=== PATIENT | female | born 1945 ===

== ENCOUNTER → 2020-01-05 10:28 | Outpatient (BNVA) | payer MEDICARE, SELFPAY | PROVIDERS: PCP Internal Medicine; Visit Provider Internal Medicine | DX: I48.20 Chronic atrial fibrillation, unspecified (principal); Z51.81 Encounter for therapeutic drug level monitoring; Z79.01 Long term (current) use of anticoagulants | CPT/HCPCS: 85610 ==

== ENCOUNTER → 2020-02-01 10:18 | Outpatient (REF) | payer MEDICARE, SELFPAY ==
--- NOTE | 2020-02-01 10:30 | CA_ITS ---
Transthoracic Echocardiogram Patient (Last, First, Middle): Carla Bernal, Gender: Female Date of : 1945 Age: 74 Procedure Date: 02/01/2020 Procedure Type: Transthoracic Echocardiogram Location: OP Height: 165.1 cm Weight: 78.47 kg BSA: 1.86 m2 Heart Rate: bpm BP: 140 / [address] Mail Carrier: SHARON Referring MD: Lion Dahl MD Frog Shaker: Hernandez Sheridan MD Symptoms: I48.3 ATYPICAL ATRIAL FLUTTER, R06.02 SOB Study Quality: Fair ECG Rhythm: Sinus Conclusions: - 1. Normal LV systolic function with impaired relaxation filling pattern 2. Normal cardiac valvular Doppler 3. Normal RV systolic pressure 4. No pericardial effusion Findings Left Ventricle Normal left ventricular size, thickness, and systolic function. The visually estimated ejection fraction is between 65-70%. Spectral Doppler is indicative of an impaired relaxation filling pattern. E/E prime ratio is <8, consistent with normal filling pressures. Evidence suggests grade I (mild) diastolic dysfunction. Right Ventricle Normal right ventricular cavity size and systolic function. Atria The left atrium is normal in size. Interatrial shunt cannot be excluded. The right atrium is normal in size. Aortic Valve The aortic valve was not well visualized. There is no aortic valve stenosis. There is no aortic valve regurgitation. Mitral Valve There is mild anterior and posterior mitral leaflet thickening. There is trace mitral valve regurgitation. There is no mitral valve stenosis. Pulmonic Valve The pulmonic valve was not well visualized. Tricuspid Valve Likely normal tricuspid valve structure and function. There is trace tricuspid valve regurgitation. The right ventricular systolic pressure is normal. The right ventricular systolic pressure is 32 mmHg. Normal right atrial pressure. There is no evidence of pulmonary hypertension. Great Vessels All visible segments of the aorta are normal in size. The pulmonary artery was not well visualized. Venous The inferior vena cava is normal in size and collapses greater than 50% with inspiration. Pericardium/Pleural There is no evidence of pericardial effusion. Measurements 2D Linear Measurements IVSd: 0.94 0.6-0.9/0.6-1.0 cm LVIDd: 4.15 3.9-5.3/4.2-5.9 cm LVIDd Index: 2.23 2.4-3.2/2.2-3.1 cm/m2 LVIDs: 2.46 2.0-3.6 cm LVPWd: 1.01 0.7-1.1 cm LA Diam: 3.30 2.7-3.8/3.0-4.0 cm LAIDs Index: 1.77 1.5-2.3 cm/m2 LV Mass: 161.26 67-162/88-224 g LV Mass Index: 86.70 43-95/49-115 g/m2 LVOT Diam: 2.10 3.0+(-)1.3 cm 2D Systolic Function EF 4C: 67.10 >55% EF 2C: 76.60 >55% EF BiP: 71.80 >55% Mitral Valve MV Pk E: 0.56 MV PK A: 0.74 MV Decel Time: 132.00 E/A: 0.80 E'Lateral: 9.48 E'Medial: 6.29 E/E' Med: 8.90 E/E' Lat: 5.90 PHT: 39.00 MVA PHT: 5.64 Decel [place]: 4.22 Aortic Valve AoV Pk Derrick: 1.40 AoV Pk Grad: 8.00 LVOT LVOT Pk Derrick: 1.12 LVOT Mn Derrick: 0.76 LVOT VTI: 0.27 LVOT Pk Grad: 5.00 LVOT Mn Grad: 3.00 LVOT Diam: 2.10 LVOT Area: 3.46 Diastolic Function MV Pk E: 0.56 MV Pk A: 0.74 E/A: 0.80 E'Medial: 6.29 E/E' Med: 8.90 E' Laterial: 9.48 E/E' Lat: 5.90 Tricuspid Valve TR Pk Derrick: 2.67 TR Pk Grad: 29.00 RA Press: 3.00 RVSP: 32.00 Great Vessels Aorta Ao Asc: 2.80 2.1-3.4 cm Updated in Other Vendor System with Status of Final Hernandez Sheridan MD electronically signed on 02/03/2020 11:54:17 AM with status of Final
--- NOTE | 2020-02-01 11:30 | ECG_ITS ---
Hook-up date: 2020-02-01 11:42:00 Duration: 22:55:00 Test Indications: ATRIAL FLUTTER Medications: 26418 QRS complexes 46 Ventricular ectopics which represent <1 % of total QRS comp. 8 Supraventricular ectopics which represent <1 % of total QRS comp. * Paced QRS complexs which represent % of total QRS comp. VENTRICULAR ECTOPY 46 Isolated 0 Bigeminal Cycles 0 Couplets 0 Runs 0 Beats in Runs * Beats LONGEST at * BPM at :: -- * Beats FASTEST at * BPM at :: -- SUPRAVENTRICULAR ECTOPY 8 Isolated 0 Couplets 0 Runs 0 Beats in Runs * Beats LONGEST at * BPM at :: -- * Beats FASTEST at * BPM at :: -- HEART RATES 51 MIN at 04:45:44 2020-02-02 69 AVG 104 MAX at 14:36:12 2020-02-01 LONGEST RR 1.2400 secs at 04:46:42 2020-02-02 S-T LEVELS Channel 1 - 128 mm at 11:42:00 2020-02-01 - 128 mm at 11:42:00 2020-02-01 Channel 2 - 128 mm at 11:42:00 2020-02-01 - 128 mm at 11:42:00 2020-02-01 Channel 3 - 128 mm at 03:10:11 -- - 128 mm at 03:10:11 Underlying rhythm is sinus; Average ventricular rate 69/min; range 51-104/min; Rare supraventricular and ventricular ectopy; No atrial flutter or fibrillation; Patient did not report any symptoms in the diary Referred By: Jacquie Pérez Overread By: JACQUIE PÉREZ
== END ==
LOC: HO.CARD 10:18
PROVIDERS: Visit Provider Internal Medicine
DX: I48.3 Typical atrial flutter (principal); R06.02 Shortness of breath
CPT/HCPCS: 93225; 93226; 93306

== ENCOUNTER → 2020-02-02 10:34 | Outpatient (BNVA) | payer MEDICARE, SELFPAY | PROVIDERS: PCP Internal Medicine; Visit Provider Internal Medicine | DX: I48.20 Chronic atrial fibrillation, unspecified (principal); Z51.81 Encounter for therapeutic drug level monitoring; Z79.01 Long term (current) use of anticoagulants | CPT/HCPCS: 85610; 99211 ==

== ENCOUNTER → 2020-02-09 12:25 | Outpatient (BNVA) | payer MEDICARE, SELFPAY | PROVIDERS: PCP Internal Medicine; Visit Provider Internal Medicine | DX: I48.92 Unspecified atrial flutter (principal); Z79.01 Long term (current) use of anticoagulants; Z79.899 Other long term (current) drug therapy; Z98.890 Other specified postprocedural states | CPT/HCPCS: 93005; 99212 ==

== ENCOUNTER → 2020-03-19 10:35 | Outpatient (BNVA) | payer MEDICARE, SELFPAY | PROVIDERS: PCP Internal Medicine; Visit Provider Internal Medicine | DX: I48.20 Chronic atrial fibrillation, unspecified (principal); Z51.81 Encounter for therapeutic drug level monitoring; Z79.01 Long term (current) use of anticoagulants | CPT/HCPCS: 85610; 99211 ==

== ENCOUNTER → 2020-04-23 10:24 | Outpatient (BNVA) | payer MEDICARE, SELFPAY | PROVIDERS: PCP Internal Medicine; Visit Provider Internal Medicine | DX: I48.20 Chronic atrial fibrillation, unspecified (principal); Z51.81 Encounter for therapeutic drug level monitoring; Z79.01 Long term (current) use of anticoagulants | CPT/HCPCS: 85610; 99211 ==

== ENCOUNTER → 2020-06-11 16:26 | Outpatient (BNVA) | payer MEDICARE, SELFPAY | PROVIDERS: PCP Internal Medicine; Visit Provider Internal Medicine | DX: I48.20 Chronic atrial fibrillation, unspecified (principal); Z51.81 Encounter for therapeutic drug level monitoring; Z79.01 Long term (current) use of anticoagulants | CPT/HCPCS: 85610; 99211 ==

== ENCOUNTER → 2020-06-14 14:56 | Outpatient (BNVA) | payer MEDICARE, SELFPAY | PROVIDERS: PCP Internal Medicine; Visit Provider Internal Medicine | DX: I48.20 Chronic atrial fibrillation, unspecified (principal); Z51.81 Encounter for therapeutic drug level monitoring; Z79.01 Long term (current) use of anticoagulants | CPT/HCPCS: 85610; 99211 ==

== ENCOUNTER → 2020-06-28 10:09 | Outpatient (BNVA) | payer MEDICARE, SELFPAY | PROVIDERS: PCP Internal Medicine; Visit Provider Internal Medicine | DX: I48.20 Chronic atrial fibrillation, unspecified (principal); Z51.81 Encounter for therapeutic drug level monitoring; Z79.01 Long term (current) use of anticoagulants | CPT/HCPCS: 85610; 99211 ==

== ENCOUNTER → 2020-07-19 10:33 | Outpatient (BNVA) | payer MEDICARE, SELFPAY | PROVIDERS: PCP Internal Medicine; Visit Provider Internal Medicine | DX: I48.20 Chronic atrial fibrillation, unspecified (principal); Z79.01 Long term (current) use of anticoagulants; Z51.81 Encounter for therapeutic drug level monitoring | CPT/HCPCS: 85610; 99211 ==

== ENCOUNTER → 2020-08-07 13:38 | Outpatient (BNVA) | payer MEDICARE, SELFPAY | PROVIDERS: PCP Internal Medicine; Visit Provider Internal Medicine | DX: I48.92 Unspecified atrial flutter (principal); C53.9 Malignant neoplasm of cervix uteri, unspecified; Z79.899 Other long term (current) drug therapy; Z79.01 Long term (current) use of anticoagulants; Z98.890 Other specified postprocedural states | CPT/HCPCS: Q3014 ==

== ENCOUNTER → 2020-08-09 10:43 | Outpatient (BNVA) | payer MEDICARE, SELFPAY | PROVIDERS: PCP Internal Medicine; Visit Provider Internal Medicine | DX: I48.20 Chronic atrial fibrillation, unspecified (principal); Z51.81 Encounter for therapeutic drug level monitoring; Z79.01 Long term (current) use of anticoagulants | CPT/HCPCS: 85610; 99211 ==

== ENCOUNTER → 2020-08-15 11:03 | Outpatient (BNVA) | payer MEDICARE, SELFPAY | PROVIDERS: PCP Internal Medicine; Visit Provider Internal Medicine | DX: I48.20 Chronic atrial fibrillation, unspecified (principal); Z51.81 Encounter for therapeutic drug level monitoring; Z79.01 Long term (current) use of anticoagulants | CPT/HCPCS: 85610; 99211 ==

== ENCOUNTER → 2020-08-29 11:30 | Outpatient (BNVA) | payer MEDICARE, SELFPAY | PROVIDERS: PCP Internal Medicine; Visit Provider Internal Medicine | DX: I48.20 Chronic atrial fibrillation, unspecified (principal); Z51.81 Encounter for therapeutic drug level monitoring; Z79.01 Long term (current) use of anticoagulants | CPT/HCPCS: 85610; 99211 ==

== ENCOUNTER → 2020-09-14 10:25 | Outpatient (BNVA) | payer MEDICARE, SELFPAY | PROVIDERS: PCP Internal Medicine; Visit Provider Internal Medicine | DX: I48.20 Chronic atrial fibrillation, unspecified (principal); Z51.81 Encounter for therapeutic drug level monitoring; Z79.01 Long term (current) use of anticoagulants | CPT/HCPCS: 85610; 99211 ==

== ENCOUNTER → 2020-10-10 14:27 | Outpatient (BNVA) | payer MEDICARE, SELFPAY | PROVIDERS: PCP Internal Medicine; Visit Provider Internal Medicine | DX: I48.20 Chronic atrial fibrillation, unspecified (principal); Z51.81 Encounter for therapeutic drug level monitoring; Z79.01 Long term (current) use of anticoagulants | CPT/HCPCS: 85610; 99211 ==

== ENCOUNTER → 2020-10-18 12:28 | Outpatient (BNVA) | payer MEDICARE, SELFPAY | PROVIDERS: PCP Internal Medicine; Visit Provider Internal Medicine | DX: I48.20 Chronic atrial fibrillation, unspecified (principal); Z51.81 Encounter for therapeutic drug level monitoring; Z79.01 Long term (current) use of anticoagulants | CPT/HCPCS: 85610; 99211 ==

== ENCOUNTER → 2020-10-22 10:27 | Outpatient (BNVA) | payer MEDICARE, SELFPAY | PROVIDERS: PCP Internal Medicine; Visit Provider Internal Medicine | DX: I48.20 Chronic atrial fibrillation, unspecified (principal); Z51.81 Encounter for therapeutic drug level monitoring; Z79.01 Long term (current) use of anticoagulants | CPT/HCPCS: 85610; 99211 ==

== ENCOUNTER → 2020-11-12 10:27 | Outpatient (BNVA) | payer MEDICARE, SELFPAY | PROVIDERS: PCP Internal Medicine; Visit Provider Internal Medicine | DX: I48.20 Chronic atrial fibrillation, unspecified (principal); Z51.81 Encounter for therapeutic drug level monitoring; Z79.01 Long term (current) use of anticoagulants | CPT/HCPCS: 85610; 99211 ==

== ENCOUNTER → 2020-12-05 10:26 | Outpatient (BNVA) | payer MEDICARE, SELFPAY | PROVIDERS: PCP Internal Medicine; Visit Provider Internal Medicine | DX: I48.20 Chronic atrial fibrillation, unspecified (principal); Z51.81 Encounter for therapeutic drug level monitoring; Z79.01 Long term (current) use of anticoagulants | CPT/HCPCS: 85610; 99211 ==

== ENCOUNTER → 2020-12-13 10:24 | Outpatient (BNVA) | payer MEDICARE, SELFPAY | PROVIDERS: PCP Internal Medicine; Visit Provider Internal Medicine | DX: I48.92 Unspecified atrial flutter (principal); I48.20 Chronic atrial fibrillation, unspecified; C53.9 Malignant neoplasm of cervix uteri, unspecified; Z79.899 Other long term (current) drug therapy; Z79.01 Long term (current) use of anticoagulants; Z98.890 Other specified postprocedural states | CPT/HCPCS: 85610; 93005; 99211; 99212 ==

== ENCOUNTER → 2020-12-27 11:07 | Outpatient (BNVA) | payer MEDICARE, SELFPAY | PROVIDERS: PCP Internal Medicine; Visit Provider Internal Medicine | DX: I48.20 Chronic atrial fibrillation, unspecified (principal); Z51.81 Encounter for therapeutic drug level monitoring; Z79.01 Long term (current) use of anticoagulants | CPT/HCPCS: 85610; 99211 ==

== ENCOUNTER → 2021-01-14 11:06 | Outpatient (BNVA) | payer MEDICARE, SELFPAY | PROVIDERS: PCP Internal Medicine; Visit Provider Internal Medicine | DX: I48.20 Chronic atrial fibrillation, unspecified (principal); Z51.81 Encounter for therapeutic drug level monitoring; Z79.01 Long term (current) use of anticoagulants | CPT/HCPCS: 85610; 99211 ==

== ENCOUNTER → 2021-01-29 11:26 | Outpatient (BNVA) | payer MEDICARE, SELFPAY | PROVIDERS: PCP Internal Medicine; Visit Provider Internal Medicine | DX: I48.20 Chronic atrial fibrillation, unspecified (principal); Z51.81 Encounter for therapeutic drug level monitoring; Z79.01 Long term (current) use of anticoagulants | CPT/HCPCS: 85610; 99211 ==

== ENCOUNTER → 2021-02-26 15:42 | Outpatient (BNVA) | payer MEDICARE, SELFPAY | PROVIDERS: PCP Internal Medicine; Visit Provider Internal Medicine | DX: I48.20 Chronic atrial fibrillation, unspecified (principal); Z51.81 Encounter for therapeutic drug level monitoring; Z79.01 Long term (current) use of anticoagulants | CPT/HCPCS: 85610; 99211 ==

== ENCOUNTER 2021-03-04 10:32 | Outpatient (REF) | payer MEDICARE, SELFPAY ==
[2021-03-04 10:35] LABS: MANUAL DIFF FLAG NO
[2021-03-04 11:11] LABS: Basophils Percent Auto 0.7 % (0-2); Eosinophils Absolute Auto 0.3 X10*3/uL (0.0-0.4); Eosinophils Percent Auto 5.6 % (0-4); Hematocrit 39.1 % (37.0-47.0); Hemoglobin 12.3 g/dl (12.0-16.0); Imm Gran Abs Auto 0.01 X10*3/uL (0.00-0.03); Imm Gran Pct Auto 0.2 % (0.0-0.4); Lymphocytes Absolute Auto 1.4 X10*3/uL (1.2-4.9); Lymphocytes Percent Auto 30.9 % (20-40); Mean Corpuscular HGB Conc 31.5 g/dl (31.0-35.0); Mean Corpuscular Hemoglobin 32.3 pg (27.0-33.0); Mean Corpuscular Volume 102.6 fL (80.0-98.0); Mean Platelet Volume 9.2 fL (9.4-12.3); Monocytes Absolute Auto 0.4 X10*3/uL (0.1-1.2); Monocytes Percent Auto 9.3 % (2-11); Neutrophils Absolute Auto 2.4 x10*3/uL (2.0-8.3); Neutrophils Percent Auto 53.3 % (45-73); Platelet Count 238 X10*3/uL (160-400); Red Blood Count 3.81 X10*6/uL (4.20-5.50); Red Cell Distribution Width 12.4 % (11.0-16.0); White Blood Count 4.4 X10*3/uL (4.8-10.8)
[2021-03-04 11:18] LABS: Appearance Urine CLEAR; Color Urine YELLOW; Glucose Urine UA NEG (NEG); Leukocyte Esterase Urine NEG (NEG); Nitrite Urine NEG (NEG); Specific Gravity - Urine 1.025 (1.005-1.025); Urine Blood NEG (NEG); Urine Ketones NEG (NEG); Urine Protein NEG (NEG-TRACE)
[2021-03-04 11:23] LABS: Estimated Average Glucose 105 mg/dL; Hemoglobin A1c % 5.3 %
[2021-03-04 11:37] LABS: Alanine Aminotransferase 18 U/L (0-31); Albumin Level 3.8 g/dL (3.5-5.0); Alkaline Phosphatase 77 U/L (39-117); Anion Gap 12 (12-20); Aspartate Amino Transferase 19 U/L (5-31); Bilirubin Total 0.5 mg/dL (0.0-1.0); Blood Urea Nitrogen 14 mg/dL (9-16); Calcium 9.1 mg/dL (8.4-10.2); Carbon Dioxide 23 mmol/L (22-29); Chloride 108 mmol/L (96-108); Cholesterol 231 mg/dL; Estimated Glomerular Filt Rate > 60; Glucose Fasting 91 mg/dL (60-99); HDL Cholesterol 53 mg/dL; LDL Cholesterol Calculated 147 mg/dl; Potassium 4.4 mmol/L (3.3-5.1); Sodium 139 mmol/L (135-145); Total Protein 6.7 g/dL (6.5-8.0); Triglycerides 155 mg/dL
[2021-03-04 11:38] LABS: Microalbum/Creatinine Ratio Ur 33.8 ug/mg cr
[2021-03-04 11:53] LABS: Reflex LDLD? No
== END 2021-03-04 10:33 | disposition home or self-care (01) ==
LOC: HO.LNP 10:32
PROVIDERS: Visit Provider Internal Medicine
DX: Z00.00 Encounter for general adult medical examination without abnormal findings (principal); R73.09 Other abnormal glucose; E78.00 Pure hypercholesterolemia, unspecified; I10 Essential (primary) hypertension
CPT/HCPCS: 80053; 80061; 81003; 82043; 83036; 85025

== ENCOUNTER → 2021-03-12 10:36 | Outpatient (BNVA) | payer MEDICARE, SELFPAY | PROVIDERS: PCP Internal Medicine; Visit Provider Internal Medicine | DX: I48.20 Chronic atrial fibrillation, unspecified (principal); Z51.81 Encounter for therapeutic drug level monitoring; Z79.01 Long term (current) use of anticoagulants | CPT/HCPCS: 85610; 99211 ==

== ENCOUNTER → 2021-04-09 10:44 | Outpatient (BNVA) | payer MEDICARE, SELFPAY | PROVIDERS: PCP Internal Medicine; Visit Provider Internal Medicine | DX: I48.20 Chronic atrial fibrillation, unspecified (principal); Z51.81 Encounter for therapeutic drug level monitoring; Z79.01 Long term (current) use of anticoagulants | CPT/HCPCS: 85610; 99211 ==

== ENCOUNTER 2021-04-11 10:09 | Outpatient (REF) | payer MEDICARE, SELFPAY ==
[2021-04-11 10:12] LABS: MANUAL DIFF FLAG NO
[2021-04-11 10:52] LABS: Basophils Percent Auto 0.7 % (0-2); Eosinophils Absolute Auto 0.3 X10*3/uL (0.0-0.4); Eosinophils Percent Auto 7.5 % (0-4); Hematocrit 41.1 % (37.0-47.0); Imm Gran Abs Auto 0.01 X10*3/uL (0.00-0.03); Imm Gran Pct Auto 0.2 % (0.0-0.4); Lymphocytes Absolute Auto 1.2 X10*3/uL (1.2-4.9); Lymphocytes Percent Auto 28.1 % (20-40); Mean Corpuscular HGB Conc 31.6 g/dl (31.0-35.0); Mean Corpuscular Hemoglobin 32.3 pg (27.0-33.0); Monocytes Absolute Auto 0.4 X10*3/uL (0.1-1.2); Monocytes Percent Auto 9.3 % (2-11); Neutrophils Absolute Auto 2.4 x10*3/uL (2.0-8.3); Neutrophils Percent Auto 54.2 % (45-73); Platelet Count 238 X10*3/uL (160-400); Red Blood Count 4.03 X10*6/uL (4.20-5.50); Red Cell Distribution Width 12.9 % (11.0-16.0); White Blood Count 4.4 X10*3/uL (4.8-10.8)
== END 2021-04-11 10:10 | disposition home or self-care (01) ==
LOC: HO.LNP 10:09
PROVIDERS: Visit Provider Internal Medicine
DX: D70.9 Neutropenia, unspecified (principal)
CPT/HCPCS: 85025

== ENCOUNTER → 2021-04-23 11:10 | Outpatient (BNVA) | payer MEDICARE, SELFPAY | PROVIDERS: PCP Internal Medicine; Visit Provider Internal Medicine | DX: I48.20 Chronic atrial fibrillation, unspecified (principal); Z51.81 Encounter for therapeutic drug level monitoring; Z79.01 Long term (current) use of anticoagulants | CPT/HCPCS: 85610; 99211 ==

== ENCOUNTER → 2021-05-21 11:13 | Outpatient (BNVA) | payer MEDICARE, SELFPAY | PROVIDERS: PCP Internal Medicine; Visit Provider Internal Medicine | DX: I48.20 Chronic atrial fibrillation, unspecified (principal); Z51.81 Encounter for therapeutic drug level monitoring; Z79.01 Long term (current) use of anticoagulants | CPT/HCPCS: 85610; 99211 ==

== ENCOUNTER → 2021-06-11 10:43 | Outpatient (BNVA) | payer MEDICARE, SELFPAY | PROVIDERS: PCP Internal Medicine; Visit Provider Internal Medicine | DX: I48.20 Chronic atrial fibrillation, unspecified (principal); Z51.81 Encounter for therapeutic drug level monitoring; Z79.01 Long term (current) use of anticoagulants | CPT/HCPCS: 85610; 99211 ==

== ENCOUNTER 2021-06-16 05:19 | Emergency (ER) | payer MEDICARE, SELFPAY ==
--- NOTE | ~2021-06-16 | US_ITS ---
EXAMINATION: US VENOUS ULTRASOUND WITH DOPPLER LOWER EXTREMITY, RIGHT CLINICAL INFORMATION: Right leg pain COMPARISON: None TECHNIQUE: Ultrasound of the deep veins is performed from the hip to the calf with compression sonography and color and pulse Doppler assessment. Spectral analysis with color-flow imaging is performed. FINDINGS: There is normal venous compression and respiratory variation and augmented flow. The visualized common femoral vein, superficial femoral vein, profunda femoral vein, popliteal vein, and the trifurcation region shows no evidence of deep venous thrombosis. There is no significant popliteal fossa cyst. No popliteal artery aneurysm identified. In the region of patient's pain about the anterior proximal thigh no ultrasound abnormalities appreciated. US/US venous duplex LE RT IMPRESSION: No acute DVT demonstrated in the right lower extremity.
--- NOTE | ~2021-06-16 | XR_ITS ---
EXAMINATION: XR HIP, RIGHT CLINICAL INFORMATION: Pain COMPARISON: None TECHNIQUE: AP pelvis and 2 views of the right hip of the right hip. FINDINGS: There is no evidence of acute fracture or diastases of the pelvis. There is some sclerotic change seen involving the left sacroiliac joint. 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 There appears be significant lumbar spine spondylosis L4-S1 with prominent right-sided facet arthropathy L5-S1. The hip joint spaces appear maintained. Vascular calcifications present. There is no evidence of acute fracture or dislocation of the right hip. There is some mild spurring about the greater trochanter. Right hip joint space maintained. No evidence of lytic or sclerotic lesion involving the femoral head and no evidence of femoral head flattening or collapse. XR/XR hip RT min 2V IMPRESSION: Lower lumbar spondylosis. Osteitis pubis. No evidence of acute fracture or dislocation of the right hip.
[2021-06-16 05:46] VITALS: BP 147/57; PULSE 78; RESP 16; TEMP 36.7; O2SAT 98; BMI 30.1
[2021-06-16 09:12] VITALS: BP 146/58; PULSE 80; RESP 18; O2SAT 97
[2021-06-16 09:13] LABS: MANUAL DIFF FLAG NO
[2021-06-16 09:14] LABS: Basophils Percent Auto 0.9 % (0-2); Eosinophils Absolute Auto 0.2 X10*3/uL (0.0-0.4); Eosinophils Percent Auto 4.8 % (0-4); Hematocrit 39.2 % (37.0-47.0); Hemoglobin 12.5 g/dl (12.0-16.0); Imm Gran Abs Auto 0.01 X10*3/uL (0.00-0.03); Imm Gran Pct Auto 0.2 % (0.0-0.4); Lymphocytes Absolute Auto 1.1 X10*3/uL (1.2-4.9); Lymphocytes Percent Auto 25.2 % (20-40); Mean Corpuscular HGB Conc 31.9 g/dl (31.0-35.0); Mean Corpuscular Hemoglobin 31.9 pg (27.0-33.0); Mean Platelet Volume 8.7 fL (9.4-12.3); Monocytes Absolute Auto 0.4 X10*3/uL (0.1-1.2); Monocytes Percent Auto 8.6 % (2-11); Neutrophils Absolute Auto 2.7 x10*3/uL (2.0-8.3); Neutrophils Percent Auto 60.3 % (45-73); Platelet Count 227 X10*3/uL (160-400); Red Blood Count 3.92 X10*6/uL (4.20-5.50); Red Cell Distribution Width 12.8 % (11.0-16.0); White Blood Count 4.4 X10*3/uL (4.8-10.8)
[2021-06-16 09:21] LABS: INTERNATIONAL NORM RATIO 2.7 (0.9-1.1); Prothrombin Time 31.6 SEC (9.9-13.0)
--- NOTE | 2021-06-16 09:34 | ED_ITS ---
HPI - Extremity Problem General Chief complaint: Extremity Problem Stated complaint: r leg pain/no injury Time Seen by Provider: 06/16/21 07:36 History of Present Illness HPI Narrative: Patient is 75-year-old female present today with having right leg pain. Patient complained of pain in the right hip area. Patient denies any bowel or urinary incontinence. There is no radiation to the back. Pain worsen with movement of the hip. Patient denies any swelling. Has a history of being on Coumadin for atrial fibrillation. Patient denies any diaphoresis no chest pain no dizziness. Patient denies any trauma. Complaining of some mild swelling to that leg. It has since resolved. The pain is been ongoing for approximately 2 weeks. Related Data Home Medications Medication Instructions Recorded Confirmed diltiazem HCl 120 mg 120 mg PO DAILY 02/09/20 06/11/21 capsule,extended release 24 hr Previous Rx's Medication Instructions Recorded warfarin 5 mg tablet 5 mg PO DAILY #90 tab 01/05/20 lisinopril 10 mg tablet 10 mg PO DAILY #90 tab 12/04/20 flecainide 50 mg tablet 50 mg PO Q12H #180 tab 02/25/21 Allergies Allergy/AdvReac Type Severity Reaction Status Date / Time amoxicillin [From AUGMENTIN] Allergy Unknown UNKNOWN Verified 06/11/21 11:19 clavulanic acid Allergy Unknown UNKNOWN Verified 06/11/21 11:19 [From AUGMENTIN] Review of Systems Review of Systems: No trauma Positive pain to the right hip No focal weakness All system reviewed otherwise negative Yes all other systems are reviewed and are negative PMFSH Past Medical History Attestation statement: The following information was validated with the patient. Medical History Cervical cancer Essential hypertension assisted current use of antiarrhythmic drug assisted current use of anticoagulant Paroxysmal atrial flutter Surgical History History of cardioversion Family History Family History Father No problems noted. Mother No problems noted. Social History Social History Advance Directives: Yes Advance Directives Information Provided: Yes Advance Directives on File: No Physical Exam Vital Signs: Vital Signs: Last Vital Signs Temp 98.1 F 06/16/21 05:46 Pulse 80 06/16/21 09:12 Resp 18 06/16/21 09:12 BP 146/58 H 06/16/21 09:12 Pulse Ox 97 06/16/21 09:12 BMI result Body Mass Index 30.1 Appearance: Alert. Oriented X3. No acute distress. Eyes: Pupils equal, round and reactive to light. ENT: Pharynx normal. Neck: Normal inspection. Neck supple. No lymph nodes noted. No crepitus CVS: Normal heart rate and rhythm. Pulses normal. Normal S1 and S2 Respiratory: No respiratory distress. Breath sounds normal. No Wheezing. No rales Abdomen: Soft and nontender. No rigidity. No distention. good BS x4 Skin: Skin warm and dry. Normal skin color. Normal skin turgor. Extremities: No lower extremity edema. Neurovascular intact to all extremities. No Lacerations. No Rash. Pain on flexion of the right hip. No edema noted. Sensation over distal foot intact. Pulse 2 +at dorsalis pedis. Neuro: Oriented X 3. No motor deficit. No sensory deficit. Moving all extermi ties. No slurred speech MDM - Extremity (Nontraumatic) MDM Narrative Medical decision making narrative: Doppler of the right lower extremity is grossly negative for any acute evidence of DVT. Patient's INR is over 2 making DVT even less likely. Patient's x-ray the hip was grossly negative. Electrolytes unremarkable. Question arthritis. Will have patient follow-up on an outpatient basis. Question sciatica as well. Patient has no bowel urinary incontinence is no focal weakness. Lab Data Result diagrams: 06/16/21 09:08 06/16/21 09:08 Labs: Lab Results 06/16/21 06/16/21 06/16/21 Range/Units 09:08 09:08 09:08 WBC 4.4 L (4.8-10.8) X10*3/uL RBC 3.92 L (4.20-5.50) X10*6/uL Hgb 12.5 (12.0-16.0) g/dl Hct 39.2 (37.0-47.0) % MCV 100.0 H (80.0-98.0) fL MCH 31.9 (27.0-33.0) pg MCHC 31.9 (31.0-35.0) g/dl RDW 12.8 (11.0-16.0) % Plt Count 227 (160-400) X10*3/uL MPV 8.7 L (9.4-12.3) fL Immature Gran % (Auto) 0.2 (0.0-0.4) % Neut % (Auto) 60.3 (45-73) % Lymph % (Auto) 25.2 (20-40) % [place] % (Auto) 8.6 (2-11) % Eos % (Auto) 4.8 H (0-4) % Baso % (Auto) 0.9 (0-2) % Lymph # (Auto) 1.1 L (1.2-4.9) X10*3/uL [place] # (Auto) 0.4 (0.1-1.2) X10*3/uL Eos # (Auto) 0.2 (0.0-0.4) X10*3/uL Baso # (Auto) 0.0 (0.0-0.2) X10*3/uL Abs Immat Gran (auto) 0.01 (0.00-0.03) X10*3/uL Absolute Neuts (auto) 2.7 (2.0-8.3) x10*3/uL Absolute Nucleated RBC 0.000 (0.0-0.012) X10*3/uL Nucleated RBC % (auto) 0.0 (0.0-0.2) /100WBC PT 31.6 H (9.9-13.0) SEC INR 2.7 H (0.9-1.1) Sodium 138 (135-145) mmol/L Potassium 4.6 (3.3-5.1) mmol/L Chloride 106 (96-108) mmol/L Carbon Dioxide 24 (22-29) mmol/L Anion Gap 13 (12-20) BUN 16 (9-16) mg/dL Creatinine 0.83 (0.5-1.4) mg/dL Estim Creat Clear Calc 62.0 Estimated GFR > 60 Random Glucose 106 (60-115) mg/dL Calcium 9.5 (8.4-10.2) mg/dL Discharge Plan Discharge Clinical Impression: Acute hip pain Patient Disposition: Home, Self-Care Instructions: Hip Pain (ED) Prescriptions: No Action lisinopril 10 mg tablet 10 mg PO DAILY Qty: 90 2RF flecainide 50 mg tablet 50 mg PO Q12H Qty: 180 4RF warfarin 5 mg tablet 5 mg PO DAILY Qty: 90 0RF Protocol: Dose Management Condition: Thursday (Week One) Dose/Route: 5 mg Instruction: 1 x 5 mg tablet Condition: Thursday Dose/Route: 2.5 mg Instruction: 0.5 x 5 mg tablets Condition: Thursday Dose/Route: 5 mg Instruction: 1 x 5 mg tablet Condition: Thursday Dose/Route: 5 mg Instruction: 1 x 5 mg tablet Condition: Dose/Route: 5 mg Instruction: 1 x 5 mg tablet Condition: Thursday Dose/Route: 5 mg Instruction: 1 x 5 mg tablet Condition: Thursday Dose/Route: 5 mg Instruction: 1 x 5 mg tablet Condition: Thursday ( Two) Dose/Route: 5 mg Instruction: 1 x 5 mg tablet Condition: Thursday Dose/Route: 2.5 mg Instruction: 0.5 x 5 mg tablets Condition: Thursday Dose/Route: 5 mg Instruction: 1 x 5 mg tablet Condition: Thursday Dose/Route: 5 mg Instruction: 1 x 5 mg tablet Condition: Dose/Route: 5 mg Instruction: 1 x 5 mg tablet Condition: Thursday Dose/Route: 5 mg Instruction: 1 x 5 mg tablet Condition: Thursday Dose/Route: 5 mg Instruction: 1 x 5 mg tablet Protocol Text: Adjustment Start Date: Thursday06/11/21 INR Value: 2.7 INR Date: 06/11/21 Recheck Date: 07/09/21 Rx Instructions: 2.5MG FRI 5MG SAT SUN Thu diltiazem HCl 120 mg capsule,extended release 24hr 120 mg PO DAILY 0RF Referrals: Darren Pavon MD [Primary Care Provider] - 2 days
[2021-06-16 09:36] LABS: Anion Gap 13 (12-20); Blood Urea Nitrogen 16 mg/dL (9-16); Calcium 9.5 mg/dL (8.4-10.2); Carbon Dioxide 24 mmol/L (22-29); Chloride 106 mmol/L (96-108); Estimated Glomerular Filt Rate > 60; Glucose Random 106 mg/dL (60-115); Potassium 4.6 mmol/L (3.3-5.1); Sodium 138 mmol/L (135-145)
== END 2021-06-16 09:55 | disposition home or self-care (01) ==
PROVIDERS: Emergency Provider Emergency Medicine Emergency Medical Services; PCP Internal Medicine
DX: M25.551 Pain in right hip (principal); M79.604 Pain in right leg; R60.0 Localized edema; Z79.899 Other long term (current) drug therapy
CPT/HCPCS: 36415; 73502; 80048; 85025; 85610; 93971; 99283

== ENCOUNTER → 2021-06-21 13:53 | Outpatient (BNVA) | payer MEDICARE, SELFPAY | PROVIDERS: PCP Internal Medicine; Visit Provider Nurse Practitioner Family | DX: M53.3 Sacrococcygeal disorders, not elsewhere classified (principal); M47.816 Spondylosis without myelopathy or radiculopathy, lumbar region; M25.551 Pain in right hip | CPT/HCPCS: 99202 ==

== ENCOUNTER → 2021-07-03 12:40 | Outpatient (BNVA) | payer MEDICARE, SELFPAY | PROVIDERS: PCP Internal Medicine; Referring Provider Internal Medicine; Visit Provider Internal Medicine | DX: I48.92 Unspecified atrial flutter (principal); I44.0 Atrioventricular block, first degree; I10 Essential (primary) hypertension; Z79.899 Other long term (current) drug therapy | CPT/HCPCS: 99212 ==

== ENCOUNTER 2021-07-04 13:11 | Outpatient (REF) | payer MEDICARE, SELFPAY ==
--- NOTE | ~2021-07-04 | MR_ITS ---
EXAMINATION: MR HIP WITHOUT CONTRAST, RIGHT CLINICAL INFORMATION: Osteonecrosis. COMPARISON: X-ray of the right hip 06/16/2021. Patient reports right groin pain for 8 weeks. TECHNIQUE: MRI of the right hip was obtained using routine sequences on a high-field strength magnet. FINDINGS: SUBCUTANEOUS SOFT TISSUES: Minimal generalized edema. MUSCLES/TENDONS: Normal. LABRUM/CAPSULE: Normal. BONE/CARTILAGE: There is diffuse abnormal signal throughout the marrow surrounding the right acetabulum and extending proximally into the distal portion of the iliac bone as well as into the anterior column at the junction of the acetabulum in the superior ramus. There may be some subtle fracture lines present along the superior medial aspect of the acetabulum and the posterior superior acetabulum. I do not see a discrete bone lesion. There is no soft tissue mass. There is a mild effusion of the joint. The articular cartilage is intact. In the large ppxhl-ef-eeyg of the single series of the pelvis, there are some degenerative changes in the sacroiliac joints. The left hip joint is unremarkable. Symphysis pubis demonstrates mild degenerative change. NEUROVASCULAR STRUCTURES: Normal. MISCELLANEOUS: In the large ssvdp-ia-jcne of the pelvis, the intrapelvic soft tissues are unremarkable. There is multilevel spondylosis of the partially visualized lumbosacral spine. MR/MR hip RT wo con IMPRESSION: Diffuse signal abnormality in the right acetabular region and the distal right iliac bone. Findings most likely reflect multiple fractures/insufficiency fracture surrounding the acetabulum. Neoplasm is thought to be very unlikely. Consider follow up MRI in 8-12 weeks if symptoms persist.
== END 2021-07-04 13:12 | disposition home or self-care (01) ==
LOC: HO.MRI 13:11
PROVIDERS: PCP Internal Medicine; Visit Provider Internal Medicine
DX: M87.9 Osteonecrosis, unspecified (principal)
CPT/HCPCS: 73721

== ENCOUNTER → 2021-07-09 11:33 | Outpatient (BNVA) | payer MEDICARE, SELFPAY | PROVIDERS: PCP Internal Medicine; Visit Provider Internal Medicine | DX: I48.20 Chronic atrial fibrillation, unspecified (principal); Z51.81 Encounter for therapeutic drug level monitoring; Z79.01 Long term (current) use of anticoagulants | CPT/HCPCS: 85610; 99211 ==

== ENCOUNTER → 2021-07-23 10:55 | Outpatient (BNVA) | payer MEDICARE, SELFPAY | PROVIDERS: PCP Internal Medicine; Visit Provider Internal Medicine | DX: I48.20 Chronic atrial fibrillation, unspecified (principal); Z79.01 Long term (current) use of anticoagulants; Z51.81 Encounter for therapeutic drug level monitoring | CPT/HCPCS: 85610; 99211 ==

== ENCOUNTER 2021-08-13 06:06 | Day surgery (SDC) | payer MEDICARE, SELFPAY ==
[2021-08-07 15:14] VITALS: BMI 29.5
--- NOTE | 2021-08-12 09:55 | HO.ANESPROP2 ---
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 Mother No problems noted. Surgical History Surgical History (Updated 08/07/21 @ 15:09 by Kimberly Martinez RN) History of appendectomy History of cardioversion History of facelift Hx of colonoscopy Hx of dilation and curettage Social History Social History (Updated 07/03/21 @ 12:53 by NUPUR Barrett) Patient Tobacco Use Status: Former Tobacco user Quit Date: 1992 Use of substances other than those prescribed or required for medical reasons: No Are you DNR?: No Advance Directives: No Advance Directives Information Provided: Yes Meds Allergies Allergy/AdvReac Type Severity Reaction Status Date / Time amoxicillin [From AUGMENTIN] Allergy Unknown UNKNOWN Verified 07/23/21 11:30 clavulanic acid Allergy Unknown UNKNOWN Verified 07/23/21 11:30 [From AUGMENTIN] Home Medications Medication Instructions Recorded Confirmed Last Taken Type diltiazem HCl 120 mg 120 mg PO DAILY 02/09/20 07/23/21 Unknown History capsule,extended release 24 hr Exam Exam Date and Time: August 12, 2021 0956 Height,Weight and Vital Signs: Height 5 ft 6 in Weight 83.007 kg Pertinent Lab Results Pertinent Lab Results: Laboratory Tests 06/16/21 06/16/21 09:08 09:08 WBC 4.4 L Hgb 12.5 Hct 39.2 Plt Count 227 Sodium 138 Potassium 4.6 Chloride 106 Carbon Dioxide 24 BUN 16 Creatinine 0.83 Narrative Narrative: EKG 06/2021 sr with 1st degree av block @ 76bmp ECHO 01/2020 Conclusions: - 1. Normal LV systolic function with impaired relaxation filling pattern? 2. Normal cardiac valvular Doppler ? 3. Normal RV systolic pressure ? 4. No pericardial effusion ? Assessment and Plan Assessment Anesthesia Assessment: Chart Reviewed Documented by User: Jonathan Barajas MD 08/13/21 07:48 PMFSH Past Medical History Medical History (Updated 08/07/21 @ 15:11 by Kimberly Martinez RN) Cervical cancer Essential hypertension correction current use of antiarrhythmic drug correction current use of anticoagulant Paroxysmal atrial flutter Family History Family History Father No problems noted. Mother No problems noted. Family history of problems with anesthesia: No Surgical History Surgical History (Updated 08/07/21 @ 15:09 by Kimberly Martinez RN) History of appendectomy History of cardioversion History of facelift Hx of colonoscopy Hx of dilation and curettage History of Problems with Anesthesia: No Social History Social History (Updated 07/03/21 @ 12:53 by NUPUR Barrett) Patient Tobacco Use Status: Former Tobacco user Quit Date: 1992 Use of substances other than those prescribed or required for medical reasons: No Are you DNR?: No Advance Directives: No Advance Directives Information Provided: Yes Meds Allergies Allergy/AdvReac Type Severity Reaction Status Date / Time amoxicillin [From AUGMENTIN] Allergy Unknown UNKNOWN Verified 07/23/21 11:30 clavulanic acid Allergy Unknown UNKNOWN Verified 07/23/21 11:30 [From AUGMENTIN] Home Medications Medication Instructions Recorded Confirmed Last Taken Type diltiazem HCl 120 mg 120 mg PO DAILY 02/09/20 07/23/21 Unknown History capsule,extended release 24 hr Exam Airway Mallampati Class: I TM Dist: >3cm Neck ROM: Full Denture: Upper Partial: Lower Assessment and Plan Assessment Anesthesia Assessment: Anesthesia Plan Discussed Final Anesthetic Review Family History of Problems with Anesthesia: No History of Problems with Anesthesia: No NPO: Yes ASA Class: III Final Preanesthetic Review: No Changes in Pt Med Stat, Meds/Allgs Chart Reviewed, Consent Obtained/Reviewed and Anes Risks/Benef Reviewed Patient Risk: Intermediate Procedure Risk: Low Anesthetic Plan Anesthetic Plan: MAC: Disposition: Standard PACU
[2021-08-13 07:01] VITALS: BP 151/70; PULSE 84; RESP 16; TEMP 36.8; O2SAT 99
[2021-08-13] MEDS: Lactated Ringers 1,000 ML 100 ML IVCONT (07:02)
[2021-08-13 07:09] LABS: INTERNATIONAL NORM RATIO 1.1 (0.9-1.1)
[2021-08-13 08:35] VITALS: BP 133/65; PULSE 72; RESP 16; TEMP 36.3; O2SAT 97
--- NOTE | 2021-08-13 08:41 | P.BOP_ITS ---
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 Ascending colon polyp) Condition: stable Disposition: PACU
[2021-08-13 08:50] VITALS: BP 137/65; PULSE 67; RESP 16; TEMP 36.3; O2SAT 96
--- NOTE | 2021-08-13 10:14 | OP_ITS ---
SURGEON: Juliocesar Box MD INDICATIONS: The patient presents for evaluation of rectal bleeding. Full consent has been obtained from her for this, including risks of bleeding and perforation. PREOPERATIVE DIAGNOSIS: Rectal bleeding. 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 PROCEDURE PERFORMED: Colonoscopy to cecum and terminal ileum with biopsy and removal of polyp. ESTIMATED BLOOD LOSS: COMPLICATIONS: ANESTHESIA: Medication use, monitored anesthesia care. ASSISTANTS: SPECIMENS: DESCRIPTION OF PROCEDURE: The patient was placed in the left lateral decubitus position. The digital rectal exam revealed no abnormalities. The Olympus video pediatric colonoscope was entered into the rectum and advanced to the cecum. Advancement past the sigmoid colon was difficult due to spasm, edema, probable adhesions, and a friable mucosa. Once in the cecum, I did identify normal-appearing cecal pouch with appendiceal orifice and normal-appearing ileocecal valve. The terminal ileum was cannulated and appeared normal. The scope withdrawn back in the colon. The entire cecum and ileocecal valve appeared normal. The scope was slowly withdrawn assessing all mucosal surfaces carefully. Preparation was excellent. In the ascending colon was an approximately 3 or 4 mm polyp, which was biopsied and completely removed with cold biopsy forceps. I did not visualize any other polyps nor colitis. There was a mild amount of sigmoid diverticulosis. The main finding was in the distal sigmoid colon beginning between 20 and 30 cm and extending down into the rectal area. The mucosa was quite friable, pale and edematous. There were also telangiectasias from the rectum to between 20 and 30 cm. This did lead to a lot of mucosal bleeding during the procedure. I did not visualize any other mucosal abnormalities such as polyps, although there was a great deal of spasm in this area. Biopsies were not obtained. I was able to retroflex in the rectum visualizing some minimal internal hemorrhoids, but no other pathology. The distal rectal mucosa appeared normal. The scope was straightened and withdrawn from the patient. She tolerated the procedure well and was returned to the recovery area in stable condition. IMPRESSION: 1. 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 2. Small colon polyp. 3. Diverticulosis. 4. Minimal internal hemorrhoids. PLAN: Given this finding, which certainly seems to be related to the radiation she had 6-12 months ago for the cervical cancer, I shall start her on a trial of mesalamine suppository. I do not think the changes would be amenable to anything such as argon plasma coagulation given the distribution. Something else to consider would be that of either topical treatment with a mesalamine enema or cortisone enema. She was advised to resume her Coumadin today and have it adjusted as per her physician or the [facility]. Obviously, the Coumadin will cause more bleeding, but she apparently needs that for the atrial fibrillation. This has all been discussed with the patient and her . She will be seen in followup as well.. MD EJ Warren/TOSIN / [id number] MTDD
== END 2021-08-13 09:23 | disposition home or self-care (01) ==
PROVIDERS: PCP Internal Medicine; Visit Provider Internal Medicine
PROC: 0DJD8ZZ Inspection of Lower Intestinal Tract, Via Natural or Artificial Opening Endoscopic (ICD-10-PCS; CPT 45378; principal; 2021-08-13 07:30)
DX: K62.5 Hemorrhage of anus and rectum (principal); D12.2 Benign neoplasm of ascending colon; K57.30 Diverticulosis of large intestine without perforation or abscess without bleeding; K64.8 Other hemorrhoids; K52.0 Gastroenteritis and colitis due to radiation; K62.7 Radiation proctitis; Y84.2 Radiological procedure and radiotherapy as the cause of abnormal reaction of the patient, or of later complication, without mention of misadventure at the time of the procedure; I10 Essential (primary) hypertension; I48.91 Unspecified atrial fibrillation; Z79.01 Long term (current) use of anticoagulants; Z85.41 Personal history of malignant neoplasm of cervix uteri; Z92.3 Personal history of irradiation; Z92.21 Personal history of antineoplastic chemotherapy; Z87.891 Personal history of nicotine dependence
CPT/HCPCS: 45380; 36415; 85610; 88305; J3010

== ENCOUNTER 2021-08-20 11:53 | Outpatient (REF) | payer MEDICARE, SELFPAY ==
--- NOTE | ~2021-08-20 | XR_ITS ---
EXAMINATION: XR CHEST CLINICAL INFORMATION: Pneumonia COMPARISON: Chest radiographs 05/26/2017, 04/01/2012, CT abdomen 07/11/2016. TECHNIQUE: 2 views of the chest were obtained. FINDINGS: There is prominent dextrocurvature mid to lower thoracic spine similar to prior studies. There is mild coarsening of the interstitial markings. There is no lobar segmental airspace consolidation or groundglass opacity or effusion. The heart is normal in size. The vascularity is normal. The costophrenic sulci are clear. Visualized hilar and mediastinal contours are unremarkable. XR/XR chest 2V IMPRESSION: -Mild coarsening interstitial markings. -No airspace consolidation or groundglass opacity or effusion. -Heart size normal. Vascularity normal.
[2021-08-20 13:04] LABS: INTERNATIONAL NORM RATIO 1.5 (0.9-1.1); Prothrombin Time 17.7 SEC (9.9-13.0)
== END 2021-08-20 11:54 | disposition home or self-care (01) ==
LOC: HO.XRAY 11:53
PROVIDERS: PCP Internal Medicine; Visit Provider Internal Medicine
DX: J18.9 Pneumonia, unspecified organism (principal); I48.20 Chronic atrial fibrillation, unspecified; Z51.81 Encounter for therapeutic drug level monitoring; Z79.01 Long term (current) use of anticoagulants
CPT/HCPCS: 36415; 71046; 85610; 99211

== ENCOUNTER → 2021-08-27 10:59 | Outpatient (BNVA) | payer MEDICARE, SELFPAY | PROVIDERS: PCP Internal Medicine; Visit Provider Internal Medicine | DX: I48.20 Chronic atrial fibrillation, unspecified (principal); Z79.01 Long term (current) use of anticoagulants; Z51.81 Encounter for therapeutic drug level monitoring | CPT/HCPCS: 85610; 99211 ==

== ENCOUNTER → 2021-09-10 11:20 | Outpatient (BNVA) | payer MEDICARE, SELFPAY | PROVIDERS: PCP Internal Medicine; Visit Provider Internal Medicine | DX: I48.20 Chronic atrial fibrillation, unspecified (principal); Z79.01 Long term (current) use of anticoagulants; Z51.81 Encounter for therapeutic drug level monitoring | CPT/HCPCS: 85610; 99211 ==

== ENCOUNTER → 2021-09-19 14:16 | Outpatient (BNVA) | payer MEDICARE, SELFPAY | PROVIDERS: PCP Internal Medicine; Visit Provider Internal Medicine | DX: I48.20 Chronic atrial fibrillation, unspecified (principal); Z79.01 Long term (current) use of anticoagulants; Z51.81 Encounter for therapeutic drug level monitoring | CPT/HCPCS: 85610; 99211 ==

== ENCOUNTER → 2021-10-10 13:07 | Outpatient (BNVA) | payer MEDICARE, SELFPAY | PROVIDERS: PCP Internal Medicine; Visit Provider Internal Medicine | DX: I48.20 Chronic atrial fibrillation, unspecified (principal); Z79.01 Long term (current) use of anticoagulants; Z51.81 Encounter for therapeutic drug level monitoring | CPT/HCPCS: 85610; 99211 ==

== ENCOUNTER → 2021-11-07 09:53 | Outpatient (BNVA) | payer MEDICARE, SELFPAY | PROVIDERS: PCP Internal Medicine; Visit Provider Internal Medicine | DX: I48.20 Chronic atrial fibrillation, unspecified (principal); Z79.01 Long term (current) use of anticoagulants; Z51.81 Encounter for therapeutic drug level monitoring | CPT/HCPCS: 85610; 99211 ==

== ENCOUNTER 2021-11-19 12:57 | Outpatient (REF) | payer MEDICARE, SELFPAY ==
--- NOTE | ~2021-11-19 | CT_ITS ---
EXAMINATION: CT CHEST WITHOUT CONTRAST CLINICAL INFORMATION: Solitary pulmonary nodule. COMPARISON: Chest x-ray 08/20/2021, CT abdomen and pelvis 07/11/2016. TECHNIQUE: Multidetector volumetric CT imaging of the chest was done. Axial MIP volume rendering provided. Sagittal and coronal reformatted images were obtained. This CT examination was performed using dose optimization techniques as appropriate, variously including the following: *Automated exposure control *Adjustment of mA and/or kV according to patient size (this includes techniques or standardized protocols for targeted exams where dose is matched to indication/reason for exam; i.e. extremities or head) *Use of iterative reconstruction technique DLP: 300 mGy-cm. FINDINGS: TELECASTING TECHNICIAN: Well-inflated lungs. LUNGS: The lungs are well expanded and clear of acute pneumonic process. There is a 3 mm nodule right upper lobe axial image 176/6, a 6 mm nodule right lower lobe laterally axial image 239/6, a 3 mm nodule pleural-based right lower lobe axial image 246/6, a 4 mm nodule right lower lobe axial image 286/6, a 4 mm nodule pleural-based left lower lobe axial image 313/8 and a 5 mm pleural-based nodule left lower lobe axial image 353/6. MEDIASTINUM: The thyroid lobes are symmetrical and normal. The central trachea and bronchi are widely patent. No abnormal-sized mediastinal lymph nodes seen. The heart size and the great vessels are normal caliber. No pericardial effusion seen. PLEURA: There is no pleural effusion. No pleural mass or thickening. AXILLA: No abnormal-sized inguinal lymph nodes seen. The chest wall is unremarkable. UPPER ABDOMEN: Visualized liver, spleen, pancreas and bilateral adrenal glands unremarkable. OSSEOUS STRUCTURES: There is moderate dextroscoliosis lower dorsal spine. No aggressive lytic or sclerotic process seen. There is 1.4 cm small lesion in the right posterior subcutaneous soft tissues, likely a sebaceous cyst on axial image 50/4. It is new since 07/11/2016. CT/CT chest wo con IMPRESSION: Multiple pulmonary nodules in the range of 3 to 6 mm. Recommend follow-up CT chest in one year based on patient risk factors. No abnormal mediastinal or axillary adenopathy seen. Fleischner guidelines were followed.
== END 2021-11-19 12:58 | disposition home or self-care (01) ==
LOC: HO.CT 12:57
PROVIDERS: PCP Internal Medicine; Visit Provider Internal Medicine
DX: R91.1 Solitary pulmonary nodule (principal)
CPT/HCPCS: 71250

== ENCOUNTER → 2021-12-12 09:44 | Outpatient (BNVA) | payer MEDICARE, SELFPAY | PROVIDERS: PCP Internal Medicine; Visit Provider Internal Medicine | DX: I48.20 Chronic atrial fibrillation, unspecified (principal); Z51.81 Encounter for therapeutic drug level monitoring; Z79.01 Long term (current) use of anticoagulants | CPT/HCPCS: 85610; 99211 ==

== ENCOUNTER 2021-12-26 09:16 | Outpatient (REF) | payer MEDICARE, SELFPAY ==
[2021-12-26 09:37] LABS: MANUAL DIFF FLAG NO
[2021-12-26 10:17] LABS: Basophils Percent Auto 0.6 % (0-2); Eosinophils Absolute Auto 0.3 X10*3/uL (0.0-0.4); Eosinophils Percent Auto 5.7 % (0-4); Hematocrit 31.9 % (37.0-47.0); Hemoglobin 10.1 g/dl (12.0-16.0); Imm Gran Abs Auto 0.02 X10*3/uL (0.00-0.03); Imm Gran Pct Auto 0.4 % (0.0-0.4); Lymphocytes Absolute Auto 1.1 X10*3/uL (1.2-4.9); Lymphocytes Percent Auto 22.6 % (20-40); Mean Corpuscular HGB Conc 31.7 g/dl (31.0-35.0); Mean Corpuscular Hemoglobin 31.9 pg (27.0-33.0); Mean Corpuscular Volume 100.6 fL (80.0-98.0); Mean Platelet Volume 8.7 fL (9.4-12.3); Monocytes Absolute Auto 0.5 X10*3/uL (0.1-1.2); Monocytes Percent Auto 9.8 % (2-11); Neutrophils Absolute Auto 2.9 x10*3/uL (2.0-8.3); Neutrophils Percent Auto 60.9 % (45-73); Platelet Count 308 X10*3/uL (160-400); Red Blood Count 3.17 X10*6/uL (4.20-5.50); Red Cell Distribution Width 13.8 % (11.0-16.0); White Blood Count 4.7 X10*3/uL (4.8-10.8)
== END 2021-12-26 09:17 | disposition home or self-care (01) ==
LOC: HO.LAB 09:16
PROVIDERS: PCP Internal Medicine; Visit Provider Internal Medicine
DX: I48.20 Chronic atrial fibrillation, unspecified (principal); K52.0 Gastroenteritis and colitis due to radiation; K62.5 Hemorrhage of anus and rectum; Z51.81 Encounter for therapeutic drug level monitoring; Z79.01 Long term (current) use of anticoagulants
CPT/HCPCS: 36415; 85025; 85610; 99211

== ENCOUNTER → 2022-01-08 11:55 | Outpatient (BNVA) | payer MEDICARE, SELFPAY | PROVIDERS: PCP Internal Medicine; Referring Provider Internal Medicine; Visit Provider Internal Medicine | DX: I48.92 Unspecified atrial flutter (principal); Z51.81 Encounter for therapeutic drug level monitoring; I44.0 Atrioventricular block, first degree; I10 Essential (primary) hypertension; Z79.899 Other long term (current) drug therapy | CPT/HCPCS: 93005; 99212 ==

== ENCOUNTER 2022-01-22 15:07 | Outpatient (REF) | payer MEDICARE, SELFPAY ==
--- NOTE | ~2022-01-22 | XR_ITS ---
EXAMINATION: XR CHEST CLINICAL INFORMATION: Shortness of breath COMPARISON: Chest CT 11/19/2021. Chest x-ray 08/20/2021 TECHNIQUE: 2 views of the chest were obtained. FINDINGS: Chronic coarse interstitial prominence. No focal consolidation or mass. No pleural effusion or pneumothorax. Cardiomediastinal silhouette remains prominent but unchanged. Marked convex right lower thoracic scoliosis. Multilevel degenerative changes. XR/XR chest 2V IMPRESSION: No acute pulmonary disease.
== END 2022-01-22 15:08 | disposition home or self-care (01) ==
LOC: HO.XRAY 15:07
PROVIDERS: PCP Internal Medicine; Visit Provider Internal Medicine
DX: R06.02 Shortness of breath (principal)
CPT/HCPCS: 71046

== ENCOUNTER → 2022-02-10 14:34 | Outpatient (REF) | payer MEDICARE, SELFPAY ==
--- NOTE | 2022-02-10 14:38 | CA_ITS ---
Transthoracic Echocardiogram Patient (Last, First, Middle): Carla Bernal, Gender: Female Date of : 1945 Age: 76 Procedure Date: 02/10/2022 Procedure Type: Transthoracic Echocardiogram Location: OP Height: 165.1 cm Weight: 81.65 kg BSA: 1.89 m2 Heart Rate: bpm BP: 128 / 70 mmHg Commercial Journeyman Electrician: Referring MD: Darren Pavon MD Ratchet Setter: Hernandez Sheridan MD Symptoms: R06.02 SOB Study Quality: Fair ECG Rhythm: Sinus Conclusions: - 1. Normal LV systolic function with grade 1 diastolic dysfunction 2. Normal cardiac valvular Dopplers 3. Normal RV systolic pressure 4. No gross pericardial effusion Findings Left Ventricle Normal left ventricular size, thickness, and systolic function. The visually estimated ejection fraction is between 65-70%. Spectral Doppler is indicative of an impaired relaxation filling pattern. E/E prime ratio is <8, consistent with normal filling pressures. Evidence suggests grade I (mild) diastolic dysfunction. Right Ventricle Normal right ventricular cavity size and systolic function. Atria Both atria are normal in size. There is an interatrial septal aneurysm seen bowing to the right. Interatrial shunt cannot be excluded. Aortic Valve Normal aortic valve structure and function. There is no aortic valve stenosis. There is no aortic valve regurgitation. Mitral Valve There is mild anterior and posterior mitral leaflet thickening. There is trace mitral valve regurgitation. There is no mitral valve stenosis. Pulmonic Valve The pulmonic valve is likely normal. There is trace to mild pulmonic valve regurgitation. Tricuspid Valve Normal tricuspid valve structure. There is mild tricuspid valve regurgitation. The right ventricular systolic pressure is normal. The right ventricular systolic pressure is 28 mmHg. Normal right atrial pressure. There is no evidence of pulmonary hypertension. Great Vessels All visible segments of the aorta are normal in size. The pulmonary artery was not well visualized. Venous The inferior vena cava is dilated and collapses greater than 50% with inspiration. Pericardium/Pleural There is no evidence of pericardial effusion. Prior Study Comparison No significant change compared to prior study dated: 02/01/2020. Recommendations, Care & Conclusions Recommend contrast study to evaluate intracardiac shunting. Measurements 2D Linear Measurements IVSd: 1.22 0.6-0.9/0.6-1.0 cm LVIDd: 3.57 3.9-5.3/4.2-5.9 cm LVIDd Index: 1.89 2.4-3.2/2.2-3.1 cm/m2 LVIDs: 2.45 2.0-3.6 cm LVPWd: 1.21 0.7-1.1 cm Ao Root: 2.80 2.1-3.5 cm LA Diam: 4.30 2.7-3.8/3.0-4.0 cm LAIDs Index: 2.28 1.5-2.3 cm/m2 LV Mass: 177.32 67-162/88-224 g LV Mass Index: 93.82 43-95/49-115 g/m2 LVOT Diam: 2.00 3.0+(-)1.3 cm Mitral Valve MV Pk E: 0.72 MV PK A: 1.00 MV Decel Time: 96.00 E/A: 0.70 E'Lateral: 12.60 E'Medial: 11.30 E/E' Med: 6.40 E/E' Lat: 5.70 PHT: 28.00 MVA PHT: 7.86 Decel Titus: 7.57 Aortic Valve AoV Pk Derrick: 1.87 AoV Mn Derrick: 1.24 AoV VTI: 0.39 AoV Pk Grad: 14.00 Aov Mn Grad: 7.00 KARLA Cont.VTI: 2.25 LVOT LVOT Pk Derrick: 1.26 LVOT Mn Derrick: 0.84 LVOT VTI: 0.28 LVOT Pk Grad: 6.00 LVOT Mn Grad: 4.00 LVOT Diam: 2.00 LVOT Area: 3.14 Diastolic Function MV Pk E: 0.72 MV Pk A: 1.00 E/A: 0.70 E'Medial: 11.30 E/E' Med: 6.40 E' Laterial: 12.60 E/E' Lat: 5.70 Right Ventricle TAPSE (mm): 37.00 Tricuspid Valve TR Pk Derrick: 2.51 TR Pk Grad: 25.00 RA Press: 3.00 RVSP: 28.00 Great Vessels Aorta Ao Root-2D: 2.80 2.0-3.7 cm Ao Asc: 2.80 2.1-3.4 cm Pulmonary Valve PV Pk Derrick: 1.52 Peak PV Grad: 9.00 Updated in Other Vendor System with Status of Final Hernandez Sheridan MD electronically signed on 02/11/2022 9:04:29 AM with status of Final
[2022-02-10 14:43] LABS: MANUAL DIFF FLAG NO
[2022-02-10 15:27] LABS: Basophils Absolute Auto 0.1 X10*3/uL (0.0-0.2); Basophils Percent Auto 1.2 % (0-2); Eosinophils Absolute Auto 0.3 X10*3/uL (0.0-0.4); Imm Gran Abs Auto 0.02 X10*3/uL (0.00-0.03); Imm Gran Pct Auto 0.5 % (0.0-0.4); Lymphocytes Absolute Auto 1.2 X10*3/uL (1.2-4.9); Lymphocytes Percent Auto 29.4 % (20-40); Mean Corpuscular HGB Conc 29.6 g/dl (31.0-35.0); Mean Corpuscular Hemoglobin 26.5 pg (27.0-33.0); Mean Corpuscular Volume 89.8 fL (80.0-98.0); Mean Platelet Volume 8.5 fL (9.4-12.3); Monocytes Absolute Auto 0.4 X10*3/uL (0.1-1.2); Monocytes Percent Auto 8.7 % (2-11); Neutrophils Absolute Auto 2.2 x10*3/uL (2.0-8.3); Neutrophils Percent Auto 53.2 % (45-73); Platelet Count 376 X10*3/uL (160-400); Red Blood Count 2.26 X10*6/uL (4.20-5.50); Red Cell Distribution Width 16.2 % (11.0-16.0); White Blood Count 4.1 X10*3/uL (4.8-10.8)
[2022-02-10 15:44] LABS: Alanine Aminotransferase 10 U/L (0-31); Albumin Level 3.9 g/dL (3.5-5.0); Alkaline Phosphatase 98 U/L (39-117); Anion Gap 15 (12-20); Aspartate Amino Transferase 13 U/L (5-31); Bilirubin Total 0.2 mg/dL (0.0-1.0); Blood Urea Nitrogen 16 mg/dL (9-16); Carbon Dioxide 23 mmol/L (22-29); Chloride 107 mmol/L (96-108); Estimated Glomerular Filt Rate > 60; Glucose Random 128 mg/dL (60-115); Potassium 4.7 mmol/L (3.3-5.1); Sodium 140 mmol/L (135-145); Total Protein 6.8 g/dL (6.5-8.0)
[2022-02-10 16:21] LABS: Hematocrit 20.3 % (37.0-47.0)
== END ==
LOC: HO.CARD 14:34
PROVIDERS: Visit Provider Internal Medicine
DX: I48.20 Chronic atrial fibrillation, unspecified (principal); R06.02 Shortness of breath; Z51.81 Encounter for therapeutic drug level monitoring; Z79.01 Long term (current) use of anticoagulants
CPT/HCPCS: 36415; 80053; 85025; 85610; 93306; 99211

== ENCOUNTER 2022-02-10 16:54 | Inpatient (IN) | payer MEDICARE, SELFPAY ==
[2022-02-10] VITALS (10 sets, daily range): BP systolic 98–192; BP diastolic 56–78; PULSE 91–114; RESP 14–20; TEMP 36.7–37.4; O2SAT 97–100; BMI 30.2
--- NOTE | ~2022-02-10 | XR_ITS ---
EXAMINATION: XR chest 1V CLINICAL INFORMATION: Shortness of breath COMPARISON: Prior x-ray 01/22/2022. TECHNIQUE: XR chest 1V Tubes and lines: None Lungs and pleura: Lungs are hyperinflated suggesting air trapping disease COPD. Bilateral apical pleural thickening pleural capping unchanged. Heart and mediastinum: The mediastinum is within normal limits.. Bones/soft tissue: Severe dextroscoliosis. XR/XR chest 1V IMPRESSION: 1. Hyperinflated lungs suggesting air trapping disease COPD. 2. No radiographic evidence of acute infiltrates or failure.
--- NOTE | 2022-02-10 16:58 | ED.GENADULT ---
HPI - General Adult General Chief complaint: General Medical <Mary Stewart MD - Last Filed: 02/10/22 17:13> Stated complaint: abnormal lab results <Mary Stewart MD - Last Filed: 02/10/22 17:13> Time Seen by Provider: 02/10/22 17:45 <Mary Stewart MD - Last Filed: 02/10/22 17:13> Source: patient <ARA Carrillo - Last Filed: 02/10/22 19:17> Mode of arrival: ambulatory <ARA Carrillo - Last Filed: 02/10/22 19:17> Limitations: no limitations <ARA Carrillo - Last Filed: 02/10/22 19:17> History of Present Illness HPI narrative: 76 y/o female with history of HTN, paroxysmal atrial flutter on Coumadin, s/p cardioversion in the past, history of ongoing LGIB for the last several months who presents to the ER for evaluation of abnormal lab work. She had outpatient lab workup today that showed hemoglobin of 6. She was called by her PCP and told to come to the ER for further evaluation. Patient reports that she has had several weeks to months of lower GI bleeding. She states the degree and amount of bleeding changes from day-to-day, but mostly her bowel movements have bright red blood in intermittently some clots. She denies any melena or black, tarry stool. She has had no abdominal pain, nausea, vomiting. She had a colonoscopy with Dr. 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 Patient has been experiencing shortness of breath and dyspnea on exertion for the last 1 month , prompting her telehealth appointment with her PCP. Routine blood work was done today showing a hemoglobin of 6.0 and hematocrit of 20.3. Her H/H prior to this was 10.1/31.9 on December 26. <ARA Carrillo - Last Filed: 02/10/22 19:17> MD complaint: GI bleeding and anemia <ARA Carrillo - Last Filed: 02/10/22 19:17> Onset (ago): month(s) <ARA Carrillo - Last Filed: 02/10/22 19:17> Location: buttocks <ARA Carrillo Last Filed: 02/10/22 19:17> Radiation: non-radiation <ARA Carrillo - Last Filed: 02/10/22 19:17> Severity: moderate <ARA Carrillo - Last Filed: 02/10/22 19:17> Pain Consistency: intermittent <ARA Carrillo - Last Filed: 02/10/22 19:17> Relieving factors: medication (Imodium) <ARA Carrillo - Last Filed: 02/10/22 19:17> Exacerbating factors: none <ARA Carrillo - Last Filed: 02/10/22 19:17> Associated symptoms: shortness of breath <ARA Carrillo - Last Filed: 02/10/22 19:17> Treatments prior to arrival: none <ARA Carrillo - Last Filed: 02/10/22 19:17> Related Data Home medications: Home Medications Medication Instructions Recorded Confirmed diltiazem HCl 120 mg 120 mg PO DAILY 02/09/20 02/10/22 capsule,extended release 24 hr balsalazide 750 mg capsule 2,250 mg PO TID 01/08/22 02/10/22 albuterol sulfate 90 mcg/actuation 2 puff inhalation Q6H PRN Wheezing 02/10/22 02/10/22 aerosol inhaler lisinopril 10 mg tablet 10 mg PO BEDTIME 02/10/22 02/10/22 loperamide 2 mg tablet 2 mg PO Q4H PRN Diarrhea 02/10/22 02/10/22 warfarin 5 mg tablet 2.5 mg PO MOFR 02/10/22 02/10/22 warfarin 5 mg tablet 5 mg PO SUTUWETHSA 02/10/22 02/10/22 Previous Rx's Medication Instructions Recorded warfarin 5 mg tablet 5 mg PO DAILY #90 tabs 01/05/20 flecainide 50 mg tablet 50 mg PO Q12H #180 tabs 02/25/21 <Mary Stewart MD - Last Filed: 02/10/22 17:13> Allergies/adverse reactions: Allergies Allergy/AdvReac Type Severity Reaction Status Date / Time amoxicillin [From AUGMENTIN] Allergy Unknown UNKNOWN Verified 02/10/22 14:11 clavulanic acid Allergy Unknown UNKNOWN Verified 02/10/22 14:11 [From AUGMENTIN] <Mary Stewart MD - Last Filed: 02/10/22 17:13> Review of Systems Review of Systems: Constitutional: No Fever, No Chills ENT/Mouth: No sore throat, No Rhinorrhea, No Swallowing Difficulty Eyes: No Eye Pain, No Swelling, No Redness Cardiovascular: No Chest Pain, + SOB, No Orthopnea, No Edema Respiratory: No Cough, No Sputum, No Wheezing, + dyspnea Gastrointestinal: No Nausea, No Vomiting, No Diarrhea, No abdominal Pain, + Hematochezia, No Melena Genitourinary: No Dysuria, No Urinary Frequency, No Hematuria Musculoskeletal: No joint pain, No Myalgias Skin: No Skin Lesions, No rash Neuro: No Weakness, No Numbness, + Dizziness, No Headache Psych: No Anxiety/Panic, No Depression Heme/Lymph: No Bruising, No Lymphadenopathy Endocrine: No Polyuria, No Polydipsia <ARA Carrillo - Last Filed: 02/10/22 19:17> FOR[facility], [facility] Past Medical History Medical History: Medical History (Updated 02/10/22 @ 18:19 by ARA Carrillo) Cervical cancer Essential hypertension long term care pharmacist current use of antiarrhythmic drug long term care pharmacist current use of anticoagulant Paroxysmal atrial flutter <Mary Stewart MD - Last Filed: 02/10/22 17:13> Surgical History: Surgical History History of appendectomy History of cardioversion History of facelift Hx of colonoscopy Hx of dilation and curettage <Mary Stewart MD - Last Filed: 02/10/22 17:13> Family History Family History: Family History Father No problems noted. Mother No problems noted. <Mary Stewart MD - Last Filed: 02/10/22 17:13> Social History Social History: Social History Patient Tobacco Use Status: Former Tobacco user Quit Date: 1992 Advance Directives: No Advance Directives Information Provided: Yes <Mary Stewart MD - Last Filed: 02/10/22 17:13> Physical Exam ED Vital Signs: Vital Signs - 24 hr 02/10/22 16:58 02/10/22 18:07 Temperature 98.4 F Pulse Rate 114 H 108 H Respiratory Rate 20 18 Blood Pressure 142/64 H 171/68 H Pulse Oximetry 100 97 Oxygen Delivery Method Room Air Room Air BMI result Body Mass Index 30.2 <Mary Stewart MD - Last Filed: 02/10/22 17:13> Vital Signs - 24 hr 02/10/22 16:58 02/10/22 18:07 Temperature 98.4 F Pulse Rate 114 H 108 H Respiratory Rate 20 18 Blood Pressure 142/64 H 171/68 H Pulse Oximetry 100 97 Oxygen Delivery Method Room Air Room Air BMI result Body Mass Index 30.2 <ARA Carrillo - Last Filed: 02/10/22 19:17> Appearance: Alert. Oriented X3. No acute distress. Pale Eyes: Pupils equal, round and reactive to light. Conjunctival pallor ENT: Pharynx normal. Neck: Normal inspection. Neck supple. CVS: Normal heart rate and rhythm. Pulses normal. Respiratory: No respiratory distress. Breath sounds normal. Abdomen: Soft and nontender. +BS x4 RODY: dark red, loose stool in the rectal vault, non-tender, no palpable hemorrhoids Skin: Skin warm and dry. Normal skin color. Normal skin turgor. No rashes. Extremities: No lower extremity edema. Neuro: Oriented X 3. No motor deficit. No sensory deficit. <ARA Carrillo - Last Filed: 02/10/22 19:17> Course Course Course Narrative: Triage GENEVIEVE -pt comes to the ED, pt had labwork done for coumadin, takes coumadin for atrial flutter, had an echo today, pt went home, received a phone call to tell her pt's hgb was 6 -had colonoscopy july [address] 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, colon polyp -c/o lightheadedness, fatigue, symtoms present for 4 months -pt on coumadin, sometimes c/o of blood clots in stool, intermittent, no abdominal pain -pt has hx of cervical CA, radiation tx , last time 2 yrs ago -pt willing to receive blood -PE: S1S2 + 2 systolic murmur, moderately pale, sob walking to triage, HR 133, O2 100% RA -REpeat hematology, f/u BNP, CXR, ekg, type and screen ordered, will need occult blood test/RODY <Mary Stewart MD - Last Filed: 02/10/22 17:13> Reevaluation(s) Reevaluation #1: 76-year-old female with history of a flutter on Coumadin presenting with symptomatic anemia in the setting of ongoing lower GI bleeding for the last several months. She has had dyspnea and shortness of breath for the last 1 month. She has not had her INR checked in 1 month. She is significantly anemic to 6/20 from 01/27 at the end of November. Her INR is 4.5. She will require reversal. She is tachycardic but otherwise has a stable blood pressure, no active bleeding at this time. Will plan to transfuse 1 unit of PRBCs and 1 unit of FFP to reverse her INR. She will require admission to the hospital for further monitoring. <ARA Carrillo - Last Filed: 02/10/22 19:17> Time: 18:16 <ARA Carrillo - Last Filed: 02/10/22 19:17> Consultations Consultation #1: Dr. Rivera - GI <ARA Carrillo - Last Filed: 02/10/22 19:17> Medications Administered Discontinued Medications Generic Name Dose Route Start Last Admin Trade Name Freq PRN Reason Stop Dose Admin Phytonadione 10 mg 02/10/22 18:00 02/10/22 18:49 Phytonadione (Vit K1) Oral 10 Mg/Ml Ampul PO 02/10/22 18:01 10 mg ONCE ONE Administration <Mary Stewart MD - Last Filed: 02/10/22 17:13> Medications Administered Discontinued Medications Generic Name Dose Route Start Last Admin Trade Name Freq PRN Reason Stop Dose Admin Phytonadione 10 mg 02/10/22 18:00 02/10/22 18:49 Phytonadione (Vit K1) Oral 10 Mg/Ml Ampul PO 02/10/22 18:01 10 mg ONCE ONE Administration <ARA Carrillo - Last Filed: 02/10/22 19:17> Medical Decision Making Lab Data Result diagrams: : 02/10/22 18:45 <Mary Stewart MD - Last Filed: 02/10/22 17:13> Labs: Lab Results 02/10/22 02/10/22 02/10/22 Range/Units 18:45 18:45 18:45 WBC 3.7 L (4.8-10.8) X10*3/uL RBC 2.22 L (4.20-5.50) X10*6/uL Hgb 5.9 L* (12.0-16.0) g/dl Hct 19.7 L* (37.0-47.0) % MCV 88.7 (80.0-98.0) fL MCH 26.6 L (27.0-33.0) pg MCHC 29.9 L (31.0-35.0) g/dl RDW 16.4 H (11.0-16.0) % Plt Count 364 (160-400) X10*3/uL MPV 8.6 L (9.4-12.3) fL Immature Gran % (Auto) 0.3 (0.0-0.4) % Neut % (Auto) 56.4 (45-73) % Lymph % (Auto) 26.7 (20-40) % [place] % (Auto) 10.6 (2-11) % Eos % (Auto) 5.2 H (0-4) % Baso % (Auto) 0.8 (0-2) % Lymph # (Auto) 1.0 L (1.2-4.9) X10*3/uL [place] # (Auto) 0.4 (0.1-1.2) X10*3/uL Eos # (Auto) 0.2 (0.0-0.4) X10*3/uL Baso # (Auto) 0.0 (0.0-0.2) X10*3/uL Abs Immat Gran (auto) 0.01 (0.00-0.03) X10*3/uL Absolute Neuts (auto) 2.1 (2.0-8.3) x10*3/uL Absolute Nucleated RBC 0.000 (0.0-0.012) X10*3/uL Nucleated RBC % (auto) 0.0 (0.0-0.2) /100WBC PT 54.1 H (10.0-13.1) SEC INR 4.4 H D (0.9-1.1) APTT 54.0 H (26.0-36.4) SEC Stool Occult Blood (NEGATIVE) COVID-19 (ROSALBA) Negative (Negative) COVID-19 Clin Com See Note Crossmatch 02/10/22 02/10/22 Range/Units 18:45 18:45 WBC (4.8-10.8) X10*3/uL RBC (4.20-5.50) X10*6/uL Hgb (12.0-16.0) g/dl Hct (37.0-47.0) % MCV (80.0-98.0) fL MCH (27.0-33.0) pg MCHC (31.0-35.0) g/dl RDW (11.0-16.0) % Plt Count (160-400) X10*3/uL MPV (9.4-12.3) fL Immature Gran % (Auto) (0.0-0.4) % Neut % (Auto) (45-73) % Lymph % (Auto) (20-40) % [place] % (Auto) (2-11) % Eos % (Auto) (0-4) % Baso % (Auto) (0-2) % Lymph # (Auto) (1.2-4.9) X10*3/uL [place] # (Auto) (0.1-1.2) X10*3/uL Eos # (Auto) (0.0-0.4) X10*3/uL Baso # (Auto) (0.0-0.2) X10*3/uL Abs Immat Gran (auto) (0.00-0.03) X10*3/uL Absolute Neuts (auto) (2.0-8.3) x10*3/uL Absolute Nucleated RBC (0.0-0.012) X10*3/uL Nucleated RBC % (auto) (0.0-0.2) /100WBC PT (10.0-13.1) SEC INR (0.9-1.1) APTT (26.0-36.4) SEC Stool Occult Blood POSITIVE (NEGATIVE) COVID-19 (ROSALBA) (Negative) COVID-19 Clin Com Crossmatch See Detail <Mary Stewart MD - Last Filed: 02/10/22 17:13> Lab Results 02/10/22 02/10/22 02/10/22 Range/Units 18:45 18:45 18:45 WBC 3.7 L (4.8-10.8) X10*3/uL RBC 2.22 L (4.20-5.50) X10*6/uL Hgb 5.9 L* (12.0-16.0) g/dl Hct 19.7 L* (37.0-47.0) % MCV 88.7 (80.0-98.0) fL MCH 26.6 L (27.0-33.0) pg MCHC 29.9 L (31.0-35.0) g/dl RDW 16.4 H (11.0-16.0) % Plt Count 364 (160-400) X10*3/uL MPV 8.6 L (9.4-12.3) fL Immature Gran % (Auto) 0.3 (0.0-0.4) % Neut % (Auto) 56.4 (45-73) % Lymph % (Auto) 26.7 (20-40) % [place] % (Auto) 10.6 (2-11) % Eos % (Auto) 5.2 H (0-4) % Baso % (Auto) 0.8 (0-2) % Lymph # (Auto) 1.0 L (1.2-4.9) X10*3/uL [place] # (Auto) 0.4 (0.1-1.2) X10*3/uL Eos # (Auto) 0.2 (0.0-0.4) X10*3/uL Baso # (Auto) 0.0 (0.0-0.2) X10*3/uL Abs Immat Gran (auto) 0.01 (0.00-0.03) X10*3/uL Absolute Neuts (auto) 2.1 (2.0-8.3) x10*3/uL Absolute Nucleated RBC 0.000 (0.0-0.012) X10*3/uL Nucleated RBC % (auto) 0.0 (0.0-0.2) /100WBC PT 54.1 H (10.0-13.1) SEC INR 4.4 H D (0.9-1.1) APTT 54.0 H (26.0-36.4) SEC Stool Occult Blood (NEGATIVE) COVID-19 (ROSALBA) Negative (Negative) COVID-19 Clin Com See Note Crossmatch 02/10/22 02/10/22 Range/Units 18:45 18:45 WBC (4.8-10.8) X10*3/uL RBC (4.20-5.50) X10*6/uL Hgb (12.0-16.0) g/dl Hct (37.0-47.0) % MCV (80.0-98.0) fL MCH (27.0-33.0) pg MCHC (31.0-35.0) g/dl RDW (11.0-16.0) % Plt Count (160-400) X10*3/uL MPV (9.4-12.3) fL Immature Gran % (Auto) (0.0-0.4) % Neut % (Auto) (45-73) % Lymph % (Auto) (20-40) % [place] % (Auto) (2-11) % Eos % (Auto) (0-4) % Baso % (Auto) (0-2) % Lymph # (Auto) (1.2-4.9) X10*3/uL [place] # (Auto) (0.1-1.2) X10*3/uL Eos # (Auto) (0.0-0.4) X10*3/uL Baso # (Auto) (0.0-0.2) X10*3/uL Abs Immat Gran (auto) (0.00-0.03) X10*3/uL Absolute Neuts (auto) (2.0-8.3) x10*3/uL Absolute Nucleated RBC (0.0-0.012) X10*3/uL Nucleated RBC % (auto) (0.0-0.2) /100WBC PT (10.0-13.1) SEC INR (0.9-1.1) APTT (26.0-36.4) SEC Stool Occult Blood POSITIVE (NEGATIVE) COVID-19 (ROSALBA) (Negative) COVID-19 Clin Com Crossmatch See Detail <ARA Carrillo - Last Filed: 02/10/22 19:17> Critical Care Time Critical Care Time Critical Care Time: Yes <ARA Carrillo - Last Filed: 02/10/22 19:17> Total Critical Care Time: 39 <ARA Carrillo - Last Filed: 02/10/22 19:17> Attestation: I have personally provided critical care time exclusive of time spent on separately billable procedures. Time includes review of lab data, radiology results, discussion with consultants, and monitoring for potential decompensation. Intervention performed as documented. <ARA Carrillo - Last Filed: 02/10/22 19:17> Discharge Plan Discharge Clinical Impression: Acute blood loss anemia, Lower gastrointestinal bleeding <Mary Stewart MD - Last Filed: 02/10/22 17:13> Patient Disposition: Admitted As Inpatient <Mary Stewart MD - Last Filed: 02/10/22 17:13>
--- NOTE | 2022-02-10 17:04 | ECG_ITS ---
Test Reason : QUESTIONED AFLUTTER Blood Pressure : / mmHG Vent. Rate : 099 BPM Atrial Rate : 099 BPM P-R Int : 242 ms QRS Dur : 102 ms QT Int : 342 ms P-R-T Axes : 077 -13 064 degrees QTc Int : 438 ms Sinus rhythm with 1st degree A-V block RSR' or QR pattern in V1 suggests right ventricular conduction delay Low voltage QRS Borderline ECG When compared with ECG of 08-OCT-2017 10:49, Premature ventricular complexes are no longer Present Premature atrial complexes are no longer Present Referred By: Mary Stewart Electronically Signed By:DARIO MEDEROS MD
[2022-02-10] MEDS: Phytonadione (Vit K1) Oral 10 MG/ML AMPUL PO (18:49)
[2022-02-10 18:52] LABS: MANUAL DIFF FLAG NO
--- NOTE | 2022-02-10 18:53 | PC.NURSE ---
pt had labs at her PCP and was told her Hg was at 6. her PCP told her to come to the ED. She is alert and oriented and says she feels tired. gave her vitamin K. IV in place on rt ac.
[2022-02-10 18:54] LABS: OBS Int Ctl Valid YES; OBS1 POSITIVE (NEGATIVE)
[2022-02-10 19:01] LABS: Basophils Percent Auto 0.8 % (0-2); Eosinophils Absolute Auto 0.2 X10*3/uL (0.0-0.4); Eosinophils Percent Auto 5.2 % (0-4); Imm Gran Abs Auto 0.01 X10*3/uL (0.00-0.03); Imm Gran Pct Auto 0.3 % (0.0-0.4); Lymphocytes Percent Auto 26.7 % (20-40); Mean Corpuscular HGB Conc 29.9 g/dl (31.0-35.0); Mean Corpuscular Hemoglobin 26.6 pg (27.0-33.0); Mean Corpuscular Volume 88.7 fL (80.0-98.0); Mean Platelet Volume 8.6 fL (9.4-12.3); Monocytes Absolute Auto 0.4 X10*3/uL (0.1-1.2); Monocytes Percent Auto 10.6 % (2-11); Neutrophils Absolute Auto 2.1 x10*3/uL (2.0-8.3); Neutrophils Percent Auto 56.4 % (45-73); Platelet Count 364 X10*3/uL (160-400); Red Blood Count 2.22 X10*6/uL (4.20-5.50); Red Cell Distribution Width 16.4 % (11.0-16.0); White Blood Count 3.7 X10*3/uL (4.8-10.8)
[2022-02-10 19:02] LABS: COVID-19 Test Negative (Negative); IDNOW Serial# 55D5AD1C; INTERNATIONAL NORM RATIO 4.4 (0.9-1.1); Prothrombin Time 54.1 SEC (10.0-13.1)
[2022-02-10 19:07] LABS: Hematocrit 19.7 % (37.0-47.0); Hemoglobin 5.9 g/dl (12.0-16.0)
--- NOTE | 2022-02-10 19:17 | PHA.MEDREC ---
Pharmacy Consult ? Medication Reconciliation Pharmacy has completed the medication reconciliation. Patient reported all medications. Reports she takes balsalazide 1 tab BID instead of 3 tab TID because they are horse pills and cannot swallow them. Patient took AM medications including warfarin. Milla Martinez, PharmD
[2022-02-10 19:18] LABS: B Type Natriuretic Peptide 57 pg/mL (<100); Troponin-I High Sensitivity 5.9 ng/L (<3.5-17.0)
--- NOTE | 2022-02-10 19:19 | PHA.MEDREC ---
Pharmacy Consult ? Medication Reconciliation Pharmacy has completed the medication reconciliation. Patient reported all medications. Reports she takes balsalazide 1 tab BID instead of 3 tab TID because they are horse pills and cannot swallow them. Patient reported talking AM medications. Patient also reported that she takes warfarin in the morning however also stated that she is due for the 1/2 tablet today. Milla Martinez, PharmD
--- NOTE | 2022-02-10 19:51 | PM.IMHP ---
History of Present Illness Date of Service: 02/10/22 Chief Complaint: abnormal labs 76-year-old female with past medical history of hypertension, paroxysmal AFib on Coumadin, status post cardioversion, history of cervical cancer status post chemotherapy and external as well as internal radiation, history of ongoing lower GI bleed for the last several months, hypertension, presents to the hospital with complaints of abnormal labs. Patient reports that about 3 months ago she had lower GI bleed for which she was followed by Dr Box and her PCP. She states that ever since she has had on and off minor bleedings. bright red blood with her bowel movement, but small amounts and her primary care physician was aware as well as her GI doctor or aware of it. Her bleeding which change from day to day but there were some days where she was free of bleeding. But for the past 4 weeks she has developed significant fatigue with minimal exertion, she has also has had dizziness, shortness of breath on miniimal effort with no cough or sputum production. And overall feeling generally unwell and weak. She states that she had lab work done today for her PCP which shows significant drop in hemoglobin and she was asked to come to the ED right away. Patient denies any abdominal pain, no headache, no change in vision, no chest pain, no palpitations, no urinary symptoms and no lower extremity edema. She reports her last bloody bowel movement was the day prior. Her last colonoscopy with Dr. 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 Mother No problems noted. Surgical History History of appendectomy History of cardioversion History of facelift Hx of colonoscopy Hx of dilation and curettage Social History Household Members: Spouse Housing: House Do you presently have visiting nurse or other home services: No Patient Tobacco Use Status: Former Tobacco user Quit Date: 1992 Smoked in Last 30 Days: No Patient Interested in Nicotine Replacement: No Patient Given Instructions on How to Stop Smoking: No Second Hand Smoke Exposure: Yes Use of substances other than those prescribed or required for medical reasons: No Currently Displaying Signs/Symptoms of Drug Intoxication Withdrawal: No Any prior treatment program specific to substance use: No Have you been hit, kicked, punched, or otherwise hurt by someone within the past year? If so, by whom?: No Do you feel safe in your current relationship?: No Is there a partner from a previous relationship who is making you feel unsafe now?: No Are you made to feel afraid or neglected: No Advance Directives: No Advance Directives Information Provided: Yes Do you have thoughts of harming others: None Do you have a plan to hurt others: No Plan Recently lost weight without trying: No Nutrition Risks: No Nutritional Risk Patient : No : No Poor oral hygiene: No Meds Allergies Allergy/AdvReac Type Severity Reaction Status Date / Time amoxicillin [From AUGMENTIN] Allergy Unknown UNKNOWN Verified 02/10/22 14:11 clavulanic acid Allergy Unknown UNKNOWN Verified 02/10/22 14:11 [From AUGMENTIN] Active Medications: Current Medications Pharmacy Consult (Consult Rx Perform Med Rec) 1 each MISCELLANE ONCE PRN PRN Reason: Consult order Home Medications Medication Instructions Recorded Confirmed Last Taken Type diltiazem HCl 120 mg 120 mg PO DAILY 02/09/20 02/10/22 02/10/22 History capsule,extended release 24 hr balsalazide 750 mg capsule 750 mg PO BID 01/08/22 02/10/22 02/10/22 History albuterol sulfate 90 mcg/actuation 2 puff inhalation Q6H PRN Wheezing 02/10/22 02/10/22 Unknown History aerosol inhaler lisinopril 10 mg tablet 10 mg PO BEDTIME 02/10/22 02/10/22 02/10/22 History loperamide 2 mg tablet 2 mg PO Q4H PRN Diarrhea 02/10/22 02/10/22 Unknown History warfarin 5 mg tablet 2.5 mg PO MOFR 02/10/22 02/10/22 02/10/22 History warfarin 5 mg tablet 5 mg PO SUTUWETHSA 02/10/22 02/10/22 02/10/22 History Physical Exam Vital Signs and Narrative: Vital Signs: Last Vital Signs Temp 98.4 F 02/10/22 16:58 Pulse 108 H 02/10/22 18:07 Resp 18 02/10/22 18:07 BP 171/68 H 02/10/22 18:07 Pulse Ox 97 02/10/22 18:07 O2 Del Method 02/10/22 18:07 BMI result Body Mass Index 30.2 Const: General: cooperative and no acute distress Orientation/consciousness: patient oriented x3 Eyes: General: appearance normal, both eyes and all related structures Resp: Effort & Inspection: normal respiratory effort Auscultation: clear to auscultation bilaterally Cardio: Rate: regular rate Rhythm: regular rhythm GI: Palpation (GI): Soft to palpation Auscultation: normal bowel sounds Skin: General skin exam: no rashes or lesions noted Neuro: General: patient oriented x3 Cognition (Neuro): normal cognition Extrem: General: Yes normal to inspection and Yes no pedal edema Results Labs CBC and Chem 7: 02/10/22 18:45 Labs: Laboratory Results - last 24 hr 02/10/22 02/10/22 02/10/22 18:45 18:45 18:45 MCV 88.7 MCH 26.6 L MCHC 29.9 L RDW 16.4 H Plt Count 364 MPV 8.6 L Immature Gran % (Auto) 0.3 Neut % (Auto) 56.4 Lymph % (Auto) 26.7 [place] % (Auto) 10.6 Eos % (Auto) 5.2 H Baso % (Auto) 0.8 Lymph # (Auto) 1.0 L [place] # (Auto) 0.4 Eos # (Auto) 0.2 Baso # (Auto) 0.0 Abs Immat Gran (auto) 0.01 Absolute Neuts (auto) 2.1 Absolute Nucleated RBC 0.000 Nucleated RBC % (auto) 0.0 PT INR APTT Troponin I High Sens 5.9 B-Natriuretic Peptide Stool Occult Blood COVID-19 (ROSALBA) Negative COVID-19 Clin Com See Note Blood Type Antibody Screen Crossmatch 02/10/22 02/10/22 02/10/22 18:45 18:45 18:45 MCV MCH MCHC RDW Plt Count MPV Immature Gran % (Auto) Neut % (Auto) Lymph % (Auto) [place] % (Auto) Eos % (Auto) Baso % (Auto) Lymph # (Auto) [place] # (Auto) Eos # (Auto) Baso # (Auto) Abs Immat Gran (auto) Absolute Neuts (auto) Absolute Nucleated RBC Nucleated RBC % (auto) PT 54.1 H INR 4.4 H D APTT 54.0 H Troponin I High Sens B-Natriuretic Peptide 57 Stool Occult Blood COVID-19 (ROSALBA) COVID-19 Clin Com Blood Type A Positive Antibody Screen NEGATIVE Crossmatch See Detail 02/10/22 18:45 MCV MCH MCHC RDW Plt Count MPV Immature Gran % (Auto) Neut % (Auto) Lymph % (Auto) [place] % (Auto) Eos % (Auto) Baso % (Auto) Lymph # (Auto) [place] # (Auto) Eos # (Auto) Baso # (Auto) Abs Immat Gran (auto) Absolute Neuts (auto) Absolute Nucleated RBC Nucleated RBC % (auto) PT INR APTT Troponin I High Sens B-Natriuretic Peptide Stool Occult Blood POSITIVE COVID-19 (ROSALBA) COVID-19 Clin Com Blood Type Antibody Screen Crossmatch Imaging Radiologist's Impressions: Impressions Chest X-Ray 02/10/22 17:25 IMPRESSION: 1. Hyperinflated lungs suggesting air trapping disease COPD. 2. No radiographic evidence of acute infiltrates or failure. Assessment and Plan (1) Acute blood loss anemia: Status: Acute (2) Lower gastrointestinal bleeding: Status: Acute (3) Current use of anticoagulant therapy: Status: Acute (4) Supratherapeutic INR: Status: Acute (5) Paroxysmal atrial flutter: Status: Acute (6) Radiation enteritis: Status: Acute Plan 76-year-old female with past medical history of paroxysmal AFib on Coumadin, history of cervical cancer status post radiation therapy presents to the hospital with complaints of ongoing GI bleed as well as low hemoglobin # acute blood loss anemia - secondary to ongoing bleeding probably from radiation enteritis as well as telangiectasias complicated by Coumadin use - hemodynamically stable - hemoglobin of 5.9 - being transfuse 1 unit of PRBC - GI consulted - follow CBC # supratherapeutic INR - for history of paroxysmal AFib - will hold Coumadin - status post vitamin K and FFP - follow PT INR # lower GI bleed - seen by GI, colonoscopy in July showed telangiectasias as well as radiation enteritis was likely source of her bleeding - GI consult on this admission - will keep NPO - follow CBC # paroxysmal AFib - hold Coumadin - continue flecainide and diltiazem # hypertension - stable - continue lisinopril DVT prophylaxis SCDs Given patient's acute anemia, and evaluation for GI bleed patient require minimum 2 night inpatient hospital stay for further management and monitoring Quality Stroke Does the patient have a stroke diagnosis?: No VTE Prior VTE?: No VTE Risk Level:: Medical - moderate - high VTE Device Contraindication: N/A - Device Ordered VTE Drug Contraindication: Treatment Not Indicated
[2022-02-10] MEDS: Pantoprazole Sodium 40 MG/10 ML VIAL IVPUSH (20:10)
[2022-02-11] VITALS (11 sets, daily range): BP systolic 107–193; BP diastolic 52–74; PULSE 76–107; RESP 15–20; TEMP 36.2–37.1; O2SAT 96–99; BMI 30.5
--- NOTE | 2022-02-11 00:55 | PC.NURSE ---
BLD transfusion is running.
[2022-02-11] MEDS: Lactated Ringers 1,000 ML 80 ML IVCONT (02:59)
[2022-02-11] MEDS: Pantoprazole Sodium 40 MG/10 ML VIAL IVPUSH (06:10)
[2022-02-11 06:48] LABS: MANUAL DIFF FLAG NO
[2022-02-11 07:08] LABS: Basophils Percent Auto 0.7 % (0-2); Eosinophils Absolute Auto 0.3 X10*3/uL (0.0-0.4); Eosinophils Percent Auto 6.5 % (0-4); Imm Gran Abs Auto 0.01 X10*3/uL (0.00-0.03); Imm Gran Pct Auto 0.2 % (0.0-0.4); Lymphocytes Percent Auto 25.7 % (20-40); Mean Corpuscular Hemoglobin 27.4 pg (27.0-33.0); Mean Corpuscular Volume 88.3 fL (80.0-98.0); Mean Platelet Volume 8.5 fL (9.4-12.3); Monocytes Absolute Auto 0.4 X10*3/uL (0.1-1.2); Monocytes Percent Auto 9.7 % (2-11); Neutrophils Absolute Auto 2.3 x10*3/uL (2.0-8.3); Neutrophils Percent Auto 57.2 % (45-73); Platelet Count 293 X10*3/uL (160-400); Red Cell Distribution Width 15.8 % (11.0-16.0)
[2022-02-11 07:22] LABS: Anion Gap 10 (12-20); Blood Urea Nitrogen 12 mg/dL (9-16); Calcium 8.5 mg/dL (8.4-10.2); Carbon Dioxide 24 mmol/L (22-29); Chloride 112 mmol/L (96-108); Creatinine Clr Calc Pharmacy 60.7; Estimated Glomerular Filt Rate > 60; Glucose Random 99 mg/dL (60-115); Potassium 4.5 mmol/L (3.3-5.1); Sodium 141 mmol/L (135-145)
[2022-02-11 07:51] LABS: Hemoglobin 6.3 g/dl (12.0-16.0)
[2022-02-11 07:52] LABS: Hematocrit 20.3 % (37.0-47.0)
[2022-02-11 08:03] LABS: INTERNATIONAL NORM RATIO 1.4 (0.9-1.1); Prothrombin Time 16.6 SEC (10.0-13.1)
[2022-02-11] MEDS: dilTIAZem HCL CD 120 MG CAP.ER.DEG PO (08:07)
[2022-02-11] MEDS: Flecainide Acetate 50 MG TABLET PO ×2 (08:07→17:41)
--- NOTE | 2022-02-11 08:21 | PM.EVENT ---
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 She does have occasional diarrhea, but reports that her BM's are usually fairly normal. She denies any melena nor UGI symptoms. She denies using aspirin nor NSAIDs, but does describe 1 shot of jason with her AM coffee and a glass or 2 of wine in the evening with company . She has been stable since admission with improved INR but remains very anemic after 1 u PRBC. Rec: Complete correction of INR. Transfuse further to Hgb of 8-9. D/C PPI. Clear liquids for now. I will arrange for colonoscopy later in the week with an eye toward assessment of trying ablation of any significant bleeding telangiectasias and other areas of the radiation-induced enteritis. D/W patient in detail and she is comfortable with that plan. Thanks
--- NOTE | 2022-02-11 09:30 | PC.NURSE ---
Assumed care of patient at this time.
--- NOTE | 2022-02-11 09:49 | MHC.CM.PN ---
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 ANTIC D/C HOME NO SERVICES W/ FOR TRANSPORT
[2022-02-11] MEDS: Phytonadione (Vit K1) Oral 10 MG/ML AMPUL PO (09:58)
--- NOTE | 2022-02-11 10:34 | CONS_ITS ---
DATE OF SERVICE: 02/11/2022 REASON FOR CONSULTATION: Lower GI bleeding, anemia, radiation-induced enteritis. HISTORY OF PRESENT ILLNESS: The patient is a 76-year-old female, well known to me, who underwent a colonoscopy in July of this year with the finding of a radiation-induced proctosigmoiditis. She began having rectal bleeding back in June. She had radiation treatment for cervical cancer in 2020. The colonoscopy in July revealed changes consistent with a radiation-induced enteritis involving the rectum and lower sigmoid colon with friable mucosa, telangiectasias, edema, and pallor of the colonic mucosa. She has had to remain on Coumadin in relation to underlying atrial fibrillation. When I saw her in July, she was still having intermittent bleeding, but things seemed to be stable. Her bowel movements have been fairly normal other than occasional diarrhea. She has not noticed any melena. She denies any upper GI complaints such as heartburn, dysphagia, anorexia, nor early satiety. She denies any abdominal pain. She describes that her last check of her INR was back in November. Her last hemoglobin prior to admission had been 10.1 at the end of November. However, more recently, she has been having some increased bleeding rectally with bright red blood. She was having some shortness of breath, fatigue, lightheadedness, and weakness in general. She was found to have a hemoglobin of 6.0 yesterday with a PT of 54 and INR of 4.4. She has not been using any aspirin or NSAIDs. She has not been using any recent antibiotics. She has remained on the same Coumadin dose. She does describe having 1/2 shot of jason in her morning coffee twice every morning. She also has a glass or 2 of wine in the evening when she has company. She denies any heavy alcohol use. Since admission here, she has received 1 unit of FFP and 1 unit of packed red blood cells, as well as a dose of oral vitamin K. Repeat laboratories today showed a PT of 16.6 with INR of 1.4 and a hemoglobin minimally improved at 6.3. She still has had occasional bleeding, but no significant bleeding since admission. Her other medications at home include a trial of balsalazide given to her back in July to see if that could help with the enteritis. However, she describes that she was only using 2 or 3 per day instead of the prescribed 3 t.i.d. She says it was making her nauseous. Other medications at home included flecainide, lisinopril, diltiazem, and Coumadin. PAST MEDICAL HISTORY: Radiation enteritis as above. Hypertension. Atrial fibrillation. She is followed by Dr. Dahl for that. Cervical cancer diagnosed in 2020. Radiation and chemo at [facility]. She has had D&C, appendectomy, and a face-lift. She denies history of MD, diabetes, stroke, nor lung disease. SOCIAL HISTORY: She does not smoke. Alcohol as above. She is . REVIEW OF SYSTEMS: CONSTITUTIONAL: She has been experiencing fatigue and weakness in relation to the anemia. SKIN: No rash. No pruritus. CARDIAC: No chest pain. PULMONARY: No coughing or hemoptysis. GI: As above. URINARY: No dysuria, no hematuria. PHYSICAL EXAMINATION: GENERAL: The patient is a pleasant and alert female. She appears comfortable. SKIN: Pale, but warm and dry. HEENT: Anicteric sclerae. NECK: Supple without lymphadenopathy. CARDIAC: Normal S1, S2. ABDOMEN: Soft, nondistended, nontender without mass. EXTREMITIES: Without edema. LABORATORY DATA: As above. Normal electrolytes. BUN 12, creatinine 0.8. Normal liver profile. Albumin 3.9. Stool was heme positive. COVID was negative. Chest x-ray described COPD, but no sign of infiltrates or CHF. IMPRESSION: Given the patient's clinical history, this certainly seems consistent with her known radiation-induced colitis with increased bleeding due to the supratherapeutic INR. At this point, she appears stable. I would continue to completely correct the INR and transfuse her packed red blood cells to maintain a hemoglobin between 8 and 9. At this point she can start clear liquids. This does not seem consistent with an upper GI bleed and I would stop PPI therapy. Given her known radiation-induced proctocolitis and her ongoing symptoms, I think it would be reasonable to try to re-evaluate her and consider ablation of as much of the bleeding telangiectasias and other mucosal areas as possible with argon plasma coagulation. We shall plan to do this later in the week once her hemoglobin has improved and she will be able to tolerate a bowel prep. This has been reviewed with her in detail. I will continue to monitor her blood count, PT/INR, and chemistries in the meantime. This has been discussed with her in detail and she is comfortable with that plan. Thank you for the consultation. MD EJ Warren/TOSIN / [phone] MTDRony
--- NOTE | 2022-02-11 12:18 | P.PNIM_ITS ---
Subjective Subjective Date of Service: 02/11/22 Interval History: no lgi bleed since admission no nausea no hematemesis received 1 unit of packed RBC and 1 unit of plasma hemoglobin remains below 7, patient denies shortness of breath or dizziness, INR drop down to 1.4 Placed on clear liquid diet, no acute overnight events. Review of Systems General no headache no dizziness no fever chills. CVS no chest pain, no palpitation. Respiratory no cough, no sob Gastrointestinal no nausea no vomiting, no abdominal pain Review of Systems: Yes all other systems are reviewed and are negative Physical Exam Vital Signs: Vital Signs: Last Vital Signs Temp 97.2 F 02/11/22 11:38 Pulse 90 02/11/22 11:38 Resp 16 02/11/22 11:38 BP 130/52 L 02/11/22 11:38 Pulse Ox 97 02/11/22 11:38 O2 Del Method 02/11/22 11:38 BMI result Body Mass Index 30.5 Const: Other: General resting comfortably in no acute distress. Neck supple no JVD. CVS regular rate rhythm, Respiratory lungs clear to auscultation, no respiratory distress, no wheeze, no rhonchi. Gastrointestinal abdomen soft, nontender, bowel sounds audible, no guarding , no rigidity. Extremities no edema. Neuro nonfocal Skin pallor Psych appropriate affect Objective Data Active Medications Acetaminophen (Acetaminophen Supp 650 Mg Supp.Rect) 650 mg GA Q6H PRN PRN Reason: Pain, Mild (Pain Scale 1-3) Albuterol Sulfate (Albuterol Sulfate 90 Mcg 8 Gm Inhaler) 2 puff INHALE Q6H PRN PRN Reason: Wheezing Balsalazide (Balsalazide Disodium 750 Mg Capsule) 750 mg PO BID [facility] Last Admin: 02/11/22 09:58 Dose: Not Given Documented By: NNEKA Non-Admin Reason: Patient Refused Diltiazem HCl (Diltiazem Hcl Cd 120 Mg Cap.Er.Deg) 120 mg PO DAILY [facility]; Protocol Last Admin: 02/11/22 08:07 Dose: 120 mg Documented By: ROCÍO Flecainide Acetate (Flecainide Acetate 50 Mg Tablet) 50 mg PO Q12H [facility] Last Admin: 02/11/22 08:07 Dose: 50 mg Documented By: ROCÍO Lisinopril (Lisinopril 10 Mg Tablet) 10 mg PO BEDTIME [facility]; Protocol Ondansetron HCl (Ondansetron Hcl 4 Mg/2 Ml Vial) 4 mg IVPUSH Q8H PRN PRN Reason: Nausea and Vomiting Pharmacy Consult (Consult Rx Perform Med Rec) 1 each MISCELLANE ONCE PRN PRN Reason: Consult order Sodium Chloride (0.9 % Sodium Chloride Flush 3 Ml Syringe) 3 ml IVFLUSH QSHIFT [facility] Last Admin: 02/11/22 08:59 Dose: Not Given Documented By: SONIDO Non-Admin Reason: IV Running Labs CBC & Chem 7: 02/11/22 06:29 02/11/22 06:29 Labs: Laboratory Results - last 24 hr 02/10/22 02/10/22 02/10/22 18:45 18:45 18:45 MCV 88.7 MCH 26.6 L MCHC 29.9 L RDW 16.4 H Plt Count 364 MPV 8.6 L Immature Gran % (Auto) 0.3 Neut % (Auto) 56.4 Lymph % (Auto) 26.7 [place] % (Auto) 10.6 Eos % (Auto) 5.2 H Baso % (Auto) 0.8 Lymph # (Auto) 1.0 L [place] # (Auto) 0.4 Eos # (Auto) 0.2 Baso # (Auto) 0.0 Abs Immat Gran (auto) 0.01 Absolute Neuts (auto) 2.1 Absolute Nucleated RBC 0.000 Nucleated RBC % (auto) 0.0 PT INR APTT Anion Gap Estim Creat Clear Calc Estimated GFR Random Glucose Calcium Troponin I High Sens 5.9 B-Natriuretic Peptide Stool Occult Blood COVID-19 (ROSALBA) Negative COVID-19 Clin Com See Note Blood Type Antibody Screen Crossmatch 02/10/22 02/10/22 02/10/22 18:45 18:45 18:45 MCV MCH MCHC RDW Plt Count MPV Immature Gran % (Auto) Neut % (Auto) Lymph % (Auto) [place] % (Auto) Eos % (Auto) Baso % (Auto) Lymph # (Auto) [place] # (Auto) Eos # (Auto) Baso # (Auto) Abs Immat Gran (auto) Absolute Neuts (auto) Absolute Nucleated RBC Nucleated RBC % (auto) PT 54.1 H INR 4.4 H D APTT 54.0 H Anion Gap Estim Creat Clear Calc Estimated GFR Random Glucose Calcium Troponin I High Sens B-Natriuretic Peptide 57 Stool Occult Blood COVID-19 (ROSALBA) [facility] [employer] [facility] [employer] [facility] Blood Type A Positive Antibody Screen NEGATIVE Crossmatch See Detail 02/10/22 02/11/22 02/11/22 18:45 06:29 06:29 MCV 88.3 MCH 27.4 MCHC 31.0 RDW 15.8 Plt Count 293 MPV 8.5 L Immature Gran % (Auto) 0.2 Neut % (Auto) 57.2 Lymph % (Auto) 25.7 [place] % (Auto) 9.7 Eos % (Auto) 6.5 H Baso % (Auto) 0.7 Lymph # (Auto) 1.0 L [place] # (Auto) 0.4 Eos # (Auto) 0.3 Baso # (Auto) 0.0 Abs Immat Gran (auto) 0.01 Absolute Neuts (auto) 2.3 Absolute Nucleated RBC 0.000 Nucleated RBC % (auto) 0.0 PT INR APTT Anion Gap 10 L Estim Creat Clear Calc 60.7 Estimated GFR > 60 Random Glucose 99 Calcium 8.5 Troponin I High Sens B-Natriuretic Peptide Stool Occult Blood POSITIVE COVID-19 (ROSALBA) [employer] [employer] [facility] [employer] Blood Type Antibody Screen Crossmatch 02/11/22 07:43 MCV MCH MCHC RDW Plt Count MPV Immature Gran % (Auto) Neut % (Auto) Lymph % (Auto) [place] % (Auto) Eos % (Auto) Baso % (Auto) Lymph # (Auto) [place] # (Auto) Eos # (Auto) Baso # (Auto) Abs Immat Gran (auto) Absolute Neuts (auto) Absolute Nucleated RBC Nucleated RBC % (auto) PT 16.6 H INR 1.4 H D APTT Anion Gap Estim Creat Clear Calc Estimated GFR Random Glucose Calcium Troponin I High Sens B-Natriuretic Peptide Stool Occult Blood COVID-19 (ROSALBA) [facility] Blood Type Antibody Screen Crossmatch Assessment and Plan (1) Radiation enteritis: Status: Acute (2) Supratherapeutic INR: Status: Acute (3) Acute blood loss anemia: Status: Acute Plan 76-year-old female with past medical history of paroxysmal AFib on Coumadin, history of cervical cancer status post radiation therapy presents to the hospital with complaints of ongoing GI bleed as well as low hemoglobin # acute blood loss anemia due to lower GI bleed - secondary to ongoing bleeding probably from radiation associated enteritis as well as telangiectasias complicated by Coumadin use Hemoglobin 6.3 after 1 unit of blood transfusion, will transfuse 2 more units Patient seen by Dr. Box plan is for colonoscopy with plan for ablation of any significant bleeding telangiectasia Continue clear liquid diet and follow CBC # supratherapeutic INR - for history of? paroxysmal AFib, status post vitamin K and 1 unit of FFP, INR down to 1.4 continue to hold Coumadin # paroxysmal AFib in normal sinus rhythm - hold Coumadin, continue flecainide and diltiazem # hypertension - stable, continue lisinopril DVT prophylaxis SCDs Patient continued inpatient hospitalization for further management and treatment for lower GI bleed with acute blood loss anemia Quality Stroke Does the patient have a stroke diagnosis?: No VTE Prior VTE?: No VTE Risk Level:: Medical - moderate - high VTE Device Contraindication: N/A - Device Ordered VTE Drug Contraindication: Treatment Not Indicated
[2022-02-11] MEDS: 0.9 % Sodium Chloride Flush 3 ML SYRINGE IVFLUSH ×2 (17:41→19:34)
[2022-02-11] MEDS: Balsalazide Disodium 750 MG CAPSULE PO (19:33)
[2022-02-11] MEDS: lisinopriL 10 MG TABLET PO (19:33)
[2022-02-11 20:25] LABS: Hematocrit 27.3 % (37.0-47.0); Hemoglobin 8.8 g/dl (12.0-16.0); Mean Corpuscular HGB Conc 32.2 g/dl (31.0-35.0); Mean Corpuscular Hemoglobin 27.8 pg (27.0-33.0); Mean Corpuscular Volume 86.1 fL (80.0-98.0); Mean Platelet Volume 8.1 fL (9.4-12.3); Platelet Count 257 X10*3/uL (160-400); Red Blood Count 3.17 X10*6/uL (4.20-5.50); Red Cell Distribution Width 16.4 % (11.0-16.0); White Blood Count 4.7 X10*3/uL (4.8-10.8)
[2022-02-12] VITALS: BP 134/59; PULSE 85; RESP 17; TEMP 36.3; O2SAT 94
[2022-02-12 03:55] VITALS: BP 127/59; PULSE 77; RESP 17; TEMP 36.9; O2SAT 95
[2022-02-12 05:37] LABS: MANUAL DIFF FLAG NO
[2022-02-12 05:40] LABS: Eosinophils Absolute Auto 0.4 X10*3/uL (0.0-0.4); Eosinophils Percent Auto 9.5 % (0-4); Hematocrit 28.6 % (37.0-47.0); Hemoglobin 9.2 g/dl (12.0-16.0); Imm Gran Abs Auto 0.01 X10*3/uL (0.00-0.03); Imm Gran Pct Auto 0.2 % (0.0-0.4); Lymphocytes Absolute Auto 0.8 X10*3/uL (1.2-4.9); Mean Corpuscular HGB Conc 32.2 g/dl (31.0-35.0); Mean Corpuscular Hemoglobin 27.6 pg (27.0-33.0); Mean Corpuscular Volume 85.9 fL (80.0-98.0); Mean Platelet Volume 8.7 fL (9.4-12.3); Monocytes Absolute Auto 0.5 X10*3/uL (0.1-1.2); Monocytes Percent Auto 11.2 % (2-11); Neutrophils Absolute Auto 2.4 x10*3/uL (2.0-8.3); Neutrophils Percent Auto 58.1 % (45-73); Platelet Count 279 X10*3/uL (160-400); Red Blood Count 3.33 X10*6/uL (4.20-5.50); Red Cell Distribution Width 16.8 % (11.0-16.0); White Blood Count 4.2 X10*3/uL (4.8-10.8)
[2022-02-12 05:59] LABS: Anion Gap 11 (12-20); Blood Urea Nitrogen 8 mg/dL (9-16); Calcium 8.8 mg/dL (8.4-10.2); Carbon Dioxide 23 mmol/L (22-29); Chloride 110 mmol/L (96-108); Creatinine Clr Calc Pharmacy 57.9; Estimated Glomerular Filt Rate > 60; Glucose Fasting 95 mg/dL (60-99); Potassium 4.4 mmol/L (3.3-5.1); Sodium 140 mmol/L (135-145)
[2022-02-12] MEDS: Flecainide Acetate 50 MG TABLET PO (06:12)
[2022-02-12 06:27] LABS: INTERNATIONAL NORM RATIO 1.2 (0.9-1.1); Prothrombin Time 13.5 SEC (10.0-13.1)
[2022-02-12 07:38] VITALS: BP 141/65; PULSE 74; RESP 17; TEMP 37.1; O2SAT 95
[2022-02-12] MEDS: 0.9 % Sodium Chloride Flush 3 ML SYRINGE IVFLUSH (07:48)
[2022-02-12] MEDS: dilTIAZem HCL CD 120 MG CAP.ER.DEG PO (07:48)
[2022-02-12] MEDS: Balsalazide Disodium 750 MG CAPSULE PO (07:48)
[2022-02-12 11:31] VITALS: BP 137/63; PULSE 74; RESP 18; TEMP 37.2; O2SAT 95
--- NOTE | 2022-02-12 11:55 | PM.DS ---
DS: Providers Provider Date of Service: 02/12/22 Date of admission: 02/10/22 19:44 Primary care physician: Unknown Physician Consults: 02/10/22 19:12 Consult to Gastroenterology Stat Consulting Provider: Mayo Rivera Reason for consultation: LGIB DS: Diagnosis Discharge Diagnosis (1) Radiation enteritis: Status: Acute (2) Supratherapeutic INR: Status: Acute (3) Acute blood loss anemia: Status: Acute DS: Summary Hospital Course Hospital Course: Date of Service: 02/10/22 Chief Complaint: abnormal labs 76-year-old female with past medical history of hypertension, paroxysmal AFib on Coumadin, status post cardioversion, history of cervical cancer status post chemotherapy and external as well as internal radiation, history of ongoing lower GI bleed for the last several months, hypertension, presents to the hospital with complaints of abnormal labs.? Patient reports that about 3 months ago she had lower GI bleed for which she was followed by Dr Box and her PCP.? She states that ever since she has had on and off minor bleedings.? bright red blood with her bowel movement, but small amounts and her primary care physician was aware as well as her GI doctor or aware of it.? Her bleeding which change from day to day but there were some days where she was free of bleeding.? But for the past 4 weeks she has developed significant fatigue with minimal exertion, she has also has had dizziness, shortness of breath on miniimal effort with no cough or sputum production.? And overall feeling generally unwell and weak.? She states that she had lab work done today for her PCP which shows significant drop in hemoglobin and she was asked to come to the ED right away.? Patient denies any abdominal pain, no headache, no change in vision, no chest pain, no palpitations, no urinary symptoms and no lower extremity edema.? She reports her last bloody bowel movement was the day prior. Her last colonoscopy with Dr. 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 hospital course 76-year-old female with past medical history of paroxysmal AFib on Coumadin, history of cervical cancer status post radiation therapy presents to the hospital with complaints of ongoing GI bleed as well as low hemoglobin # acute blood loss anemia due to lower GI bleed, likely due to ongoing bleeding probably from radiation associated enteritis as well as telangiectasias complicated by Coumadin use with supratherapeutic INR, patient received 3 units of packed RBC and 1 unit of FFP INR improved to 1.4 and hemoglobin improved from 6 to 9.2, all symptoms of dizziness shortness of breath and weakness resolved patient is feeling better was seen in consultation by Dr. Box he recommend outpatient colonoscopy with plan for ablation of any significant bleeding telangiectasia, patient diet was gradually advanced, she is tolerating it well with no nausea vomiting no recurrent episode of lower GI bleed therefore patient is being discharged home with plan for outpatient colonoscopy on 02/17/22 ? # supratherapeutic INR for history of? paroxysmal AFib, status post vitamin K and 1 unit of FFP, INR down to 1.4 from 4.4 , recommend to hold Coumadin due to lower GI bleed. # paroxysmal AFib in normal sinus rhythm continue flecainide and diltiazem # hypertension - stable, continue all home medications Time Spent with Patient Time attestation: Total time spent providing and/or coordinating discharge services: Discharge coordination time: Greater than 30 minutes Quality: Safe Use of Opioids Does Pt have an Active Cancer Diagnosis on the Problem List?: No Quality: Stroke Does the patient have a stroke diagnosis?: No Physical Exam Vital Signs: Vital Signs: Last Vital Signs Temp 99.0 F 02/12/22 11:31 Pulse 74 02/12/22 11:31 Resp 18 02/12/22 11:31 BP 137/63 02/12/22 11:31 Pulse Ox 95 02/12/22 11:31 O2 Del Method 02/12/22 11:31 BMI result Body Mass Index 30.5 Const: Other: General? resting comfortably in no acute distress.? Neck supple no JVD. CVS? regular rate rhythm, Respiratory lungs clear to auscultation, no respiratory distress, no wheeze, no rhonchi. Gastrointestinal abdomen soft, nontender, bowel sounds audible, no guarding , no rigidity. Extremities no? edema. Neuro nonfocal Skin no rash Psych appropriate affect DS: Data Data Completed and Pending Labs on day of discharge: Laboratory Results - last 24 hr 02/10/22 02/11/22 02/12/22 18:45 20:18 05:08 WBC 4.7 L 4.2 L RBC 3.17 L D 3.33 L Hgb 8.8 L D 9.2 L Hct 27.3 L D 28.6 L MCV 86.1 85.9 MCH 27.8 27.6 MCHC 32.2 32.2 RDW 16.4 H 16.8 H Plt Count 257 279 MPV 8.1 L 8.7 L Immature Gran % (Auto) 0.2 Neut % (Auto) 58.1 Lymph % (Auto) 20.0 Bell % (Auto) 11.2 H Eos % (Auto) 9.5 H Baso % (Auto) 1.0 Lymph # (Auto) 0.8 L Bell # (Auto) 0.5 Eos # (Auto) 0.4 Baso # (Auto) 0.0 Abs Immat Gran (auto) 0.01 Absolute Neuts (auto) 2.4 Absolute Nucleated RBC 0.000 0.000 Nucleated RBC % (auto) 0.0 0.0 PT INR Sodium Potassium Chloride Carbon Dioxide Anion Gap BUN Creatinine Estim Creat Clear Calc Estimated GFR Fasting Glucose Calcium Blood Type A Positive Antibody Screen NEGATIVE Crossmatch See Detail 02/12/22 02/12/22 05:08 05:08 WBC RBC Hgb Hct MCV MCH MCHC RDW Plt Count MPV Immature Gran % (Auto) Neut % (Auto) Lymph % (Auto) Bell % (Auto) Eos % (Auto) Baso % (Auto) Lymph # (Auto) Bell # (Auto) Eos # (Auto) Baso # (Auto) Abs Immat Gran (auto) Absolute Neuts (auto) Absolute Nucleated RBC Nucleated RBC % (auto) PT 13.5 H INR 1.2 H Sodium 140 Potassium 4.4 Chloride 110 H Carbon Dioxide 23 Anion Gap 11 L BUN 8 L Creatinine 0.85 Estim Creat Clear Calc 57.9 Estimated GFR > 60 Fasting Glucose 95 Calcium 8.8 Blood Type Antibody Screen Crossmatch Discharge Plan Discharge Anticipated Discharge Date/Time: 02/12/22 10:02 Patient Disposition: Home, Self-Care Discharge Diagnosis: Acute on chronic blood-loss anemia supratherapeutic INR paroxysmal atrial fibrillation Referrals: Physician,Unknown J [Primary Care Provider] - 1 Week Discharge Medications: Continued flecainide 50 mg tablet 50 mg PO Q12H Qty: 180 4RF loperamide 2 mg Tablet 2 mg PO Q4H PRN (Reason: Diarrhea) Rx Instructions: administer after each loose stool until symptoms controlled; do not exceed 8 mg per 24 hrs albuterol sulfate 90 mcg/actuation HFA aerosol inhaler 2 puff INHALATION Q6H PRN (Reason: Wheezing) lisinopril 10 mg tablet 10 mg PO BEDTIME diltiazem HCl 120 mg capsule,extended release 24hr 120 mg PO DAILY balsalazide 750 mg capsule 750 mg PO BID Discontinued warfarin 5 mg tablet 5 mg PO SUTUWETHSA warfarin 5 mg tablet 2.5 mg PO MOFR warfarin 5 mg tablet 5 mg PO DAILY Qty: 90 0RF Protocol: Dose Management Condition: Thursday (Week One) Dose/Route: 5 mg Instruction: 1 x 5 mg tablet Condition: Thursday Dose/Route: 2.5 mg Instruction: 0.5 x 5 mg tablets Condition: Thursday Dose/Route: 0 mg Instruction: 0 tablets Condition: Thursday Dose/Route: 5 mg Instruction: 1 x 5 mg tablet Condition: Dose/Route: 5 mg Instruction: 1 x 5 mg tablet Condition: Thursday Dose/Route: 2.5 mg Instruction: 0.5 x 5 mg tablets Condition: Thursday Dose/Route: 5 mg Instruction: 1 x 5 mg tablet Condition: Thursday (Week Two) Dose/Route: 5 mg Instruction: 1 x 5 mg tablet Condition: Thursday Dose/Route: 2.5 mg Instruction: 0.5 x 5 mg tablets Condition: Thursday Dose/Route: 5 mg Instruction: 1 x 5 mg tablet Condition: Thursday Dose/Route: 5 mg Instruction: 1 x 5 mg tablet Condition: Dose/Route: 5 mg Instruction: 1 x 5 mg tablet Condition: Thursday Dose/Route: 2.5 mg Instruction: 0.5 x 5 mg tablets Condition: Thursday Dose/Route: 5 mg Instruction: 1 x 5 mg tablet Protocol Text: Adjustment Start Date: Thursday02/10/22 INR Value: 4.5 INR Date: 02/10/22 Recheck Date: 02/14/22 Additional Instructions: INR is high you already took warfarin today so hold dose tomorrow greens to lower today and tomorrow then balance greens and reds in diet Discharge Orders: Discharge Order (Routine); Ordered 02/12/22 Ordered By: Nisha Alonso Diet: Advance to usual diet Activity on Discharge: As tolerated Stand Alone Forms: Patient Portal Discharge page Care Plan Goals: stop warfarin, outpatient follow-up for colonoscopy, return to [facility] Thursday02/17/22, take colonoscopy prep as ordered by Gastroenterology on Thursday Dr. Box office will contact you regarding colonoscopy prep Health Concerns: continue all other home medications as above Plan of Treatment: outpatient follow-up with primary care physician and Gastroenterology Assessment: as per discharge summary
--- NOTE | 2022-02-12 12:19 | MHC.CM.PN ---
PT MEDICALLY CLEARED FOR D/C HOME, NO SERVICES ORDERED AND WILL TRANSPORT.
== END 2022-02-12 13:47 | disposition home or self-care (01) | DRG 813 ==
LOC: HO.ED 18:56 → HO.EDOVER 20:07 → HO.IMC 21:06 → HO.S3 02-11 08:07
PROVIDERS: Emergency Medicine; Internal Medicine; Physician Assistant; Admitting Provider Internal Medicine; Emergency Provider Internal Medicine; PCP Internal Medicine; Visit Provider Hospitalist
DX: D68.32 Hemorrhagic disorder due to extrinsic circulating anticoagulants (principal); D62 Acute posthemorrhagic anemia; K62.5 Hemorrhage of anus and rectum; K52.1 Toxic gastroenteritis and colitis; K62.7 Radiation proctitis; T45.515A Adverse effect of anticoagulants, initial encounter; I44.0 Atrioventricular block, first degree; R79.1 Abnormal coagulation profile; I10 Essential (primary) hypertension; I48.0 Paroxysmal atrial fibrillation; Z20.822 Contact with and (suspected) exposure to COVID-19; Z85.41 Personal history of malignant neoplasm of cervix uteri; Z92.21 Personal history of antineoplastic chemotherapy; Z92.3 Personal history of irradiation; Z88.0 Allergy status to penicillin; Z79.899 Other long term (current) drug therapy
CPT/HCPCS: 36415; 36430; 71045; 80048; 82272; 83880; 84484; 85025; 85027; 85610; 85730; 86850; 86900; 86901; 86923; 87635; 93005; 99285; P9016; P9017

== ENCOUNTER → 2022-02-17 12:19 | Day surgery (SDC) | payer MEDICARE, SELFPAY ==
--- NOTE | 2022-02-14 08:45 | HO.ANESPROP2 ---
Documented by User: Blanca James NP 02/14/22 08:51 HPI - Anesthesia Eval Consult details Narrative: 76yo F for Colonoscopy ERBE Jet 2 hybred [facility] admit 02/10-02/12/22 with lower GI bleed, 3 units RBC, 1 unit FFP Warfarin for afib (on hold since hospital discharge) PMFSH Active Problems Active Problems: All Active Problems (Updated 02/11/22 @ 06:29 by Julian Amor MD) Radiation enteritis (Acute) Supratherapeutic INR (Acute) Current use of anticoagulant therapy (Acute) Sacroiliac joint dysfunction of right side (Acute) Right hip pain (Acute) Lumbar spondylosis (Acute) AV block, 1st degree (Acute) Encounter for monitoring anti-arrhythmic therapy (Acute) Essential hypertension (Acute) Acute blood loss anemia (Acute) Lower gastrointestinal bleeding (Acute) 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 Mother No problems noted. Family history of problems with anesthesia: No Surgical History Surgical History History of appendectomy History of cardioversion History of facelift Hx of colonoscopy Hx of dilation and curettage History of Problems with Anesthesia: No Social History Social History Household Members: Spouse Housing: House Do you presently have visiting nurse or other home services: No Patient Tobacco Use Status: Former Tobacco user Quit Date: 1992 Second Hand Smoke Exposure: Yes Use of substances other than those prescribed or required for medical reasons: No Are you DNR?: No Advance Directives: No Advance Directives Information Provided: Yes service: No Current occupational status: retired Meds Allergies Allergy/AdvReac Type Severity Reaction Status Date / Time amoxicillin [From AUGMENTIN] Allergy Unknown UNKNOWN Verified 02/10/22 14:11 clavulanic acid Allergy Unknown UNKNOWN Verified 02/10/22 14:11 [From AUGMENTIN] Home Medications Medication Instructions Recorded Confirmed Last Taken Type diltiazem HCl 120 mg 120 mg PO DAILY 02/09/20 02/10/22 02/10/22 History capsule,extended release 24 hr balsalazide 750 mg capsule 750 mg PO BID 01/08/22 02/10/22 02/10/22 History albuterol sulfate 90 mcg/actuation 2 puff inhalation Q6H PRN Wheezing 02/10/22 02/10/22 Unknown History aerosol inhaler lisinopril 10 mg tablet 10 mg PO BEDTIME 02/10/22 02/10/22 02/10/22 History loperamide 2 mg tablet 2 mg PO Q4H PRN Diarrhea 02/10/22 02/10/22 Unknown History Exam Exam Date and Time: February 14, 2022 0845 Pertinent Lab Results Pertinent Lab Results: Laboratory Tests 02/12/22 02/12/22 05:08 05:08 WBC 4.2 L Hgb 9.2 L Hct 28.6 L Plt Count 279 Sodium 140 Potassium 4.4 Chloride 110 H Carbon Dioxide 23 BUN 8 L Creatinine 0.85 Laboratory Tests 02/12/22 05:08 PT 13.5 H INR 1.2 H Narrative Narrative: EKG 01/2022 Vent. Rate : 099 BPM ? ? Atrial Rate : 099 BPM ?? P-R Int : 242 ms? QRS Dur : 102 ms ? ? QT Int : 342 ms ? ? ? P-R-T Axes : 077 -13 064 degrees ?? QTc Int : 438 ms ? Sinus rhythm with 1st degree A-V block RSR' or QR pattern in V1 suggests right ventricular conduction delay Low voltage QRS Borderline ECG When compared with ECG of 08-OCT-2017 10:49, Premature ventricular complexes are no longer Present Premature atrial complexes are no longer Present ECHO 01/2022 Conclusions: - 1. Normal LV systolic function with grade 1 diastolic? dysfunction? 2. Normal cardiac valvular Dopplers? 3. Normal RV systolic pressure ? 4. No gross pericardial effusion ? 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 Mother No problems noted. Surgical History Surgical History History of appendectomy History of cardioversion History of facelift Hx of colonoscopy Hx of dilation and curettage Social History Social History Household Members: Spouse Housing: House Do you presently have visiting nurse or other home services: No Patient Tobacco Use Status: Former Tobacco user Quit Date: 1992 Second Hand Smoke Exposure: Yes Use of substances other than those prescribed or required for medical reasons: No Are you DNR?: No Advance Directives: No Advance Directives Information Provided: Yes service: No Current occupational status: retired Meds Allergies Allergy/AdvReac Type Severity Reaction Status Date / Time amoxicillin [From AUGMENTIN] Allergy Unknown UNKNOWN Verified 02/10/22 14:11 clavulanic acid Allergy Unknown UNKNOWN Verified 02/10/22 14:11 [From AUGMENTIN] Home Medications Medication Instructions Recorded Confirmed Last Taken Type diltiazem HCl 120 mg 120 mg PO DAILY 02/09/20 02/10/22 02/10/22 History capsule,extended release 24 hr balsalazide 750 mg capsule 750 mg PO BID 01/08/22 02/10/22 02/10/22 History albuterol sulfate 90 mcg/actuation 2 puff inhalation Q6H PRN Wheezing 02/10/22 02/10/22 Unknown History aerosol inhaler lisinopril 10 mg tablet 10 mg PO BEDTIME 02/10/22 02/10/22 02/10/22 History loperamide 2 mg tablet 2 mg PO Q4H PRN Diarrhea 02/10/22 02/10/22 Unknown History Exam Airway Mallampati Class: II TM Dist: >3cm Neck ROM: Full Assessment and Plan Assessment Anesthesia Assessment: Anesthesia Plan Discussed Final Anesthetic Review NPO: Yes ASA Class: III Final Preanesthetic Review: No Changes in Pt Med Stat, Meds/Allgs Chart Reviewed, Consent Obtained/Reviewed and Anes Risks/Benef Reviewed Patient Risk: Low Procedure Risk: Low Anesthetic Plan Anesthetic Plan: MAC: Disposition: Standard PACU
[2022-02-17 12:58] VITALS: BMI 30.9
[2022-02-17] MEDS: Lactated Ringers 1,000 ML 100 ML IVCONT (13:11)
[2022-02-17 13:23] LABS: INTERNATIONAL NORM RATIO 1.1 (0.9-1.1)
--- NOTE | 2022-02-17 14:03 | P.HPSUR_ITS ---
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 Paroxysmal atrial flutter) History of Previous Operations: Relevant previous surgery/procedure and date(s) (History of appendectomy History of cardioversion History of facelift Hx of colonoscopy Hx of dilation and curettage) Allergies: Allergies Allergy/AdvReac Type Severity Reaction Status Date / Time amoxicillin [From AUGMENTIN] Allergy Unknown UNKNOWN Verified 02/10/22 14:11 clavulanic acid Allergy Unknown UNKNOWN Verified 02/10/22 14:11 [From AUGMENTIN] Review of Systems Sugical H&P ROS: Negative: Constitution, Cardiovascular, Respiratory, Neurological, Psychiatric, Hem-Onc, Allergic/Immunologic, Gastrointestinal, Genitourinary, Musculoskeletal, Integumentary, Endocrine and Eyes/Ears/Nose/Throat Exam Surgical H&P Exam: Normal: HEENT, Normal: Heart, Normal: Lungs, Normal: Extremities, Normal: Abdomen, Normal: Skin and Normal: Neurological Plan Diagnosis/Plan: Unchanged I have reviewed the history and physical and performed a pertinent physical examination on my patient. No changes have occurred unless specified.
--- NOTE | 2022-02-17 15:15 | W.PM.OPN ---
Operative Note Operative Note Date of Service: 02/17/22 Narrative: Operative Information Procedure Description: Colonoscopy Indication: Radiation Proctitis Anesthesia: MAC COLONOSCOPY Instrument: Olympus variable stiffness pediatric scope 190L Colonoscopy Monitoring: Vital signs and clinical assessment, continuous EKG monitoring, Pulse oximetry, Carbon Dioxide monitoring and blood pressure monitoring were done throughout the procedure. Colon withdrawal time was 20 minutes. Procedure: The patient was placed in the left lateral decubitis position and pre-procedure medications were administered. After a digital rectal examination of the ano-rectum, the video colonoscope was inserted into the rectum and advanced through the colon to the cecum/TI. The colonoscope was slowly withdrawn in a retrograde panoramic fashion and the colon mucosa was carefully examined including a retroflexed view of the rectum. Findings and interventions are described below. Procedure Difficulty: moderate, v tight colon due to severe diverticulosis Findings: Terminal Ileum-normal Cecum:normal Ascending Colon: normal Transverse Colon -normal Descending Colon:normal Sigmoid Colon: severe diverticulosis with tight colon, mucosal hypertrophy, several telangiectasiae noted in sigmoid Rectum: Retroflexion with small internal hemorrhoids, grade I, Several areas of telangiectasia noted. Hybrid APC was done with effect 35 and 40 W, areas were then treated in sequential fashion Anorectum - normal Colon preparation: [place] Bowel Preparation Scale Right colon; 3 Transverse colon: 2 Left colon; 2 (0 = Unprepared colon segment with mucosa not seen due to solid stool that cannot be cleared. 1 = Portion of mucosa of the colon segment seen, but other areas of the colon segment not well seen due to staining, residual stool and/or opaque liquid. 2 = Minor amount of residual staining, small fragments of stool and/or opaque liquid, but mucosa of colon segment seen well. 3 = Entire mucosa of colon segment seen well with no residual staining, small fragments of stool or opaque liquid) Impression and Post Procedure Diagnosis: Radiation associated vascular ectasia Plan: High fiber diet leaflet Avoid straining at stool, epsom salts and sitz bath, anusol supps or cream Repeat Colonoscopy as needed can restart coumadin tomorrow Above findings were reviewed with the patient and relevant handouts were provided if indicated.
[2022-02-17 15:23] VITALS: BP 170/60; PULSE 83; RESP 16; TEMP 36.8; O2SAT 98
[2022-02-17 15:39] VITALS: BP 190/85; PULSE 84; RESP 16; O2SAT 96
[2022-02-17 15:54] VITALS: BP 160/82; PULSE 85; RESP 16; TEMP 36.4; O2SAT 96
== END | disposition home or self-care (01) ==
PROVIDERS: Nurse Practitioner; Visit Provider Internal Medicine Gastroenterology
PROC: (CPT 45388; principal; 2022-02-17 13:30)
DX: K62.7 Radiation proctitis (principal); D50.0 Iron deficiency anemia secondary to blood loss (chronic); K57.30 Diverticulosis of large intestine without perforation or abscess without bleeding; K64.0 First degree hemorrhoids; K63.89 Other specified diseases of intestine; I10 Essential (primary) hypertension; I48.0 Paroxysmal atrial fibrillation; Z79.01 Long term (current) use of anticoagulants; Z85.41 Personal history of malignant neoplasm of cervix uteri; Z92.3 Personal history of irradiation; Y84.2 Radiological procedure and radiotherapy as the cause of abnormal reaction of the patient, or of later complication, without mention of misadventure at the time of the procedure; Z87.891 Personal history of nicotine dependence
CPT/HCPCS: 45388; 36415; 85610; C2618; Q9968

== ENCOUNTER 2022-02-17 16:30 | Emergency (ER) | payer MEDICARE, SELFPAY ==
--- NOTE | ~2022-02-17 | CT_ITS ---
EXAMINATION: CT HEAD WITHOUT CONTRAST CLINICAL INFORMATION: Facial droop COMPARISON: None TECHNIQUE: Contiguous axial imaging was performed from the skull base to vertex without intravenous administration of contrast. This CT examination was performed using dose optimization techniques as appropriate, variously including the following: *Automated exposure control *Adjustment of mA and/or kV according to patient size (this includes techniques or standardized protocols for targeted exams where dose is matched to indication/reason for exam; i.e. extremities or head) *Use of iterative reconstruction technique DLP: 661 mGy-cm FINDINGS: There is no acute intra-axial, extra-axial bleed, masses or midline shift. There is no acute infarction in evolution. There is no edema. Both lateral ventricles are symmetrical in size and configuration without enlargement. Bone windows reveal no calvarial abnormality. There is no scalp soft tissue abnormality. Bilateral paranasal sinuses and mastoid air cells are well-aerated. A small mucosal polyp or retention cyst seen in the left maxillary sinus. CT/CT head/brain wo IV con IMPRESSION: No acute intracranial process seen.
--- NOTE | 2022-02-17 16:39 | ED.NEUROSD ---
HPI - Neuro Symptoms/Deficit General Chief Complaint: Stroke Stated Complaint: Facial Droop Time Seen by Provider: 02/17/22 16:38 Source: patient Mode of arrival: other Limitations: no limitations History of Present Illness HPI Narrative: Patient is 76 years old with history of paroxysmal atrial fibrillation on Coumadin, hypertension had colonoscopy just prior to arrival for GI bleed while in postop room nurse noticed slight right facial droop and slurred without any other weakness speech MD did not appreciate same patient does not think has any weakness or problem with speech no other focal weakness by the time patient arrived in the ER no facial asymmetry was noticed no weakness speech was normal Related Data Home Medications Medication Instructions Recorded Confirmed diltiazem HCl 120 mg 120 mg PO DAILY 02/09/20 02/10/22 capsule,extended release 24 hr balsalazide 750 mg capsule 750 mg PO BID 01/08/22 02/10/22 albuterol sulfate 90 mcg/actuation 2 puff inhalation Q6H PRN Wheezing 02/10/22 02/10/22 aerosol inhaler lisinopril 10 mg tablet 10 mg PO BEDTIME 02/10/22 02/10/22 loperamide 2 mg tablet 2 mg PO Q4H PRN Diarrhea 02/10/22 02/10/22 Previous Rx's Medication Instructions Recorded flecainide 50 mg tablet 50 mg PO Q12H #180 tabs 02/25/21 Allergies Allergy/AdvReac Type Severity Reaction Status Date / Time amoxicillin [From AUGMENTIN] Allergy Unknown UNKNOWN Verified 02/17/22 16:52 clavulanic acid Allergy Unknown UNKNOWN Verified 02/17/22 16:52 [From AUGMENTIN] Review of Systems Review of Systems: Yes all other systems are reviewed and are negative [facility] Past Medical History Medical History Cervical cancer Essential hypertension residential current use of antiarrhythmic drug residential current use of anticoagulant Paroxysmal atrial flutter Surgical History History of appendectomy History of cardioversion History of facelift Hx of colonoscopy Hx of dilation and curettage Family History Family History Father No problems noted. Mother No problems noted. Social History Social History Household Members: Spouse Housing: House Do you presently have visiting nurse or other home services: No Patient Tobacco Use Status: Former Tobacco user Quit Date: 1992 Second Hand Smoke Exposure: Yes Advance Directives: Yes Advance Directives Information Provided: No Advance Directives on File: No service: No Current occupational status: retired Physical Exam Vital Signs: Vital Signs: Last Vital Signs Temp 97 F 02/17/22 18:00 Pulse 76 02/17/22 18:00 Resp 10 L 02/17/22 18:00 BP 170/61 H 02/17/22 18:00 Pulse Ox 100 02/17/22 18:00 O2 Del Method 02/17/22 18:00 BMI result Body Mass Index 30.0 Appearance: Alert. Oriented X3. No acute distress. Eyes: PERRLA, No Nystagmus ENT: Pharynx normal. Oral Mucosa moist Neck: Normal inspection. Neck supple. CVS: Normal heart rate and rhythm. Pulses normal. Respiratory: No respiratory distress. Equal air entry bilateral, no wheezing/rales/rhonchi Abdomen: Soft and nontender. Bowel sounds are present, no mass palpable, no CVA tenderness Skin: Skin warm and dry. Normal skin color. Normal skin turgor. Extremities: No lower extremity edema. No calf tenderness Neuro: Oriented X 3. No motor deficit. No sensory deficit.No cerebellar signs , cranial nerves II-XII intact MDM - Neuro Symptoms/Deficit MDM Narrative Medical decision making narrative: No neuro deficit was appreciated when patient arrived CT scan head was also negative patient ambulating steady gait NIHSS score was 0 patient is on Coumadin will continue same. Lab Data Attestation: I reviewed the patient's lab results. Labs: Lab Results 02/17/22 Range/Units 17:26 POC Glucose 78 (60-115) mg/dL ECG Data Attestation: I personally reviewed and interpreted this ECG as follows: Interpretation: Sinus rhythm with PACs heart rate 71 beats per minute low-voltage QRS no acute ST-T change and no acute ischemia NIH Stroke Scale Internal: Initial- Upon Arrival Level of Consciousness: Alert Level of Consciousness Questions: Answers both questions correctly Level of Consciousness Commands: Performs both tasks correctly Best Gaze: Normal Visual: No visual loss Facial Palsy: Normal Motor Arm (Right): No drift Motor Arm (Left): No drift Motor Leg (Right): No drift Motor Leg (Left): No drift Limb Ataxia: Absent Sensory: Normal Best Language: No aphasia Dysarthia: Normal Extinction and Inattention: No abnormality Score: 0 Discharge Plan Discharge Clinical Impression: Mouth droop due to facial weakness Patient Disposition: Home, Self-Care Instructions: Weakness (ED) Additional Instructions: No signs of stroke seen Muscle weakness likely because of poor oral intake Care and cautions as advised continue your medications Prescriptions: No Action flecainide 50 mg tablet 50 mg PO Q12H Qty: 180 4RF loperamide 2 mg Tablet 2 mg PO Q4H PRN (Reason: Diarrhea) Rx Instructions: administer after each loose stool until symptoms controlled; do not exceed 8 mg per 24 hrs albuterol sulfate 90 mcg/actuation HFA aerosol inhaler 2 puff INHALATION Q6H PRN (Reason: Wheezing) lisinopril 10 mg tablet 10 mg PO BEDTIME diltiazem HCl 120 mg capsule,extended release 24hr 120 mg PO DAILY balsalazide 750 mg capsule 750 mg PO BID
[2022-02-17 16:45] VITALS: BP 171/75; PULSE 74; RESP 14; TEMP 36.7; O2SAT 98
--- NOTE | 2022-02-17 16:48 | ECG_ITS ---
Test Reason : afib Blood Pressure : / mmHG Vent. Rate : 071 BPM Atrial Rate : 071 BPM P-R Int : 248 ms QRS Dur : 100 ms QT Int : 396 ms P-R-T Axes : 097 -14 070 degrees QTc Int : 430 ms Sinus rhythm with sinus arrhythmia with 1st degree A-V block Low voltage QRS RSR' or QR pattern in V1 suggests right ventricular conduction delay Abnormal ECG When compared with ECG of 10-FEB-2022 18:15, No significant change was found Heart rate has decreased Referred By: Yrn Cespedes Electronically Signed By:DARIO MEDEROS MD
[2022-02-17 17:32] LABS: Glucose, Whole Blood 78 mg/dL (60-115)
[2022-02-17 18:00] VITALS: BP 170/61; PULSE 76; RESP 10; TEMP 36.1; O2SAT 100
[2022-02-17 19:30] VITALS: BP 153/49; PULSE 80; RESP 14; TEMP 36.4; O2SAT 96
== END 2022-02-17 19:55 | disposition home or self-care (01) ==
PROVIDERS: Emergency Provider Internal Medicine; PCP Internal Medicine
DX: R29.810 Facial weakness (principal); I10 Essential (primary) hypertension; I48.0 Paroxysmal atrial fibrillation; Z79.01 Long term (current) use of anticoagulants; Z79.899 Other long term (current) drug therapy
CPT/HCPCS: 70450; 82947; 93005; 99284

== ENCOUNTER → 2022-02-24 10:33 | Outpatient (BNVA) | payer MEDICARE, SELFPAY | PROVIDERS: PCP Internal Medicine; Visit Provider Internal Medicine | DX: I48.20 Chronic atrial fibrillation, unspecified (principal); Z51.81 Encounter for therapeutic drug level monitoring; Z79.01 Long term (current) use of anticoagulants | CPT/HCPCS: 85610; 99211 ==

== ENCOUNTER → 2022-02-28 10:50 | Outpatient (BNVA) | payer MEDICARE, SELFPAY | PROVIDERS: PCP Internal Medicine; Visit Provider Internal Medicine | DX: I48.20 Chronic atrial fibrillation, unspecified (principal); Z79.01 Long term (current) use of anticoagulants; Z51.81 Encounter for therapeutic drug level monitoring | CPT/HCPCS: 85610; 99211 ==

== ENCOUNTER → 2022-03-04 11:12 | Outpatient (BNVA) | payer MEDICARE, SELFPAY | PROVIDERS: PCP Internal Medicine; Visit Provider Internal Medicine | DX: I48.20 Chronic atrial fibrillation, unspecified (principal); Z79.01 Long term (current) use of anticoagulants; Z51.81 Encounter for therapeutic drug level monitoring | CPT/HCPCS: 85610; 99211 ==

== ENCOUNTER 2022-03-06 10:51 | Outpatient (REF) | payer MEDICARE, SELFPAY ==
[2022-03-06 10:55] LABS: MANUAL DIFF FLAG NO
[2022-03-06 11:06] LABS: Appearance Urine Clear; Basophils Absolute Auto 0.1 X10*3/uL (0.0-0.2); Basophils Percent Auto 1.2 % (0-2); Color Urine Yellow; Eosinophils Absolute Auto 0.3 X10*3/uL (0.0-0.4); Eosinophils Percent Auto 6.4 % (0-4); Glucose Urine UA Negative (Negative); Hemoglobin 10.6 g/dl (12.0-16.0); Imm Gran Abs Auto 0.01 X10*3/uL (0.00-0.03); Imm Gran Pct Auto 0.2 % (0.0-0.4); Leukocyte Esterase Urine Trace (Negative); Lymphocytes Absolute Auto 1.2 X10*3/uL (1.2-4.9); Lymphocytes Percent Auto 29.3 % (20-40); Mean Corpuscular HGB Conc 30.3 g/dl (31.0-35.0); Mean Corpuscular Hemoglobin 26.5 pg (27.0-33.0); Mean Corpuscular Volume 87.5 fL (80.0-98.0); Mean Platelet Volume 8.9 fL (9.4-12.3); Monocytes Absolute Auto 0.5 X10*3/uL (0.1-1.2); Neutrophils Absolute Auto 2.2 x10*3/uL (2.0-8.3); Neutrophils Percent Auto 51.9 % (45-73); Nitrite Urine Negative (Negative); Platelet Count 365 X10*3/uL (160-400); Red Cell Distribution Width 16.6 % (11.0-16.0); Specific Gravity - Urine 1.025 (1.005-1.025); UMIC TRIGGER UA YES; Urine Blood Negative (Negative); Urine Ketones Negative (Negative); Urine Protein Negative (Neg-Trace); White Blood Count 4.2 X10*3/uL (4.8-10.8)
[2022-03-06 11:09] LABS: Bacteria Urine None Seen (None Seen); Hyaline Casts Urine 0-2 /LPF (0-2); RBC Urine 0-2 /HPF (0-2)
[2022-03-06 11:22] LABS: Alanine Aminotransferase 13 U/L (0-31); Albumin Level 4.1 g/dL (3.5-5.0); Alkaline Phosphatase 106 U/L (39-117); Anion Gap 12 (12-20); Aspartate Amino Transferase 17 U/L (5-31); Blood Urea Nitrogen 19 mg/dL (9-16); Calcium 9.2 mg/dL (8.4-10.2); Carbon Dioxide 24 mmol/L (22-29); Chloride 106 mmol/L (96-108); Cholesterol 195 mg/dL; Estimated Glomerular Filt Rate > 60; Glucose Fasting 102 mg/dL (60-99); HDL Cholesterol 59 mg/dL; LDL Cholesterol Calculated 124 mg/dl; Potassium 4.4 mmol/L (3.3-5.1); Sodium 138 mmol/L (135-145); Total Protein 7.4 g/dL (6.5-8.0); Triglycerides 60 mg/dL
[2022-03-06 11:41] LABS: Bilirubin Total 0.3 mg/dL (0.0-1.0)
[2022-03-06 12:25] LABS: Microalbum/Creatinine Ratio Ur 11.6 ug/mg cr
[2022-03-06 12:32] LABS: Estimated Average Glucose 105 mg/dL; Hemoglobin A1c % 5.3 %
== END 2022-03-06 10:52 | disposition home or self-care (01) ==
LOC: HO.LNP 10:51
PROVIDERS: Visit Provider Internal Medicine
DX: Z00.00 Encounter for general adult medical examination without abnormal findings (principal); R73.03 Prediabetes; E78.00 Pure hypercholesterolemia, unspecified; I10 Essential (primary) hypertension; D70.9 Neutropenia, unspecified
CPT/HCPCS: 80053; 80061; 81001; 82043; 83036; 85025

== ENCOUNTER → 2022-03-11 11:44 | Outpatient (BNVA) | payer MEDICARE, SELFPAY | PROVIDERS: PCP Internal Medicine; Visit Provider Internal Medicine | DX: I48.20 Chronic atrial fibrillation, unspecified (principal); Z79.01 Long term (current) use of anticoagulants; Z51.81 Encounter for therapeutic drug level monitoring | CPT/HCPCS: 85610; 99211 ==

== ENCOUNTER → 2022-03-27 11:25 | Outpatient (BNVA) | payer MEDICARE, SELFPAY | PROVIDERS: PCP Internal Medicine; Visit Provider Internal Medicine | DX: I48.20 Chronic atrial fibrillation, unspecified (principal); Z79.01 Long term (current) use of anticoagulants; Z51.81 Encounter for therapeutic drug level monitoring | CPT/HCPCS: 85610; 99211 ==

== ENCOUNTER → 2022-04-17 10:58 | Outpatient (BNVA) | payer MEDICARE, SELFPAY | PROVIDERS: PCP Internal Medicine; Visit Provider Internal Medicine | DX: I48.20 Chronic atrial fibrillation, unspecified (principal); Z79.01 Long term (current) use of anticoagulants; Z51.81 Encounter for therapeutic drug level monitoring | CPT/HCPCS: 85610; 99211 ==

== ENCOUNTER → 2022-04-23 10:27 | Outpatient (BNVA) | payer MEDICARE, SELFPAY | PROVIDERS: PCP Internal Medicine; Visit Provider Internal Medicine | DX: I48.20 Chronic atrial fibrillation, unspecified (principal); Z79.01 Long term (current) use of anticoagulants; Z51.81 Encounter for therapeutic drug level monitoring | CPT/HCPCS: 85610; 99211 ==

== ENCOUNTER → 2022-05-05 10:59 | Outpatient (BNVA) | payer MEDICARE, SELFPAY | PROVIDERS: PCP Internal Medicine; Visit Provider Internal Medicine | DX: I48.20 Chronic atrial fibrillation, unspecified (principal); Z79.01 Long term (current) use of anticoagulants; Z51.81 Encounter for therapeutic drug level monitoring | CPT/HCPCS: 85610; 99211 ==

== ENCOUNTER 2022-05-20 11:07 | Outpatient (REF) | payer MEDICARE, SELFPAY ==
[2022-05-20 12:01] LABS: MANUAL DIFF FLAG NO
[2022-05-20 12:31] LABS: Basophils Percent Auto 1.1 % (0-2); Eosinophils Absolute Auto 0.2 X10*3/uL (0.0-0.4); Eosinophils Percent Auto 6.5 % (0-4); Hematocrit 32.7 % (37.0-47.0); Hemoglobin 9.9 g/dl (12.0-16.0); Imm Gran Abs Auto 0.01 X10*3/uL (0.00-0.03); Imm Gran Pct Auto 0.3 % (0.0-0.4); Lymphocytes Absolute Auto 1.1 X10*3/uL (1.2-4.9); Lymphocytes Percent Auto 28.6 % (20-40); Mean Corpuscular HGB Conc 30.3 g/dl (31.0-35.0); Mean Corpuscular Hemoglobin 26.8 pg (27.0-33.0); Mean Corpuscular Volume 88.4 fL (80.0-98.0); Mean Platelet Volume 8.6 fL (9.4-12.3); Monocytes Absolute Auto 0.3 X10*3/uL (0.1-1.2); Monocytes Percent Auto 8.4 % (2-11); Neutrophils Absolute Auto 2.1 x10*3/uL (2.0-8.3); Neutrophils Percent Auto 55.1 % (45-73); Platelet Count 331 X10*3/uL (160-400); Red Cell Distribution Width 18.5 % (11.0-16.0); White Blood Count 3.7 X10*3/uL (4.8-10.8)
[2022-05-20 12:56] LABS: Iron 44 mcg/dL (30-160); Percent Iron Saturation 10 % (15-50); Total Iron Binding Capacity 422 mcg/dL (228-428); Unsaturated Iron Binding 378 ug/dL
[2022-05-20 13:09] LABS: Ferritin 18 ng/mL (10-250)
== END 2022-05-20 11:08 | disposition home or self-care (01) ==
LOC: HO.LAB 11:07
PROVIDERS: Absent Provider Internal Medicine Gastroenterology; PCP Internal Medicine; Visit Provider Internal Medicine
DX: K52.0 Gastroenteritis and colitis due to radiation (principal); D62 Acute posthemorrhagic anemia; I48.20 Chronic atrial fibrillation, unspecified; Z51.81 Encounter for therapeutic drug level monitoring; Z79.01 Long term (current) use of anticoagulants
CPT/HCPCS: 36415; 82728; 83540; 85025; 85610; 99211

== ENCOUNTER → 2022-06-03 10:12 | Outpatient (BNVA) | payer MEDICARE, SELFPAY | PROVIDERS: PCP Internal Medicine; Visit Provider Internal Medicine | DX: I48.20 Chronic atrial fibrillation, unspecified (principal); Z79.01 Long term (current) use of anticoagulants; Z51.81 Encounter for therapeutic drug level monitoring | CPT/HCPCS: 36415; 85025; 85610; 99211 ==

== ENCOUNTER 2022-06-24 10:56 | Outpatient (REF) | payer MEDICARE, SELFPAY ==
[2022-06-24 11:03] LABS: MANUAL DIFF FLAG NO
[2022-06-24 11:39] LABS: Basophils Percent Auto 0.9 % (0-2); Eosinophils Absolute Auto 0.3 X10*3/uL (0.0-0.4); Eosinophils Percent Auto 6.5 % (0-4); Hematocrit 32.3 % (37.0-47.0); Hemoglobin 9.6 g/dl (12.0-16.0); Lymphocytes Absolute Auto 1.1 X10*3/uL (1.2-4.9); Lymphocytes Percent Auto 24.9 % (20-40); Mean Corpuscular HGB Conc 29.7 g/dl (31.0-35.0); Mean Corpuscular Hemoglobin 29.6 pg (27.0-33.0); Mean Corpuscular Volume 99.7 fL (80.0-98.0); Mean Platelet Volume 8.7 fL (9.4-12.3); Monocytes Absolute Auto 0.5 X10*3/uL (0.1-1.2); Monocytes Percent Auto 10.1 % (2-11); Neutrophils Absolute Auto 2.6 x10*3/uL (2.0-8.3); Neutrophils Percent Auto 57.6 % (45-73); Platelet Count 299 X10*3/uL (160-400); Red Blood Count 3.24 X10*6/uL (4.20-5.50); Red Cell Distribution Width 21.1 % (11.0-16.0); White Blood Count 4.5 X10*3/uL (4.8-10.8)
== END 2022-06-24 10:57 | disposition home or self-care (01) ==
LOC: HO.LNP 10:56
PROVIDERS: Visit Provider Internal Medicine
DX: I48.20 Chronic atrial fibrillation, unspecified (principal); D70.9 Neutropenia, unspecified; Z51.81 Encounter for therapeutic drug level monitoring; Z79.01 Long term (current) use of anticoagulants
CPT/HCPCS: 85025; 85610; 99211

== ENCOUNTER 2022-07-09 07:32 | Day surgery (SDC) | payer MEDICARE, SELFPAY ==
[2022-07-04 15:11] VITALS: BMI 28.4
--- NOTE | 2022-07-08 13:26 | HO.ANESPROP2 ---
HPI - Anesthesia Eval Consult details Narrative: 76yo F for Colonoscopy ERBE Jet 2 s/p same 01/2022 with MAC Coumadin for afib PMFSH Active Problems Active Problems: All Active Problems (Updated 07/04/22 @ 15:07 by Ирина Joya RN) Sacroiliac joint dysfunction of right side (Acute) Right hip pain (Acute) Lumbar spondylosis (Acute) AV block, 1st degree (Acute) Encounter for monitoring anti-arrhythmic therapy (Acute) Essential hypertension (Acute) Acute blood loss anemia (Acute) Radiation enteritis (Acute) assisted current use of anticoagulant (Acute) assisted current use of antiarrhythmic drug (Acute) Past Medical History Medical History (Updated 07/10/22 @ 09:45 by Lion Dahl MD) Cervical cancer Colitis 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 Mother No problems noted. Family history of problems with anesthesia: No Surgical History Surgical History (Updated 07/10/22 @ 09:07 by Tanika Evangelista) History of appendectomy History of cardioversion History of facelift Hx of colonoscopy Hx of dilation and curettage Hx of removal of cyst Hx of tonsillectomy History of Problems with Anesthesia: No Social History Social History Household Members: Spouse Housing: House Do you presently have visiting nurse or other home services: No Patient Tobacco Use Status: Former Tobacco user Quit Date: >20 yrs ago Second Hand Smoke Exposure: Yes service: No Current occupational status: retired Meds Allergies Allergy/AdvReac Type Severity Reaction Status Date / Time amoxicillin [From AUGMENTIN] Allergy Unknown UNKNOWN Verified 07/10/22 09:06 clavulanic acid Allergy Unknown UNKNOWN Verified 07/10/22 09:06 [From AUGMENTIN] Home Medications Medication Instructions Recorded Confirmed Last Taken Type diltiazem HCl 120 mg 120 mg PO DAILY 02/09/20 07/10/22 02/10/22 History capsule,extended release 24 hr balsalazide 750 mg capsule 750 mg PO BID 01/08/22 07/10/22 02/10/22 History albuterol sulfate 90 mcg/actuation 2 puff inhalation Q6H PRN Wheezing 02/10/22 07/10/22 Unknown History aerosol inhaler loperamide 2 mg tablet 2 mg PO Q4H PRN Diarrhea 02/10/22 07/10/22 Unknown History mupirocin 2 % topical ointment 1 appl topical BID-TID 03/11/22 07/10/22 Unknown History iron 2,500 mg PO DAILY 07/09/22 07/10/22 Unknown History Exam Exam Date and Time: July 08, 2022 1326 Height,Weight and Vital Signs: Height 5 ft 6 in Weight 79.832 kg Pertinent Lab Results Pertinent Lab Results: Laboratory Tests 03/06/22 06/24/22 07:30 Unknown WBC 4.5 L Hgb 9.6 L Hct 32.3 L Plt Count 299 Sodium 138 Potassium 4.4 Chloride 106 Carbon Dioxide 24 BUN 19 H Creatinine 0.85 Narrative Narrative: EKG 01/2022 Vent. Rate : 099 BPM ? ? Atrial Rate : 099 BPM ?? P-R Int : 242 ms? QRS Dur : 102 ms ? ? QT Int : 342 ms ? ? ? P-R-T Axes : 077 -13 064 degrees ?? QTc Int : 438 ms ? Sinus rhythm with 1st degree A-V block RSR' or QR pattern in V1 suggests right ventricular conduction delay Low voltage QRS Borderline ECG When compared with ECG of 08-OCT-2017 10:49, Premature ventricular complexes are no longer Present Premature atrial complexes are no longer Present ECHO 01/2022 Conclusions: - 1. Normal LV systolic function with grade 1 diastolic? dysfunction? 2. Normal cardiac valvular Dopplers? 3. Normal RV systolic pressure ? 4. No gross pericardial effusion ? Assessment and Plan Assessment Anesthesia Assessment: Chart Reviewed Final Anesthetic Review Family History of Problems with Anesthesia: No History of Problems with Anesthesia: No
--- NOTE | 2022-07-09 07:50 | HO.ANESPROP2 ---
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 Mother No problems noted. Family history of problems with anesthesia: No Surgical History Surgical History (Updated 07/09/22 @ 08:13 by Nazia Aguilera RN) History of appendectomy History of cardioversion History of facelift Hx of colonoscopy Hx of dilation and curettage Hx of removal of cyst Hx of tonsillectomy History of Problems with Anesthesia: No Social History Social History Household Members: Spouse Housing: House Do you presently have visiting nurse or other home services: No Patient Tobacco Use Status: Former Tobacco user Quit Date: >20 yrs ago Second Hand Smoke Exposure: Yes service: No Current occupational status: retired Meds Allergies Allergy/AdvReac Type Severity Reaction Status Date / Time amoxicillin [From AUGMENTIN] Allergy Unknown UNKNOWN Verified 07/09/22 07:51 clavulanic acid Allergy Unknown UNKNOWN Verified 07/09/22 07:51 [From AUGMENTIN] Active Medications: Current Medications Lactated Ringer's (Lr) 1,000 mls @ 100 mls/hr IVCONT .Q10H [facility] Home Medications Medication Instructions Recorded Confirmed Last Taken Type diltiazem HCl 120 mg 120 mg PO DAILY 02/09/20 07/09/22 02/10/22 History capsule,extended release 24 hr balsalazide 750 mg capsule 750 mg PO BID 01/08/22 07/09/22 02/10/22 History albuterol sulfate 90 mcg/actuation 2 puff inhalation Q6H PRN Wheezing 02/10/22 07/09/22 Unknown History aerosol inhaler loperamide 2 mg tablet 2 mg PO Q4H PRN Diarrhea 02/10/22 07/09/22 Unknown History mupirocin 2 % topical ointment 1 appl topical BID-TID 03/11/22 07/09/22 Unknown History iron 2,500 mg PO DAILY 07/09/22 07/09/22 Unknown History Exam Exam Date and Time: July 09, 2022 0750 Height,Weight and Vital Signs: Height 5 ft 6 in Weight 79.832 kg Airway Mallampati Class: II TM Dist: >3cm Neck ROM: Full Denture: Upper Heart: rrr Lungs: cta Assessment and Plan Assessment Anesthesia Assessment: Anesthesia Plan Discussed and Chart Reviewed Final Anesthetic Review Family History of Problems with Anesthesia: No History of Problems with Anesthesia: No NPO: Yes ASA Class: III Final Preanesthetic Review: No Changes in Pt Med Stat, Meds/Allgs Chart Reviewed and Consent Obtained/Reviewed Patient Risk: Intermediate Procedure Risk: Intermediate Anesthetic Plan Anesthetic Plan: MAC: Disposition: Standard PACU
[2022-07-09 07:55] LABS: INTERNATIONAL NORM RATIO 1.2 (0.9-1.1); Prothrombin Time 14.2 SEC (10.0-13.1)
[2022-07-09 08:03] VITALS: BP 158/76; PULSE 83; RESP 15; TEMP 36.4; O2SAT 99
[2022-07-09] MEDS: Lactated Ringers 1,000 ML 100 ML IVCONT (08:11)
--- NOTE | 2022-07-09 08:33 | MHC.SHP ---
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 Paroxysmal atrial flutter) History of Previous Operations: Relevant previous surgery/procedure and date(s) (History of appendectomy History of cardioversion History of facelift Hx of colonoscopy Hx of dilation and curettage Hx of removal of cyst Hx of tonsillectomy) Allergies: Allergies Allergy/AdvReac Type Severity Reaction Status Date / Time amoxicillin [From AUGMENTIN] Allergy Unknown UNKNOWN Verified 07/09/22 07:51 clavulanic acid Allergy Unknown UNKNOWN Verified 07/09/22 07:51 [From AUGMENTIN] Review of Systems Sugical H&P ROS: Negative: Constitution, Cardiovascular, Respiratory, Neurological, Psychiatric, Hem-Onc, Allergic/Immunologic, Gastrointestinal, Genitourinary, Musculoskeletal, Integumentary, Endocrine and Eyes/Ears/Nose/Throat Exam Surgical H&P Exam: Normal: HEENT, Normal: Heart, Normal: Lungs, Normal: Extremities, Normal: Abdomen, Normal: Skin and Normal: Neurological Plan Diagnosis/Plan: Unchanged I have reviewed the history and physical and performed a pertinent physical examination on my patient. No changes have occurred unless specified. Hybrid APC for NAM Time Spent With Patient Time: Total time managing care of this patient today ____ minutes.
--- NOTE | 2022-07-09 08:35 | W.PM.OPN ---
Operative Note Operative Note Date of Service: 07/09/22 Narrative: Operative Information Procedure Description: Sigmoidoscopy with hybrid APC Indication: Radiation proctopathy and bleeding Anesthesia: MAC Sigmoidoscopy Instrument: Olympus variable stiffness pediatric scope 190L Colonoscopy Monitoring: Vital signs and clinical assessment, continuous EKG monitoring, Pulse oximetry, Carbon Dioxide monitoring and blood pressure monitoring were done throughout the procedure. Procedure: The patient was placed in the left lateral decubitis position and pre-procedure medications were administered. After a digital rectal examination of the ano-rectum, the video colonoscope was inserted into the rectum and advanced through the colon to the distal sigmoid The colonoscope was slowly withdrawn in a retrograde panoramic fashion and the colon mucosa was carefully examined including a retroflexed view of the rectum. Findings and interventions are described below. Procedure Difficulty: tight sigmoid angles Findings: Sigmoid Colon: few areas of telangiectasia noted which were treated with APC Rectum: Retroflexion with small internal hemorrhoids, grade I, patchy tenagiectasia with fraible mucosa noted mostly in the mid and distal rectum but better than the previous time. ERBE jet was used with methylene blue and then ablation to 40 W with good effect. 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
[2022-07-09 09:39] VITALS: BP 146/82; PULSE 90; RESP 16; TEMP 36.1; O2SAT 97
[2022-07-09 09:54] VITALS: BP 143/86; PULSE 85; RESP 16; TEMP 36.8; O2SAT 99
== END 2022-07-09 11:07 | disposition home or self-care (01) ==
PROVIDERS: Nurse Practitioner; PCP Internal Medicine; Visit Provider Internal Medicine Gastroenterology
PROC: (CPT 45334; principal; 2022-07-09 08:20)
DX: K62.5 Hemorrhage of anus and rectum (principal); D64.9 Anemia, unspecified; K62.7 Radiation proctitis; Y84.2 Radiological procedure and radiotherapy as the cause of abnormal reaction of the patient, or of later complication, without mention of misadventure at the time of the procedure; I78.8 Other diseases of capillaries; K64.0 First degree hemorrhoids
CPT/HCPCS: 45334; 36415; 85610; C2618; Q9968

== ENCOUNTER → 2022-07-10 09:02 | Outpatient (BNVA) | payer MEDICARE, SELFPAY | PROVIDERS: PCP Internal Medicine; Referring Provider Internal Medicine; Visit Provider Internal Medicine | DX: I48.92 Unspecified atrial flutter (principal); I44.0 Atrioventricular block, first degree; I10 Essential (primary) hypertension; Z51.81 Encounter for therapeutic drug level monitoring; Z79.899 Other long term (current) drug therapy | CPT/HCPCS: 93005; 99212 ==

== ENCOUNTER → 2022-07-15 10:56 | Outpatient (BNVA) | payer MEDICARE, SELFPAY | PROVIDERS: PCP Internal Medicine; Visit Provider Internal Medicine | DX: I48.20 Chronic atrial fibrillation, unspecified (principal); Z79.01 Long term (current) use of anticoagulants; Z51.81 Encounter for therapeutic drug level monitoring | CPT/HCPCS: 85610; 99212 ==

== ENCOUNTER → 2022-07-21 10:54 | Outpatient (BNVA) | payer MEDICARE, SELFPAY | PROVIDERS: PCP Internal Medicine; Visit Provider Internal Medicine | DX: I48.20 Chronic atrial fibrillation, unspecified (principal); Z79.01 Long term (current) use of anticoagulants; Z51.81 Encounter for therapeutic drug level monitoring | CPT/HCPCS: 85610; 99211 ==

== ENCOUNTER → 2022-08-04 11:06 | Outpatient (BNVA) | payer MEDICARE, SELFPAY | PROVIDERS: PCP Internal Medicine; Visit Provider Internal Medicine | DX: I48.20 Chronic atrial fibrillation, unspecified (principal); Z79.01 Long term (current) use of anticoagulants; Z51.81 Encounter for therapeutic drug level monitoring | CPT/HCPCS: 85610; 99211 ==

== ENCOUNTER → 2022-08-27 10:02 | Outpatient (BNVA) | payer MEDICARE, SELFPAY | PROVIDERS: PCP Internal Medicine; Visit Provider Internal Medicine | DX: I48.20 Chronic atrial fibrillation, unspecified (principal); Z79.01 Long term (current) use of anticoagulants; Z51.81 Encounter for therapeutic drug level monitoring | CPT/HCPCS: 85610; 99211 ==

== ENCOUNTER → 2022-09-24 10:15 | Outpatient (BNVA) | payer MEDICARE, SELFPAY | PROVIDERS: PCP Internal Medicine; Visit Provider Internal Medicine | DX: I48.20 Chronic atrial fibrillation, unspecified (principal); Z79.01 Long term (current) use of anticoagulants; Z51.81 Encounter for therapeutic drug level monitoring | CPT/HCPCS: 85610; 99211 ==

== ENCOUNTER 2022-10-22 19:57 | Emergency (ER) | payer MEDICARE, SELFPAY ==
[2022-10-22 20:01] VITALS: BP 157/64; PULSE 90; RESP 16; TEMP 36.5; O2SAT 97; BMI 30.8
--- NOTE | 2022-10-22 20:01 | ED.FEMALEGU ---
HPI - Female Genitourinary General Chief complaint: Urogenital-Female Stated complaint: Bladder infection started couple hours ago Time Seen by Provider: 10/22/22 20:09 Source: patient Mode of arrival: ambulatory Limitations: no limitations History of Present Illness HPI Narrative: 76 yo female with history of HTN, 1st degree AV block, aflutter on coumadin, colitis who presents to the ER for evaluation of acute onset of increased urinary frequency, urgency and dysuria for the last couple of hours. No recent UTIs. No N/V/D, fever, chills. No back pain. MD elicited complaint: dysuria and UTI Onset (ago): hour(s) Location of symptoms: external genitalia and suprapubic Severity: moderate Quality of pain: burning Consistency: constant Vaginal discharge: none Vaginal bleeding: none Urinary symptoms: Dysuria, Urgency and Frequency Exacerbating factors: urination Relieving factors: none Associated symptoms: denies other symptoms Treatment prior to arrival: none Related Data Home Medications Medication Instructions Recorded Confirmed diltiazem HCl 120 mg 120 mg PO DAILY 02/09/20 08/04/22 capsule,extended release 24 hr balsalazide 750 mg capsule 750 mg PO BID 01/08/22 08/04/22 albuterol sulfate 90 mcg/actuation 2 puff inhalation Q6H PRN Wheezing 02/10/22 08/04/22 aerosol inhaler loperamide 2 mg tablet 2 mg PO Q4H PRN Diarrhea 02/10/22 08/04/22 mupirocin 2 % topical ointment 1 appl topical BID-TID 03/11/22 08/04/22 iron 2,500 mg PO DAILY 07/09/22 08/04/22 loperamide [Imodium A-D] PO 08/04/22 08/04/22 Previous Rx's Medication Instructions Recorded warfarin 5 mg tablet 5 mg PO DAILY #90 tabs 02/24/22 lisinopril 10 mg tablet 10 mg PO BEDTIME #90 tabs 03/11/22 flecainide 50 mg tablet 50 mg PO Q12H #180 tabs 10/06/22 cefuroxime axetil 250 mg tablet 250 mg PO BID 7 days #14 tabs 10/22/22 Allergies Allergy/AdvReac Type Severity Reaction Status Date / Time amoxicillin [From AUGMENTIN] Allergy Unknown UNKNOWN Verified 10/22/22 20:01 clavulanic acid Allergy Unknown UNKNOWN Verified 10/22/22 20:01 [From AUGMENTIN] Review of Systems Review of Systems: Yes all other systems are reviewed and are negative FOR[facility]LY [facility] Past Medical History Medical History (Updated 10/22/22 @ 20:15 by ARA Carrillo) Cervical cancer Colitis Essential 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 Mother No problems noted. Social History Social History Household Members: Spouse Housing: House Do you presently have visiting nurse or other home services: No Patient Tobacco Use Status: Former Tobacco user Quit Date: >20 yrs ago Second Hand Smoke Exposure: Yes Advance Directives: No Advance Directives Information Provided: No service: No Current occupational status: retired Physical Exam Vital Signs: Vital Signs: Last Vital Signs Temp 97.7 F 10/22/22 20:01 Pulse 90 10/22/22 20:01 Resp 16 10/22/22 20:01 BP 157/64 H 10/22/22 20:01 Pulse Ox 97 10/22/22 20:01 O2 Del Method Room Air 10/22/22 20:01 BMI result Body Mass Index 30.8 Appearance: Alert. Oriented X3. No acute distress. HEENT: normal external inspection Neck: Normal inspection. CVS: Normal heart rate and rhythm. Pulses normal. Respiratory: No respiratory distress. Breath sounds normal. Abdomen: Soft with mild suprapubic tenderness. normal active +BS x4. pelvic deferred Skin: Skin warm and dry. Normal skin color. Normal skin turgor. No rashes. Extremities: No lower extremity edema. No joint swelling. Neuro/psych: Oriented X 3. grossly normal. Normal speech and cognition. Medical Decision Making Medical Decision Making MDM Narrative: 76 yo female presenting to the ER for evaluation of acute onset of UTI symptoms that started a few hours ago. No fever, chills, N/V/D, back pain. She is well appearing. No CVA tenderness on exam, doubt pyelo. UA + for infection. will start ceftin, PCN allergy is only a rash. patient counseled and return precautions were discussed. stable for d/c home. Differential Diagnosis Differential Diagnoses: The differential diagnosis associated with the presentation includes UTI, cystitis, pyelonephritis, kidney stone Lab Data MDM Lab Attestation statement: I reviewed the patient's lab results. +UTI Labs: Lab Results 10/22/22 Range/Units 20:09 Urine Color Yellow Urine Appearance Clear Urine pH 5.5 (5.0-9.0) Ur Specific [place] 1.015 (1.005-1.025) Urine Protein 30 (1+) H (Neg-Trace) mg/dL Urine Glucose (UA) Negative (Negative) mg/dL Urine Ketones Negative (Negative) mg/dL Urine Blood Large (3+) H (Negative) Urine Nitrite Negative (Negative) Ur Leukocyte Esterase Small (1+) H (Negative) Urine RBC >20 H (0-2) /HPF Urine WBC >50 H (0-5) /HPF Ur Squamous Epith Cells 0-2 (0-2) /HPF Urine Bacteria None Seen (None Seen) Hyaline Casts 0-2 (0-2) /LPF External Record Review External record reviewed: Outpatient record, Prior outpatient labs and Prior outpatient radiology Tests considered The following testing was considered but not selected: lab workup considered but no systemic signs of infection Prescription Management I considered prescription management with: Antibiotic Chronic Conditions Patient?s care impacted by: Other (aflutter on coumadin - limits abx choice) Critical Care Time Critical Care Time Critical Care Time: No Discharge Plan Discharge Clinical Impression: Urinary tract infection Patient Disposition: Home, Self-Care Instructions: Urinary Tract Infection in Women (DC) Additional Instructions: Your urine test showed infection Take the prescribed antibiotics as directed, complete the entire course and do not miss any doses Next dose is due in the morning Drink plenty of fluids Follow up with your doctor as needed If you develop new or worsening symptoms call 911 or come back to the ER for further evaluation. Prescriptions: New cefuroxime axetil 250 mg tablet 250 mg PO BID 7 Days Qty: 14 0RF No Action lisinopril 10 mg tablet 10 mg PO BEDTIME Qty: 90 3RF flecainide 50 mg tablet 50 mg PO Q12H Qty: 180 3RF loperamide 2 mg Tablet 2 mg PO Q4H PRN (Reason: Diarrhea) Rx Instructions: administer after each loose stool until symptoms controlled; do not exceed 8 mg per 24 hrs albuterol sulfate 90 mcg/actuation HFA aerosol inhaler 2 puff INHALATION Q6H PRN (Reason: Wheezing) iron 2,500 mg PO DAILY diltiazem HCl 120 mg capsule,extended release 24hr 120 mg PO DAILY mupirocin 2 % ointment 1 appl topical BID-TID balsalazide 750 mg capsule 750 mg PO BID warfarin 5 mg tablet 5 mg PO DAILY Qty: 90 0RF Protocol: Dose Management Condition: Thursday (Week One) Dose/Route: 2.5 mg Instruction: 0.5 x 5 mg tablets Condition: Thursday Dose/Route: 5 mg Instruction: 1 x 5 mg tablet Condition: Thursday Dose/Route: 2.5 mg Instruction: 0.5 x 5 mg tablets Condition: Thursday Dose/Route: 5 mg Instruction: 1 x 5 mg tablet Condition: Dose/Route: 2.5 mg Instruction: 0.5 x 5 mg tablets Condition: Thursday Dose/Route: 5 mg Instruction: 1 x 5 mg tablet Condition: Thursday Dose/Route: 2.5 mg Instruction: 0.5 x 5 mg tablets Condition: Thursday (Week Two) Dose/Route: 2.5 mg Instruction: 0.5 x 5 mg tablets Condition: Thursday Dose/Route: 5 mg Instruction: 1 x 5 mg tablet Condition: Thursday Dose/Route: 2.5 mg Instruction: 0.5 x 5 mg tablets Condition: Thursday Dose/Route: 5 mg Instruction: 1 x 5 mg tablet Condition: Dose/Route: 2.5 mg Instruction: 0.5 x 5 mg tablets Condition: Thursday Dose/Route: 5 mg Instruction: 1 x 5 mg tablet Condition: Thursday Dose/Route: 2.5 mg Instruction: 0.5 x 5 mg tablets Protocol Text: Adjustment Start Date: Thursday09/24/22 INR Value: 2.7 INR Date: 09/24/22 Recheck Date: 10/22/22 Additional Instructions: cont reg dosing balance reds and greens call with any changes in medications loperamide [Imodium A-D] PO
[2022-10-22 20:18] LABS: Appearance Urine Clear; Color Urine Yellow; Glucose Urine UA Negative (Negative); Leukocyte Esterase Urine Small (1+) (Negative); Nitrite Urine Negative (Negative); PH 5.5 (5.0-9.0); Specific Gravity - Urine 1.015 (1.005-1.025); UMIC TRIGGER UACC YES; Urine Blood Large (3+) (Negative); Urine Ketones Negative (Negative); Urine Protein 30 (1+) mg/dL (Neg-Trace)
[2022-10-22 20:23] LABS: Bacteria Urine None Seen (None Seen); Hyaline Casts Urine 0-2 /LPF (0-2); RBC Urine >20 /HPF (0-2); Squamous Epithelial Cell Urine 0-2 /HPF (0-2); UACC Culture Trigger YES; WBC Urine >50 /HPF (0-5)
[2022-10-22] MEDS: Phenazopyridine HCL 100 MG TABLET PO (20:36)
== END 2022-10-22 20:44 | disposition home or self-care (01) ==
PROVIDERS: Physician Assistant; Emergency Provider Internal Medicine; PCP Internal Medicine
DX: N39.0 Urinary tract infection, site not specified (principal); B96.20 Unspecified Escherichia coli [E. coli] as the cause of diseases classified elsewhere; I10 Essential (primary) hypertension; I48.0 Paroxysmal atrial fibrillation; I44.0 Atrioventricular block, first degree; C53.9 Malignant neoplasm of cervix uteri, unspecified; Z87.891 Personal history of nicotine dependence; Z79.899 Other long term (current) drug therapy; Z79.01 Long term (current) use of anticoagulants
CPT/HCPCS: 81001; 87086; 87088; 87186; 99283; 99284

== ENCOUNTER 2022-10-23 13:01 | Outpatient (AMB) | payer MEDICARE, SELFPAY ==
--- NOTE | 2022-10-23 13:09 | MHC.OFFVISCO ---
Intake Intake Visit Reasons: Anticoagulation Allergies amoxicillin [From AUGMENTIN] Allergy (Unknown, Verified 10/23/22 13:03) UNKNOWN clavulanic acid [From AUGMENTIN] Allergy (Unknown, Verified 10/23/22 13:03) UNKNOWN Medication List - Last Reconciled 10/23/22 by Leidy Dodge RN albuterol sulfate 90 mcg/actuation 2 puffs inhalation Q6H PRN balsalazide 750 mg PO BID cefuroxime axetil 250 mg PO BID 7 days diltiazem HCl 120 mg PO DAILY flecainide 50 mg PO Q12H [iron 2,500 mg PO DAILY] lisinopril 10 mg PO BEDTIME loperamide 2 mg PO Q4H PRN loperamide (Imodium A-D) PO mupirocin 2% 1 appl topical BID-TID warfarin 5 mg See Protocol PO DAILY Nursing Note INR: 2.4- in therapeutic range Medications and supplements reviewed- cefuroxime 250mg bid for 7 days- no interaction per micromedex No changes in health, diet, medications, or supplements, Denies any signs and symptoms of bleeding or bruising or clotting. Bleeding, bruising, clotting discussed Nutritional guidance given Dose: 5mg x 3, 2.5mg x 4 F/U INR: pt req 4 weeks Patient verbalizes understanding of instructions given pt to [facility] yesterday for ? uti- started on antibiotics. 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
[2022-10-24 08:44] LABS: Prothrombin Time Whole Bld POC 28.8 sec (11.1-13.5); ~PT, ~INR - Anti Coag Clinic 2.4 (0.9-1.1)
== END 2022-10-23 13:12 | disposition home or self-care (01) ==
LOC: HO.ACS 13:01
PROVIDERS: PCP Internal Medicine; Visit Provider Internal Medicine
DX: Z79.01 Long term (current) use of anticoagulants (principal)

== ENCOUNTER → 2022-10-23 13:01 | Outpatient (BNVA) | payer MEDICARE, SELFPAY | PROVIDERS: PCP Internal Medicine; Visit Provider Internal Medicine | DX: I48.20 Chronic atrial fibrillation, unspecified (principal); Z79.01 Long term (current) use of anticoagulants; Z51.81 Encounter for therapeutic drug level monitoring | CPT/HCPCS: 85610; 99211 ==

== ENCOUNTER 2022-11-03 11:02 | Outpatient (AMB) | payer MEDICARE, SELFPAY ==
[2022-11-03 11:12] LABS: Prothrombin Time Whole Bld POC 23.2 sec (11.1-13.5); ~PT, ~INR - Anti Coag Clinic 1.9 (0.9-1.1)
--- NOTE | 2022-11-03 11:12 | MHC.OFFVISCO ---
Intake Intake Visit Reasons: Anticoagulation Allergies amoxicillin [From AUGMENTIN] Allergy (Unknown, Verified 11/03/22 11:02) UNKNOWN clavulanic acid [From AUGMENTIN] Allergy (Unknown, Verified 11/03/22 11:02) UNKNOWN Medication List - Last Reconciled 11/03/22 by Celestina Gross RN albuterol sulfate 90 mcg/actuation 2 puffs inhalation Q6H PRN balsalazide 750 mg PO BID cefuroxime axetil 250 mg PO BID 7 days diltiazem HCl 120 mg PO DAILY flecainide 50 mg PO Q12H [iron 2,500 mg PO DAILY] lisinopril 10 mg PO BEDTIME loperamide 2 mg PO Q4H PRN loperamide (Imodium A-D) PO mupirocin 2% 1 appl topical BID-TID warfarin 5 mg See Protocol PO DAILY Nursing Note INR 1.9?? out of therapeutic range Medications and supplements reviewed Patient status: HAS BEEN ON ANTBX FOR UTI Medications or supplements: COMPLETED ANTBX AND MAY NEED ANOTHER Diet: GOOD Denies any signs and symptoms of bleeding or clotting or unusual bruising Bleeding, bruising, clotting discussed Nutritional guidance given: EAT A MIX - JUST AVOID GREENS TODAY - BLUEBERRIES AND CRANBERRY CAN HELP PREVENT UTI Dose: 5MG X 3 DAYS/ 2.5MG X 4 DAYS - DOSE KEPT THE SAME DUE TO HX OF MICRO HEMATURIA PT TO CALL WITH ANY MED CHANGES F/U INR Date: 2 WEEKS OR TREATMENT ?? Patient verbalizing understanding of instructions given. 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
== END 2022-11-03 11:30 | disposition home or self-care (01) ==
LOC: HO.ACS 11:02
PROVIDERS: PCP Internal Medicine; Visit Provider Internal Medicine
DX: Z79.01 Long term (current) use of anticoagulants (principal)

== ENCOUNTER → 2022-11-03 11:02 | Outpatient (BNVA) | payer MEDICARE, SELFPAY | PROVIDERS: PCP Internal Medicine; Visit Provider Internal Medicine | DX: I48.20 Chronic atrial fibrillation, unspecified (principal); Z79.01 Long term (current) use of anticoagulants; Z51.81 Encounter for therapeutic drug level monitoring | CPT/HCPCS: 85610; 99211 ==

== ENCOUNTER 2022-11-14 10:40 | Outpatient (REF) | payer MEDICARE, SELFPAY ==
[2022-11-14 10:51] LABS: Appearance Urine Clear; Color Urine Yellow; Glucose Urine UA Negative (Negative); Leukocyte Esterase Urine Negative (Negative); Nitrite Urine Negative (Negative); Specific Gravity - Urine 1.015 (1.005-1.025); Urine Blood Negative (Negative); Urine Ketones Negative (Negative); Urine Protein Negative (Neg-Trace)
[2022-11-14 10:53] LABS: Bacteria Urine None Seen (None Seen); Hyaline Casts Urine 0-2 /LPF (0-2); RBC Urine 0-2 /HPF (0-2); Squamous Epithelial Cell Urine 0-2 /HPF (0-2); WBC Urine 0-5 /HPF (0-5)
== END 2022-11-14 10:41 | disposition home or self-care (01) ==
LOC: HO.LNP 10:40
PROVIDERS: PCP Internal Medicine; Visit Provider Internal Medicine
DX: N39.0 Urinary tract infection, site not specified (principal)
CPT/HCPCS: 81001

== ENCOUNTER 2022-11-19 10:18 | Outpatient (AMB) | payer MEDICARE, SELFPAY ==
[2022-11-19 10:25] LABS: Prothrombin Time Whole Bld POC 33.6 sec (11.1-13.5); ~PT, ~INR - Anti Coag Clinic 2.8 (0.9-1.1)
--- NOTE | 2022-11-19 10:35 | MHC.OFFVISCO ---
Intake Intake Visit Reasons: Anticoagulation Allergies amoxicillin [From AUGMENTIN] Allergy (Unknown, Verified 11/19/22 10:20) UNKNOWN clavulanic acid [From AUGMENTIN] Allergy (Unknown, Verified 11/19/22 10:20) UNKNOWN Medication List - Last Reconciled 11/19/22 by Susi Magallon RN albuterol sulfate 90 mcg/actuation 2 puffs inhalation Q6H PRN balsalazide 750 mg PO BID cefuroxime axetil 250 mg PO BID 7 days diltiazem HCl 120 mg PO DAILY flecainide 50 mg PO Q12H [iron 2,500 mg PO DAILY] lisinopril 10 mg PO BEDTIME loperamide 2 mg PO Q4H PRN loperamide (Imodium A-D) PO mupirocin 2% 1 appl topical BID-TID warfarin 5 mg See Protocol PO DAILY Nursing Note NO CP,SOB,DIET/MED CHANGES,FALLS OR SX OF BLEEDING. CONTINUE PRESENT DOSE AND FOLLOW-UP IN 4 WEEKS. GOOD UNDERSTANDING OF DOSING INSTR. Anti-Coag Initial Assessment Social Hx Patient Tobacco Use Status: Former Tobacco user Quit Date: >20 yrs ago Alcohol intake frequency: 0-2 drinks per day Coding Level of Care Code Est Patient Level 1 Diagnoses Current use of anticoagulant therapy Z79.01 Assessment & Plan Assessment & Plan (1) Current use of anticoagulant therapy: Code(s): Z79.01 - [facility] (current) use of anticoagulants
== END 2022-11-19 10:36 | disposition home or self-care (01) ==
LOC: HO.ACS 10:18
PROVIDERS: PCP Internal Medicine; Visit Provider Internal Medicine
DX: Z79.01 Long term (current) use of anticoagulants (principal)

== ENCOUNTER → 2022-11-19 10:18 | Outpatient (BNVA) | payer MEDICARE, SELFPAY | PROVIDERS: PCP Internal Medicine; Visit Provider Internal Medicine | DX: I48.20 Chronic atrial fibrillation, unspecified (principal); Z51.81 Encounter for therapeutic drug level monitoring; Z79.01 Long term (current) use of anticoagulants | CPT/HCPCS: 85610; 99211 ==

== ENCOUNTER 2022-11-21 07:00 | Outpatient (REF) | payer MEDICARE, SELFPAY ==
--- NOTE | ~2022-11-21 | CT_ITS ---
EXAMINATION: CT CHEST WITHOUT CONTRAST CLINICAL INFORMATION: Follow-up pulmonary nodules COMPARISON: 11/19/2021 TECHNIQUE: Multidetector volumetric CT imaging of the chest was done. Axial MIP volume rendering provided. Sagittal and coronal reformatted images were obtained. This CT examination was performed using dose optimization techniques as appropriate, variously including the following: *Automated exposure control *Adjustment of mA and/or kV according to patient size (this includes techniques or standardized protocols for targeted exams where dose is matched to indication/reason for exam; i.e. 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 Convex right thoracolumbar scoliosis. LUNGS: Lungs are normally expanded. There is mild subpleural bilateral apical scarring appears stable as mild chronic atelectasis Small pulmonary nodules appear stable, including: Lateral superior segment right lobe (series 6, 241) 5 mm; Lateral superior right lower lobe pleural-based (246) 4 mm; Posterior lateral superior segment right lower lobe subpleural (233) 3 mm; Posterior lateral subpleural right lower lobe (285) 4 mm; Lateral left lower lobe pleural-based nodule (327) 5 mm; Posterior left lower lobe pleural based nodule (363) 6 mm. No new or enlarging nodule is identified. MEDIASTINUM: The mediastinum is normal. CORONARY ARTERY CALCIFICATION: Probable left coronary artery calcification. PLEURA: There is no pleural effusion. No pleural mass or thickening. There is a small fat-containing diaphragmatic hernia posteriorly AXILLA: No lymphadenopathy. UPPER ABDOMEN: There is a 4 mm hypodensity in the left lobe too small to characterize, unchanged OSSEOUS STRUCTURES: Convex right thoracolumbar scoliosis with mild degenerative disc and facet disease. No fracture or focal destructive lesion CT/CT chest wo IV con IMPRESSION: Small pulmonary nodules remain stable. One additional follow-up in 12 months could be considered, as per Fleischner Society guidelines below. No developing or enlarging nodule or acute process is identified. Per the 2017 revised Fleischner Society guidelines, in low-risk patients recommend follow-up CT at 3-6 months and consideration of subsequent CT at 18-24 months. In patients at high-risk for pulmonary neoplasm, recommend follow-up CT at 3-[address] at 18-24 months.
== END 2022-11-21 07:01 | disposition home or self-care (01) ==
LOC: HO.CT 07:00
PROVIDERS: PCP Internal Medicine; Visit Provider Internal Medicine
DX: R91.1 Solitary pulmonary nodule (principal)
CPT/HCPCS: 71250

== ENCOUNTER 2022-12-17 11:00 | Outpatient (AMB) | payer MEDICARE, SELFPAY ==
[2022-12-17 11:09] LABS: Prothrombin Time Whole Bld POC 30.3 sec (11.1-13.5); ~PT, ~INR - Anti Coag Clinic 2.5 (0.9-1.1)
--- NOTE | 2022-12-17 11:20 | MHC.OFFVISCO ---
Intake Intake Visit Reasons: Anticoagulation Allergies amoxicillin [From AUGMENTIN] Allergy (Unknown, Verified 12/17/22 11:05) UNKNOWN clavulanic acid [From AUGMENTIN] Allergy (Unknown, Verified 12/17/22 11:05) UNKNOWN Medication List - Last Reconciled 12/17/22 by Susi Magallon RN albuterol sulfate 90 mcg/actuation 2 puffs inhalation Q6H PRN balsalazide 750 mg PO BID cefuroxime axetil 250 mg PO BID 7 days diltiazem HCl 120 mg PO DAILY flecainide 50 mg PO Q12H [iron 2,500 mg PO DAILY] lisinopril 10 mg PO BEDTIME loperamide 2 mg PO Q4H PRN loperamide (Imodium A-D) PO mupirocin 2% 1 appl topical BID-TID warfarin 5 mg See Protocol PO DAILY Nursing Note NO CP,SOB,DIET/MED CHANGES,FALLS OR SX OF BLEEDING. CONTINUE PRESENT DOSE AND FOLLOW-UP IN 5 WEEKS. GOOD UNDERSTANDING OF DOSING INSTR. Anti-Coag Initial Assessment Social Hx Patient Tobacco Use Status: Former Tobacco user Quit Date: >20 yrs ago Alcohol intake frequency: 0-2 drinks per day Coding Level of Care Code Est Patient Level 1 Diagnoses Current use of anticoagulant therapy Z79.01 Assessment & Plan Assessment & Plan (1) Current use of anticoagulant therapy: Code(s): Z79.01 - [facility] (current) use of anticoagulants
== END 2022-12-17 11:22 | disposition home or self-care (01) ==
LOC: HO.ACS 11:00
PROVIDERS: PCP Internal Medicine; Visit Provider Internal Medicine
DX: Z79.01 Long term (current) use of anticoagulants (principal)

== ENCOUNTER → 2022-12-17 11:00 | Outpatient (BNVA) | payer MEDICARE, SELFPAY | PROVIDERS: PCP Internal Medicine; Visit Provider Internal Medicine | DX: I48.20 Chronic atrial fibrillation, unspecified (principal); Z79.01 Long term (current) use of anticoagulants; Z51.81 Encounter for therapeutic drug level monitoring | CPT/HCPCS: 85610; 99211 ==

== ENCOUNTER 2023-01-08 10:40 | Outpatient (AMB) | payer MEDICARE, SELFPAY ==
--- NOTE | 2023-01-08 10:45 | A.OFFVIS_ITS ---
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 Accompanied by: Self / Same As Patient Allergies amoxicillin [From AUGMENTIN] Allergy (Unknown, Verified 01/08/23 10:49) UNKNOWN clavulanic acid [From AUGMENTIN] Allergy (Unknown, Verified 01/08/23 10:49) UNKNOWN Medication List - Last Reconciled 01/08/23 by Lion Dahl MD albuterol sulfate 90 mcg/actuation 2 puffs inhalation Q6H PRN balsalazide 750 mg PO BID cefuroxime axetil 250 mg PO BID 7 days diltiazem HCl 120 mg PO DAILY flecainide 50 mg PO Q12H [iron 2,500 mg PO DAILY] lisinopril 10 mg PO BEDTIME loperamide 2 mg PO Q4H PRN loperamide (Imodium A-D) PO mupirocin 2% 1 appl topical BID-TID warfarin 5 mg See Protocol PO DAILY HPI HPI Comments History of Present Illness Details Carla returns for follow up regarding atrial flutter. In the past, routine EKG at PCP's office had revealed atrial flutter. Subsequently she underwent cardioversion. Initially she was on Xarelto, but due to cost, this has been switched to Coumadin. Overall, doing good. No complaints like angina or shortness of breath or in fact anything cardiac related. She seems to be getting along fine. 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 Mother No problems noted. Social History (Updated 01/08/23 @ 10:50 by Tanika Evangelista) Household Members: Spouse Housing: House Do you presently have visiting nurse or other home services: No Alcohol intake: current Alcohol intake frequency: 0-2 drinks per day Patient Tobacco Use Status: Former Tobacco user Quit Date: >20 yrs ago Second Hand Smoke Exposure: Yes service: No Current occupational status: retired Review of Systems Const Denies weakness ENT Denies dizziness Card Denies chest pain, Denies chest pain with activity, Denies syncope, Denies rapid heart rate, Denies pedal edema, Denies edema, Denies leg edema, Denies lightheadedness, Denies palpitations, Denies dyspnea, Denies dyspnea on exertion and Denies orthopnea Resp Denies cough, Denies dyspnea and Denies dyspnea on exertion GI Denies hematochezia and Denies change in stool character Musc Denies abnormal gait, Denies muscle cramps, Denies muscle weakness, Denies numbness, Denies radiating pain into limb and Denies tingling Neuro Denies abnormal gait, Denies dizziness, Denies syncope, Denies numbness, Denies tingling and Denies weakness Endo Denies palpitations Physical Exam Vital Signs: Last Vital Signs Pulse 82 01/08/23 10:47 BP 144/62 H 01/08/23 10:47 BMI result Body Mass Index 30.9 Office Procedures EKG Details: EKG with sinus rhythm at 82/Min; NC prolongation to 274 millisecond; normal corrected QT; no significant ST-T changes. [id number], Complete Assessment & Plan Assessment & Plan (1) Paroxysmal atrial flutter: Code(s): I48.92 - Unspecified atrial flutter (2) AV block, 1st degree: Code(s): I44.0 - Atrioventricular block, first degree (3) Encounter for monitoring anti-arrhythmic therapy: Code(s): Z51.81 - Encounter for therapeutic drug level monitoring; Z79.899 - Other shelter (current) drug therapy (4) Essential hypertension: Code(s): I10 - Essential (primary) hypertension Plan Baseline EKG shows some NC prolongation. Echocardiogram with normal LVEF, 65-70% and otherwise unremarkable. Previous Holter with underlying sinus rhythm with an average rate of 69/Min. No significant atrial arrhythmias. Due to NC prolongation on the EKG, we will get another Holter to ensure there is no evidence of any high-grade heart blocks. As there is no other option, continue current dose of diltiazem and flecainide. Continue with anticoagulation. With regard to hypertension, several blood pressure is on the higher side. Hence we will increase the dose of lisinopril from 10 mg to 20 mg daily. Check BMP few days after the dose change. Discussed with patient. Follow-up in 6 months. In the interim, to call with concerns. Orders: Orders ECG 3 day holter monitor Today I48.92 - Unspecified atrial flutter Basic Metabolic Panel Today I48.92 - Unspecified atrial flutter Medications: New lisinopril 20 mg PO DAILY 90 tabs 3RF 90 days Discontinued lisinopril Discontinued Reason: Doctor's Order 10 mg PO BEDTIME 90 tabs 3RF Coding Level of Care Code Est Pt Level 4 (75795) Diagnoses Paroxysmal atrial flutter I48.92 AV block, 1st degree I44.0 Encounter for monitoring anti-arrhythmic therapy Z51.81; Z79.899 Essential hypertension I10 CPT Codes EKG - CPT: 16077-[id number], Complete ([id number])
[2023-01-08 10:47] VITALS: BP 144/62; PULSE 82; BMI 30.9
== END 2023-01-08 11:05 | disposition home or self-care (01) ==
PROVIDERS: PCP Internal Medicine; Visit Provider Internal Medicine
DX: I48.92 Unspecified atrial flutter (principal); I44.0 Atrioventricular block, first degree; Z51.81 Encounter for therapeutic drug level monitoring; Z79.899 Other long term (current) drug therapy; I10 Essential (primary) hypertension
CPT/HCPCS: 93010; 99214

== ENCOUNTER → 2023-01-08 10:40 | Outpatient (BNVA) | payer MEDICARE, SELFPAY | PROVIDERS: PCP Internal Medicine; Visit Provider Internal Medicine | DX: I48.92 Unspecified atrial flutter (principal); I44.0 Atrioventricular block, first degree; I10 Essential (primary) hypertension; Z79.01 Long term (current) use of anticoagulants; Z79.899 Other long term (current) drug therapy | CPT/HCPCS: 93005; 99212 ==

== ENCOUNTER → 2023-01-14 10:53 | Outpatient (REF) | payer MEDICARE, SELFPAY ==
--- NOTE | 2023-01-14 10:56 | HM_ITS ---
Conclusion: 1. Patient was monitored for total period of 3 days 2. Baseline was normal sinus rhythm with average heart of 75 beats per minute 3. No significant pauses noted 4. Rare ectopy noted 5. 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
== END ==
LOC: HO.CARD 10:53
PROVIDERS: PCP Internal Medicine; Visit Provider Internal Medicine
DX: I48.92 Unspecified atrial flutter (principal)
CPT/HCPCS: 93242

== ENCOUNTER → 2023-01-14 10:56 | Outpatient (BNV) | payer MEDICARE, SELFPAY | PROVIDERS: PCP Internal Medicine; Visit Provider Internal Medicine Cardiovascular Disease | DX: I48.92 Unspecified atrial flutter (principal) | CPT/HCPCS: 93244 ==

== ENCOUNTER 2023-01-21 10:39 | Outpatient (AMB) | payer MEDICARE, SELFPAY ==
[2023-01-21 10:47] LABS: Prothrombin Time Whole Bld POC 25.2 sec (11.1-13.5); ~PT, ~INR - Anti Coag Clinic 2.1 (0.9-1.1)
--- NOTE | 2023-01-21 10:56 | MHC.OFFVISCO ---
Intake Intake Visit Reasons: Anticoagulation Allergies amoxicillin [From AUGMENTIN] Allergy (Unknown, Verified 01/21/23 10:46) UNKNOWN clavulanic acid [From AUGMENTIN] Allergy (Unknown, Verified 01/21/23 10:46) UNKNOWN Medication List - Last Reconciled 01/21/23 by Susi Magallon RN albuterol sulfate 90 mcg/actuation 2 puffs inhalation Q6H PRN balsalazide 750 mg PO BID cefuroxime axetil 250 mg PO BID 7 days diltiazem HCl 120 mg PO DAILY flecainide 50 mg PO Q12H [iron 2,500 mg PO DAILY] lisinopril 20 mg PO DAILY 90 days loperamide 2 mg PO Q4H PRN loperamide (Imodium A-D) PO mupirocin 2% 1 appl topical BID-TID warfarin 5 mg See Protocol PO DAILY Nursing Note NO CP,SOB,DIET/MED CHANGES,FALLS OR SX OF BLEEDING. CONTINUE PRESENT DOSE AND FOLLOW-UP IN 5 WEEKS. GOOD UNDERSTANDING OF DOSING INSTR. 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
== END 2023-01-21 11:01 | disposition home or self-care (01) ==
LOC: HO.ACS 10:39
PROVIDERS: PCP Internal Medicine; Visit Provider Internal Medicine
DX: Z79.01 Long term (current) use of anticoagulants (principal)

== ENCOUNTER → 2023-01-21 10:39 | Outpatient (BNVA) | payer MEDICARE, SELFPAY | PROVIDERS: PCP Internal Medicine; Visit Provider Internal Medicine | DX: I48.20 Chronic atrial fibrillation, unspecified (principal); Z79.01 Long term (current) use of anticoagulants; Z51.81 Encounter for therapeutic drug level monitoring | CPT/HCPCS: 85610; 99211 ==

== ENCOUNTER 2023-01-27 10:50 | Outpatient (REF) | payer MEDICARE, SELFPAY ==
[2023-01-27 11:47] LABS: Appearance Urine Turbid; Color Urine Yellow; Glucose Urine UA Negative (Negative); Leukocyte Esterase Urine Moderate (2+) (Negative); Nitrite Urine Negative (Negative); PH 5.5 (5.0-9.0); UMIC TRIGGER UACC YES; Urine Blood Large (3+) (Negative); Urine Ketones Negative (Negative); Urine Protein 100 (2+) mg/dL (Neg-Trace)
[2023-01-27 11:53] LABS: Bacteria Urine 1+ (None Seen); Hyaline Casts Urine 0-2 /LPF (0-2); RBC Urine >20 /HPF (0-2); Squamous Epithelial Cell Urine 0-2 /HPF (0-2); UACC Culture Trigger YES; WBC Urine >50 /HPF (0-5)
== END 2023-01-27 10:51 | disposition home or self-care (01) ==
LOC: HO.LNP 10:50
PROVIDERS: Visit Provider Internal Medicine
DX: N39.0 Urinary tract infection, site not specified (principal); R31.9 Hematuria, unspecified
CPT/HCPCS: 81001; 87086

== ENCOUNTER 2023-02-03 13:44 | Outpatient (REF) | payer MEDICARE, SELFPAY ==
[2023-02-03 15:25] LABS: Appearance Urine Clear; Color Urine Yellow; Glucose Urine UA Negative (Negative); Leukocyte Esterase Urine Negative (Negative); Nitrite Urine Negative (Negative); PH 5.5 (5.0-9.0); Urine Blood Negative (Negative); Urine Ketones Negative (Negative); Urine Protein Negative (Neg-Trace)
[2023-02-03 15:31] LABS: Bacteria Urine None Seen (None Seen); Hyaline Casts Urine 0-2 /LPF (0-2); WBC Urine 0-5 /HPF (0-5)
== END 2023-02-03 13:45 | disposition home or self-care (01) ==
LOC: HO.LAB 13:44
PROVIDERS: PCP Internal Medicine; Visit Provider Internal Medicine
DX: R31.0 Gross hematuria (principal)
CPT/HCPCS: 81001

== ENCOUNTER 2023-02-25 10:57 | Outpatient (AMB) | payer MEDICARE, SELFPAY ==
[2023-02-25 11:14] LABS: Prothrombin Time Whole Bld POC 37.2 sec (11.1-13.5); ~PT, ~INR - Anti Coag Clinic 3.1 (0.9-1.1)
--- NOTE | 2023-02-25 11:14 | MHC.OFFVISCO ---
Intake Intake Visit Reasons: Anticoagulation Allergies amoxicillin [From AUGMENTIN] Allergy (Unknown, Verified 02/25/23 11:07) UNKNOWN clavulanic acid [From AUGMENTIN] Allergy (Unknown, Verified 02/25/23 11:07) UNKNOWN Medication List - Last Reconciled 02/25/23 by Leidy Dodge RN albuterol sulfate 90 mcg/actuation 2 puffs inhalation Q6H PRN balsalazide 750 mg PO BID cefuroxime axetil 250 mg PO BID 7 days diltiazem HCl 120 mg PO DAILY flecainide 50 mg PO Q12H [iron 2,500 mg PO DAILY] lisinopril 20 mg PO DAILY 90 days loperamide 2 mg PO Q4H PRN loperamide (Imodium A-D) PO mupirocin 2% 1 appl topical BID-TID warfarin 5 mg See Protocol PO DAILY Nursing Note INR 3.1-? out of therapeutic range of 2-3 Medications and supplements reviewed Patient status: pt states 2 episodes of hematuria, none for approx 5 days, will call acs with any further episodes pt had ct scan of abd with contrast yesterday Medications or supplements: no changes Diet: good Denies any signs and symptoms of bleeding or clotting or unusual bruising Bleeding, bruising, clotting discussed Nutritional guidance given: will eat dark greens to lower inr pt already took warfarin today Dose: 5mg x 3, 2.5mg x 4 F/U INR Date : pt req 5 week f/u? Patient verbalizing understanding of instructions given. Anti-Coag Initial Assessment Social Hx Patient Tobacco Use Status: Former Tobacco user Quit Date: >20 yrs ago alcohol intake: current Alcohol intake frequency: 0-2 drinks per day Coding Level of Care Code Est Patient Level 1
== END 2023-02-25 11:23 | disposition home or self-care (01) ==
LOC: HO.ACS 10:57
PROVIDERS: PCP Internal Medicine; Visit Provider Internal Medicine
DX: Z79.01 Long term (current) use of anticoagulants (principal)

== ENCOUNTER → 2023-02-25 10:57 | Outpatient (BNVA) | payer MEDICARE, SELFPAY | PROVIDERS: PCP Internal Medicine; Visit Provider Internal Medicine | DX: I48.20 Chronic atrial fibrillation, unspecified (principal); Z79.01 Long term (current) use of anticoagulants; Z51.81 Encounter for therapeutic drug level monitoring | CPT/HCPCS: 85610; 99211 ==

== ENCOUNTER 2023-03-10 11:05 | Outpatient (REF) | payer MEDICARE, SELFPAY ==
[2023-03-10 11:09] LABS: MANUAL DIFF FLAG NO
[2023-03-10 11:41] LABS: Basophils Absolute Auto 0.1 X10*3/uL (0.0-0.2); Basophils Percent Auto 1.2 % (0-2); Eosinophils Absolute Auto 0.3 X10*3/uL (0.0-0.4); Hematocrit 39.1 % (37.0-47.0); Hemoglobin 12.3 g/dl (12.0-16.0); Imm Gran Abs Auto 0.01 X10*3/uL (0.00-0.03); Imm Gran Pct Auto 0.2 % (0.0-0.4); Lymphocytes Absolute Auto 1.1 X10*3/uL (1.2-4.9); Lymphocytes Percent Auto 26.8 % (20-40); Mean Corpuscular HGB Conc 31.5 g/dl (31.0-35.0); Mean Corpuscular Hemoglobin 31.9 pg (27.0-33.0); Mean Corpuscular Volume 101.6 fL (80.0-98.0); Mean Platelet Volume 9.2 fL (9.4-12.3); Monocytes Absolute Auto 0.4 X10*3/uL (0.1-1.2); Monocytes Percent Auto 10.1 % (2-11); Neutrophils Absolute Auto 2.2 x10*3/uL (2.0-8.3); Neutrophils Percent Auto 53.7 % (45-73); Platelet Count 257 X10*3/uL (160-400); Red Blood Count 3.85 X10*6/uL (4.20-5.50); Red Cell Distribution Width 13.5 % (11.0-16.0); White Blood Count 4.1 X10*3/uL (4.8-10.8)
[2023-03-10 11:52] LABS: Estimated Average Glucose 108 mg/dL; Hemoglobin A1c % 5.4 % (<6.0)
[2023-03-10 11:56] LABS: Appearance Urine Clear; Color Urine Yellow; Glucose Urine UA Negative (Negative); Leukocyte Esterase Urine Negative (Negative); Nitrite Urine Negative (Negative); Specific Gravity - Urine 1.015 (1.005-1.025); UMIC TRIGGER UACC YES; Urine Blood Large (3+) (Negative); Urine Ketones Negative (Negative); Urine Protein Negative (Neg-Trace)
[2023-03-10 12:01] LABS: Bacteria Urine None Seen (None Seen); Hyaline Casts Urine 0-2 /LPF (0-2); RBC Urine >20 /HPF (0-2); Squamous Epithelial Cell Urine 0-2 /HPF (0-2); WBC Urine 0-5 /HPF (0-5)
[2023-03-10 12:05] LABS: Alanine Aminotransferase 13 U/L (0-31); Alkaline Phosphatase 79 U/L (39-117); Anion Gap 12 (12-20); Aspartate Amino Transferase 19 U/L (5-31); Bilirubin Total 0.3 mg/dL (0.0-1.0); Blood Urea Nitrogen 15 mg/dL (9-16); Calcium 9.2 mg/dL (8.4-10.2); Carbon Dioxide 24 mmol/L (22-29); Chloride 107 mmol/L (96-108); Cholesterol 220 mg/dL (<200); Estimated Glomerular Filt Rate 54; Glucose Fasting 106 mg/dL (60-99); HDL Cholesterol 60 mg/dL (>40); LDL Cholesterol Calculated 139 mg/dL (<100); Potassium 4.4 mmol/L (3.3-5.1); Sodium 139 mmol/L (135-145); Total Protein 7.3 g/dL (6.5-8.0); Triglycerides 109 mg/dL (<150)
[2023-03-10 12:16] LABS: Creatinine Urine 97.78 mg/dL; Microalbum/Creatinine Ratio Ur 9.2 ug/mg cr (<30)
== END 2023-03-10 11:06 | disposition home or self-care (01) ==
LOC: HO.LNP 11:05
PROVIDERS: Visit Provider Internal Medicine
DX: Z00.00 Encounter for general adult medical examination without abnormal findings (principal); R73.09 Other abnormal glucose; E78.00 Pure hypercholesterolemia, unspecified; I10 Essential (primary) hypertension; D70.9 Neutropenia, unspecified
CPT/HCPCS: 80053; 80061; 81001; 82043; 82570; 83036; 85025

== ENCOUNTER 2023-04-01 11:14 | Outpatient (AMB) | payer MEDICARE, SELFPAY ==
--- NOTE | 2023-04-01 11:20 | MHC.OFFVISCO ---
Intake Intake Visit Reasons: Anticoagulation Allergies amoxicillin [From AUGMENTIN] Allergy (Unknown, Verified 04/01/23 11:16) UNKNOWN clavulanic acid [From AUGMENTIN] Allergy (Unknown, Verified 04/01/23 11:16) UNKNOWN Medication List - Last Reconciled 04/01/23 by Leidy Dodge RN albuterol sulfate 90 mcg/actuation 2 puffs inhalation Q6H PRN balsalazide 750 mg PO BID cefuroxime axetil 250 mg PO BID 7 days diltiazem HCl 120 mg PO DAILY flecainide 50 mg PO Q12H [iron 2,500 mg PO DAILY] lisinopril 20 mg PO DAILY 90 days loperamide 2 mg PO Q4H PRN loperamide (Imodium A-D) PO mupirocin 2% 1 appl topical BID-TID warfarin 5 mg See Protocol PO DAILY Nursing Note INR: 2.6-in therapeutic range of 2-3 Medications and supplements reviewed- no changes, pt may start golo for weight loss No changes in health, diet, medications, or supplements, Denies any signs and symptoms of bleeding or bruising or clotting. 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
== END 2023-04-01 11:25 | disposition home or self-care (01) ==
LOC: HO.ACS 11:14
PROVIDERS: PCP Internal Medicine; Visit Provider Internal Medicine
DX: Z79.01 Long term (current) use of anticoagulants (principal)

== ENCOUNTER → 2023-04-01 11:14 | Outpatient (BNVA) | payer MEDICARE, SELFPAY | PROVIDERS: PCP Internal Medicine; Visit Provider Internal Medicine | DX: I48.20 Chronic atrial fibrillation, unspecified (principal); Z51.81 Encounter for therapeutic drug level monitoring; Z79.01 Long term (current) use of anticoagulants | CPT/HCPCS: 85610; 99211 ==

== ENCOUNTER 2023-04-23 09:44 | Outpatient (REF) | payer MEDICARE, SELFPAY ==
[2023-04-23 19:08] LABS: Urine Cytology See Pathology rpt
== END 2023-04-23 09:45 | disposition home or self-care (01) ==
LOC: HO.LNP 09:44
PROVIDERS: PCP Internal Medicine; Visit Provider Nurse Practitioner Family
DX: R31.0 Gross hematuria (principal); R32 Unspecified urinary incontinence; Z79.899 Other long term (current) drug therapy; Z79.01 Long term (current) use of anticoagulants
CPT/HCPCS: 81003; 88112; 99202

== ENCOUNTER 2023-04-23 09:44 | Outpatient (AMB) | payer MEDICARE, SELFPAY ==
--- NOTE | 2023-04-23 09:52 | MHC.OFFVIS ---
Intake Intake Visit Reasons: hematuria Intake Note: New Patient presents for initial visit for Hematuria Urology Medications: none Blood Thinner: warfarin Smoker: former, quit over 20yrs ago Ell Teacher Required: No Accompanied by: Self / Same As Patient Allergies amoxicillin [From AUGMENTIN] Allergy (Unknown, Verified 04/23/23 10:19) UNKNOWN clavulanic acid [From AUGMENTIN] Allergy (Unknown, Verified 04/23/23 10:19) UNKNOWN Medication List - Last Reconciled 04/23/23 by KATI Anderson- albuterol sulfate 90 mcg/actuation 2 puffs inhalation Q6H PRN balsalazide 750 mg PO BID diltiazem HCl 120 mg PO DAILY flecainide 50 mg PO Q12H [iron 2,500 mg PO DAILY] lisinopril 20 mg PO DAILY 90 days loperamide 2 mg PO Q4H PRN loperamide (Imodium A-D) PO mupirocin 2% 1 appl topical BID-TID warfarin 5 mg See Protocol PO DAILY HPI HPI Comments History of Present Illness Details Carla is a very pleasant 77-year-old female patient of Dr. Pavon. She has a past medical history of colitis, cervical cancer status post chemo and radiation, paroxysmal atrial flutter on anticoagulation, and hypertension. She presents to the office today as a new patient for gross hematuria. In discussion with the patient today she reports having noted gross hematuria for 3 days approximately 1 month ago at which time she followed up with her PCP and recommendations were made for urology referral. When asked she does report a previous smoking history of 20 years ago however has since quit. She reports gross hematuria has since subsided. She reports noting issues with her urination and bowels ever since she underwent chemotherapy and radiation for her cervical cancer. Discussed at length potential causes for gross hematuria. Discussed further workup with CT urogram, urine cytology, in office cystoscopy. 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 She otherwise denies any other bothersome urinary issues or concerns. In office urinalysis results reviewed with the patient today. No microscopic hematuria noted. 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 Mother No problems noted. Social History Household Members: Spouse Housing: House Do you presently have visiting nurse or other home services: No Alcohol intake: current Alcohol intake frequency: 0-2 drinks per day Comment: patient refuses bed alarm Patient Tobacco Use Status: Former Tobacco user Quit Date: >20 yrs ago Second Hand Smoke Exposure: Yes service: No Current occupational status: retired Review of Systems Eyes Reports no additional complaints ENT Reports no additional complaints Card Reports as per HPI Resp Reports no additional complaints GI Reports as per HPI Reports as per HPI Musc Reports no additional complaints Neuro Reports no additional complaints Psych Reports no additional complaints Endo Reports no additional complaints Vik/Lymph Reports no additional complaints Aller/Immun Reports no additional complaints Physical Exam Const General: cooperative, healthy appearing, comfortable, no acute distress, well developed, alert and awake Nutritional Appearance: overweight Orientation/consciousness: patient oriented x3 Limitations: no limitations HEENT Head: Yes normal to inspection, Yes normocephalic and Yes atraumatic Ears: hearing grossly normal bilaterally Eyes General: appearance normal, both eyes and all related structures Neck Neck: Yes normal visual inspection and Yes trachea midline Chest Chest palpation & inspection: normal inspection of the chest Resp Effort & Inspection: normal respiratory effort and able to speak in complete sentences Cardio Rate: regular rate GI Inspection: Yes normal to inspection General: Yes no CVA tenderness Back/Spine/Pelvis Back: no CVA tenderness Skin General skin exam: no rashes or lesions noted Neuro General: patient oriented x3 Extrem General: Yes normal to inspection Psych Appearance: grossly normal and well kempt Mental Status: mental status grossly normal Speech and movement: Normal speech and movement present and Clear speech present Affect: normal affect Attitude: cooperative Thought process: Normal thought process present Thought content: Normal thought content present Insight: Fair insight present (Psych) Judgement: Fair judgement present (Psych) Results AMB Urinalysis, Automated UA Leukoctes 0 David/uL Last Edit by Indy Loving on 04/23/23 10:03 UA Nitrite Negative Last Edit by Indy Loving on 04/23/23 10:03 UA Urobilinogen 0.2 mg/dL Last Edit by Indy Loving on 04/23/23 10:03 UA Protein 0 mg/dL Last Edit by [employer] on 04/23/23 10:03 UA pH 6.0 Last Edit by [employer] Loving on 04/23/23 10:03 UA Blood 0 Moe/uL Last Edit by [employer] on 04/23/23 10:03 UA Specific [place] 1.020 Last Edit by [employer] on 04/23/23 10:03 UA Ketone Positive Last Edit by [employer] on 04/23/23 10:03 UA Bilirubin 0 mg/dL Last Edit by [employer] on 04/23/23 10:03 UA Glucose 0 mg/dL Last Edit by [employer] on 04/23/23 10:03 Results Reviewed Results Reviewed: Laboratory Last Values Urine pH (Auto) 6.0 04/23/23 09:54 Specific [place] (Auto) 1.020 04/23/23 09:54 Urine Protein (Auto) 0 mg/dL 04/23/23 09:54 Glucose (UA)(Auto) 0 mg/dL 04/23/23 09:54 Urine Ketones (Auto) Positive 04/23/23 09:54 Urine Blood (Auto) 0 Moe/uL 04/23/23 09:54 Urine Nitrite (Auto) Negative 04/23/23 09:54 Urine Bilirubin (Auto) 0 mg/dL 04/23/23 09:54 Urine Urobilinogen (Auto) 0.2 mg/dL 04/23/23 09:54 Leukocyte Esterase (Auto) 0 David/uL 04/23/23 09:54 Assessment & Plan Assessment & Plan (1) Gross hematuria: Code(s): R31.0 - Gross hematuria (2) Urinary incontinence: Code(s): R32 - Unspecified urinary incontinence Plan In office urinalysis results reviewed with the patient today; will send for urine cytology. Discussed at length potential causes for gross hematuria Will obtain CT urogram for further assessment evaluation. BUN and creatinine ordered for imaging purposes. Patient declines cystoscopy at this time. Discussed at length urinary incontinence and further treatment options with pelvic floor therapy and or medications. Discussed further workup with cystoscopy and or urodynamics for incontinence Follow-up in 1-2 months with imaging to be completed prior; or sooner for any issues, concerns, and or questions. Orders: Orders CT urogram Today R31.0 - Gross hematuria AMB Urinalysis Automated Today Z13.9 - Encounter for screening, unspecified Urine Cytology Today Z79.01 - [facility] (current) use of anticoagulants Blood Urea Nitrogen Today R31.0 - Gross hematuria Creatinine Today R31.0 - Gross hematuria Patient Instructions: The patient had an opportunity to ask questions regarding the treatment plan. All questions were answered. Physical exam, labs, and imaging were discussed and reviewed in detail. As well as risks, benefits, and discussion of treatment choices. No major barriers to understanding were identified. The patient expressed understanding and agreement with the above treatment plan. The patient was made aware they should contact our office by phone for worsening of their current condition, the appearance of new symptoms, or with any questions or concerns. Compliance is encouraged with any medications and follow up testing that is ordered. It is a privilege to be allowed the opportunity to participate in? your urological care.? Again, if you have any questions or concerns If you have any questions or concerns please do not hesitate to contact me. The office is [phone]. This note is constructed using voice recognition software. While every effort has been made to ensure accuracy material flow engineer errors may have been included. Yours sincerely, DARLENE Anderson Coding Level of Care Code New Pt Level 3 (18579) Diagnoses Gross hematuria R31.0 Urinary incontinence R32
== END 2023-04-23 10:26 | disposition home or self-care (01) ==
PROVIDERS: PCP Internal Medicine; Visit Provider Nurse Practitioner Family
DX: R31.0 Gross hematuria (principal); R32 Unspecified urinary incontinence; Z13.9 Encounter for screening, unspecified
CPT/HCPCS: 99203

== ENCOUNTER 2023-04-23 10:23 | Outpatient (REF) | payer MEDICARE, SELFPAY ==
[2023-04-23 14:16] LABS: Blood Urea Nitrogen 20 mg/dL (9-16); Estimated Glomerular Filt Rate 51
== END 2023-04-23 10:24 | disposition home or self-care (01) ==
LOC: HO.10HDL 10:23
PROVIDERS: Visit Provider Nurse Practitioner Family
DX: R31.0 Gross hematuria (principal); Z79.01 Long term (current) use of anticoagulants
CPT/HCPCS: 36415; 82565; 84520

== ENCOUNTER 2023-04-29 10:20 | Outpatient (AMB) | payer MEDICARE, SELFPAY ==
[2023-04-29 10:28] LABS: Prothrombin Time Whole Bld POC 36.9 sec (11.1-13.5); ~PT, ~INR - Anti Coag Clinic 3.1 (0.9-1.1)
--- NOTE | 2023-04-29 10:29 | MHC.OFFVISCO ---
Intake Intake Visit Reasons: Anticoagulation Allergies amoxicillin [From AUGMENTIN] Allergy (Unknown, Verified 04/29/23 10:22) UNKNOWN clavulanic acid [From AUGMENTIN] Allergy (Unknown, Verified 04/29/23 10:22) UNKNOWN Medication List - Last Reconciled 04/29/23 by Leidy Dodge RN albuterol sulfate 90 mcg/actuation 2 puffs inhalation Q6H PRN balsalazide 750 mg PO BID diltiazem HCl 120 mg PO DAILY flecainide 50 mg PO Q12H [iron 2,500 mg PO DAILY] lisinopril 20 mg PO DAILY 90 days loperamide 2 mg PO Q4H PRN loperamide (Imodium A-D) PO mupirocin 2% 1 appl topical BID-TID warfarin 5 mg See Protocol PO DAILY Nursing Note INR 3.1-? out of therapeutic range of 2-3 Medications and supplements reviewed Patient status: pt started golo for weight loss approx one week ago Medications or supplements: golo Diet: decreased appetite Denies any signs and symptoms of bleeding or clotting or unusual bruising Bleeding, bruising, clotting discussed Nutritional guidance given: eat greens today Dose: 2.5mg x 4, 5mg x 3 F/U INR Date :pt ref earlier appt than 2 weeks Patient verbalizing understanding of instructions given. Anti-Coag Initial Assessment Social Hx Patient Tobacco Use Status: Former Tobacco user Quit Date: >20 yrs ago alcohol intake: current Alcohol intake frequency: 0-2 drinks per day Coding Level of Care Code Est Patient Level 1 Diagnoses Current use of anticoagulant therapy Z79.01 Assessment & Plan Assessment & Plan (1) Current use of anticoagulant therapy: Code(s): Z79.01 - senior living (current) use of anticoagulants Medications: New [golo] PO TID
== END 2023-04-29 10:38 | disposition home or self-care (01) ==
LOC: HO.ACS 10:20
PROVIDERS: PCP Internal Medicine; Visit Provider Internal Medicine
DX: Z79.01 Long term (current) use of anticoagulants (principal)

== ENCOUNTER → 2023-04-29 10:20 | Outpatient (BNVA) | payer MEDICARE, SELFPAY | PROVIDERS: PCP Internal Medicine; Visit Provider Internal Medicine | DX: I48.20 Chronic atrial fibrillation, unspecified (principal); Z79.01 Long term (current) use of anticoagulants; Z51.81 Encounter for therapeutic drug level monitoring | CPT/HCPCS: 85610; 99211 ==

== ENCOUNTER 2023-05-14 10:22 | Outpatient (AMB) | payer MEDICARE, SELFPAY ==
--- NOTE | 2023-05-14 10:40 | MHC.OFFVISCO ---
Intake Intake Visit Reasons: Anticoagulation Allergies amoxicillin [From AUGMENTIN] Allergy (Unknown, Verified 05/14/23 10:31) UNKNOWN clavulanic acid [From AUGMENTIN] Allergy (Unknown, Verified 05/14/23 10:31) UNKNOWN Nursing Note INR: 2.2 in therapeutic range OF 2-3 Medications and supplements reviewed No changes in health, diet, medications, or supplements, Denies any signs and symptoms of bleeding or bruising or clotting. Bleeding, bruising, clotting discussed Nutritional guidance given Dose: CONT USUAL DOSE OF 5MG x3 AND 2.5MG x4 DAYS F/U INR: 3 WEEKS Patient verbalizes understanding of instructions given Anti-Coag Initial Assessment Social Hx Patient Tobacco Use Status: Former Tobacco user Quit Date: >20 yrs ago alcohol intake: current Alcohol intake frequency: 0-2 drinks per day Coding Level of Care Code Est Patient Level 1 Diagnoses Current use of anticoagulant therapy Z79.01 Results AMB INR Fingerstick AMB INR Fingerstick 2.2 Last Edit by Alize Dudley RN on 05/14/23 10:44 INTERFACE DELAY Assessment & Plan Assessment & Plan (1) Current use of anticoagulant therapy: 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
[2023-05-14 10:45] LABS: Prothrombin Time Whole Bld POC 26.5 sec (11.1-13.5); ~PT, ~INR - Anti Coag Clinic 2.2 (0.9-1.1)
== END 2023-05-14 10:47 | disposition home or self-care (01) ==
LOC: HO.ACS 10:22
PROVIDERS: PCP Internal Medicine; Visit Provider Internal Medicine
DX: Z79.01 Long term (current) use of anticoagulants (principal)

== ENCOUNTER → 2023-05-14 10:22 | Outpatient (BNVA) | payer MEDICARE, SELFPAY | PROVIDERS: PCP Internal Medicine; Visit Provider Internal Medicine | DX: I48.20 Chronic atrial fibrillation, unspecified (principal); Z79.01 Long term (current) use of anticoagulants; Z51.81 Encounter for therapeutic drug level monitoring | CPT/HCPCS: 85610; 99211 ==

== ENCOUNTER 2023-06-04 10:29 | Outpatient (AMB) | payer MEDICARE, SELFPAY ==
[2023-06-04 10:37] LABS: Prothrombin Time Whole Bld POC 24.1 sec (11.1-13.5)
--- NOTE | 2023-06-04 10:44 | MHC.OFFVISCO ---
Intake Intake Visit Reasons: Anticoagulation Allergies amoxicillin [From AUGMENTIN] Allergy (Unknown, Verified 06/04/23 10:32) UNKNOWN clavulanic acid [From AUGMENTIN] Allergy (Unknown, Verified 06/04/23 10:32) UNKNOWN Medication List - Last Reconciled 06/04/23 by Susi Magallon RN albuterol sulfate 90 mcg/actuation 2 puffs inhalation Q6H PRN balsalazide 750 mg PO BID diltiazem HCl 120 mg PO DAILY flecainide 50 mg PO Q12H [golo PO TID] [iron 2,500 mg PO DAILY] lisinopril 20 mg PO DAILY 90 days loperamide 2 mg PO Q4H PRN loperamide (Imodium A-D) PO mupirocin 2% 1 appl topical BID-TID warfarin 5 mg See Protocol PO DAILY Nursing Note NO CP,SOB,DIET/MED CHANGES,FALLS OR SX OF BLEEDING. CONTINUE PRESENT DOSE AND FOLLOW UP IN 4 WEEKS. GOOD UNDERSTANDING OF DOSING INSTR. Anti-Coag Initial Assessment Social Hx Patient Tobacco Use Status: Former Tobacco user Quit Date: >20 yrs ago alcohol intake: current Alcohol intake frequency: 0-2 drinks per day Coding Level of Care Code Est Patient Level 1 Diagnoses Current use of anticoagulant therapy Z79.01 Assessment & Plan Assessment & Plan (1) Current use of anticoagulant therapy: Code(s): Z79.01 - senior care (current) use of anticoagulants
== END 2023-06-04 10:47 | disposition home or self-care (01) ==
LOC: HO.ACS 10:29
PROVIDERS: PCP Internal Medicine; Visit Provider Internal Medicine
DX: Z79.01 Long term (current) use of anticoagulants (principal)

== ENCOUNTER → 2023-06-04 10:29 | Outpatient (BNVA) | payer MEDICARE, SELFPAY | PROVIDERS: PCP Internal Medicine; Visit Provider Internal Medicine | DX: I48.20 Chronic atrial fibrillation, unspecified (principal); Z79.01 Long term (current) use of anticoagulants; Z51.81 Encounter for therapeutic drug level monitoring | CPT/HCPCS: 85610; 99211 ==

== ENCOUNTER 2023-06-08 10:07 | Outpatient (REF) | payer MEDICARE, SELFPAY ==
--- NOTE | ~2023-06-08 | CT_ITS ---
EXAMINATION: CT ABDOMEN AND PELVIS WITHOUT AND WITH CONTRAST CLINICAL INFORMATION: Gross hematuria. COMPARISON: 07/11/2016 TECHNIQUE: Noncontrast CT of the abdomen and pelvis is performed followed by split bolus contrast-enhanced images using 85 mL Omnipaque 350 contrast.? Postcontrast imaging is performed during the combined nephrogram and excretion phase. Sagittal and coronal reformatted images were obtained on the technologist's workstation for both the precontrast and postcontrast phases. This CT examination was performed using dose optimization techniques as appropriate, variously including the following: *Automated exposure control *Adjustment of mA and/or kV according to patient size (this includes techniques or standardized protocols for targeted exams where dose is matched to indication/reason for exam; i.e. extremities or head) *Use of iterative reconstruction technique DLP: 766 mGy-cm FINDINGS: LUNG BASES: No pleural or pericardial effusion. Small hiatal hernia. LIVER, GALLBLADDER, AND BILIARY TREE: The liver is decreased in attenuation. No suspicious hepatic lesion or biliary ductal dilatation is present. The gallbladder is unremarkable with no evidence of radiopaque gallstones, gallbladder wall thickening, or obvious pericholecystic inflammatory changes. PANCREAS: No ductal dilatation. SPLEEN: Not enlarged. ADRENAL GLANDS: No adrenal mass. KIDNEYS AND URETERS: The kidneys are symmetric in size and enhancement. Delayed images demonstrate intact renal function. 1.1 cm left renal cyst for which no further imaging follow-up is needed. No renal or ureteral calculus. No perinephric stranding. Bilateral collecting systems and opacified portions of the ureters are nondilated and without obvious filling defects. BLADDER: Partially fills with excreted contrast. No focal or diffuse bladder wall thickening. No bladder calculus. GASTROINTESTINAL TRACT: No small bowel obstruction. There is hypertrophic change of the sigmoid colon with fibrotic scarring in the pelvis likely related to prior diverticulitis. ABDOMINAL WALL: No significant hernia is appreciated. LYMPH NODES: No bulky lymphadenopathy. VASCULAR: Normal caliber abdominal aorta. PELVIC VISCERA: Unremarkable. OSSEUS STRUCTURES: No destructive bone lesions. CT/CT urogram IMPRESSION: No nephrolithiasis or hydronephrosis. Hepatic steatosis.
[2023-06-08] MEDS: iohexoL 350 MG/ML 100 ML INFUS..BTL IV (12:55)
[2023-06-09 07:39] LABS: Creatinine POC 0.9 mg/dL (0.5-1.4); GFR POC > 60
== END 2023-06-08 10:08 | disposition home or self-care (01) ==
LOC: HO.CT 10:07
PROVIDERS: PCP Internal Medicine; Visit Provider Nurse Practitioner Family
DX: R31.0 Gross hematuria (principal)
CPT/HCPCS: 74178; 82565; Q9967

== ENCOUNTER 2023-06-19 10:24 | Outpatient (AMB) | payer MEDICARE, SELFPAY ==
--- NOTE | 2023-06-19 10:32 | MHC.OFFVIS ---
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: No Accompanied by: Self / Same As Patient Allergies amoxicillin [From AUGMENTIN] Allergy (Unknown, Verified 06/21/23 16:57) UNKNOWN clavulanic acid [From AUGMENTIN] Allergy (Unknown, Verified 06/21/23 16:57) UNKNOWN Medication List - Last Reconciled 06/21/23 by DARLENE Anderson albuterol sulfate 90 mcg/actuation 2 puffs inhalation Q6H PRN balsalazide 750 mg PO BID diltiazem HCl 120 mg PO DAILY flecainide 50 mg PO Q12H [golo PO TID] [iron 2,500 mg PO DAILY] lisinopril 20 mg PO DAILY 90 days loperamide 2 mg PO Q4H PRN loperamide (Imodium A-D) PO mupirocin 2% 1 appl topical BID-TID warfarin 5 mg See Protocol PO DAILY HPI HPI Comments History of Present Illness Details Carla is a very pleasant 77-year-old female patient of Dr. Pavon. She has a past medical history of colitis, cervical cancer status post chemo and radiation, paroxysmal atrial flutter on anticoagulation, and hypertension. She presents to the office today for follow-up. Of note, patient was seen approximately 2 months ago as a new patient for gross hematuria at which time a CT urogram and urine cytology was ordered for further assessment evaluation. These results were reviewed with the patient today. Bilateral kidneys with no calculi or hydronephrosis. 1.1 cm left renal cyst for which no further imaging follow-up is needed per radiology report. No focal or diffuse bladder wall thickening or bladder calculus seen. Urine Cytology 04/22--Negative for high-grade urothelial carcinoma. Discussed in office cystoscopy given gross hematuria as well as previous smoking history however patient declines at this time. She reports gross hematuria has since subsided can has had no other urinary issues or concerns. Discussed surveillance monitoring however patient does not feel this is necessary. She reports she will call if she has any other issues or concerns. In office urinalysis results reviewed with the patient today. [facility] [place] Medical History Colitis Cervical cancer senior living current use of anticoagulant senior living current use of antiarrhythmic drug Essential hypertension Paroxysmal atrial flutter Surgical History Hx of removal of cyst Hx of tonsillectomy Hx of colonoscopy History of facelift History of appendectomy Hx of dilation and curettage History of cardioversion Family History Father No problems noted. Mother No problems noted. Social History Household Members: Spouse Housing: House Do you presently have visiting nurse or other home services: No Alcohol intake: current Alcohol intake frequency: 0-2 drinks per day Comment: patient refuses bed alarm Patient Tobacco Use Status: Former Tobacco user Quit Date: >20 yrs ago Second Hand Smoke Exposure: Yes service: No Current occupational status: retired Review of Systems Eyes Reports no additional complaints ENT Reports no additional complaints Card Reports as per HPI Resp Reports no additional complaints GI Reports as per HPI Reports as per HPI Musc Reports no additional complaints Neuro Reports no additional complaints Psych Reports no additional complaints Endo Reports no additional complaints Vik/Lymph Reports no additional complaints Aller/Immun Reports no additional complaints Physical Exam Const General: cooperative, healthy appearing, comfortable, no acute distress, well developed, alert and awake Nutritional Appearance: overweight Orientation/consciousness: patient oriented x3 Limitations: no limitations HEENT Head: Yes normal to inspection, Yes normocephalic and Yes atraumatic Ears: hearing grossly normal bilaterally Eyes General: appearance normal, both eyes and all related structures Neck Neck: Yes normal visual inspection and Yes trachea midline Chest Chest palpation & inspection: normal inspection of the chest Resp Effort & Inspection: normal respiratory effort and able to speak in complete sentences Cardio Rate: regular rate GI Inspection: Yes normal to inspection General: Yes no CVA tenderness Back/Spine/Pelvis Back: no CVA tenderness Skin General skin exam: no rashes or lesions noted Neuro General: patient oriented x3 Extrem General: Yes normal to inspection Psych Appearance: grossly normal and well kempt Mental Status: mental status grossly normal Speech and movement: Normal speech and movement present and Clear speech present Affect: normal affect Attitude: cooperative Thought process: Normal thought process present Thought content: Normal thought content present Insight: Fair insight present (Psych) Judgement: Fair judgement present (Psych) Results AMB Urinalysis, Automated UA Leukoctes 70 David/uL Last Edit by Evelia Jacobs [facility] on 06/19/23 10:44 UA Nitrite Negative Last Edit by Evelia Jacobs, [facility] on 06/19/23 10:44 UA Urobilinogen 0.2 mg/dL Last Edit by Evelia Jacobs, [facility] on 06/19/23 10:44 UA Protein 0 mg/dL Last Edit by Evelia Jacobsmilad Jacobs, [facility] on 06/19/23 10:44 UA pH 6.0 Last Edit by Evelia Jacobsmilad Jacobs, [facility] on 06/19/23 10:44 UA Blood 0 Moe/uL Last Edit by Evelia Jacobsmilad Jacobs, [facility] on 06/19/23 10:44 UA Specific [place] 1.015 Last Edit by Evelia Jacobsmilad Jacobs, [facility] on 06/19/23 10:44 UA Ketone Negative Last Edit by Evelia Jacobs [facility] on 06/19/23 10:44 UA Bilirubin 0 mg/dL Last Edit by Evelia Jacobsmilad Jacobs [facility] on 06/19/23 10:44 UA Glucose 0 mg/dL Last Edit by Evelia Jacobsmilad Jacobs [facility] on 06/19/23 10:44 Results Reviewed Results Reviewed: Laboratory Last Values Urine pH (Auto) 6.0 06/19/23 10:43 Specific [place] (Auto) 1.015 06/19/23 10:43 Urine Protein (Auto) 0 mg/dL 06/19/23 10:43 Glucose (UA)(Auto) 0 mg/dL 06/19/23 10:43 Urine Ketones (Auto) Negative 06/19/23 10:43 Urine Blood (Auto) 0 Moe/uL 06/19/23 10:43 Urine Nitrite (Auto) Negative 06/19/23 10:43 Urine Bilirubin (Auto) 0 mg/dL 06/19/23 10:43 Urine Urobilinogen (Auto) 0.2 mg/dL 06/19/23 10:43 Leukocyte Esterase (Auto) 70 David/uL 06/19/23 10:43 Date of Service: 06/08/23 EXAMINATION: CT ABDOMEN AND PELVIS WITHOUT AND WITH CONTRAST FINDINGS: LUNG BASES: No pleural or pericardial effusion. Small hiatal hernia. LIVER, GALLBLADDER, AND BILIARY TREE: The liver is decreased in attenuation. No suspicious hepatic lesion or biliary ductal dilatation is present. The gallbladder is unremarkable with no evidence of radiopaque gallstones, gallbladder wall thickening, or obvious pericholecystic inflammatory changes. PANCREAS: No ductal dilatation. SPLEEN: Not enlarged. ADRENAL GLANDS: No adrenal mass. KIDNEYS AND URETERS: The kidneys are symmetric in size and enhancement. Delayed images demonstrate intact renal function. 1.1 cm left renal cyst for which no further imaging follow-up is needed. No renal or ureteral calculus. No perinephric stranding. Bilateral collecting systems and opacified portions of the ureters are nondilated and without obvious filling defects. BLADDER: Partially fills with excreted contrast. No focal or diffuse bladder wall thickening. No bladder calculus. GASTROINTESTINAL TRACT: No small bowel obstruction. There is hypertrophic change of the sigmoid colon with fibrotic scarring in the pelvis likely related to prior diverticulitis. ABDOMINAL WALL: No significant hernia is appreciated. LYMPH NODES: No bulky lymphadenopathy. VASCULAR: Normal caliber abdominal aorta. PELVIC VISCERA: Unremarkable. OSSEUS STRUCTURES: No destructive bone lesions. IMPRESSION: No nephrolithiasis or hydronephrosis. Hepatic steatosis. Assessment & Plan Assessment & Plan (1) Gross hematuria: Code(s): R31.0 - Gross hematuria (2) Renal cyst: Code(s): N28.1 - Cyst of kidney, acquired Plan In office urinalysis results reviewed with the patient today; as noted above. CT urogram results reviewed with the patient today; as noted above. Urine cytology results reviewed with the patient today; as noted above. Discussed further gross hematuria workup with in office cystoscopy however patient declines at this time. Discussed surveillance monitoring however patient declines at this time. She denies any bothersome urinary issues or concerns. Discussed at length potential causes for gross hematuria. Patient reports be happy with current voiding parameters. She will call if symptoms arise per request Follow up as needed Orders: Orders AMB Urinalysis Automated 06/19/23 R33.9 - Retention of urine, unspecified Patient Instructions: The patient had an opportunity to ask questions regarding the treatment plan. All questions were answered. Physical exam, labs, and imaging were discussed and reviewed in detail. As well as risks, benefits, and discussion of treatment choices. No major barriers to understanding were identified. The patient expressed understanding and agreement with the above treatment plan. The patient was made aware they should contact our office by phone for worsening of their current condition, the appearance of new symptoms, or with any questions or concerns. Compliance is encouraged with any medications and follow up testing that is ordered. It is a privilege to be allowed the opportunity to participate in? your urological care.? Again, if you have any questions or concerns If you have any questions or concerns please do not hesitate to contact me. The office is [phone]. This note is constructed using voice recognition software. While every effort has been made to ensure accuracy respiratory care program director errors may have been included. Yours sincerely, DARLENE Anderson Coding Level of Care Code Est Pt Level 4 (13794) Diagnoses Gross hematuria R31.0 Renal cyst N28.1
== END 2023-06-19 11:34 | disposition home or self-care (01) ==
PROVIDERS: PCP Internal Medicine; Visit Provider Nurse Practitioner Family
DX: R31.0 Gross hematuria (principal); N28.1 Cyst of kidney, acquired
CPT/HCPCS: 99214

== ENCOUNTER → 2023-06-19 10:24 | Outpatient (BNVA) | payer MEDICARE, SELFPAY | PROVIDERS: PCP Internal Medicine; Visit Provider Nurse Practitioner Family | DX: R31.0 Gross hematuria (principal); N28.1 Cyst of kidney, acquired; R33.9 Retention of urine, unspecified; Z79.01 Long term (current) use of anticoagulants | CPT/HCPCS: 81003; 99212 ==

== ENCOUNTER 2023-07-02 10:32 | Outpatient (AMB) | payer MEDICARE, SELFPAY ==
[2023-07-02 10:50] LABS: Prothrombin Time Whole Bld POC 25.2 sec (11.1-13.5); ~PT, ~INR - Anti Coag Clinic 2.1 (0.9-1.1)
--- NOTE | 2023-07-02 10:53 | MHC.OFFVISCO ---
Intake Intake Visit Reasons: Anticoagulation Allergies amoxicillin [From AUGMENTIN] Allergy (Unknown, Verified 07/02/23 10:44) UNKNOWN clavulanic acid [From AUGMENTIN] Allergy (Unknown, Verified 07/02/23 10:44) UNKNOWN Medication List - Last Reconciled 07/02/23 by Celestina Gross RN albuterol sulfate 90 mcg/actuation 2 puffs inhalation Q6H PRN balsalazide 750 mg PO BID diltiazem HCl CD 120 mg PO DAILY flecainide 50 mg PO Q12H [golo PO TID] [iron 2,500 mg PO DAILY] lisinopril 20 mg PO DAILY 90 days loperamide 2 mg PO Q4H PRN loperamide (Imodium A-D) PO mupirocin 2% 1 appl topical BID-TID warfarin 5 mg See Protocol PO DAILY Nursing Note INR: 2.1 in therapeutic range Medications and supplements reviewed No changes in health, diet, medications, or supplements, Denies any signs and symptoms of bleeding or bruising or clotting. Bleeding, bruising, clotting discussed Nutritional guidance given Dose: 5mg x 3 days/ 2.5mg x 4 days F/U INR: 1 month Patient verbalizes understanding of instructions given Anti-Coag Initial Assessment Social Hx Patient Tobacco Use Status: Former Tobacco user Quit Date: >20 yrs ago alcohol intake: current Alcohol intake frequency: 0-2 drinks per day Questionnaires HAS-BLED Does the patient had uncontrolled Hypertension?: No Does the patient have renal disease?: No Does the patient have liver disease?: No Does the patient have a history of stroke?: No Has the patient had major bleeding or predisposition to bleeding?: Yes Does the patient have labile INRs?: No Is the patient over 65 years of age?: Yes Is the patient on medications that gives them a predisposition to bleeding?: Yes Does the patient use alcohol?: Yes HAS-BLED Score: 4 CHADSVASC Age: 75 or over Gender: Female Does the patient have a history of CHF?: No Does the patient have a history of Hypertension?: Yes Does the patient have a history of Stroke/TIA/Thromboembolism?: No Does the patient have a history of Vascular Disease (prior IN, PAD or aortic plaque)?: No Does the patient have a history of Diabetes?: No CHADS VACS Score: 4 Cabrera Prediction Score Rsk VTE Active Cancer: No Previous VTE, excluding superficial vein thrombosis: No Reduced mobility: No Already known Thrombophilic Condition: Yes With-in last month Trauma and/or Surgery: No Elderly 70 year or older: Yes Heart and/or Respiratory Failure: No Acute Myocardial infarction and/or Ischemic Stroke: No Acute Infection and/or Rheumatologic Disorder: No Obesity (BMI 30 or greater): No Ongoing Hormonal Treatment: No Score: 4 Cabrera Score less than 4; Low Risk of VTE Cabrera Score 4 or greater; High Risk of VTE Coding Level of Care Code Est Patient Level 1 Diagnoses Current use of anticoagulant therapy Z79.01 Results AMB INR Fingerstick AMB INR Fingerstick 2.1 Last Edit by Celestina Gross RN on 07/02/23 10:50 manual entry Assessment & Plan Assessment & Plan (1) Current use of anticoagulant therapy: 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
== END 2023-07-02 11:00 | disposition home or self-care (01) ==
LOC: HO.ACS 10:32
PROVIDERS: PCP Internal Medicine; Visit Provider Internal Medicine
DX: Z79.01 Long term (current) use of anticoagulants (principal)

== ENCOUNTER → 2023-07-02 10:32 | Outpatient (BNVA) | payer MEDICARE, SELFPAY | PROVIDERS: PCP Internal Medicine; Visit Provider Internal Medicine | DX: I48.20 Chronic atrial fibrillation, unspecified (principal); Z79.01 Long term (current) use of anticoagulants; Z51.81 Encounter for therapeutic drug level monitoring | CPT/HCPCS: 85610; 99211 ==

== ENCOUNTER 2023-07-03 07:45 | Emergency (ER) | payer MEDICARE, SELFPAY ==
[2023-07-03 07:54] VITALS: BP 131/68; PULSE 83; RESP 18; TEMP 36.1; O2SAT 97; BMI 30.1
[2023-07-03 08:46] LABS: Appearance Urine Cloudy; Color Urine Yellow; Glucose Urine UA Negative (Negative); Leukocyte Esterase Urine Moderate (2+) (Negative); Nitrite Urine Negative (Negative); PH 5.5 (5.0-9.0); UMIC TRIGGER UACC YES; Urine Blood Large (3+) (Negative); Urine Ketones Negative (Negative); Urine Protein 100 (2+) mg/dL (Neg-Trace)
[2023-07-03 08:49] LABS: Bacteria Urine 1+ (None Seen); Hyaline Casts Urine 0-2 /LPF (0-2); RBC Urine >20 /HPF (0-2); Squamous Epithelial Cell Urine 0-2 /HPF (0-2); UACC Culture Trigger YES; WBC Urine >50 /HPF (0-5)
--- NOTE | 2023-07-03 09:23 | ED_ITS ---
HPI - Female Genitourinary General Chief complaint: Urogenital-Female Stated complaint: UTI Time Seen by Provider: 07/03/23 09:01 Source: patient Mode of arrival: ambulatory Limitations: no limitations History of Present Illness HPI Narrative: Patient is a 77-year-old female presents emergency department for evaluation of urinary frequency and dysuria. Symptom onset was last night. Self reported concern for urinary tract infection. She states that a few weeks ago she underwent a CT scan of the abdomen and pelvis as she was experiencing gross hematuria, has a history of cervical cancer, by her account this CT scan was negative. She was not previously having any symptoms aside from the gross hematuria. At this time she denies fevers, chills, nausea, vomiting, abdominal pain, flank pain, gross hematuria, abnormal vaginal discharge, pelvic pain. Related Data Home Medications ?Medication ?Instructions ?Recorded ?Confirmed diltiazem HCl 120 mg 120 mg PO DAILY 02/09/20 07/02/23 capsule,extended release 24 hr balsalazide 750 mg capsule 750 mg PO BID 01/08/22 07/02/23 albuterol sulfate 90 mcg/actuation 2 puff inhalation Q6H PRN Wheezing 02/10/22 07/02/23 aerosol inhaler loperamide 2 mg tablet 2 mg PO Q4H PRN Diarrhea 02/10/22 07/02/23 mupirocin 2 % topical ointment 1 appl topical BID-TID 03/11/22 07/02/23 iron 2,500 mg PO DAILY 07/09/22 07/02/23 loperamide [Imodium A-D] PO 08/04/22 07/02/23 golo PO TID 04/29/23 07/02/23 Previous Rx's ?Medication ?Instructions ?Recorded warfarin 5 mg tablet 5 mg PO DAILY #90 tabs 02/24/22 flecainide 50 mg tablet 50 mg PO Q12H #180 tabs 10/06/22 lisinopril 20 mg tablet 20 mg PO DAILY 90 days #90 tabs 01/13/23 cefuroxime axetil 250 mg tablet 250 mg PO BID #14 tabs 07/03/23 phenazopyridine 100 mg tablet 100 mg PO TID PRN pain 6 doses #6 07/03/23 (Pyridium) tabs Allergies Allergy/AdvReac Type Severity Reaction Status Date / Time amoxicillin [From AUGMENTIN] Allergy Unknown UNKNOWN Verified 07/03/23 07:54 clavulanic acid Allergy Unknown UNKNOWN Verified 07/03/23 07:54 [From AUGMENTIN] Review of Systems Review of Systems: Yes all other systems are reviewed and are negative [facility] Past Medical History Attestation statement: The following information was validated with the patient. 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 Mother No problems noted. Social History Social History Household Members: Spouse Housing: House Do you presently have visiting nurse or other home services: No Alcohol intake: current Alcohol intake frequency: 0-2 drinks per day Comment: patient refuses bed alarm Patient Tobacco Use Status: Former Tobacco user Quit Date: >20 yrs ago Second Hand Smoke Exposure: Yes Advance Directives: No Advance Directives Information Provided: No service: No Current occupational status: retired Physical Exam Vital Signs: Vital Signs: Last Vital Signs Temp 97 F 07/03/23 07:54 Pulse 83 07/03/23 07:54 Resp 18 07/03/23 07:54 BP 131/68 07/03/23 07:54 Pulse Ox 97 07/03/23 07:54 O2 Del Method Room Air 07/03/23 07:54 BMI result Body Mass Index 30.1 Medical Decision Making Medical Decision Making MDM Narrative: Patient is a 77-year-old female who presents emergency department for evaluation of urinary frequency and dysuria, findings today revealing urinary tract infection consistent with symptoms. She is overall well-appearing, nontoxic, afebrile, without tachycardia. No CVA tenderness. Clinically have low suspicion for pyelonephritis. Patient was advised that given microscopic hematuria in the setting of recent gross hematuria, she should have follow-up with her PCP/ possible urology evaluation should hematuria persist. Had INR of 2.1 yesterday, was made aware to follow-up closely with Coumadin clinic as antibiotic may impact her INR levels. Advised outpatient follow-up with her primary care provider. Strict return precautions. All questions answered. Stable for discharge. Differential Diagnosis Differential Diagnoses: The differential diagnosis associated with the presentation includes ( see narrative above) Admission/Observation Consideration of admission/observation: Escalation of care including admission/observation considered ( see narrative above) Lab Data MDM Lab Attestation statement: I reviewed the patient's lab results. ( see narrative above) Labs: Lab Results 07/03/23 Range/Units 08:39 Urine Color Yellow Urine Appearance Cloudy Urine pH 5.5 (5.0-9.0) Ur Specific [place] 1.020 (1.005-1.025) Urine Protein 100 (2+) H (Neg-Trace) mg/dL Urine Glucose (UA) Negative (Negative) mg/dL Urine Ketones Negative (Negative) mg/dL Urine Blood Large (3+) H (Negative) Urine Nitrite Negative (Negative) Ur Leukocyte Esterase Moderate (2+) H (Negative) Urine RBC >20 H (0-2) /HPF Urine WBC >50 H (0-5) /HPF Ur Squamous Epith Cells 0-2 (0-2) /HPF Urine Bacteria 1+ (None Seen) Hyaline Casts 0-2 (0-2) /LPF External Record Review External record reviewed: Outpatient record, Prior outpatient labs ( prior urine culture, E coli with edwards sensitivity) and Prior outpatient radiology Prescription Management I considered prescription management with: Antibiotic Discharge Plan Discharge Clinical Impression: Urinary tract infection Patient Disposition: Home, Self-Care Additional Instructions: Complete the entire course of antibiotics as prescribed. It is important that you follow closely with your Coumadin Clinic while on antibiotics as these can impact your INR when taking antibiotics Contact your primary care provider to arrange for a follow-up visit. Return back to emergency department any new or worsening symptoms or concerns. Prescriptions: New cefuroxime axetil 250 mg tablet 250 mg PO BID Qty: 14 0RF phenazopyridine [Pyridium] 100 mg tablet 100 mg PO TID PRN (Reason: pain) Qty: 6 0RF No Action flecainide 50 mg tablet 50 mg PO Q12H Qty: 180 3RF lisinopril 20 mg tablet 20 mg PO DAILY 90 Days Qty: 90 3RF loperamide 2 mg Tablet 2 mg PO Q4H PRN (Reason: Diarrhea) Rx Instructions: administer after each loose stool until symptoms controlled; do not exceed 8 mg per 24 hrs albuterol sulfate 90 mcg/actuation HFA aerosol inhaler 2 puff INHALATION Q6H PRN (Reason: Wheezing) iron 2,500 mg PO DAILY diltiazem HCl 120 mg capsule,extended release 24hr 120 mg PO DAILY mupirocin 2 % ointment 1 appl topical BID-TID balsalazide 750 mg capsule 750 mg PO BID warfarin 5 mg tablet 5 mg PO DAILY Qty: 90 0RF Protocol: Dose Management Condition: Thursday (Week One) Dose/Route: 2.5 mg Instruction: 0.5 x 5 mg tablets Condition: Thursday Dose/Route: 5 mg Instruction: 1 x 5 mg tablet Condition: Thursday Dose/Route: 2.5 mg Instruction: 0.5 x 5 mg tablets Condition: Thursday Dose/Route: 5 mg Instruction: 1 x 5 mg tablet Condition: Dose/Route: 2.5 mg Instruction: 0.5 x 5 mg tablets Condition: Thursday Dose/Route: 5 mg Instruction: 1 x 5 mg tablet Condition: Thursday Dose/Route: 2.5 mg Instruction: 0.5 x 5 mg tablets Condition: Thursday (Week Two) Dose/Route: 2.5 mg Instruction: 0.5 x 5 mg tablets Condition: Thursday Dose/Route: 5 mg Instruction: 1 x 5 mg tablet Condition: Thursday Dose/Route: 2.5 mg Instruction: 0.5 x 5 mg tablets Condition: Thursday Dose/Route: 5 mg Instruction: 1 x 5 mg tablet Condition: Dose/Route: 2.5 mg Instruction: 0.5 x 5 mg tablets Condition: Thursday Dose/Route: 5 mg Instruction: 1 x 5 mg tablet Condition: Thursday Dose/Route: 2.5 mg Instruction: 0.5 x 5 mg tablets Protocol Text: Adjustment Start Date: 07/02/23 INR Value: 2.1 INR Date: 07/02/23 Recheck Date: 08/01/23 loperamide [Imodium A-D] PO golo PO TID Referrals: Bombardier,Ramiro M, MD [Primary Care Provider] - Print Language: Jamaican
[2023-07-03 09:35] VITALS: BP 138/67; PULSE 78; RESP 16; TEMP 36.9
--- NOTE | 2023-07-03 09:37 | PC.NURSE ---
during time in tx area pt remained resting comfortably in tx area in no distress. Pt denied any abd pain or any other additional sympotms. pt was instructed to follow up with pcp and return to ed if symptoms persist or worsen.,
== END 2023-07-03 09:38 | disposition home or self-care (01) ==
PROVIDERS: Emergency Provider Emergency Medicine; PCP Internal Medicine
DX: N39.0 Urinary tract infection, site not specified (principal); I10 Essential (primary) hypertension; I48.0 Paroxysmal atrial fibrillation; Z79.01 Long term (current) use of anticoagulants
CPT/HCPCS: 81001; 87086; 87088; 87186; 99282; 99283

== ENCOUNTER 2023-08-05 07:46 | Outpatient (AMB) | payer MEDICARE, SELFPAY ==
--- NOTE | 2023-08-05 08:10 | A.OFFVIS_ITS ---
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 Required: No Accompanied by: Self / Same As Patient Allergies amoxicillin [From AUGMENTIN] Allergy (Unknown, Verified 07/03/23 07:54) UNKNOWN clavulanic acid [From AUGMENTIN] Allergy (Unknown, Verified 07/03/23 07:54) UNKNOWN Medication List - Last Reconciled 08/05/23 by Lion Dahl MD albuterol sulfate 90 mcg/actuation 2 puffs inhalation Q6H PRN cefuroxime axetil 250 mg PO BID diltiazem HCl CD 120 mg PO DAILY flecainide 50 mg PO Q12H [golo PO TID] [iron 2,500 mg PO DAILY] lisinopril 20 mg PO DAILY 90 days loperamide 2 mg PO Q4H PRN loperamide (Imodium A-D) PO mupirocin 2% 1 appl topical BID-TID phenazopyridine (Pyridium) 100 mg PO TID PRN 6 doses warfarin 5 mg See Protocol PO DAILY HPI Comments Details: Carla returns for follow up regarding atrial flutter. In the past, routine EKG at PCP's office had revealed atrial flutter. Subsequently she underwent cardioversion. Initially she was on Xarelto, but due to cost, this has been switched to Coumadin. Since last seen, no complaints like angina or shortness of breath or palpitations or in fact anything cardiac sounding. Doing well. 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 Mother No problems noted. Social History Household Members: Spouse Housing: House Do you presently have visiting nurse or other home services: No Alcohol intake: current Alcohol intake frequency: 0-2 drinks per day Comment: patient refuses bed alarm Patient Tobacco Use Status: Former Tobacco user Quit Date: >20 yrs ago Second Hand Smoke Exposure: Yes service: No Current occupational status: retired Review of Systems Const Denies chills, Denies fatigue, Denies fever(s), Denies frequent falls, Denies weakness, Denies weight gain and Denies weight loss ENT Denies dizziness Card Denies chest pain, Denies leg edema, Denies lightheadedness, Denies palpitations, Denies dyspnea and Denies dyspnea on exertion Resp Denies cough, Denies dyspnea and Denies dyspnea on exertion GI Denies hematochezia Musc Denies abnormal gait, Denies muscle weakness, Denies numbness, Denies radiating pain into limb and Denies tingling Neuro Denies abnormal gait, Denies dizziness, Denies frequent falls, Denies numbness, Denies tingling and Denies weakness Endo Denies fatigue and Denies palpitations Physical Exam Vital Signs: Last Vital Signs Pulse 79 08/05/23 08:11 BP 126/74 08/05/23 08:11 BMI result Body Mass Index 29.5 Const General: comfortable and no acute distress Orientation/consciousness: patient oriented x3 HEENT Other: Unremarkable Head: Yes normal to inspection Neck Neck: Yes normal visual inspection Chest Chest palpation & inspection: normal inspection of the chest Resp Auscultation: clear to auscultation bilaterally Cardio Palpation: normal PMI Heart sounds: S1 normal heart sound present, S2 normal heart sound present, no gallops, Murmur heart sound present systolic II/ and no rubs GI Palpation (GI): Soft to palpation Back/Spine/Pelvis Other: unremarkable Skin General skin exam: no rashes or lesions noted Neuro General: patient oriented x3 Extrem General: Yes normal to inspection Psych Mental Status: mental status grossly normal Office Procedures EKG Details: EKG shows sinus rhythm at 79/Min; NH prolongation to 246 milliseconds; normal corrected QT. No significant ST-T changes. [id number], Complete Assessment & Plan Assessment & Plan (1) Paroxysmal atrial flutter: Code(s): I48.92 - Unspecified atrial flutter Category: Medical (2) AV block, 1st degree: Code(s): I44.0 - Atrioventricular block, first degree Category: Medical (3) Encounter for monitoring anti-arrhythmic therapy: Code(s): Z51.81 - Encounter for therapeutic drug level monitoring; Z79.899 - Other fci (current) drug therapy Category: Medical (4) Essential hypertension: Code(s): I10 - Essential (primary) hypertension Category: Medical Plan Overall, patient is quite stable on the current regimen including diltiazem and flecainide. Continue same without changes. She has some NH prolongation on the EKG but not much of a choice otherwise and hence we can continue the same. With regard hypertension, on lisinopril. Well controlled. Otherwise, follow-up in 6 months. Coding Level of Care Code Est Pt Level 4 (35823) Diagnoses Paroxysmal atrial flutter I48.92 AV block, 1st degree I44.0 Encounter for monitoring anti-arrhythmic therapy Z51.81; Z79.899 Essential hypertension I10 CPT Codes EKG - CPT: [id number], Complete ([id number])
[2023-08-05 08:11] VITALS: BP 126/74; PULSE 79; BMI 29.5
== END 2023-08-05 08:34 | disposition home or self-care (01) ==
PROVIDERS: PCP Internal Medicine; Visit Provider Internal Medicine
DX: I48.92 Unspecified atrial flutter (principal); I44.0 Atrioventricular block, first degree; Z51.81 Encounter for therapeutic drug level monitoring; Z79.899 Other long term (current) drug therapy; I10 Essential (primary) hypertension
CPT/HCPCS: 93010; 99214

== ENCOUNTER → 2023-08-05 07:46 | Outpatient (BNVA) | payer MEDICARE, SELFPAY | PROVIDERS: PCP Internal Medicine; Visit Provider Internal Medicine | DX: I48.92 Unspecified atrial flutter (principal); Z51.81 Encounter for therapeutic drug level monitoring; I44.0 Atrioventricular block, first degree; I10 Essential (primary) hypertension; Z79.899 Other long term (current) drug therapy | CPT/HCPCS: 93005; 99212 ==

== ENCOUNTER 2023-08-06 10:36 | Outpatient (AMB) | payer MEDICARE, SELFPAY ==
[2023-08-06 10:42] LABS: Prothrombin Time Whole Bld POC 33.5 sec (11.1-13.5); ~PT, ~INR - Anti Coag Clinic 2.8 (0.9-1.1)
--- NOTE | 2023-08-06 10:51 | MHC.OFFVISCO ---
Intake Intake Visit Reasons: Anticoagulation Allergies amoxicillin [From AUGMENTIN] Allergy (Unknown, Verified 08/06/23 10:37) UNKNOWN clavulanic acid [From AUGMENTIN] Allergy (Unknown, Verified 08/06/23 10:37) UNKNOWN Medication List - Last Reconciled 08/06/23 by Alize Dudley, RN albuterol sulfate 90 mcg/actuation 2 puffs inhalation Q6H PRN cefuroxime axetil 250 mg PO BID diltiazem HCl CD 120 mg PO DAILY flecainide 50 mg PO Q12H [golo PO TID] [iron 2,500 mg PO DAILY] lisinopril 20 mg PO DAILY 90 days loperamide 2 mg PO Q4H PRN loperamide (Imodium A-D) PO mupirocin 2% 1 appl topical BID-TID phenazopyridine (Pyridium) 100 mg PO TID PRN 6 doses warfarin 5 mg See Protocol PO DAILY Nursing Note INR: 2.8 in therapeutic range OF 2-3 Medications and supplements reviewed: NO CHANGES No changes in health, diet, medications, or supplements, Denies any signs and symptoms of bleeding or bruising or clotting. Bleeding, bruising, clotting discussed Nutritional guidance given Dose: 5MG x 3 DAYS AND 2.5MG x 4 DAYS F/U INR: 6 WEEKS, RECOMMENDED 4 WEEKS BUT PT REFUSED Patient verbalizes understanding of instructions given Anti-Coag Initial Assessment Social Hx Patient Tobacco Use Status: Former Tobacco user Quit Date: >20 yrs ago alcohol intake: current Alcohol intake frequency: 0-2 drinks per day Coding Level of Care Code Est Patient Level 1 Diagnoses Current use of anticoagulant therapy Z79.01 Assessment & Plan Assessment & Plan (1) Current use of anticoagulant therapy: Code(s): Z79.01 - custodial (current) use of anticoagulants
== END 2023-08-06 10:54 | disposition home or self-care (01) ==
LOC: HO.ACS 10:36
PROVIDERS: PCP Internal Medicine; Visit Provider Internal Medicine
DX: Z79.01 Long term (current) use of anticoagulants (principal)

== ENCOUNTER → 2023-08-06 10:36 | Outpatient (BNVA) | payer MEDICARE, SELFPAY | PROVIDERS: PCP Internal Medicine; Visit Provider Internal Medicine | DX: I48.20 Chronic atrial fibrillation, unspecified (principal); Z79.01 Long term (current) use of anticoagulants; Z51.81 Encounter for therapeutic drug level monitoring | CPT/HCPCS: 85610; 99211 ==

== ENCOUNTER 2023-09-17 09:52 | Outpatient (AMB) | payer MEDICARE, SELFPAY ==
[2023-09-17 10:02] LABS: Prothrombin Time Whole Bld POC 22.7 sec (11.1-13.5); ~PT, ~INR - Anti Coag Clinic 1.9 (0.9-1.1)
--- NOTE | 2023-09-17 10:15 | MHC.OFFVISCO ---
Intake Intake Visit Reasons: Anticoagulation Allergies amoxicillin [From AUGMENTIN] Allergy (Unknown, Verified 09/17/23 09:57) UNKNOWN clavulanic acid [From AUGMENTIN] Allergy (Unknown, Verified 09/17/23 09:57) UNKNOWN Medication List - Last Reconciled 09/17/23 by Susi Magallon RN albuterol sulfate 90 mcg/actuation 2 puffs inhalation Q6H PRN cefuroxime axetil 250 mg PO BID diltiazem HCl CD 120 mg PO DAILY flecainide 50 mg PO Q12H [golo PO TID] [iron 2,500 mg PO DAILY] lisinopril 20 mg PO DAILY loperamide 2 mg PO Q4H PRN loperamide (Imodium A-D) PO mupirocin 2% 1 appl topical BID-TID phenazopyridine (Pyridium) 100 mg PO TID PRN 6 doses warfarin 5 mg See Protocol PO DAILY Nursing Note NO CP,SOB,DIET/MED CHANGES,FALLS OR SX OF BLEEDING. PT.DENIES ANY MISSED DOSES. BOOST SLIGHTLY TODAY TO 5MGM THEN RESUME USUAL DOSE AND FOLLOW-UP IN 5 WEEKS(PT.REQUEST) NO GREENS TODAY GOOD UNDERSTANDING OF DOSING INSTR. 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
== END 2023-09-17 10:22 | disposition home or self-care (01) ==
LOC: HO.ACS 09:52
PROVIDERS: PCP Internal Medicine; Visit Provider Internal Medicine
DX: Z79.01 Long term (current) use of anticoagulants (principal)

== ENCOUNTER → 2023-09-17 09:52 | Outpatient (BNVA) | payer MEDICARE, SELFPAY | PROVIDERS: PCP Internal Medicine; Visit Provider Internal Medicine | DX: I48.20 Chronic atrial fibrillation, unspecified (principal); Z79.01 Long term (current) use of anticoagulants; Z51.81 Encounter for therapeutic drug level monitoring | CPT/HCPCS: 85610; 99211 ==

== ENCOUNTER 2023-10-26 09:34 | Emergency (ER) | payer MEDICARE, SELFPAY ==
--- NOTE | ~2023-10-26 | CT_ITS ---
EXAMINATION: CT ABDOMEN AND PELVIS WITHOUT CONTRAST CLINICAL INFORMATION: Hematuria. COMPARISON: CT urogram 06/08/2023 TECHNIQUE: Multidetector volumetric imaging was performed from the superior aspect of the liver through the pubic symphysis. Sagittal and coronal reformatted images were obtained on the technologist's workstation. This CT examination was performed using dose optimization techniques as appropriate, variously including the following: *Automated exposure control *Adjustment of mA and/or kV according to patient size (this includes techniques or standardized protocols for targeted exams where dose is matched to indication/reason for exam; i.e. extremities or head) *Use of iterative reconstruction technique DLP: 669 mGy-cm FINDINGS: LUNG BASES: Small hiatal hernia. LIVER, GALLBLADDER, AND BILIARY TREE: The noncontrast liver is normal in size and contour. No biliary ductal dilatation is present. The gallbladder is unremarkable with no evidence of radiopaque gallstones, gallbladder wall thickening, or obvious pericholecystic inflammatory changes. PANCREAS: Unremarkable. SPLEEN: Unremarkable. ADRENAL GLANDS: Unremarkable. KIDNEYS AND URETERS: The kidneys are symmetric in size. 8 mm left renal hypodensity too small to characterize. No hydronephrosis, hydroureter, or calculi seen. No perinephric stranding. BLADDER: Large amorphous hyperdensity within the dependent aspect of the urinary bladder. This obscures evaluation of the urinary bladder lumen. No focal bladder wall thickening. GASTROINTESTINAL TRACT: No small bowel obstruction. Diverticular disease of the sigmoid colon. ABDOMINAL WALL: No significant hernia is appreciated. LYMPH NODES: No bulky lymphadenopathy. VASCULAR: Normal caliber abdominal aorta. PELVIC VISCERA: Possibly atrophic uterus. OSSEOUS STRUCTURES: Rightward curvature of the thoracic spine. CT/CT abdomen pelvis wo IV con IMPRESSION: Large amorphous hyperdensity within the dependent aspect of the urinary bladder most likely representing blood products limiting evaluation of the urinary bladder lumen for underlying pathology. No focal bladder wall thickening. Cystoscopic correlation should be considered.
[2023-10-26 10:24] VITALS: BP 137/63; PULSE 86; RESP 16; TEMP 36.6; O2SAT 96; BMI 31.3
[2023-10-26 10:48] LABS: MANUAL DIFF FLAG NO
[2023-10-26 10:53] LABS: Basophils Percent Auto 0.6 % (0-2); Eosinophils Absolute Auto 0.2 X10*3/uL (0.0-0.4); Eosinophils Percent Auto 4.4 % (0-4); Hematocrit 33.3 % (37.0-47.0); Hemoglobin 11.1 g/dl (12.0-16.0); Imm Gran Abs Auto 0.02 X10*3/uL (0.00-0.03); Imm Gran Pct Auto 0.4 % (0.0-0.4); Lymphocytes Absolute Auto 1.1 X10*3/uL (1.2-4.9); Lymphocytes Percent Auto 23.5 % (20-40); Mean Corpuscular HGB Conc 33.3 g/dl (31.0-35.0); Mean Platelet Volume 8.6 fL (9.4-12.3); Monocytes Absolute Auto 0.4 X10*3/uL (0.1-1.2); Monocytes Percent Auto 9.3 % (2-11); Neutrophils Absolute Auto 2.9 x10*3/uL (2.0-8.3); Neutrophils Percent Auto 61.8 % (45-73); Platelet Count 314 X10*3/uL (160-400); Red Blood Count 3.47 X10*6/uL (4.20-5.50); Red Cell Distribution Width 12.9 % (11.0-16.0); White Blood Count 4.7 X10*3/uL (4.8-10.8)
[2023-10-26 10:59] LABS: Prothrombin Time 36.9 SEC (11.1-13.3)
[2023-10-26 11:01] LABS: Partial Thromboplastin Time 49.6 SEC (26.0-36.8)
[2023-10-26 11:05] LABS: Appearance Urine Cloudy; Specific Gravity - Urine 1.015 (1.005-1.025); UMIC TRIGGER UACC YES; Urine Blood Large (3+) (Negative)
[2023-10-26 11:07] LABS: Anion Gap 11 (12-20); Blood Urea Nitrogen 16 mg/dL (9-16); Calcium 9.6 mg/dL (8.4-10.2); Carbon Dioxide 24 mmol/L (22-29); Chloride 107 mmol/L (96-108); Creatinine Clr Calc Pharmacy 53.6; Estimated Glomerular Filt Rate > 60; Glucose Random 108 mg/dL (60-115); Potassium 4.4 mmol/L (3.3-5.1); Sodium 138 mmol/L (135-145)
[2023-10-26 11:09] LABS: Color Urine RED
[2023-10-26 11:11] LABS: Bacteria Urine None Seen (None Seen); Hyaline Casts Urine 0-2 /LPF (0-2); RBC Urine >20 /HPF (0-2); Squamous Epithelial Cell Urine 0-2 /HPF (0-2); WBC Urine 0-5 /HPF (0-5)
[2023-10-26 12:30] VITALS: BP 156/68; PULSE 80; RESP 16; TEMP 36.1; O2SAT 100
--- NOTE | 2023-10-26 12:55 | ED_ITS ---
HPI - Female Genitourinary General Chief complaint: Urogenital-Female Stated complaint: UTI Time Seen by Provider: 10/26/23 12:31 Source: patient Mode of arrival: ambulatory Limitations: no limitations History of Present Illness HPI Narrative: This is 77 years old the patient with history of cervical cancer, paroxysmal atrial flutter on anticoagulation, hypertension presented today with the chief complaint of hematuria. Patient had hematuria in the past she has been evaluated by the urologist last in May 2023 for hematuria. She denies fever chills vomiting Pertinent past history: recurrent UTIs and other (Prior hematuria) Onset (ago): day(s) (4) Severity: mild Female Urogenital Radiation: Non-Radiating Quality of pain: cramping Consistency: constant Urinary symptoms: Dysuria Exacerbating factors: none Related Data Home Medications ?Medication ?Instructions ?Recorded ?Confirmed diltiazem HCl 120 mg 120 mg PO DAILY 02/09/20 08/06/23 capsule,extended release 24 hr albuterol sulfate 90 mcg/actuation 2 puff inhalation Q6H PRN Wheezing 02/10/22 08/06/23 aerosol inhaler loperamide 2 mg tablet 2 mg PO Q4H PRN Diarrhea 02/10/22 08/06/23 mupirocin 2 % topical ointment 1 appl topical BID-TID 03/11/22 08/06/23 iron 2,500 mg PO DAILY 07/09/22 08/06/23 loperamide [Imodium A-D] PO 08/04/22 08/06/23 golo PO TID 04/29/23 08/06/23 Previous Rx's ?Medication ?Instructions ?Recorded warfarin 5 mg tablet 5 mg PO DAILY #90 tabs 02/24/22 cefuroxime axetil 250 mg tablet 250 mg PO BID #14 tabs 07/03/23 phenazopyridine 100 mg tablet 100 mg PO TID PRN pain 6 doses #6 07/03/23 (Pyridium) tabs flecainide 50 mg tablet 50 mg PO Q12H #180 tabs 09/15/23 lisinopril 20 mg tablet 20 mg PO DAILY #90 tabs 09/15/23 Allergies Allergy/AdvReac Type Severity Reaction Status Date / Time amoxicillin [From AUGMENTIN] Allergy Unknown Rash Verified 10/26/23 10:31 clavulanic acid Allergy Unknown Rash Verified 10/26/23 10:31 [From AUGMENTIN] Review of Systems 2 Constitutional: Constitutional: Reports no additional constitutional complaints Cardiovascular: Cardiovascular: Reports no additional cardiovascular complaints PMFSH Past Medical History Attestation statement: The following information was validated with the patient. 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 Mother No problems noted. Social History Social History Household Members: Spouse Housing: House Do you presently have visiting nurse or other home services: No Alcohol intake: current Alcohol intake frequency: holidays/special occasions only Comment: patient refuses bed alarm Patient Tobacco Use Status: Former Tobacco user Smoked in Last 30 Days: No Second Hand Smoke Exposure: Yes Use of substances other than those prescribed or required for medical reasons: No Advance Directives: No Advance Directives Information Provided: Yes service: No Current occupational status: retired Physical Exam 2 Vital Signs: Vital Signs: Last Vital Signs Temp 98.2 F 10/26/23 14:00 Pulse 79 10/26/23 14:00 Resp 18 10/26/23 14:00 BP 146/77 H 10/26/23 14:00 Pulse Ox 98 10/26/23 14:00 O2 Del Method Room Air 10/26/23 14:00 BMI result Body Mass Index 31.3 Const: General: comfortable, no acute distress and well developed N utritional Appearance: average body habitus Orientation/consciousness: p atient oriented x3 Limitations: no limitations HEENT: Head: Yes normal to inspection Face and sinus: Yes normal facial exam Mouth: Normal oral and palatal mucosa present Neck: Neck: Yes normal visual inspection, Yes full ROM and Yes no lymphadenopathy Resp: Effort & Inspection: normal respiratory effort Auscultation: clear to auscultation bilaterally Percussion: percussion normal Cardio: Jugular venous distension: no JVD Rate: regular rate Rhythm: r egular rhythm GI: Inspection: Yes normal to inspection Palpation (GI): Soft to palpation, not firm and nontender Skin: General skin exam: no rashes or lesions noted and elasticity normal Neuro: General: patient oriented x3 Course Reevaluation(s) Reevaluation #1: CT reviewed she has clot in the bladder I discussed the case with the urologist on-call Dr. Delfino Villar he will follow-up in next couple of days, he will lower the nurse called the patient for an appointment. The patient is very comfortable with the plan of care this time will discharge the patient Time: 15:46 Medical Decision Making Medical Decision Making [facility] Narrative: Patient presented to the emergency department with a chief complaint of hematuria, we will get UA /CT Differential Diagnosis Differential Diagnoses: The differential diagnosis associated with the presentation includes Urinary tract infection/kidney stone/bladder tumor Admission/Observation Consideration of admission/observation: Escalation of care including admission/observation considered Consult Healthcare Provider Management of the patient was discussed with: Pulmonary Fellow Dr Villar Urologist Lab Data [facility] Lab Attestation statement: I reviewed the patient's lab results. 10/26/23 10:43 10/26/23 10:43 Labs: Lab Results 10/26/23 Range/Units 10:43 WBC 4.7 L (4.8-10.8) X10*3/uL RBC 3.47 L (4.20-5.50) X10*6/uL Hgb 11.1 L (12.0-16.0) g/dl Hct 33.3 L (37.0-47.0) % MCV 96.0 (80.0-98.0) fL MCH 32.0 (27.0-33.0) pg MCHC 33.3 (31.0-35.0) g/dl RDW 12.9 (11.0-16.0) % Plt Count 314 (160-400) X10*3/uL MPV 8.6 L (9.4-12.3) fL Immature Gran % (Auto) 0.4 (0.0-0.4) % Neut % (Auto) 61.8 (45-73) % Lymph % (Auto) 23.5 (20-40) % [place] % (Auto) 9.3 (2-11) % Eos % (Auto) 4.4 H (0-4) % Baso % (Auto) 0.6 (0-2) % Lymph # (Auto) 1.1 L (1.2-4.9) X10*3/uL [place]iken # (Auto) 0.4 (0.1-1.2) X10*3/uL Eos # (Auto) 0.2 (0.0-0.4) X10*3/uL Baso # (Auto) 0.0 (0.0-0.2) X10*3/uL Abs Immat Gran (auto) 0.02 (0.00-0.03) X10*3/uL Absolute Neuts (auto) 2.9 (2.0-8.3) x10*3/uL Absolute Nucleated RBC 0.000 (0.0-0.012) X10*3/uL Nucleated RBC % (auto) 0.0 (0.0-0.2) /100WBC PT 36.9 H (11.1-13.3) SEC INR 3.0 H (0.9-1.1) APTT 49.6 H (26.0-36.8) SEC Sodium 138 (135-145) mmol/L Potassium 4.4 (3.3-5.1) mmol/L Chloride 107 (96-108) mmol/L Carbon Dioxide 24 (22-29) mmol/L Anion Gap 11 L (12-20) BUN 16 (9-16) mg/dL Creatinine 0.88 (0.5-1.4) mg/dL Estim Creat Clear Calc 53.6 Estimated GFR > 60 Random Glucose 108 (60-115) mg/dL Calcium 9.6 (8.4-10.2) mg/dL Urine Color RED Urine Appearance Cloudy Urine pH 7.0 (5.0-9.0) Ur Specific [place] 1.015 (1.005-1.025) Urine Protein See Note (Neg-Trace) mg/dL Urine Glucose (UA) See Note (Negative) mg/dL Urine Ketones See Note (Negative) mg/dL Urine Blood Large (3+) H (Negative) Urine Nitrite See Note (Negative) Ur Leukocyte Esterase See Note (Negative) Urine RBC >20 H (0-2) /HPF Urine WBC 0-5 (0-5) /HPF Ur Squamous Epith Cells 0-2 (0-2) /HPF Urine Bacteria None Seen (None Seen) Hyaline Casts 0-2 (0-2) /LPF Blood Type A Positive Antibody Screen NEGATIVE Independent Interpretation I performed an independent interpretation of an: CT Scan Interpretation: Clot in the bladder Radiology Impression Discussion of test interpretation with radiology: I have reviewed the radiologist's reading. Radiologist Impression: PELVIC VISCERA: Possibly atrophic uterus. OSSEOUS STRUCTURES: Rightward curvature of the thoracic spine. CT/CT abdomen pelvis wo IV con IMPRESSION: Large amorphous hyperdensity within the dependent aspect of the urinary bladder most likely representing blood products limiting evaluation of the urinary bladder lumen for underlying pathology. No focal bladder wall thickening. Cystoscopic correlation should be considered. Dictated By: Nina Talbert MD Signed By: <Electronically signed by Nina Talbert MD in OV> Discharge Plan Discharge Clinical Impression: Hematuria Qualifiers: Hematuria type: gross Qualified Code(s): R31.0 - Gross hematuria Patient Disposition: Home, Self-Care Instructions: Hematuria (ED) Additional Instructions: As we discussed with you hold the Coumadin for a couple of days, the Urologist Dr. Villar will call you for an appointment, return to the emergency room if you worse pain unable to urinate. Prescriptions: No Action flecainide 50 mg tablet 50 mg PO Q12H Qty: 180 3RF lisinopril 20 mg tablet 20 mg PO DAILY Qty: 90 3RF loperamide 2 mg Tablet 2 mg PO Q4H PRN (Reason: Diarrhea) Rx Instructions: administer after each loose stool until symptoms controlled; do not exceed 8 mg per 24 hrs albuterol sulfate 90 mcg/actuation HFA aerosol inhaler 2 puff INHALATION Q6H PRN (Reason: Wheezing) iron 2,500 mg PO DAILY cefuroxime axetil 250 mg tablet 250 mg PO BID Qty: 14 0RF phenazopyridine [Pyridium] 100 mg tablet 100 mg PO TID PRN (Reason: pain) Qty: 6 0RF diltiazem HCl 120 mg capsule,extended release 24hr 120 mg PO DAILY mupirocin 2 % ointment 1 appl topical BID-TID warfarin 5 mg tablet 5 mg PO DAILY Qty: 90 0RF Protocol: Dose Management Condition: Thursday ( One) Dose/Route: 2.5 mg Instruction: 0.5 x 5 mg tablets Condition: Thursday Dose/Route: 5 mg Instruction: 1 x 5 mg tablet Condition: Thursday Dose/Route: 2.5 mg Instruction: 0.5 x 5 mg tablets Condition: Thursday Dose/Route: 5 mg Instruction: 1 x 5 mg tablet Condition: Dose/Route: 5 mg Instruction: 1 x 5 mg tablet Condition: Thursday Dose/Route: 5 mg Instruction: 1 x 5 mg tablet Condition: Thursday Dose/Route: 2.5 mg Instruction: 0.5 x 5 mg tablets Condition: Thursday ( Two) Dose/Route: 2.5 mg Instruction: 0.5 x 5 mg tablets Condition: Thursday Dose/Route: 5 mg Instruction: 1 x 5 mg tablet Condition: Thursday Dose/Route: 2.5 mg Instruction: 0.5 x 5 mg tablets Condition: Thursday Dose/Route: 5 mg Instruction: 1 x 5 mg tablet Condition: Dose/Route: 2.5 mg Instruction: 0.5 x 5 mg tablets Condition: Thursday Dose/Route: 5 mg Instruction: 1 x 5 mg tablet Condition: Thursday Dose/Route: 2.5 mg Instruction: 0.5 x 5 mg tablets Protocol Text: Adjustment Start Date: 09/17/23 INR Value: 1.9 INR Date: 09/17/23 Recheck Date: 10/22/23 loperamide [Imodium A-D] PO golo PO TID Referrals: Delfino Villar MD [Physician] - 2 days Print Language: Burundian
[2023-10-26 14:00] VITALS: BP 146/77; PULSE 79; RESP 18; TEMP 36.8; O2SAT 98
[2023-10-26 15:58] VITALS: BP 146/77; PULSE 79; RESP 18; TEMP 36.8; O2SAT 98
== END 2023-10-26 15:59 | disposition home or self-care (01) ==
PROVIDERS: Emergency Provider Emergency Medicine; PCP Internal Medicine
DX: R31.0 Gross hematuria (principal); N39.0 Urinary tract infection, site not specified; R30.0 Dysuria; Z79.899 Other long term (current) drug therapy; Z87.891 Personal history of nicotine dependence
CPT/HCPCS: 36415; 74176; 80048; 81001; 81003; 85025; 85610; 85730; 86850; 86900; 86901; 99284

== ENCOUNTER → 2023-10-27 11:11 | Outpatient (BNVA) | payer MEDICARE, SELFPAY | PROVIDERS: PCP Internal Medicine; Visit Provider Internal Medicine ==

== ENCOUNTER 2023-10-27 21:18 | Inpatient (IN) | payer MEDICARE, SELFPAY ==
[2023-10-27 21:40] VITALS: BP 158/59; PULSE 97; RESP 18; TEMP 36.7; O2SAT 94; BMI 36.6
[2023-10-28] VITALS (7 sets, daily range): BP systolic 111–156; BP diastolic 57–67; PULSE 94–106; RESP 16–18; TEMP 36.3–37; O2SAT 94–98; BMI 29.2
--- NOTE | 2023-10-28 00:26 | ED.FEMALEGU ---
HPI - Female Genitourinary General Chief complaint: Urogenital-Female Stated complaint: ?Clots in bladder Time Seen by Provider: 10/27/23 23:14 History of Present Illness HPI Narrative: Patient is a 77-year-old female with a history of hematuria. Being followed by Dr. Dickens. Was here in the emergency department yesterday for having low abdominal pain bloody urine. Had a CT scan done yesterday which showed lot of clot in the bladder. Patient went home comfortable. She has a history of being on Coumadin for atrial fibrillation. No fever no chills. Went home and now have increasing pain to the lower abdomen unable to urinate. Came to the ED for help. Related Data Home Medications ?Medication ?Instructions ?Recorded ?Confirmed diltiazem HCl 120 mg 120 mg PO DAILY 02/09/20 08/06/23 capsule,extended release 24 hr albuterol sulfate 90 mcg/actuation 2 puff inhalation Q6H PRN Wheezing 02/10/22 08/06/23 aerosol inhaler loperamide 2 mg tablet 2 mg PO Q4H PRN Diarrhea 02/10/22 08/06/23 mupirocin 2 % topical ointment 1 appl topical BID-TID 03/11/22 08/06/23 iron 2,500 mg PO DAILY 07/09/22 08/06/23 loperamide [Imodium A-D] PO 08/04/22 08/06/23 golo PO TID 04/29/23 08/06/23 Previous Rx's ?Medication ?Instructions ?Recorded warfarin 5 mg tablet 5 mg PO DAILY #90 tabs 02/24/22 cefuroxime axetil 250 mg tablet 250 mg PO BID #14 tabs 07/03/23 phenazopyridine 100 mg tablet 100 mg PO TID PRN pain 6 doses #6 07/03/23 (Pyridium) tabs flecainide 50 mg tablet 50 mg PO Q12H #180 tabs 09/15/23 lisinopril 20 mg tablet 20 mg PO DAILY #90 tabs 09/15/23 Allergies Allergy/AdvReac Type Severity Reaction Status Date / Time amoxicillin [From AUGMENTIN] Allergy Unknown Rash Verified 10/27/23 21:44 clavulanic acid Allergy Unknown Rash Verified 10/27/23 21:44 [From AUGMENTIN] Review of Systems Review of Systems: Positive pain to the lower abdomen. Positive bloody urine Yes all other systems are reviewed and are negative [facility] Past Medical History Attestation statement: The following information was validated with the patient. 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 Mother No problems noted. Social History Social History Household Members: Spouse Housing: House Do you presently have visiting nurse or other home services: No Alcohol intake: current Alcohol intake frequency: holidays/special occasions only Comment: patient refuses bed alarm Patient Tobacco Use Status: Former Tobacco user Second Hand Smoke Exposure: Yes Advance Directives: No Advance Directives Information Provided: No service: No Current occupational status: retired Physical Exam Vital Signs: Vital Signs: Last Vital Signs Temp 98.6 F 10/28/23 00:00 Pulse 97 10/28/23 00:00 Resp 16 10/28/23 00:00 BP 145/59 H 10/28/23 00:00 Pulse Ox 97 10/28/23 00:00 O2 Del Method Room Air 10/28/23 00:00 BMI result Body Mass Index 36.6 Appearance: Alert. Oriented X3. No acute distress. Eyes: Pupils equal, round and reactive to light. ENT: Pharynx normal. Neck: Normal inspection. Neck supple. No lymph nodes noted. No crepitus CVS: Normal heart rate and rhythm. Pulses normal. Normal S1 and S2 Respiratory: No respiratory distress. Breath sounds normal. No Wheezing. No rales Abdomen: Soft and nontender. No rigidity. Positive lower abdominal pain. good BS x4 Skin: Skin warm and dry. Normal skin color. Normal skin turgor. Extremities: No lower extremity edema. Neurovascular intact to all extremities. No Lacerations. No Rash Neuro: Oriented X 3. No motor deficit. No sensory deficit. Moving all extermities. No slurred speech Medications Administered Discontinued Medications Generic Name Dose Route Start Last Admin Trade Name Denise PRN Reason Stop Dose Admin Sodium Chloride 500 mls @ 999 mls/hr 10/28/23 00:30 10/28/23 01:37 Ns IV 10/28/23 01:00 999 mls/hr .Q31M MARIANELA Administration Medical Decision Making Medical Decision Making [facility] Narrative: Patient presented with hematuria having more clots now having lower abdominal pain. The symptoms been ongoing for few weeks. She is on Coumadin. Her INR was 3 2 days ago. Her hemoglobin was 11. Now hemoglobin is 9. Her INR is 2. Patient's bladder scan postvoid was [address] Kamara catheter was placed. Total bladder irrigation being done. Symptoms seems to be improved. The fluid coming out is now more pinkish. The Kamara was flushed a few times now it is doing well it is flowing nicely. Patient to be admitted to the hospitalist service. Will require further evaluation. Differential Diagnosis Differential Diagnoses: The differential diagnosis associated with the presentation includes Hematuria on Coumadin Admission/Observation Consideration of admission/observation: Escalation of care including admission/observation considered Consult Healthcare Provider Management of the patient was discussed with: Hospitalist Lab Data [facility] Lab Attestation statement: I reviewed the patient's lab results. 10/28/23 01:27 10/28/23 01:27 Labs: Lab Results 10/28/23 Range/Units 01:27 WBC 12.4 H (4.8-10.8) X10*3/uL RBC 2.83 L (4.20-5.50) X10*6/uL Hgb 9.1 L (12.0-16.0) g/dl Hct 27.1 L (37.0-47.0) % MCV 95.8 (80.0-98.0) fL MCH 32.2 (27.0-33.0) pg MCHC 33.6 (31.0-35.0) g/dl RDW 13.0 (11.0-16.0) % Plt Count 274 (160-400) X10*3/uL MPV 8.3 L (9.4-12.3) fL Immature Gran % (Auto) 0.6 H (0.0-0.4) % Neut % (Auto) 89.8 H (45-73) % Lymph % (Auto) 4.2 L (20-40) % Ross % (Auto) 5.2 (2-11) % Eos % (Auto) 0.0 (0-4) % Baso % (Auto) 0.2 (0-2) % Lymph # (Auto) 0.5 L (1.2-4.9) X10*3/uL Ross # (Auto) 0.7 (0.1-1.2) X10*3/uL Eos # (Auto) 0.0 (0.0-0.4) X10*3/uL Baso # (Auto) 0.0 (0.0-0.2) X10*3/uL Abs Immat Gran (auto) 0.07 H (0.00-0.03) X10*3/uL Absolute Neuts (auto) 11.2 H (2.0-8.3) x10*3/uL Absolute Nucleated RBC 0.000 (0.0-0.012) X10*3/uL Nucleated RBC % (auto) 0.0 (0.0-0.2) /100WBC PT 24.2 H D (11.1-13.3) SEC INR 2.0 H (0.9-1.1) Sodium 136 (135-145) mmol/L Potassium 4.0 (3.3-5.1) mmol/L Chloride 107 (96-108) mmol/L Carbon Dioxide 20 L (22-29) mmol/L Anion Gap 13 (12-20) BUN 26 H (9-16) mg/dL Creatinine 1.03 (0.5-1.4) mg/dL Estim Creat Clear Calc 55.4 Estimated GFR 52 Random Glucose 149 H (60-115) mg/dL Calcium 9.3 (8.4-10.2) mg/dL Total Bilirubin 0.3 (0.0-1.0) mg/dL Direct Bilirubin 0.1 (0.0-0.5) mg/dL AST 15 (5-31) U/L ALT 16 (0-31) U/L Alkaline Phosphatase 64 (39-117) U/L Total Protein 6.6 (6.5-8.0) g/dL Albumin 3.6 (3.5-5.0) g/dL Lipase 14 (8-78) U/L Independent Interpretation Interpretation: Previous CT scan result was reviewed External Record Review External record reviewed: Outpatient record Previous outpatient hemoglobin and ED lab results reviewed. Previous CT scan of the abdomen results reviewed Chronic Conditions History of atrial fibrillation on Coumadin Discharge Plan Discharge Clinical Impression: Hematuria Patient Disposition: Admitted As Inpatient Prescriptions: No Action flecainide 50 mg tablet 50 mg PO Q12H Qty: 180 3RF lisinopril 20 mg tablet 20 mg PO DAILY Qty: 90 3RF loperamide 2 mg Tablet 2 mg PO Q4H PRN (Reason: Diarrhea) Rx Instructions: administer after each loose stool until symptoms controlled; do not exceed 8 mg per 24 hrs albuterol sulfate 90 mcg/actuation HFA aerosol inhaler 2 puff INHALATION Q6H PRN (Reason: Wheezing) iron 2,500 mg PO DAILY cefuroxime axetil 250 mg tablet 250 mg PO BID Qty: 14 0RF phenazopyridine [Pyridium] 100 mg tablet 100 mg PO TID PRN (Reason: pain) Qty: 6 0RF diltiazem HCl 120 mg capsule,extended release 24hr 120 mg PO DAILY mupirocin 2 % ointment 1 appl topical BID-TID warfarin 5 mg tablet 5 mg PO DAILY Qty: 90 0RF Protocol: Dose Management Condition: Thursday Dose/Route: 2.5 mg Instruction: 0.5 x 5 mg tablets Condition: Thursday Dose/Route: 0 mg Instruction: 0 tablets Condition: Thursday Dose/Route: 0 mg Instruction: 0 tablets Condition: Thursday Dose/Route: 0 mg Instruction: 0 tablets Condition: Dose/Route: 0 mg Instruction: 0 tablets Condition: Thursday Dose/Route: 0 mg Instruction: 0 tablets Condition: Thursday Dose/Route: 0 mg Instruction: 0 tablets Protocol Text: Adjustment Start Date: Thursday10/27/23 INR Value: 3.0 INR Date: 10/26/23 Recheck Date: 10/30/23 Additional Instructions: HOLDING WARFARIN PER MD ORDERS FOR HEMATURIA BEING FOLLOWED BY UROLGY DR DICKENS PT TO CALL WHEN RESUMES WARFARIN loperamide [Imodium A-D] PO golo PO TID Print Language: Ivorian
[2023-10-28 01:31] LABS: Basophils Percent Auto 0.2 % (0-2); Hematocrit 27.1 % (37.0-47.0); Hemoglobin 9.1 g/dl (12.0-16.0); Imm Gran Abs Auto 0.07 X10*3/uL (0.00-0.03); Imm Gran Pct Auto 0.6 % (0.0-0.4); Lymphocytes Absolute Auto 0.5 X10*3/uL (1.2-4.9); Lymphocytes Percent Auto 4.2 % (20-40); MANUAL DIFF FLAG NO; Mean Corpuscular HGB Conc 33.6 g/dl (31.0-35.0); Mean Corpuscular Hemoglobin 32.2 pg (27.0-33.0); Mean Corpuscular Volume 95.8 fL (80.0-98.0); Mean Platelet Volume 8.3 fL (9.4-12.3); Monocytes Absolute Auto 0.7 X10*3/uL (0.1-1.2); Monocytes Percent Auto 5.2 % (2-11); Neutrophils Absolute Auto 11.2 x10*3/uL (2.0-8.3); Neutrophils Percent Auto 89.8 % (45-73); Platelet Count 274 X10*3/uL (160-400); Red Blood Count 2.83 X10*6/uL (4.20-5.50); White Blood Count 12.4 X10*3/uL (4.8-10.8)
[2023-10-28 01:37] LABS: Prothrombin Time 24.2 SEC (11.1-13.3)
[2023-10-28] MEDS: 0.9 % Sodium Chloride 500 ML 999 ML IV (01:37)
--- NOTE | 2023-10-28 01:39 | P.HPHOSP_ITS ---
History of Present Illness Date of Service: 10/28/23 Chief Complaint: Hematuria This is a 77-year-old female with pertinent history of cervical cancer, paroxysmal atrial flutter on anticoagulation, hypertension who presents to the emergency department for evaluation of hematuria. Patient was seen in the ER 1 day prior to presentation and asked to follow up with Urology outpatient. Patient did not take her Coumadin since her ER visit on 10/25. Patient continued to noticed blood clots and blood in urine. On the day of presentation, patient could not pass any urine and was with lower abdominal discomfort. This has never happened before. She takes Coumadin for paroxysmal atrial flutter. No dizziness, fever, chills, chest discomfort, palpitations, shortness of breath, changes in bowel habits. In the emergency department, Kamara catheter was inserted and more than 1000 cc of blood urine and clots obtained. She was initiated on CBI. 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 Mother No problems noted. Surgical History Hx of removal of cyst Hx of tonsillectomy Hx of colonoscopy History of facelift History of appendectomy Hx of dilation and curettage History of cardioversion Social History Household Members: Spouse Housing: House Do you presently have visiting nurse or other home services: No Alcohol intake: current Alcohol intake frequency: holidays/special occasions only Comment: patient refuses bed alarm Patient Tobacco Use Status: Former Tobacco user Second Hand Smoke Exposure: Yes Advance Directives: No Advance Directives Information Provided: No service: No Current occupational status: retired Meds Allergies Allergy/AdvReac Type Severity Reaction Status Date / Time amoxicillin [From AUGMENTIN] Allergy Unknown Rash Verified 10/27/23 21:44 clavulanic acid Allergy Unknown Rash Verified 10/27/23 21:44 [From AUGMENTIN] Home Medications ?Medication ?Instructions ?Recorded ?Confirmed ?Last Taken ?Type diltiazem HCl 120 mg 120 mg PO DAILY 02/09/20 08/06/23 02/10/22 History capsule,extended release 24 hr albuterol sulfate 90 mcg/actuation 2 puff inhalation Q6H PRN Wheezing 02/10/22 08/06/23 Unknown History aerosol inhaler loperamide 2 mg tablet 2 mg PO Q4H PRN Diarrhea 02/10/22 08/06/23 Unknown History mupirocin 2 % topical ointment 1 appl topical BID-TID 03/11/22 08/06/23 Unknown History iron 2,500 mg PO DAILY 07/09/22 08/06/23 Unknown History loperamide [Imodium A-D] PO 08/04/22 08/06/23 Unknown History golo PO TID 04/29/23 08/06/23 Unknown History Physical Exam 2 Vital Signs and Narrative: Vital Signs: Last Vital Signs Temp 98.6 F 10/28/23 00:00 Pulse 97 10/28/23 00:00 Resp 16 10/28/23 00:00 BP 145/59 H 10/28/23 00:00 Pulse Ox 97 10/28/23 00:00 O2 Del Method Room Air 10/28/23 00:00 BMI result Body Mass Index 36.6 Middle-aged female lying in bed in no distress Neck supple, no JVD Regular rate and rhythm, S1-S2 heard Regular breath sounds bilaterally, no wheezing or crackles appreciated Abdomen soft nontender, no guarding, no rigidity ; urobag with bloody urine Patient is awake, alert and oriented to self, place, time and person ; no focal motor deficit Psych: Normal mood No pedal edema Results Labs 10/28/23 01:27 10/28/23 01:27 Labs: Laboratory Results - last 24 hr 10/28/23 01:27 MCV 95.8 MCH 32.2 MCHC 33.6 RDW 13.0 Plt Count 274 MPV 8.3 L Immature Gran % (Auto) 0.6 H Neut % (Auto) 89.8 H Lymph % (Auto) 4.2 L [place] % (Auto) 5.2 Eos % (Auto) 0.0 Baso % (Auto) 0.2 Lymph # (Auto) 0.5 L [place] # (Auto) 0.7 Eos # (Auto) 0.0 Baso # (Auto) 0.0 Abs Immat Gran (auto) 0.07 H Absolute Neuts (auto) 11.2 H Absolute Nucleated RBC 0.000 Nucleated RBC % (auto) 0.0 PT 24.2 H D INR 2.0 H Assessment and Plan (1) Gross hematuria: Status: Acute Plan This is a 77-year-old female with pertinent history of cervical cancer, paroxysmal atrial flutter on anticoagulation, hypertension who presents to the emergency department for evaluation of hematuria. #. Hematuria: Will admit patient with cardiac monitoring. Closely monitor H&H. CBI initiated in the ER. Consulted Urology, appreciate assistance. Hold Coumadin #. Sepsis due to acute UTI: Resuscitated with IV crystalloids. Lactic acid and blood culture obtained. Follow urine culture. Initiating empiric IV Rocephin #. Hypertension: Continue home antihypertensives as BP allows in the setting of hematuria and sepsis #. Paroxysmal atrial flutter: On flecainide and diltiazem. Hold Coumadin as above Med rec pending DVT prophylaxis: Mechanical Full code Admit as inpatient and will require two night minimum hospital stay for management of hematuria, close monitoring of hemodynamics and hemoglobin/hematocrit (as above), which is not possible in a lesser acute setting. Quality Stroke Does the patient have a stroke diagnosis?: No VTE Prior VTE?: No VTE Risk Level:: Medical - moderate - high VTE Device Contraindication: N/A - Device Ordered VTE Drug Contraindication: Treatment Not Indicated
[2023-10-28 01:45] LABS: Alanine Aminotransferase 16 U/L (0-31); Albumin Level 3.6 g/dL (3.5-5.0); Alkaline Phosphatase 64 U/L (39-117); Anion Gap 13 (12-20); Aspartate Amino Transferase 15 U/L (5-31); Bilirubin Direct 0.1 mg/dL (0.0-0.5); Bilirubin Total 0.3 mg/dL (0.0-1.0); Blood Urea Nitrogen 26 mg/dL (9-16); Calcium 9.3 mg/dL (8.4-10.2); Carbon Dioxide 20 mmol/L (22-29); Chloride 107 mmol/L (96-108); Creatinine Clr Calc Pharmacy 55.4; Estimated Glomerular Filt Rate 52; Glucose Random 149 mg/dL (60-115); Lipase 14 U/L (8-78); Sodium 136 mmol/L (135-145); Total Protein 6.6 g/dL (6.5-8.0)
[2023-10-28 01:47] LABS: Appearance Urine Turbid; Color Urine Red; Glucose Urine UA Negative (Negative); Leukocyte Esterase Urine Large (3+) (Negative); Nitrite Urine Positive (Negative); PH 5.5 (5.0-9.0); Specific Gravity - Urine <= 1.005 (1.005-1.025); UMIC TRIGGER UACC YES; Urine Blood Large (3+) (Negative); Urine Ketones Negative (Negative); Urine Protein 100 (2+) mg/dL (Neg-Trace)
[2023-10-28 01:51] LABS: Bacteria Urine 4+ (None Seen); Hyaline Casts Urine 0-2 /LPF (0-2); RBC Urine >20 /HPF (0-2); Squamous Epithelial Cell Urine 0-2 /HPF (0-2); UACC Culture Trigger YES; WBC Urine >50 /HPF (0-5)
[2023-10-28] MEDS: cefTRIAXone sodium 1 GM in 0.9 % Sodium Chloride 50 ML IV ×2 (02:57→20:05)
[2023-10-28 03:15] LABS: Hematocrit 26.4 % (37.0-47.0); Hemoglobin 8.8 g/dl (12.0-16.0); Mean Corpuscular HGB Conc 33.3 g/dl (31.0-35.0); Mean Corpuscular Hemoglobin 31.9 pg (27.0-33.0); Mean Corpuscular Volume 95.7 fL (80.0-98.0); Mean Platelet Volume 8.7 fL (9.4-12.3); Platelet Count 273 X10*3/uL (160-400); Red Blood Count 2.76 X10*6/uL (4.20-5.50); White Blood Count 13.2 X10*3/uL (4.8-10.8)
[2023-10-28 03:31] LABS: Anion Gap 11 (12-20); Blood Urea Nitrogen 24 mg/dL (9-16); Carbon Dioxide 21 mmol/L (22-29); Chloride 108 mmol/L (96-108); Creatinine Clr Calc Pharmacy 62.1; Estimated Glomerular Filt Rate 59; Glucose Random 136 mg/dL (60-115); Potassium 3.9 mmol/L (3.3-5.1); Sodium 136 mmol/L (135-145)
[2023-10-28 04:01] LABS: Lactic Acid 0.9 mmol/L (0.5-2.0)
--- NOTE | 2023-10-28 08:15 | PHA.MEDREC ---
Addendum entered by Yessenia Anderson ryley 10/28/23 08:17: Patient also noted she has not taken any medications in 3 - 5 days Original Note: Pharmacy Consult ? Medication Reconciliation Pharmacy has completed the medication reconciliation. Patient with med box and list at bedside; confirmed she takes 5mg warfarin SuMoWeFr and a half tablet TuThSa as witnessed in her medication box. She also takes an OTC supplement Golo for weight loss, unmarked brown capsule in med box- noted she takes about 1 - 2 daily but can take up to 4.
--- NOTE | 2023-10-28 08:36 | MHC.CM.PN ---
Addendum entered by Vilma Payne 10/28/23 08:54: Patient lives in a 2 family house on the first floor and her Daughter lives on the second floor. Original Note: CM met with Patient at bedside and addressed IMM with her, providing Patient with the original and a copy has been placed on the chart. Patient lives in a house with her /HCP and she required no services nor DME RN CORONARY CARE UNIT. Home/self care is the goal and CM has initialed and will follow for dc planning. PCP is Dr. Darren Pavon.
[2023-10-28] MEDS: Morphine Sulfate 2 MG/ML CARTRIDGE IVPUSH ×2 (09:02→22:27)
[2023-10-28] MEDS: Flecainide Acetate 50 MG TABLET PO ×2 (09:07→20:06)
[2023-10-28] MEDS: 0.9 % Sodium Chloride Flush 3 ML SYRINGE IVFLUSH (09:09)
--- NOTE | 2023-10-28 10:38 | PM.EVENT ---
Event Note Date of Service: 10/28/23 Event Note: seen and evaluated this morning The CBI clogged with clots with bladder scan showing >500cc replace 3 way catheter Urology to follow Keep on IVF Hold Warfarin Time Spent With Patient Time: Total time managing care of this patient today ____ minutes.
[2023-10-28] MEDS: 0.9 % Sodium Chloride 1,000 ML 100 ML IVCONT ×2 (13:07→22:04)
--- NOTE | 2023-10-28 13:13 | P.CNUR_ITS ---
History of Present Illness Consult details Consult date: 10/28/23 Narrative: CC: Hematuria HPI: Consult to evaluate patient with hematuria irrigation [address] Kamara catheter in place 24 [place] Kamara catheter disconnected from collection bag. Irrigation halted. Bladder irrigated for removal of significant clot. Approximately 10 minutes taken for full irrigation. The completion of irrigation catheter bag reattached. Irrigation restarted. Irrigation may be halted once collection bed free of clot for 12 hours. P.r.n. irrigation with 100 cc for clot Hematuria Bladder Irriation CPT 85344 Coumadin currently being held. Review of Systems 2 Constitutional: Constitutional: Reports as per HPI and Reports no additional constitutional complaints Cardiovascular: Cardiovascular: Reports as per HPI and Reports no additional cardiovascular complaints Respiratory: Respiratory: Reports as per HPI and Reports no additional respiratory complaints Gastrointestinal: Gastrointestinal: Reports as per HPI and Reports no additional gastrointestinal complaints Genitourinary: Genitourinary: Reports as per HPI Musculoskeletal: Musculoskeletal: Reports no additional musculoskeletal complaints and Reports as per HPI Neurologic: Reports system reviewed and no additional complaints, except as documented and Reports as per HPI PMFSH Past Medical History Medical History Colitis 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 Mother No problems noted. Surgical History Surgical History Hx of removal of cyst Hx of tonsillectomy Hx of colonoscopy History of facelift History of appendectomy Hx of dilation and curettage History of cardioversion Social History Social History Household Members: Spouse and Family Housing: House Do you presently have visiting nurse or other home services: No Alcohol intake: current Alcohol intake frequency: holidays/special occasions only Comment: patient refuses bed alarm Patient Tobacco Use Status: Former Tobacco user e-Cigarette/Vaping Use: Never Used Second Hand Smoke Exposure: Yes service: No Current occupational status: retired Meds Allergies Allergy/AdvReac Type Severity Reaction Status Date / Time amoxicillin [From AUGMENTIN] Allergy Unknown Rash Verified 10/27/23 21:44 clavulanic acid Allergy Unknown Rash Verified 10/27/23 21:44 [From AUGMENTIN] Active Medications: Current Medications Acetaminophen (Acetaminophen 325 Mg Tablet) 650 mg PO Q6H PRN PRN Reason: Pain, Mild (Pain Scale 1-3), fever or headache Albuterol Sulfate (Albuterol Sulfate 90 Mcg 8 Gm Inhaler) 2 puff INHALE Q6H PRN PRN Reason: Wheezing Calcium Carbonate (Calcium Carbonate 750 Mg Tab.Chew) 750 mg PO Q4H PRN PRN Reason: Heartburn Diltiazem HCl (Diltiazem Hcl Cd 120 Mg Cap.Er.Deg) 120 mg PO BEDTIME MARIANELA; Protocol Flecainide Acetate (Flecainide Acetate 50 Mg Tablet) 50 mg PO BID MARIANELA Last Admin: 10/28/23 09:07 Dose: 50 mg Ceftriaxone Sodium 1 gm/ (Sodium Chloride) 50 mls @ 100 mls/hr IV Q24H MARIANELA Sodium Chloride (Ns) 1,000 mls @ 100 mls/hr IVCONT .Q10H MARIANELA Last Admin: 10/28/23 13:07 Dose: 100 mls/hr Lisinopril (Lisinopril 20 Mg Tablet) 20 mg PO BEDTIME MARIANELA; Protocol Magnesium Hydroxide (Milk Of Magnesia 30 Ml Oral.Susp) 30 ml PO DAILY PRN PRN Reason: Constipation Melatonin (Melatonin 3 Mg Tablet) 6 mg PO BEDTIME PRN PRN Reason: Insomnia Morphine Sulfate (Morphine Sulfate 2 Mg/Ml Cartridge) 2 mg IVPUSH Q4H PRN; Protocol PRN Reason: Pain, Severe (Pain Scale 7-10) Last Admin: 10/28/23 09:02 Dose: 2 mg Ondansetron HCl (Ondansetron Hcl 4 Mg/2 Ml Vial) 4 mg IVPUSH Q8H PRN PRN Reason: Nausea and Vomiting Sodium Chloride (0.9 % Sodium Chloride Flush 3 Ml Syringe) 3 ml IVFLUSH QSHIFT MARIANELA Last Admin: 10/28/23 09:09 Dose: 3 ml Home Medications ?Medication ?Instructions ?Recorded ?Confirmed ?Last Taken ?Type diltiazem HCl 120 mg 120 mg PO BEDTIME 02/09/20 10/28/23 02/10/22 History capsule,extended release 24 hr albuterol sulfate 90 mcg/actuation 2 puff inhalation Q6H PRN Wheezing 02/10/22 10/28/23 Unknown History aerosol inhaler Golo Release Supplement 1 cap PO BID PRN weight loss 10/28/23 10/28/23 Unknown History management cholecalciferol (vitamin D3) 50 50 mcg PO BEDTIME 10/28/23 10/28/23 Unknown History mcg (2,000 unit) capsule flecainide 50 mg tablet 50 mg PO BID 10/28/23 10/28/23 Unknown History lisinopril 20 mg tablet 20 mg PO BEDTIME 10/28/23 10/28/23 Unknown History warfarin 2.5 mg tablet 2.5 mg PO TUTHSA@1800 10/28/23 10/28/23 Unknown History warfarin 5 mg tablet 5 mg PO SUMOWEFR@1800 10/28/23 10/28/23 Unknown History Physical Exam 2 Vital Signs: Vital Signs: Last Vital Signs Temp 97.3 F 10/28/23 11:43 Pulse 94 10/28/23 11:43 Resp 18 10/28/23 11:43 BP 111/65 10/28/23 11:43 Pulse Ox 97 10/28/23 11:43 O2 Del Method Room Air 10/28/23 11:43 BMI result Body Mass Index 29.2 Const: General: cooperative, healthy appearing, comfortable and no acute distress Orientation/consciousness: patient oriented x3 HEENT: Face and sinus: Yes normal facial exam Mouth: moist mucous membranes Neck: Neck: Yes normal visual inspection, Yes full ROM and Yes trachea midline Chest: Chest palpation & inspection: normal inspection of the chest Resp: Effort & Inspection: normal respiratory effort, able to speak in complete sentences and no respiratory distress GI: Inspection: Yes normal to inspection Back/Spine/Pelvis: Cervical Spine: normal cervical lordosis Thoracic/Lumbar Spine: thoracic and lumbar spine normal to inspection Skin: General skin exam: no rashes or lesions noted Neuro: General: patient oriented x3, tone normal and moves all extremities Extrem: General: Yes normal to inspection and Yes capillary refill normal Results Labs 10/28/23 03:07 10/28/23 03:07 Labs: Abnormal lab results 10/28/23 10/28/23 10/28/23 Range/Units 01:27 01:40 03:07 WBC 12.4 H 13.2 H (4.8-10.8) X10*3/uL RBC 2.83 L 2.76 L (4.20-5.50) X10*6/uL Hgb 9.1 L 8.8 L (12.0-16.0) g/dl Hct 27.1 L 26.4 L (37.0-47.0) % MPV 8.3 L 8.7 L (9.4-12.3) fL Immature Gran % (Auto) 0.6 H (0.0-0.4) % Neut % (Auto) 89.8 H (45-73) % Lymph % (Auto) 4.2 L (20-40) % Lymph # (Auto) 0.5 L (1.2-4.9) X10*3/uL Abs Immat Gran (auto) 0.07 H (0.00-0.03) X10*3/uL Absolute Neuts (auto) 11.2 H (2.0-8.3) x10*3/uL PT 24.2 H D (11.1-13.3) SEC INR 2.0 H (0.9-1.1) Carbon Dioxide 20 L 21 L (22-29) mmol/L Anion Gap 11 L (12-20) BUN 26 H 24 H (9-16) mg/dL Random Glucose 149 H 136 H (60-115) mg/dL Urine Color Red A Urine Protein 100 (2+) H (Neg-Trace) mg/dL Urine Blood Large (3+) H (Negative) Urine Nitrite Positive H (Negative) Ur Leukocyte Esterase Large (3+) H (Negative) Urine RBC >20 H (0-2) /HPF Urine WBC >50 H (0-5) /HPF Short CBC 10/28/23 10/28/23 Range/Units 01:27 03:07 WBC 12.4 H 13.2 H (4.8-10.8) X10*3/uL Hgb 9.1 L 8.8 L (12.0-16.0) g/dl Hct 27.1 L 26.4 L (37.0-47.0) % Plt Count 274 273 (160-400) X10*3/uL BMP 10/28/23 10/28/23 01:27 03:07 Sodium 136 136 Potassium 4.0 3.9 Chloride 107 108 Carbon Dioxide 20 L 21 L BUN 26 H 24 H Creatinine 1.03 0.92 Calcium 9.3 9.0 Liver Function 10/28/23 Range/Units 01:27 Total Bilirubin 0.3 (0.0-1.0) mg/dL Direct Bilirubin 0.1 (0.0-0.5) mg/dL AST 15 (5-31) U/L ALT 16 (0-31) U/L Alkaline Phosphatase 64 (39-117) U/L Albumin 3.6 (3.5-5.0) g/dL Urine 10/28/23 Range/Units 01:40 Urine Color Red A Urine Appearance Turbid Urine pH 5.5 (5.0-9.0) Ur Specific [place] <= 1.005 (1.005-1.025) Urine Protein 100 (2+) H (Neg-Trace) mg/dL Urine Glucose (UA) Negative (Negative) mg/dL All other labs normal. Assessment and Plan (1) Hematuria: Status: Acute Plan Will continue to follow Procedures Date of Service Date of Service: 10/28/23
--- NOTE | 2023-10-28 14:24 | HO.WOUND ---
Wound Consult: Initial 77yr old?female admitted to [facility] [place], [place] on 09/28/23 - See progress notes and H&P for detailed history.? Wound consult placed for Buttock redness - POA.? Patient agreeable to assessment and photo documentation.? Patient reports she has chronic incontinence and that she uses zinc based barrier creasm at home. She reports as far as she is aware she does not have open tissue and there is not pain. She reports she has has open skin in the past. Buttock and Sacrum Etiology: ??MASD (Moisture Associated Skin Damage) Present on Admission Wound Bed: Intact pink blanchable tissue - mirrored edges of hyperpigmentation noted Drainage / Odor: None Edges: ? Mirrored [place] wound: ? Intact No Induration, Fluctuance or Warmth noted Pain: denies Goals of Treatment: ? barrier cream to protect from friction and moisture Recommendations: 1. Turn and Reposition every 2 hours and as needed for patient comfort.? Use pillows or wedges to support off loading positions. 2. Off Load all bony prominences with use of pillows and heel boots if needed.? Apply Preventative foams where needed. ? 3. Monitor for incontinence and moisture control, use barrier creams when needed for prevention and treatment. 4. Provide adequate and supplemental nutrition.? 5. Order low air loss mattress. 6. When applicable maintain blood glucose levels per Providers order. 7. Sacrum and buttock - Off Load Pressure - Cleanse with PH balance spray or wipes, pat dry. ?Apply thin layer of barrier to area, reapply thin layer PRN after each episode of incontinence. Re-consult wound care Nurse for wound deterioration or wound changes.
[2023-10-28] MEDS: dilTIAZem HCL CD 120 MG CAP.ER.DEG PO (20:05)
[2023-10-28] MEDS: lisinopriL 20 MG TABLET PO (20:05)
[2023-10-29] VITALS (14 sets, daily range): BP systolic 96–140; BP diastolic 35–64; PULSE 79–96; RESP 15–21; TEMP 36.2–37.1; O2SAT 94–97
[2023-10-29] MEDS: Morphine Sulfate 2 MG/ML CARTRIDGE IVPUSH ×2 (04:21→17:31)
[2023-10-29 06:58] LABS: Mean Corpuscular HGB Conc 33.3 g/dl (31.0-35.0); Mean Corpuscular Volume 98.9 fL (80.0-98.0); Mean Platelet Volume 9.2 fL (9.4-12.3); Platelet Count 210 X10*3/uL (160-400); Red Blood Count 1.76 X10*6/uL (4.20-5.50); Red Cell Distribution Width 13.5 % (11.0-16.0); White Blood Count 8.1 X10*3/uL (4.8-10.8)
[2023-10-29 07:09] LABS: Anion Gap 7 (12-20); Blood Urea Nitrogen 18 mg/dL (9-16); Calcium 8.1 mg/dL (8.4-10.2); Carbon Dioxide 24 mmol/L (22-29); Chloride 111 mmol/L (96-108); Creatinine Clr Calc Pharmacy 70.6; Estimated Glomerular Filt Rate > 60; Glucose Random 102 mg/dL (60-115); Potassium 3.9 mmol/L (3.3-5.1); Sodium 138 mmol/L (135-145)
--- NOTE | 2023-10-29 07:15 | PC.NURSE ---
Patient is alert and oriented X4. Patient remains on tele monitor resulting in SR. Patient remains on room air and lung sounds clear throughout. Patient continues on 3 way quezada for CBI. At beginning of shift urine was fruit punch color and became light pink. 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 Patient given PRN pain medication and bladder scanned resulting in 0. CBI continued again and resumed fruit punch color and later became light pink and then clear. Patient complained again of bladder discomfort and [place] flushed with minimal clots present. CBI started back up and urine color clear. Report given to morning nurse.
[2023-10-29 07:21] LABS: Hemoglobin 5.8 g/dl (12.0-16.0)
[2023-10-29 07:22] LABS: Hematocrit 17.4 % (37.0-47.0)
[2023-10-29] MEDS: Flecainide Acetate 50 MG TABLET PO ×2 (08:35→21:03)
[2023-10-29] MEDS: 0.9 % Sodium Chloride 1,000 ML 100 ML IVCONT ×2 (08:36→18:57)
--- NOTE | 2023-10-29 11:07 | P.PNIM_ITS ---
Subjective Subjective Date of Service: 10/29/23 Interval History: seen and examined this morning follow up for hematuria denies sob, dizziness; no abdominal pain Review of Systems Review of Systems: Yes all other systems are reviewed and are negative Constitutional Constitutional: Denies chills and Denies fever(s) Cardiovascular Cardiovascular: Denies chest pain, Denies palpitations and Denies dyspnea Respiratory Respiratory: Denies cough and Denies dyspnea Gastrointestinal Gastrointestinal: Denies abdominal pain, Denies nausea and Denies vomiting Endocrine Endocrine: Denies palpitations Physical Exam 2 Vital Signs: Vital Signs: Last Vital Signs Temp 97.6 F 10/29/23 09:54 Pulse 87 10/29/23 09:54 Resp 16 10/29/23 09:54 BP 118/55 L 10/29/23 09:54 Pulse Ox 94 10/29/23 07:54 O2 Del Method Room Air 10/29/23 07:54 BMI result Body Mass Index 29.2 Const: General: cooperative, comfortable, no acute distress, alert and awake Nutritional Appearance: average body habitus Orientation/consciousness: p atient oriented x3 Resp: Effort & Inspection: normal respiratory effort, able to speak in complete sentences, no respiratory distress and no use of accessory muscles Cardio: Rate: regular rate GI: Inspection: No distended Palpation (GI): Soft to palpation and nontender Neuro: General: patient oriented x3, moves all extremities and CN's II-XI intact bilaterally Extrem: General: Yes no pedal edema Objective Data Active Medications Acetaminophen (Acetaminophen 325 Mg Tablet) 650 mg PO Q6H PRN PRN Reason: Pain, Mild (Pain Scale 1-3), fever or headache Albuterol Sulfate (Albuterol Sulfate 90 Mcg 8 Gm Inhaler) 2 puff INHALE Q6H PRN PRN Reason: Wheezing Calcium Carbonate (Calcium Carbonate 750 Mg Tab.Chew) 750 mg PO Q4H PRN PRN Reason: Heartburn Diltiazem HCl (Diltiazem Hcl Cd 120 Mg Cap.Er.Deg) 120 mg PO BEDTIME [facility]; Protocol Last Admin: 10/28/23 20:05 Dose: 120 mg Documented By: PARADISE Flecainide Acetate (Flecainide Acetate 50 Mg Tablet) 50 mg PO BID [facility] Last Admin: 10/29/23 08:35 Dose: 50 mg Documented By: CARLOS Ceftriaxone Sodium 1 gm/ (Sodium Chloride) 50 mls @ 100 mls/hr IV Q24H [facility] Last Infusion: 10/28/23 20:42 Dose: Infused Documented By: PARADISE Sodium Chloride (Ns) 1,000 mls @ 100 mls/hr IVCONT .Q10H [facility] Last Admin: 10/29/23 08:36 Dose: 100 mls/hr Documented By: CARLOS Lisinopril (Lisinopril 20 Mg Tablet) 20 mg PO BEDTIME [facility]; Protocol Last Admin: 10/28/23 20:05 Dose: 20 mg Documented By: PARADISE Magnesium Hydroxide (Milk Of Magnesia 30 Ml Oral.Susp) 30 ml PO DAILY PRN PRN Reason: Constipation Melatonin (Melatonin 3 Mg Tablet) 6 mg PO BEDTIME PRN PRN Reason: Insomnia Morphine Sulfate (Morphine Sulfate 2 Mg/Ml Cartridge) 2 mg IVPUSH Q4H PRN; Protocol PRN Reason: Pain, Severe (Pain Scale 7-10) Last Admin: 10/29/23 04:21 Dose: 2 mg Documented By: PARADISE Ondansetron HCl (Ondansetron Hcl 4 Mg/2 Ml Vial) 4 mg IVPUSH Q8H PRN PRN Reason: Nausea and Vomiting Sodium Chloride (0.9 % Sodium Chloride Flush 3 Ml Syringe) 3 ml IVFLUSH QSHIFT [facility] Last Admin: 10/29/23 08:48 Dose: Not Given Documented By: EYAL Non-Admin Reason: IV Running Labs 10/29/23 06:21 10/29/23 06:21 Labs: Laboratory Results - last 24 hr 10/29/23 10/29/23 06:21 07:54 MCV 98.9 H MCH 33.0 MCHC 33.3 RDW 13.5 Plt Count 210 MPV 9.2 L Absolute Nucleated RBC 0.000 Nucleated RBC % (auto) 0.0 Anion Gap 7 L Estim Creat Clear Calc 70.6 Estimated GFR > 60 Random Glucose 102 Calcium 8.1 L D Blood Type A Positive Antibody Screen NEGATIVE Crossmatch See Detail Microbiology Microbiology Results: Microbiology 10/28/23 03:07 Urine Culture - Final Urine Catheterized - Kamara Catheter 10/28/23 03:07 Blood Culture - Preliminary Blood - Venous No growth after 24 hours. 10/28/23 03:07 Blood Culture - Preliminary Blood - Venous No growth after 24 hours. Assessment and Plan (1) Hematuria: Status: Acute Plan This is a 77-year-old female with pertinent history of cervical cancer, paroxysmal atrial flutter on anticoagulation, hypertension who presents to the emergency department for evaluation of hematuria. Acute Hematuria: due to UTI/AC with coumadin limited evaluation of bladder on CT scan urogram 05/2023 - no focal or diffuse bladder wall thickening.Urine Cytology 04/22--Negative for high-grade urothelial carcinoma. Patient declined inpatient cystoscopy previously. outpatient follow up with urology CBI initiated in the ER seen by Urology - irrigation may be halted once collection bag free of clot for 12 hours seems to be clearing Hold Coumadin follow CBC Acute blood loss anemia due to hematuria H/H trending down will transfuse 2 units Coumadin on hold, follow INR follow CBC Sepsis due to acute UTI: no severe features. Leukocytosis resolved Continue empiric ceftriaxone, started 10/27 Follow urine culture results Blood cultures with no growth to date Hypertension: BP soft due to anemia, will Hold lisinopril- resume as blood pressure allows Continue diltiazem Monitor blood pressure closely Paroxysmal atrial flutter: On flecainide and diltiazem. Hold Coumadin as above DVT prophylaxis: Mechanical Full code Patient requires ongoing inpatient stay for management of hematuria, close monitoring of hemodynamics and hemoglobin/hematocrit (as above), which is not possible in a lesser acute setting. Quality Stroke Does the patient have a stroke diagnosis?: No VTE Prior VTE?: No VTE Risk Level:: Medical - moderate - high VTE Device Contraindication: N/A - Device Ordered VTE Drug Contraindication: Treatment Not Indicated
--- NOTE | 2023-10-29 18:20 | PC.NURSE ---
Patients CBI was noted to not be flowing, patient reporting lower abd pressure / fullness. Cath irrigated with several large clots removed and punch color output draining. CBI has been restarted and has been flowing with no issues at this time. Patient reports improved symptoms.
--- NOTE | 2023-10-29 18:27 | PC.NURSE ---
Pt's CBI requiring frequent irrigation throughout shift with large clots being removed. CBI running wide open with bag changes every 30-40 minutes with output varying from pink output to punch color. Concerns of CBI expressed to hospitalist throughout shift via [employer]. Ophthalmic Lens Inspector reached out to urologist Dr Villar at approximately 1800 with concerns of no improvement with CBI and output. Per cold rolling supervisor, Dr Villar responded saying Vitamin K needed to be given, with no order from Dr Villar or communication to hospitalist. This RN reached out to hospitalist with information from Dr Villar/cold rolling supervisor. New order received for Vitamin K. No other concerns at this time.
--- NOTE | 2023-10-29 18:34 | PM.EVENT ---
Event Note Date of Service: 10/29/23 Event Note: Asked to see patient for hematuria. Patient is on Coumadin for history of a flutter; has been on telemetry in sinus rhythm. Given her persistent hematuria, will reverse Coumadin with vitamin K while continuing CBI Time Spent With Patient Time: Total time managing care of this patient today ____ minutes.
[2023-10-29 18:49] LABS: Hematocrit 25.4 % (37.0-47.0); Hemoglobin 8.6 g/dl (12.0-16.0)
[2023-10-29] MEDS: Phytonadione (Vit K1) 10 MG in 0.9 % Sodium Chloride 50 ML 51 MG IV (18:55)
[2023-10-29] MEDS: dilTIAZem HCL CD 120 MG CAP.ER.DEG PO (21:03)
[2023-10-29] MEDS: cefTRIAXone sodium 1 GM in 0.9 % Sodium Chloride 50 ML IV (21:03)
[2023-10-29] MEDS: 0.9 % Sodium Chloride Flush 3 ML SYRINGE IVFLUSH (21:04)
[2023-10-30 03:35] VITALS: BP 156/69; PULSE 90; RESP 22; TEMP 36.3; O2SAT 95
[2023-10-30] MEDS: Acetaminophen 325 MG TABLET 650 MG PO (05:53)
[2023-10-30] MEDS: 0.9 % Sodium Chloride 1,000 ML 100 ML IVCONT (05:53)
--- NOTE | 2023-10-30 06:17 | PC.NURSE ---
Patient on continuous CBI overnight her out put color remained light pink tinged. Patient was irrigated with small clots dislodged . Overnight she complained of feeling full and was relieved with irrigation. Patient output documented on the flow sheet and I and O .
[2023-10-30 06:25] LABS: Hematocrit 25.5 % (37.0-47.0); Hemoglobin 8.9 g/dl (12.0-16.0); Mean Corpuscular HGB Conc 34.9 g/dl (31.0-35.0); Mean Corpuscular Volume 94.4 fL (80.0-98.0); Mean Platelet Volume 8.9 fL (9.4-12.3); Platelet Count 221 X10*3/uL (160-400); Red Cell Distribution Width 14.9 % (11.0-16.0); White Blood Count 6.1 X10*3/uL (4.8-10.8)
[2023-10-30 06:29] LABS: INTERNATIONAL NORM RATIO 1.1 (0.9-1.1); Prothrombin Time 13.8 SEC (11.1-13.3)
[2023-10-30 07:22] VITALS: BP 139/65; PULSE 82; RESP 20; TEMP 37; O2SAT 96
[2023-10-30] MEDS: Flecainide Acetate 50 MG TABLET PO ×2 (08:43→19:46)
--- NOTE | 2023-10-30 09:13 | HO.PM.IMPN ---
Subjective Subjective Date of Service: 10/30/23 Interval History: Seen in follow up for hematuria INterval history CBI running, pink lemonade colored output, no clots. H/H stable following transfusion. INR 1.1 after reversal. MIld suprapubic pressure Review of Systems Review of Systems: Yes all other systems are reviewed and are negative Physical Exam Vital Signs: Vital Signs: Last Vital Signs Temp 98.6 F 10/30/23 07:22 Pulse 82 10/30/23 07:22 Resp 20 10/30/23 07:22 BP 139/65 10/30/23 07:22 Pulse Ox 96 10/30/23 07:22 O2 Del Method Room Air 10/30/23 07:22 BMI result Body Mass Index 29.2 Constitutional - Awake and Alert, No apparent distress Eyes - PERRLA, EOMI Cardiovascular - S1S2, RRR, No edema Respiratory - Normal lung expansion, Normal respiratory effort, No respiratory distress, CTA bilaterally Gastrointestinal - NT / ND; +BS; No rebound or guarding - CBI in place with pink lemonade output Extremities - no calf tenderness bilaterally, no swelling Skin - Warm/Dry Neurological - Alert & oriented x3 Psychological - Appropriate affect Objective Data Active Medications Acetaminophen (Acetaminophen 325 Mg Tablet) 650 mg PO Q6H PRN PRN Reason: Pain, Mild (Pain Scale 1-3), fever or headache Last Admin: 10/30/23 05:53 Dose: 650 mg Documented By: DAPHNE Albuterol Sulfate (Albuterol Sulfate 90 Mcg 8 Gm Inhaler) 2 puff INHALE Q6H PRN PRN Reason: Wheezing Calcium Carbonate (Calcium Carbonate 750 Mg Tab.Chew) 750 mg PO Q4H PRN PRN Reason: Heartburn Diltiazem HCl (Diltiazem Hcl Cd 120 Mg Cap.Er.Deg) 120 mg PO BEDTIME [facility]; Protocol Last Admin: 10/29/23 21:03 Dose: 120 mg Documented By: DAPHNE Flecainide Acetate (Flecainide Acetate 50 Mg Tablet) 50 mg PO BID [facility] Last Admin: 10/30/23 08:43 Dose: 50 mg Documented By: NAYELI Ceftriaxone Sodium 1 gm/ (Sodium Chloride) 50 mls @ 100 mls/hr IV Q24H [facility] Last Infusion: 10/30/23 01:12 Dose: Infused Documented By: DAPHNE Sodium Chloride (Ns) 1,000 mls @ 100 mls/hr IVCONT .Q10H [facility] Last Admin: 10/30/23 05:53 Dose: 100 mls/hr Documented By: DAPHNE Lidocaine HCl (Lidocaine Hcl 2 % Jelly 5 Ml Tube) 1 appl TOPICAL TID PRN; Protocol PRN Reason: Pain, [id number] Lisinopril (Lisinopril 20 Mg Tablet) 20 mg PO BEDTIME [facility]; Protocol Last Admin: 10/28/23 20:05 Dose: 20 mg Documented By: PARADISE Magnesium Hydroxide (Milk Of Magnesia 30 Ml Oral.Susp) 30 ml PO DAILY PRN PRN Reason: Constipation Melatonin (Melatonin 3 Mg Tablet) 6 mg PO BEDTIME PRN PRN Reason: Insomnia Morphine Sulfate (Morphine Sulfate 2 Mg/Ml Cartridge) 2 mg IVPUSH Q4H PRN; Protocol PRN Reason: Pain, Severe (Pain Scale 7-10) Last Admin: 10/29/23 17:31 Dose: 2 mg Documented By: CARLOS Ondansetron HCl (Ondansetron Hcl 4 Mg/2 Ml Vial) 4 mg IVPUSH Q8H PRN PRN Reason: Nausea and Vomiting Oxybutynin Chloride (Oxybutynin Chloride 5 Mg Tablet) 5 mg PO Q8H PRN PRN Reason: BLADDER DISCOMFORT Sodium Chloride (0.9 % Sodium Chloride Flush 3 Ml Syringe) 3 ml IVFLUSH QSHIFT [facility] Last Admin: 10/30/23 08:43 Dose: Not Given Documented By: NAYELI Non-Admin Reason: IV Running Labs 10/30/23 05:45 10/29/23 06:21 Labs: Laboratory Results - last 24 hr 10/29/23 10/29/23 10/30/23 06:21 07:54 05:45 MCV 94.4 MCH 33.0 MCHC 34.9 RDW 14.9 Plt Count 221 MPV 8.9 L Absolute Nucleated RBC 0.000 Nucleated RBC % (auto) 0.0 Smear Path Review SEE NOTE PT 13.8 H D INR 1.1 Blood Type A Positive Antibody Screen NEGATIVE Crossmatch See Detail Microbiology Microbiology Results: Microbiology 10/28/23 03:07 Blood Culture - Preliminary Blood - Venous No growth after 48 hours. 10/28/23 03:07 Blood Culture - Preliminary Blood - Venous No growth after 48 hours. 10/28/23 03:07 Urine Culture - Final Urine Catheterized - Kamara Catheter Assessment and Plan (1) Hematuria: Status: Acute Plan This is a 77-year-old female with pertinent history of cervical cancer, paroxysmal atrial flutter on anticoagulation, hypertension who presents to the emergency department for evaluation of hematuria. Acute Hematuria: due to UTI/AC with coumadin limited evaluation of bladder on CT scan urogram 05/2023 - no focal or diffuse bladder wall thickening.Urine Cytology 04/22--Negative for high-grade urothelial carcinoma. Patient declined inpatient cystoscopy previously. outpatient follow up with urology CBI initiated in the ER seen by Urology - irrigation may be halted once collection bag free of clot for 12 hours- 10/29 still with pink lemonade colored output but no clots seems to be clearing Hold Coumadin- vitamin K 10mg given 10/29, INR 1.1 this morning follow CBC Acute blood loss anemia due to hematuria H/H trending down will transfuse 2 units Coumadin on hold, follow INR. Reversed, INR 1.1 today follow CBC Sepsis due to acute UTI: no severe features. Leukocytosis resolved Treated with CTX started 10/27. UC mixed sergey.DC 10/29 Hypertension: BP soft due to anemia, will Hold lisinopril- resume as blood pressure allows Continue diltiazem Monitor blood pressure closely Paroxysmal atrial flutter: On flecainide and diltiazem. Hold Coumadin as above DVT prophylaxis: Mechanical Full code Patient requires ongoing inpatient stay for management of hematuria, close monitoring of hemodynamics and hemoglobin/hematocrit (as above), which is not possible in a lesser acute setting. Quality Stroke Does the patient have a stroke diagnosis?: No VTE Prior VTE?: No VTE Risk Level:: Medical - moderate - high VTE Device Contraindication: N/A - Device Ordered VTE Drug Contraindication: Treatment Not Indicated
--- NOTE | 2023-10-30 10:37 | P.PNUR_ITS ---
Subjective Subjective Date of Service: 10/30/23 Interval history: CC: Persistent hematuria Had been called about patient last night Persistent hematuria with difficulty clot evacuation Recommended IV vitamin K to complete reversal Subsequently hematuria significantly resolved Clot evacuation performed this morning with minimal clots and significant decrease in right of irrigation Discussed with nursing May be able to clamp catheter at mid day if continued good response Physical Exam 2 Vital Signs: Vital Signs: Last Vital Signs Temp 98.6 F 10/30/23 07:22 Pulse 82 10/30/23 07:22 Resp 20 10/30/23 07:22 BP 139/65 10/30/23 07:22 Pulse Ox 96 10/30/23 07:22 O2 Del Method Room Air 10/30/23 07:22 BMI result Body Mass Index 29.2 Const: General: cooperative, healthy appearing, comfortable and no acute distress Orientation/consciousness: patient oriented x3 HEENT: Face and sinus: Yes normal facial exam Mouth: moist mucous membranes Neck: Neck: Yes normal visual inspection, Yes full ROM and Yes trachea midline Chest: Chest palpation & inspection: normal inspection of the chest Resp: Effort & Inspection: normal respiratory effort, able to speak in complete sentences and no respiratory distress GI: Inspection: Yes normal to inspection Back/Spine/Pelvis: Cervical Spine: normal cervical lordosis Thoracic/Lumbar Spine: thoracic and lumbar spine normal to inspection Skin: General skin exam: no rashes or lesions noted Neuro: General: patient oriented x3, tone normal and moves all extremities Extrem: General: Yes normal to inspection and Yes capillary refill normal Urology Results Labs 10/30/23 05:45 10/29/23 06:21 Labs: Laboratory Results - last 24 hr 10/29/23 10/29/23 10/29/23 06:21 07:54 18:14 WBC RBC Hgb 8.6 L D Hct 25.4 L D MCV MCH MCHC RDW Plt Count MPV Absolute Nucleated RBC Nucleated RBC % (auto) Smear Path Review SEE NOTE PT INR Blood Type A Positive Antibody Screen NEGATIVE Crossmatch See Detail 10/30/23 05:45 WBC 6.1 RBC 2.70 L D Hgb 8.9 L Hct 25.5 L MCV 94.4 MCH 33.0 MCHC 34.9 RDW 14.9 Plt Count 221 MPV 8.9 L Absolute Nucleated RBC 0.000 Nucleated RBC % (auto) 0.0 Smear Path Review PT 13.8 H D INR 1.1 Blood Type Antibody Screen Crossmatch Progress Note: A&P Assessment and plan (1) Hematuria: Status: Acute Plan Resolving hematuria secondary to over anticoagulation Time Spent With Patient Time: Total time managing care of this patient today ____ minutes. Progress Note: Quality Stroke Does the patient have a stroke diagnosis?: No
[2023-10-30 11:21] VITALS: BP 116/56; PULSE 82; RESP 20; TEMP 36.8; O2SAT 95
[2023-10-30] MEDS: oxyCODONE HCl Immed Release 5 MG TABLET PO (14:14)
[2023-10-30] MEDS: oxyBUTYnin chloride 5 MG TABLET PO ×2 (14:14→21:54)
[2023-10-30 15:57] VITALS: BP 137/61; PULSE 82; RESP 18; TEMP 36.7; O2SAT 97
[2023-10-30 19:24] VITALS: BP 145/64; PULSE 85; RESP 20; TEMP 36.9; O2SAT 96
[2023-10-30] MEDS: dilTIAZem HCL CD 120 MG CAP.ER.DEG PO (19:45)
[2023-10-31] VITALS: BP 132/62; PULSE 89; RESP 20; TEMP 36.7; O2SAT 92
[2023-10-31] MEDS: 0.9 % Sodium Chloride Flush 3 ML SYRINGE IVFLUSH ×2 (01:06→07:39)
[2023-10-31 04:00] VITALS: BP 129/57; PULSE 83; RESP 20; TEMP 36.6; O2SAT 96
[2023-10-31] MEDS: oxyBUTYnin chloride 5 MG TABLET PO (07:02)
[2023-10-31 07:16] LABS: INTERNATIONAL NORM RATIO 1.1 (0.9-1.1); Prothrombin Time 12.8 SEC (11.1-13.3)
[2023-10-31 07:24] VITALS: BP 141/70; PULSE 79; RESP 18; TEMP 36.5; O2SAT 96
--- NOTE | 2023-10-31 07:30 | P.PNIM_ITS ---
Subjective Subjective Date of Service: 10/31/23 Physical Exam 2 Vital Signs: Vital Signs: Last Vital Signs Temp 97.7 F 10/31/23 07:24 Pulse 79 10/31/23 07:24 Resp 18 10/31/23 07:24 BP 141/70 H 10/31/23 07:24 Pulse Ox 96 10/31/23 07:24 O2 Del Method Room Air 10/31/23 07:24 BMI result Body Mass Index 29.2 Objective Data Active Medications Acetaminophen (Acetaminophen 325 Mg Tablet) 650 mg PO Q6H PRN PRN Reason: Pain, Mild (Pain Scale 1-3), fever or headache Last Admin: 10/30/23 05:53 Dose: 650 mg Documented By: DAPHNE Albuterol Sulfate (Albuterol Sulfate 90 Mcg 8 Gm Inhaler) 2 puff INHALE Q6H PRN PRN Reason: Wheezing Calcium Carbonate (Calcium Carbonate 750 Mg Tab.Chew) 750 mg PO Q4H PRN PRN Reason: Heartburn Diltiazem HCl (Diltiazem Hcl Cd 120 Mg Cap.Er.Deg) 120 mg PO BEDTIME [facility]; Protocol Last Admin: 10/30/23 19:45 Dose: 120 mg Documented By: NAYELI Flecainide Acetate (Flecainide Acetate 50 Mg Tablet) 50 mg PO BID [facility] Last Admin: 10/30/23 19:46 Dose: 50 mg Documented By: NAYELI Lidocaine HCl (Lidocaine Hcl 2 % Jelly 5 Ml Tube) 1 appl TOPICAL TID PRN; Protocol PRN Reason: Pain, [id number] Lisinopril (Lisinopril 20 Mg Tablet) 20 mg PO BEDTIME [facility]; Protocol Last Admin: 10/28/23 20:05 Dose: 20 mg Documented By: TOMASIVanesa Magnesium Hydroxide (Milk Of Magnesia 30 Ml Oral.Susp) 30 ml PO DAILY PRN PRN Reason: Constipation Melatonin (Melatonin 3 Mg Tablet) 6 mg PO BEDTIME PRN PRN Reason: Insomnia Ondansetron HCl (Ondansetron Hcl 4 Mg/2 Ml Vial) 4 mg IVPUSH Q8H PRN PRN Reason: Nausea and Vomiting Oxybutynin Chloride (Oxybutynin Chloride 5 Mg Tablet) 5 mg PO Q8H PRN PRN Reason: BLADDER DISCOMFORT Last Admin: 10/31/23 07:02 Dose: 5 mg Documented By: ARIADNA Oxycodone HCl (Oxycodone Hcl Immed Release 5 Mg Tablet) 5 mg PO Q6H PRN PRN Reason: Pain, Severe (Pain Scale 7-10) Last Admin: 10/30/23 14:14 Dose: 5 mg Documented By: NAYELI Sodium Chloride (0.9 % Sodium Chloride Flush 3 Ml Syringe) [facility] Last Admin: 10/31/23 01:06 Dose: 3 ml Documented By: ARIADNA Labs 10/30/23 05:45 10/29/23 06:21 Labs: Laboratory Results - last 24 hr 10/31/23 06:31 PT 12.8 INR 1.1 Microbiology Microbiology Results: Microbiology 10/28/23 03:07 Blood Culture - Preliminary Blood - Venous No growth after 48 hours. 10/28/23 03:07 Blood Culture - Preliminary Blood - Venous No growth after 48 hours. Quality Stroke Does the patient have a stroke diagnosis?: No VTE Prior VTE?: No VTE Risk Level:: Medical - moderate - high VTE Device Contraindication: N/A - Device Ordered VTE Drug Contraindication: Treatment Not Indicated
[2023-10-31] MEDS: Flecainide Acetate 50 MG TABLET PO (07:53)
[2023-10-31 11:52] VITALS: BP 157/70; PULSE 86; RESP 18; TEMP 37.1; O2SAT 96
[2023-10-31] MEDS: oxyCODONE HCl Immed Release 5 MG TABLET PO (12:23)
--- NOTE | 2023-10-31 12:37 | P.DS_ITS ---
DS: Providers Provider Date of Service: 10/31/23 Date of admission: 10/28/23 01:38 Date of discharge: 10/31/23 Primary care physician: Darren Pavon MD Attending physician on admission: Joselo Roberts Consults: 10/28/23 01:38 Consult to Urology Routine Consulting Provider: [facility] Urology [facility] Reason for consultation: hematuria 10/28/23 04:00 Consult to Wound Care Routine Reason for consultation: Redness BL buttocks Attending physician on discharge: [facility] Discharging clinician: Kennedi Olson DS: Diagnosis Discharge Diagnosis (1) Hematuria: Status: Acute DS: Summary Hospital Course Hospital Course: HPI on admission by Dr. Roberts: Chief Complaint: Hematuria This is a 77-year-old female with pertinent history of cervical cancer, paroxysmal atrial flutter on anticoagulation, hypertension who presents to the emergency department for evaluation of hematuria. Patient was seen in the ER 1 day prior to presentation and asked to follow up with Urology outpatient. Patient did not take her Coumadin since her ER visit on 10/25. Patient continued to noticed blood clots and blood in urine. On the day of presentation, patient could not pass any urine and was with lower abdominal discomfort. This has never happened before. She takes Coumadin for paroxysmal atrial flutter. No dizziness, fever, chills, chest discomfort, palpitations, shortness of breath, changes in bowel habits. In the emergency department, Kamara catheter was inserted and more than 1000 cc of blood urine and clots obtained. She was initiated on CBI. Hospital course: 77 year old female admitted to [facility] due to acute blood loss anemia in setting of gross hematuria related to coumadin use. Admitted on CBI with slow resolution. Coumadin held on admission without much improvement in INR. SHe did have significnat drop in h/h to 5.8/17.4%. She was seen and followed by urology who perforemd manual irrigation and evacuation of clots. Was transfused 2 units PRBC with appropriate rise in H/H and stabilization of blood counts. Ultimately coumadin reversed with 10 mg of vitamin K on 10/28 with repeat INR of 1.0. Following reversal, complete resolution of clotting and ultimately CBI ran clear >12hrs and was ultimately clamped and discontinued at the recommendation of urology. She is tolerating PO. Was experiencing bladder spasms wtih CBI treated with oxybutynin 5 mg p.r.n.. Blood spasms resolved with discontinuation of CBI. Patient is voiding independently with scant hematuria but no clots. Urology recommending outpatient cystoscopy with Dr. Orourke, pt to call to schedule this. Can resume coumadin tomorrow and continue following with coumadin clinic. Will discharge with short course of oxybutynin 5 mg to be taken as needed every 8 hours for any recurrent bladder spasms. Initially felt to have UTI and was empirically started on ceftriaxone however urine culture ultimately negative and antibiotics were discontinued. Given absence of infection, no sepsis/severe sepsis. MIld tachycardia likely r/t acute hematuria/anemia. Patient ambulating independently and will be discharged home without services with plan for outpt follow up as noted with Dr. Orourke and advised to follow up with PCP. For atrial flutter, was continued on flecainide and diltiazem. For hypertension was della nued on lisinopril and diltiazem. Status at Discharge Functional status at discharge: independent ambulation Overall status at discharge: patient is progressing back to baseline Time Attestation Discharge Coordination Time (in mins): 40 Quality: Safe Use of Opioids Does Pt have an Active Cancer Diagnosis on the Problem List?: No Quality: Stroke Does the patient have a stroke diagnosis?: No Physical Exam Vital Signs: Vital Signs: Last Vital Signs Temp 98.7 F 10/31/23 11:52 Pulse 86 10/31/23 11:52 Resp 18 10/31/23 11:52 BP 157/70 H 10/31/23 11:52 Pulse Ox 96 10/31/23 11:52 O2 Del Method Room Air 10/31/23 11:52 BMI result Body Mass Index 29.2 DS: Data Data Completed and Pending Completed studies during hospitalization [Text1]: Procedures Transfusion of Nonautologous Plasma Cryoprecipitate into Peripheral Vein, Percutaneous Approach (02/10/22) Transfusion of Nonautologous Red Blood Cells into Peripheral Vein, Percutaneous Approach (02/10/22) Labs on day of discharge: Laboratory Results - last 24 hr 10/31/23 06:31 PT 12.8 INR 1.1 Preliminary micro results at discharge 10/28/23 03:07 Blood Culture - Preliminary Blood - Venous No growth after 48 hours. 10/28/23 03:07 Blood Culture - Preliminary Blood - Venous No growth after 48 hours. Discharge Plan Discharge Anticipated Discharge Date/Time: 10/31/23 13:31 Patient Disposition: Home, Self-Care Discharge Diagnosis: Gross hematuria Referrals: Edward Stephenson MD [Physician] - 1 Week Darren Pavon MD [Primary Care Provider] - 1 Week Discharge Medications: New oxybutynin chloride 5 mg Tablet 5 mg PO Q8H PRN (Reason: BLADDER DISCOMFORT) Qty: 15 0RF Continued albuterol sulfate 90 mcg/actuation HFA aerosol inhaler 2 puff INHALATION Q6H PRN (Reason: Wheezing) warfarin 2.5 mg Tablet 2.5 mg PO TUTHSA@1800 Golo Release Supplement 1 cap PO BID PRN (Reason: weight loss management ) lisinopril 20 mg tablet 20 mg PO BEDTIME warfarin 5 mg tablet 5 mg PO SUMOWEFR@1800 Protocol: Dose Management Condition: Thursday Dose/Route: 2.5 mg Instruction: 0.5 x 5 mg tablets Condition: Thursday Dose/Route: 0 mg Instruction: 0 tablets Condition: Thursday Dose/Route: 0 mg Instruction: 0 tablets Condition: Thursday Dose/Route: 0 mg Instruction: 0 tablets Condition: Dose/Route: 0 mg Instruction: 0 tablets Condition: Thursday Dose/Route: 0 mg Instruction: 0 tablets Condition: Thursday Dose/Route: 0 mg Instruction: 0 tablets Protocol Text: Adjustment Start Date: Thursday10/27/23 INR Value: 3.0 INR Date: 10/26/23 Recheck Date: 10/30/23 Additional Instructions: HOLDING WARFARIN PER MD ORDERS FOR HEMATURIA BEING FOLLOWED BY UROLGY DR DICKENS PT TO CALL WHEN RESUMES WARFARIN flecainide 50 mg tablet 50 mg PO BID cholecalciferol (vitamin D3) 50 mcg (2,000 unit) Capsule 50 mcg PO BEDTIME diltiazem HCl 120 mg capsule,extended release 24hr 120 mg PO BEDTIME Discharge Orders: Discharge Order (Routine); Ordered 10/31/23 Ordered By: Kennedi Olson Diet: Advance to usual diet Activity on Discharge: As tolerated Stand Alone Forms: Patient Portal Discharge page Print Language: Comoran Care Plan Goals: Prevent recurrent hematuria Health Concerns: Gross hematuria Anticoagulant use Plan of Treatment: Gross hematuria -Resume coumadin tomorrow 10/31. Follow with coumadin clinic for INR's -Follow up with Dr. Orourke in 1-2 weeks for outpatient cystoscopy -Can continue oxybutynin 5mg up to every 8 hours as needed for bladder spasm but suspect these should resolve -blood counts have been stable. Repeat in 3 days -Small amount of hematuria in urine noted and is expected. Return to the ED for any recurrent clots. Assessment: Acute blood loss anemia in setting of hematuria from coumadin use. Transfused 2 units of blood and placed on continuous bladder irrigation. Coumadin reversed with vitamin K with resolution of bleeding. Blood counts have been stable. CBI removed and patient voiding. Oxybutynin used for bladder spasm and can be continued outpatient for symptomatic relief. Follow up [facility] pcp and Dr. Orourke for outpatient cystoscopy. Resume coumadin on tomorrow. Repeat CBC in 3 days See discharge summary Discharge Date/Time: 10/31/23 15:33
[2023-10-31 14:25] VITALS: BP 132/58
--- NOTE | 2023-10-31 14:26 | MHC.CM.PN ---
PT WILL DC HOME TODAY WITH NO SERVICES VIA PRIVATE TRANSPORT
== END 2023-10-31 15:33 | disposition home or self-care (01) | DRG 813 ==
LOC: HO.ED 10-28 01:49 → HO.EDOVER 10-28 01:54 → HO.IMC 10-28 02:20
PROVIDERS: Physician Assistant Medical; Student in an Organized Health Care Education/Training Program; Admitting Provider Student in an Organized Health Care Education/Training Program; Emergency Provider Emergency Medicine Emergency Medical Services; PCP Internal Medicine; Visit Provider Physician Assistant
DX: D68.32 Hemorrhagic disorder due to extrinsic circulating anticoagulants (principal); I48.92 Unspecified atrial flutter; D62 Acute posthemorrhagic anemia; N32.89 Other specified disorders of bladder; I10 Essential (primary) hypertension; R31.0 Gross hematuria; T45.515A Adverse effect of anticoagulants, initial encounter; Z79.01 Long term (current) use of anticoagulants; Z79.899 Other long term (current) drug therapy
CPT/HCPCS: 36415; 80048; 80076; 81001; 83605; 83690; 85014; 85018; 85025; 85027; 85610; 86850; 86900; 86901; 86923; 87040; 87086; 99285; C1758; J0696; J2270; J3430; P9016

== ENCOUNTER → 2023-10-28 01:38 | Outpatient (BNV) | payer MEDICARE, SELFPAY | PROVIDERS: Admitting Provider Student in an Organized Health Care Education/Training Program; Emergency Provider Emergency Medicine Emergency Medical Services; PCP Internal Medicine; Visit Provider Student in an Organized Health Care Education/Training Program | DX: R31.0 Gross hematuria (principal); I10 Essential (primary) hypertension; I48.91 Unspecified atrial fibrillation | CPT/HCPCS: 99222; 99232; 99233; 99239; 99499 ==

== ENCOUNTER → 2023-10-28 01:38 | Outpatient (BNV) | payer MEDICARE, SELFPAY | PROVIDERS: Admitting Provider Student in an Organized Health Care Education/Training Program; Emergency Provider Emergency Medicine Emergency Medical Services; PCP Internal Medicine; Visit Provider Urology | DX: R31.9 Hematuria, unspecified (principal) | CPT/HCPCS: 51700; 99222; 99232 ==

== ENCOUNTER → 2023-11-02 10:11 | Outpatient (BNVA) | payer MEDICARE, SELFPAY | PROVIDERS: PCP Internal Medicine; Visit Provider Internal Medicine ==

== ENCOUNTER 2023-11-04 08:04 | Outpatient (AMB) | payer MEDICARE, SELFPAY ==
--- NOTE | 2023-11-04 08:26 | MHC.OFFVIS ---
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 Accompanied by: Self / Same As Patient Allergies amoxicillin [From AUGMENTIN] Allergy (Unknown, Verified 11/02/23 11:41) Rash clavulanic acid [From AUGMENTIN] Allergy (Unknown, Verified 11/02/23 11:41) Rash Medication List - Last Reconciled 11/04/23 by Lion Dahl MD albuterol sulfate 90 mcg/actuation 2 puffs inhalation Q6H PRN cholecalciferol (vitamin D3) 50 mcg PO BEDTIME diltiazem HCl CD 120 mg PO BEDTIME flecainide 50 mg PO BID [Golo Release Supplement 1 cap PO BID PRN] lisinopril 20 mg PO BEDTIME oxybutynin chloride 5 mg PO Q8H PRN warfarin 5 mg See Protocol PO SUMOWEFR@1800 warfarin 2.5 mg See Protocol PO TUTHSA@1800 HPI Comments Details: Carla returns for follow up regarding atrial flutter. In the past, routine EKG at PCP's office had revealed atrial flutter. Subsequently she underwent cardioversion. Initially she was on Xarelto, but due to cost, this has been switched to Coumadin. She was hospitalized few days back with severe anemia from severe hematuria. It seems that hemoglobin went as low as 5.8. Seen by Urology who did irrigation as well as evacuation of clots. She got blood transfusions. Also got vitamin K and eventually she was discharged. Of note, her INR was only 3 during admission hence she is clearly not supratherapeutic. Hence unclear why she had the bleed. Currently, she is off anticoagulation and she is scared that she might get recurrent hematuria if she goes back on the Coumadin. Hence looking for alternatives. 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 Mother No problems noted. Social History Household Members: Spouse and Family Housing: House Do you presently have visiting nurse or other home services: No Alcohol intake: current Alcohol intake frequency: holidays/special occasions only Comment: patient refuses bed alarm Patient Tobacco Use Status: Former Tobacco user e-Cigarette/Vaping Use: Never Used Second Hand Smoke Exposure: Yes service: No Current occupational status: retired Review of Systems Const Denies chills, Denies fatigue, Denies fever(s), Denies weight gain and Denies weight loss ENT Denies dizziness Card Denies chest pain, Denies leg edema, Denies lightheadedness, Denies palpitations, Reports dyspnea, Denies dyspnea on exertion, Denies orthopnea and Denies other Resp Denies cough, Reports dyspnea and Denies dyspnea on exertion GI Denies hematochezia and Denies change in stool character Musc Denies abnormal gait, Denies muscle weakness, Denies numbness, Denies radiating pain into limb and Denies tingling Neuro Denies abnormal gait, Denies dizziness, Denies numbness and Denies tingling Endo Denies fatigue and Denies palpitations Physical Exam Vital Signs: Last Vital Signs Pulse 73 11/04/23 08:27 BP 136/82 11/04/23 08:27 BMI result Body Mass Index 29.0 Const General: comfortable and no acute distress Orientation/consciousness: patient oriented x3 HEENT Other: Unremarkable Head: Yes normal to inspection Neck Neck: Yes normal visual inspection Chest Chest palpation & inspection: normal inspection of the chest Resp Auscultation: clear to auscultation bilaterally Cardio Palpation: normal PMI Heart sounds: S1 normal heart sound present, S2 normal heart sound present, no gallops, no murmurs and no rubs GI Palpation (GI): Soft to palpation Back/Spine/Pelvis Other: unremarkable Skin General skin exam: no rashes or lesions noted Neuro General: patient oriented x3 Extrem General: Yes normal to inspection Psych Mental Status: mental status grossly normal Office Procedures EKG Details: EKG with underlying sinus rhythm at 73/Min; can not exclude old anterior infarct but most likely from her body habitus; slight GA prolongation 216 millisecond; [place]. [id number], Complete Assessment & Plan Assessment & Plan (1) Paroxysmal atrial flutter: Code(s): I48.92 - Unspecified atrial flutter Category: Medical (2) AV block, 1st degree: Code(s): I44.0 - Atrioventricular block, first degree Category: Medical (3) Encounter for monitoring anti-arrhythmic therapy: Code(s): Z51.81 - Encounter for therapeutic drug level monitoring; Z79.899 - Other assisted (current) drug therapy Category: Medical (4) Hematuria: Code(s): R31.9 - Hematuria, unspecified Category: Medical Qualifiers: Hematuria type: gross Qualified Code(s): R31.0 - Gross hematuria (5) Anemia: Code(s): D64.9 - Anemia, unspecified Category: Medical (6) Essential hypertension: Code(s): I10 - Essential (primary) hypertension Category: Medical Plan From atrial flutter standpoint, she has been on diltiazem/flecainide has been very stable. We can continue this for the foreseeable future. With regard to anticoagulation, recent severe anemia requiring blood transfusions as well as vitamin K. We discussed about other options, primarily Watchman device as she is not comfortable going back on the anticoagulation. She is interested and will let us know. If she agrees, we will refer her to [facility]. In the interim, at least try low-dose aspirin. With regard to hypertension, she is on lisinopril. We will control. Echocardiogram 2021-LVEF 65-70%. Mild diastolic dysfunction but otherwise unremarkable. Normal atrial size. Atrial septal aneurysm. Myocardial perfusion imaging [id number] perfusion. Coding Level of Care Code Est Pt Level 4 (88630) Diagnoses Paroxysmal atrial flutter I48.92 AV block, 1st degree I44.0 Encounter for monitoring anti-arrhythmic therapy Z51.81; Z79.899 Hematuria R31.0 Hematuria type: gross Anemia D64.9 Essential hypertension I10 CPT Codes EKG - CPT: 64746-[id number], Complete ([id number])
[2023-11-04 08:27] VITALS: BP 136/82; PULSE 73; BMI 29.0
== END 2023-11-04 08:47 | disposition home or self-care (01) ==
PROVIDERS: PCP Internal Medicine; Visit Provider Internal Medicine
DX: I48.92 Unspecified atrial flutter (principal); I44.0 Atrioventricular block, first degree; Z51.81 Encounter for therapeutic drug level monitoring; Z79.899 Other long term (current) drug therapy; R31.0 Gross hematuria; D64.9 Anemia, unspecified; I10 Essential (primary) hypertension
CPT/HCPCS: 93010; 99214

== ENCOUNTER → 2023-11-04 08:04 | Outpatient (BNVA) | payer MEDICARE, SELFPAY | PROVIDERS: PCP Internal Medicine; Visit Provider Internal Medicine | DX: I48.92 Unspecified atrial flutter (principal); I44.0 Atrioventricular block, first degree; I10 Essential (primary) hypertension; R31.0 Gross hematuria; D64.9 Anemia, unspecified; Z98.890 Other specified postprocedural states; Z79.01 Long term (current) use of anticoagulants; Z51.81 Encounter for therapeutic drug level monitoring | CPT/HCPCS: 93005; 99212 ==

== ENCOUNTER 2023-11-12 11:22 | Outpatient (REF) | payer MEDICARE, SELFPAY ==
[2023-11-12 11:24] LABS: MANUAL DIFF FLAG NO
[2023-11-12 11:35] LABS: Basophils Percent Auto 0.9 % (0-2); Eosinophils Absolute Auto 0.4 X10*3/uL (0.0-0.4); Eosinophils Percent Auto 8.4 % (0-4); Hemoglobin 11.2 g/dl (12.0-16.0); Imm Gran Abs Auto 0.02 X10*3/uL (0.00-0.03); Imm Gran Pct Auto 0.5 % (0.0-0.4); Lymphocytes Percent Auto 21.9 % (20-40); Mean Corpuscular Hemoglobin 32.3 pg (27.0-33.0); Mean Corpuscular Volume 100.9 fL (80.0-98.0); Mean Platelet Volume 8.8 fL (9.4-12.3); Monocytes Absolute Auto 0.4 X10*3/uL (0.1-1.2); Monocytes Percent Auto 9.6 % (2-11); Neutrophils Absolute Auto 2.6 x10*3/uL (2.0-8.3); Neutrophils Percent Auto 58.7 % (45-73); Platelet Count 372 X10*3/uL (160-400); Red Blood Count 3.47 X10*6/uL (4.20-5.50); Red Cell Distribution Width 15.3 % (11.0-16.0); White Blood Count 4.4 X10*3/uL (4.8-10.8)
== END 2023-11-12 11:23 | disposition home or self-care (01) ==
LOC: HO.LNP 11:22
PROVIDERS: Visit Provider Internal Medicine
DX: R31.0 Gross hematuria (principal)
CPT/HCPCS: 85025

== ENCOUNTER 2023-11-17 15:45 | Outpatient (REF) | payer MEDICARE, SELFPAY ==
--- NOTE | ~2023-11-17 | CT_ITS ---
EXAMINATION: CT CHEST WITHOUT CONTRAST CLINICAL INFORMATION: Lung nodule COMPARISON: 11/21/2022, 11/19/2021 TECHNIQUE: Multidetector volumetric CT imaging of the chest was done. Axial MIP volume rendering provided. Sagittal and coronal reformatted images were obtained. This CT examination was performed using dose optimization techniques as appropriate, variously including the following: *Automated exposure control *Adjustment of mA and/or kV according to patient size (this includes techniques or standardized protocols for targeted exams where dose is matched to indication/reason for exam; i.e. extremities or head) *Use of iterative reconstruction technique DLP: 205 mGy-cm FINDINGS: LUNGS: Bilateral pulmonary nodules measuring up to 6 mm are unchanged. Reference right lower lobe 5 mm nodule is unchanged (5:241). Reference right lower lobe subpleural 6 mm nodule is unchanged (5:298). Left lower lobe subpleural 4 mm nodule is unchanged (5:356). Central airways are patent. No new or enlarging pulmonary nodule. PLEURA: No pleural effusion. MEDIASTINUM: No cardiomegaly. Aorta and pulmonary artery are normal in caliber. No mediastinal adenopathy. Lack of IV contrast limits evaluation for hilar adenopathy. CORONARY ARTERY CALCIFICATION: Coronary artery calcification is present. CHEST WALL/AXILLA: No axillary or internal mammary lymphadenopathy. UPPER ABDOMEN: Small hiatal hernia. OSSEOUS STRUCTURES: Degenerative changes of the spine. CT/CT chest wo IV con IMPRESSION: Bilateral pulmonary nodules measuring up to 6 mm are unchanged. No new or enlarging pulmonary nodule. Given stability for 2 years, these are favored to be benign according to Fleischner Society guidelines. Electronically signed by: Milena Ceballos MD 12/10/2023 09:41 PM EDT
== END 2023-11-17 15:46 | disposition home or self-care (01) ==
LOC: HO.CT 15:45
PROVIDERS: PCP Internal Medicine; Visit Provider Internal Medicine
DX: R91.1 Solitary pulmonary nodule (principal)
CPT/HCPCS: 71250

== ENCOUNTER 2023-12-15 11:12 | Outpatient (REF) | payer MEDICARE, SELFPAY ==
[2023-12-15 11:15] LABS: MANUAL DIFF FLAG NO
[2023-12-15 11:32] LABS: Basophils Absolute Auto 0.1 X10*3/uL (0.0-0.2); Basophils Percent Auto 1.2 % (0-2); Eosinophils Absolute Auto 0.3 X10*3/uL (0.0-0.4); Eosinophils Percent Auto 7.9 % (0-4); Hematocrit 30.4 % (37.0-47.0); Hemoglobin 9.6 g/dl (12.0-16.0); Imm Gran Abs Auto 0.01 X10*3/uL (0.00-0.03); Imm Gran Pct Auto 0.2 % (0.0-0.4); Lymphocytes Absolute Auto 0.9 X10*3/uL (1.2-4.9); Lymphocytes Percent Auto 20.1 % (20-40); Mean Corpuscular HGB Conc 31.6 g/dl (31.0-35.0); Mean Corpuscular Hemoglobin 31.4 pg (27.0-33.0); Mean Corpuscular Volume 99.3 fL (80.0-98.0); Mean Platelet Volume 8.8 fL (9.4-12.3); Monocytes Absolute Auto 0.4 X10*3/uL (0.1-1.2); Neutrophils Absolute Auto 2.6 x10*3/uL (2.0-8.3); Neutrophils Percent Auto 60.6 % (45-73); Platelet Count 394 X10*3/uL (160-400); Red Blood Count 3.06 X10*6/uL (4.20-5.50); Red Cell Distribution Width 13.9 % (11.0-16.0); White Blood Count 4.3 X10*3/uL (4.8-10.8)
== END 2023-12-15 11:13 | disposition home or self-care (01) ==
LOC: HO.LNP 11:12
PROVIDERS: Visit Provider Internal Medicine
DX: R31.0 Gross hematuria (principal)
CPT/HCPCS: 85025

== ENCOUNTER 2023-12-21 14:13 | Outpatient (AMB) | payer MEDICARE, SELFPAY ==
--- NOTE | 2023-12-21 14:21 | A.OFFVIS_ITS ---
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 Currently she is off of her blood thinner. Office cystoscopy findings inflammation and prominent vessels consistent with radiation cystitis there is some thickening of the bladder mucosa posteriorly behind the trigone. I have discussed further evaluation with cystoscopy biopsy as an outpatient. Review of chart: 06/19/23--Carla is a very pleasant 77-year-old female patient of Dr. Pavon. She has a past medical history of colitis, cervical cancer status post chemo and radiation, paroxysmal atrial flutter on anticoagulation, and hypertension. She presents to the office today for follow-up. Of note, patient was seen approximately 2 months ago as a new patient for gross hematuria at [facility] time a CT urogram and urine cytology was ordered for further assessment evaluation. These results were reviewed with the patient today. Bilateral kidneys with no calculi or hydronephrosis. 1.1 cm left renal cyst for which no further imaging follow-up is needed per radiology report. No focal or diffuse bladder wall thickening or bladder calculus seen. Urine Cytology 04/22--Negative for high-grade urothelial carcinoma. Discussed in office cystoscopy given gross hematuria as well as previous smoking history however patient declines at this time. She reports gross hematuria has since subsided can has had no other urinary issues or concerns. Discussed surveillance monitoring however patient does not feel this is necessary. She reports she will call if she has any other issues or concerns. In office urinalysis results reviewed with the patient today. 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 Mother No problems noted. Social History Household Members: Spouse and Family Housing: House Do you presently have visiting nurse or other home services: No Alcohol intake: current Alcohol intake frequency: holidays/special occasions only Comment: patient refuses bed alarm Patient Tobacco Use Status: Former Tobacco user e-Cigarette/Vaping Use: Never Used Second Hand Smoke Exposure: Yes service: No Current occupational status: retired Office Procedures Cystoscopy Consent Discussed risk and benefit or proposed procedure with the patient. Information consent for procedure given to the patient. Discussed technical aspects, risks, benefits and alternatives in full. Addressed all of the patient's questions and concerns regarding the procedure. The patient demonstrated knowledge and understanding. They wish to proceed with this procedure. Preparation The patient was prepped in the usual manner. A fountain attendant was present and in the room. Genitalia was prepped with betadine solution in a sterile manner. Lidocaine Jelly 2% was placed into the urethra and 16Fr flexible Olympus cystoscope was inserted into the meatus after adequate lubrication. Procedure Time out per protocol performed. Bladder Inspection Bladder Inspection: The bladder was inspected in its entirety with utilization retroflexion displaying: Tumor(s): irregular thickening - see cystoscopy findings below Trabeculation: Mild Mucosal Erthema: present Orifices: normal shape and position Urethra: normal Cystoscopy findings: inflammation and prominent vessels consistent with radiation cystitis there is some thickening of the bladder mucosa posteriorly behind the trigone [id number] DISPOSABLE SCOPE URO-G FLEXIBLE SCOPE Procedure code (CPT) selection complete Office Meds lidocaine HCl 2 % mucosal jelly in applicator Performing Provider: Edward Stephenson MD Performing Location: [facility] [place] [facility] Administered by: Aamir Morrison LPN on 12/21/23 15:19 Dose Route Admin Location Dispensed Lot Number Expiration Date NDC Prop Making Supervisor 10 mL intra-urethral 10 mL naproxen 500 mg tablet Performing Provider: Edward Stephenson MD Performing Location: [facility] [place] [facility] Administered by: Aamir Morrison LPN on 12/21/23 15:19 Dose Route Admin Location Dispensed Lot Number Expiration Date NDC Prop Making Supervisor 500 mg PO 1 tab ciprofloxacin HCl 500 mg tablet Performing Provider: Edward Stephenson MD Performing Location: [facility] [place] [facility] Administered by: Aamir Morrison LPN on 12/21/23 15:19 Dose Route Admin Location Dispensed Lot Number Expiration Date NDC Prop Making Supervisor 500 mg PO 1 tab Results AMB Urinalysis, Automated UA Leukoctes 0 David/uL Last Edit by SHILPI Cummings on 12/21/23 15:02 UA Nitrite Negative Last Edit by SHILPI Cummings on 12/21/23 15:02 UA Urobilinogen 0.2 mg/dL Last Edit by SHILPI Cummings on 12/21/23 15:0 2 UA Protein 0 mg/dL Last Edit by Vidya Lowery CCM on 12/21/23 15:02 UA pH 5.0 Last Edit by Vidya Lowery CCM on 12/21/23 15:02 UA Blood 10 Moe/uL Last Edit by Vidya Lowery CCM on 12/21/23 15:02 UA Specific [place] 1.030 Last Edit by SHILPI Cummings on 12/21/23 15: 02 UA Ketone Negative Last Edit by SHILPI Cummings on 12/21/23 15:02 UA Bilirubin 0 mg/dL Last Edit by Vidya Lowery CCM on 12/21/23 15:02 UA Glucose 0 mg/dL Last Edit by Vidya Lowery [facility] on 12/21/23 15:02 Results Reviewed Results Reviewed: Laboratory Last Values Urine pH (Auto) 5.0 12/21/23 15:01 Specific [place] (Auto) 1.030 12/21/23 15:01 Urine Protein (Auto) 0 mg/dL 12/21/23 15:01 Glucose (UA)(Auto) 0 mg/dL 12/21/23 15:01 Urine Ketones (Auto) Negative 12/21/23 15:01 Urine Blood (Auto) 10 Moe/uL 12/21/23 15:01 Urine Nitrite (Auto) Negative 12/21/23 15:01 Urine Bilirubin (Auto) 0 mg/dL 12/21/23 15:01 Urine Urobilinogen (Auto) 0.2 mg/dL 12/21/23 15:01 Leukocyte Esterase (Auto) 0 David/uL 12/21/23 15:01 Date of Service: 06/08/23 EXAMINATION: CT ABDOMEN AND PELVIS WITHOUT AND WITH CONTRAST FINDINGS: LUNG BASES: No pleural or pericardial effusion. Small hiatal hernia. LIVER, GALLBLADDER, AND BILIARY TREE: The liver is decreased in attenuation. No suspicious hepatic lesion or biliary ductal dilatation is present. The gallbladder is unremarkable with no evidence of radiopaque gallstones, gallbladder wall thickening, or obvious pericholecystic inflammatory changes. PANCREAS: No ductal dilatation. SPLEEN: Not enlarged. ADRENAL GLANDS: No adrenal mass. KIDNEYS AND URETERS: The kidneys are symmetric in size and enhancement. Delayed images demonstrate intact renal function. 1.1 cm left renal cyst for which no further imaging follow-up is needed. No renal or ureteral calculus. No perinephric stranding. Bilateral collecting systems and opacified portions of the ureters are nondilated and without obvious filling defects. BLADDER: Partially fills with excreted contrast. No focal or diffuse bladder wall thickening. No bladder calculus. GASTROINTESTINAL TRACT: No small bowel obstruction. There is hypertrophic change of the sigmoid colon with fibrotic scarring in the pelvis likely related to prior diverticulitis. ABDOMINAL WALL: No significant hernia is appreciated. LYMPH NODES: No bulky lymphadenopathy. VASCULAR: Normal caliber abdominal aorta. PELVIC VISCERA: Unremarkable. OSSEUS STRUCTURES: No destructive bone lesions. IMPRESSION: No nephrolithiasis or hydronephrosis. Hepatic steatosis. Assessment & Plan Assessment & Plan (1) Gross hematuria: Code(s): R31.0 - Gross hematuria Category: Medical (2) Renal cyst: Code(s): N28.1 - Cyst of kidney, acquired Category: Medical Plan outpatient cystoscopy bladder biopsy Orders: Orders AMB Urinalysis Automated 12/21/23 Z13.9 - Encounter for screening, unspecified AMB Cystoscopy 12/21/23 N28.1 - Cyst of kidney, acquired, R32 - Unspecified urinary incontinence, R31.0 - Gross hematuria Patient Instructions: The patient had an opportunity to ask questions regarding treatment plan. The patient expressed understanding and agreement with the above treatment plan. The patient is aware they should contact our office by phone for worsening of their current condition or the appearance of new symptoms. Compliance is encouraged with any medications and followup testing that is ordered. It is a privilege to be allowed the opportunity to participate in the urologic care of your patient. If you have any questions or concerns regarding treatment for the above conditions please do not hesitate to contact me. The office telephone contact is [phone]. This note is constructed in part using voice recognition software. While every effort has been made to ensure accuracy automotive buyer errors may have been included. Yours sincerely, Edward Stephenson MD Coding Level of Care Code Est Pt Level 4 (66952) Diagnoses Gross hematuria R31.0 Renal cyst N28.1 CPT Codes Cystoscopy - CPT: [id number] ([id number])
== END 2023-12-21 16:21 | disposition home or self-care (01) ==
PROVIDERS: PCP Internal Medicine; Visit Provider Urology
DX: R31.0 Gross hematuria (principal); N28.1 Cyst of kidney, acquired
CPT/HCPCS: 52000; 99214

== ENCOUNTER → 2023-12-21 14:13 | Outpatient (BNVA) | payer MEDICARE, SELFPAY | PROVIDERS: PCP Internal Medicine; Visit Provider Urology | DX: R31.0 Gross hematuria (principal); N28.1 Cyst of kidney, acquired; R32 Unspecified urinary incontinence | CPT/HCPCS: 52000; 81003; 99212 ==

== ENCOUNTER 2024-01-12 06:49 | Day surgery (SDC) | payer MEDICARE, SELFPAY ==
[2024-01-12 07:53] VITALS: BP 180/73; PULSE 81; RESP 16; TEMP 36.2; O2SAT 100
[2024-01-12 07:54] VITALS: BMI 30.4
[2024-01-12 08:03] LABS: Prothrombin Time 11.5 SEC (10.9-12.4)
[2024-01-12] MEDS: Lactated Ringers 1,000 ML 100 ML IVCONT (08:14)
--- NOTE | 2024-01-12 08:15 | MHC.SHP ---
Pre-Procedural Eval Section A - 24 Hr Update-Section A only Date of Service: 01/12/24 The patient is an INPATIENT: No The patient has been examined within 24 hours of the surgical procedure. The History & Physical has been completed within 30 days and I have reviewed it.: Yes Section B - Complete if H&P > 30 days Chief Complaint: Gross hematuria Allergies: Allergies Allergy/AdvReac Type Severity Reaction Status Date / Time amoxicillin [From AUGMENTIN] Allergy Intermediate Rash Verified 01/12/24 07:50 clavulanic acid Allergy Intermediate Rash Verified 01/12/24 07:50 [From AUGMENTIN] Plan Diagnosis/Plan: Unchanged I have reviewed the history and physical and performed a pertinent physical examination on my patient. No changes have occurred unless specified. Cystoscopy, bladder biopsies. Time Spent With Patient Time: Total time managing care of this patient today ____ minutes.
--- NOTE | 2024-01-12 08:21 | PC.NURSE ---
Patient in preop. Med list reconciled. Patient taking weight loss supplement, GOLO release. Last dose yesterday. Dr. Calderón at bedside and made aware. Okay to proceed.
--- NOTE | 2024-01-12 08:25 | HO.ANESPROP2 ---
Documented by User: Blanca James NP 01/08/24 13:27 HPI - Anesthesia Eval Consult details Narrative: 78yo F for Cystoscopy Bladder Fulguration with biopsy Medically optimized Off Warfarin for PAF (no anticoag at this time) d/t severe hematuria Follows [facility] [place] Cardiology. 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 Mother No problems noted. Family history of problems with anesthesia: No Surgical History Surgical History (Updated 01/12/24 @ 07:52 by Mirian Patten RN) Hx of removal of cyst Hx of tonsillectomy Hx of colonoscopy History of facelift History of appendectomy Hx of dilation and curettage History of cardioversion History of Problems with Anesthesia: No Social History Social History Household Members: Spouse and Family Housing: House Are you a primary rn primary care to a significant other at home: No Do you presently have visiting nurse or other home services: No Alcohol intake: current Alcohol intake frequency: a few times a week Comment: patient refuses bed alarm Patient Tobacco Use Status: Former Tobacco user Tobacco use type: Cigarette Years Smoked: 25 Smoked in Last 30 Days: No e-Cigarette/Vaping Use: Never Used Second Hand Smoke Exposure: Yes Use of substances other than those prescribed or required for medical reasons: No Have you been hit, kicked, punched, or otherwise hurt by someone within the past year? If so, by whom?: No Are you DNR?: No Advance Directives: No Advance Directives Information Provided: Yes Recently lost weight without trying: No How much weight loss: Not applicable Eating poorly because of decreased appetite: No Nutrition screen score: 0 Nutrition Risks: No Nutritional Risk Patient : No : No Poor oral hygiene: Yes (Upper full denture) service: No Current occupational status: retired Meds Allergies Allergy/AdvReac Type Severity Reaction Status Date / Time amoxicillin [From AUGMENTIN] Allergy Intermediate Rash Verified 01/12/24 07:50 clavulanic acid Allergy Intermediate Rash Verified 01/12/24 07:50 [From AUGMENTIN] Home Medications ?Medication ?Instructions ?Recorded ?Confirmed ?Last Taken ?Type diltiazem HCl 120 mg 120 mg PO BEDTIME 02/09/20 01/12/24 01/11/24 History capsule,extended release 24 hr albuterol sulfate 90 mcg/actuation 2 puff inhalation Q6H PRN Wheezing 02/10/22 01/12/24 Unknown History aerosol inhaler Golo Release Supplement 1 cap PO BID PRN weight loss 10/28/23 01/12/24 01/11/24 History management cholecalciferol (vitamin D3) 50 50 mcg PO BEDTIME 10/28/23 01/12/24 Unknown History mcg (2,000 unit) capsule flecainide 50 mg tablet 50 mg PO BID 10/28/23 01/12/24 Unknown History lisinopril 20 mg tablet 20 mg PO BEDTIME 10/28/23 01/12/24 01/11/24 History warfarin 2.5 mg tablet 2.5 mg PO TUTHSA@179910/28/23 01/12/24 11/28/23 History warfarin 5 mg tablet 5 mg PO SUMOWEFR@1800 10/28/23 01/12/24 11/28/23 History Exam Pertinent Lab Results Pertinent Lab Results: Laboratory Tests 10/29/23 12/15/23 06:21 09:15 WBC 4.3 L Hgb 9.6 L Hct 30.4 L Plt Count 394 Sodium 138 Potassium 3.9 Chloride 111 H Carbon Dioxide 24 BUN 18 H Creatinine 0.72 Narrative Narrative: EKG 2023 sinus rhythm at 73/Min; can not exclude old anterior infarct but most likely from her body habitus; slight OK prolongation 216 millisecond; normal corrected QT. ECHO 2021 Conclusions: - 1. Normal LV systolic function with grade 1 diastolic dysfunction 2. Normal cardiac valvular Dopplers 3. Normal RV systolic pressure 4. 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 Mother No problems noted. Family history of problems with anesthesia: No Surgical History Surgical History (Updated 01/12/24 @ 07:52 by Mirian Patten RN) Hx of removal of cyst Hx of tonsillectomy Hx of colonoscopy History of facelift History of appendectomy Hx of dilation and curettage History of cardioversion History of Problems with Anesthesia: No Social History Social History Household Members: Spouse and Family Housing: House Are you a primary rn primary care to a significant other at home: No Do you presently have visiting nurse or other home services: No Alcohol intake: current Alcohol intake frequency: a few times a week Comment: patient refuses bed alarm Patient Tobacco Use Status: Former Tobacco user Tobacco use type: Cigarette Years Smoked: 25 Smoked in Last 30 Days: No e-Cigarette/Vaping Use: Never Used Second Hand Smoke Exposure: Yes Use of substances other than those prescribed or required for medical reasons: No Have you been hit, kicked, punched, or otherwise hurt by someone within the past year? If so, by whom?: No Are you DNR?: No Advance Directives: No Advance Directives Information Provided: Yes Recently lost weight without trying: No How much weight loss: Not applicable Eating poorly because of decreased appetite: No Nutrition screen score: 0 Nutrition Risks: No Nutritional Risk Patient : No : No Poor oral hygiene: Yes (Upper full denture) service: No Current occupational status: retired Meds Allergies Allergy/AdvReac Type Severity Reaction Status Date / Time amoxicillin [From AUGMENTIN] Allergy Intermediate Rash Verified 01/12/24 07:50 clavulanic acid Allergy Intermediate Rash Verified 01/12/24 07:50 [From AUGMENTIN] Home Medications ?Medication ?Instructions ?Recorded ?Confirmed ?Last Taken ?Type diltiazem HCl 120 mg 120 mg PO BEDTIME 02/09/20 01/12/24 01/11/24 History capsule,extended release 24 hr albuterol sulfate 90 mcg/actuation 2 puff inhalation Q6H PRN Wheezing 02/10/22 01/12/24 Unknown History aerosol inhaler Golo Release Supplement 1 cap PO BID PRN weight loss 10/28/23 01/12/24 01/11/24 History management cholecalciferol (vitamin D3) 50 50 mcg PO BEDTIME 10/28/23 01/12/24 Unknown History mcg (2,000 unit) capsule flecainide 50 mg tablet 50 mg PO BID 10/28/23 01/12/24 Unknown History lisinopril 20 mg tablet 20 mg PO BEDTIME 10/28/23 01/12/24 01/11/24 History warfarin 2.5 mg tablet 2.5 mg PO TUTHSA@1800 10/28/23 01/12/24 11/28/23 History warfarin 5 mg tablet 5 mg PO SUMOWEFR@1800 10/28/23 01/12/24 11/28/23 History Exam Exam Date and Time: 01/12/24 0825 Height,Weight and Vital Signs: Height 5 ft 4 in Weight 80.377 kg Vital Signs Temperature 97.1 F 01/12/24 07:53 Pulse Rate 81 01/12/24 07:53 Respiratory Rate 16 01/12/24 07:53 Blood Pressure 180/73 H 01/12/24 07:53 Pulse Oximetry 100 01/12/24 07:53 Oxygen Delivery Method Room Air 01/12/24 07:53 Temperature 97.1 F 01/12/24 07:53 Pulse Rate 81 01/12/24 07:53 Respiratory Rate 16 01/12/24 07:53 Blood Pressure 180/73 H 01/12/24 07:53 Pulse Oximetry 100 01/12/24 07:53 Oxygen Delivery Method Room Air 01/12/24 07:53 Airway Mallampati Class: I TM Dist: >3cm Neck ROM: Full Denture: Upper Heart: S1S2 Lungs: CTAB Assessment and Plan Assessment Anesthesia Assessment: Anesthesia Plan Discussed and Chart Reviewed Final Anesthetic Review Family History of Problems with Anesthesia: No History of Problems with Anesthesia: No NPO: Yes ASA Class: III Final Preanesthetic Review: No Changes in Pt Med Stat, Meds/Allgs Chart Reviewed, Consent Obtained/Reviewed and Anes Risks/Benef Reviewed Patient Risk: Intermediate Procedure Risk: Low Anesthetic Plan Anesthetic Plan: GA and Agree w/ Assess. and Plan Disposition: Standard PACU
--- NOTE | 2024-01-12 08:37 | MHC.SHP ---
Pre-Procedural Eval Section A - 24 Hr Update-Section A only Date of Service: 01/12/24 The patient is an INPATIENT: No The patient has been examined within 24 hours of the surgical procedure. The History & Physical has been completed within 30 days and I have reviewed it.: Yes Section B - Complete if H&P > 30 days Chief Complaint: Gross hematuria Allergies: Allergies Allergy/AdvReac Type Severity Reaction Status Date / Time amoxicillin [From AUGMENTIN] Allergy Intermediate Rash Verified 01/12/24 07:50 clavulanic acid Allergy Intermediate Rash Verified 01/12/24 07:50 [From AUGMENTIN] Plan Diagnosis/Plan: Unchanged I have reviewed the history and physical and performed a pertinent physical examination on my patient. No changes have occurred unless specified. cystoscopy bladder biopsies, fulguration. Time Spent With Patient Time: Total time managing care of this patient today ____ minutes.
[2024-01-12 09:19] VITALS: BP 127/69; PULSE 73; RESP 16; TEMP 36.5; O2SAT 97
[2024-01-12 09:20] VITALS: BP 130/71; PULSE 70; RESP 16; O2SAT 97
[2024-01-12 09:25] VITALS: BP 133/71; PULSE 70; RESP 16; O2SAT 97
--- NOTE | 2024-01-12 09:28 | W.PM.OPN ---
Operative Note Operative Note Date of Service: 01/12/24 Narrative: PREOP DIAGNOSIS: Gross hematuria, radiation cystitis POSTOP DIAGNOSIS: Gross hematuria, radiation cystitis PROCEDURE: Cystoscopy, fulguration, bladder biopsy SURGEON: Edward Stephenson MD ANESTHESIA: General Findings: </=1 cm erythematous flattened lesion right lateral wall Details of procedure: The patient was brought into the operating room placed on the OR table in supine position. Levaquin 500 mg IV. General anesthesia was administered. The patient was repositioned into lithotomy position, prepped and draped in the usual sterile fashion. Time-out was done per protocol. A 22 fr cystoscope was placed transurethrally into the bladder. The right and left ureteral orifices were visualized. The entire bladder was visualized. Multiple prominent vasculature noted an erythematous changes consistent with radiation cystitis. No active bleeding noted. On the right lateral wall there was an erythematous flattened area that was irregular. The biopsy was done of this area, fulguration of prominent vasculature on the right posterior lateral wal. The cystoscope was removed. 2% lidocaine urojet was passed transurethrally into the bladder. The patient was brought out of anesthesia and taken to recovery in stable condition. Complications: None Drains: none
[2024-01-12 09:30] VITALS: BP 143/77; PULSE 73; RESP 16; O2SAT 98
[2024-01-12 09:35] VITALS: BP 141/71; PULSE 68; RESP 16; TEMP 36.6; O2SAT 98
== END 2024-01-12 09:54 | disposition home or self-care (01) ==
PROVIDERS: Nurse Practitioner; PCP Internal Medicine; Visit Provider Urology
PROC: 0T5B8ZZ Destruction of Bladder, Via Natural or Artificial Opening Endoscopic (ICD-10-PCS; CPT 52234; principal; 2024-01-12 09:10)
DX: N30.41 Irradiation cystitis with hematuria (principal); N28.1 Cyst of kidney, acquired; R32 Unspecified urinary incontinence; I10 Essential (primary) hypertension; I48.92 Unspecified atrial flutter; Z79.01 Long term (current) use of anticoagulants; K52.9 Noninfective gastroenteritis and colitis, unspecified; Z79.899 Other long term (current) drug therapy; Z88.1 Allergy status to other antibiotic agents; Z85.41 Personal history of malignant neoplasm of cervix uteri; Z92.21 Personal history of antineoplastic chemotherapy; Z92.3 Personal history of irradiation; Z87.891 Personal history of nicotine dependence; Z98.890 Other specified postprocedural states
CPT/HCPCS: 52234; 52204; 36415; 85610; 88305; J1885; J1956; J2003; J2704; J3010

== ENCOUNTER → 2024-01-12 06:49 | Outpatient (BNV) | payer MEDICARE, SELFPAY | PROVIDERS: PCP Internal Medicine; Visit Provider Urology | DX: R31.0 Gross hematuria (principal) | CPT/HCPCS: 52204 ==

== ENCOUNTER 2024-02-04 13:48 | Outpatient (AMB) | payer MEDICARE, SELFPAY ==
--- NOTE | 2024-02-03 19:57 | MHC.OFFVIS ---
Intake Visit Reasons: Bladder biopsy- follow up Intake Note: Patient is present for BLADDER BIOPSY F/U Urology Medication:NONE Antibiotic Allergy:AMOXICILLIN Blood Thinner:NONE Assistant Superintendent For Curriculum Required: No Allergies amoxicillin [From AUGMENTIN] Allergy (Intermediate, Verified 02/04/24 14:28) Rash clavulanic acid [From AUGMENTIN] Allergy (Intermediate, Verified 02/04/24 14:28) Rash HPI Comments Details: 02/04/24--s/p bladder bx 01/12/24--Chronic cystitis. Carla is here in follow-up due to symptoms of gross hematuria. I reviewed bladder biopsies pathology results negative for malignant cells. The patient states she has not had any further bleeding since she has been off Coumadin. She is scheduled for a Watchman procedure for her heart condition. Urinalysis today is negative. Follow-up p.r.n. Review of chart: 12/21/23--recent hospitalization for gross hematuria, was on CBI. Currently she is off of her blood thinner. Office cystoscopy findings inflammation and prominent vessels consistent with radiation cystitis there is some thickening of the bladder mucosa posteriorly behind the trigone. I have discussed further evaluation with cystoscopy biopsy as an outpatient. 06/19/23--Carla is a very pleasant 77-year-old female patient of Dr. Pavon. She has a past medical history of colitis, cervical cancer status post chemo and radiation, paroxysmal atrial flutter on anticoagulation, and hypertension. She presents to the office today for follow-up. Of note, patient was seen approximately 2 months ago as a new patient for gross hematuria at which time a CT urogram and urine cytology was ordered for further assessment evaluation. These results were reviewed with the patient today. Bilateral kidneys with no calculi or hydronephrosis. 1.1 cm left renal cyst for which no further imaging follow-up is needed per radiology report. No focal or diffuse bladder wall thickening or bladder calculus seen. Urine Cytology 04/22--Negative for high-grade urothelial carcinoma. Discussed in office cystoscopy given gross hematuria as well as previous smoking history however patient declines at this time. She reports gross hematuria has since subsided can has had no other urinary issues or concerns. Discussed surveillance monitoring however patient does not feel this is necessary. She reports she will call if she has any other issues or concerns. In office urinalysis results reviewed with the patient today. [facility] Medical History Colitis Cervical cancer terminal carman current use of anticoagulant terminal carman current use of antiarrhythmic drug Essential hypertension Paroxysmal atrial flutter Surgical History Hx of removal of cyst Hx of tonsillectomy Hx of colonoscopy History of facelift History of appendectomy Hx of dilation and curettage History of cardioversion Family History Father No problems noted. Mother No problems noted. Social History Household Members: Spouse and Family Housing: House Are you a primary patient care coordinator to a significant other at home: No Do you presently have visiting nurse or other home services: No Alcohol intake: current Alcohol intake frequency: a few times a week Comment: patient refuses bed alarm Patient Tobacco Use Status: Former Tobacco user Tobacco use type: Cigarette Years Smoked: 25 e-Cigarette/Vaping Use: Never Used Second Hand Smoke Exposure: Yes service: No Current occupational status: retired Review of Systems Const All systems reviewed & are unremarkable except as noted in HPI and below Reports no additional complaints Eyes Reports no additional complaints ENT Reports no additional complaints Card Reports no additional complaints Resp Reports no additional complaints GI Reports no additional complaints Reports as per HPI Musc Reports no additional complaints Skin/Breast Reports system reviewed and no additional complaints, except as documented Neuro Reports no additional complaints Psych Reports no additional complaints Endo Reports no additional complaints Vik/Lymph Reports no additional complaints Aller/Immun Reports no additional complaints Results AMB Urinalysis, Automated UA Leukoctes 0 David/uL Last Edit by SHILPI Cummings on 02/04/24 14:42 UA Nitrite Negative Last Edit by SHILPI Cummings on 02/04/24 14:42 UA Urobilinogen 0.2 mg/dL Last Edit by SHILPI Cummings on 02/04/24 14:42 UA Protein 0 mg/dL Last Edit by SHILPI Cummings on 02/04/24 14:42 UA pH 6.0 Last Edit by SHILPI Cummings on 02/04/24 14:42 UA Blood 0 Moe/uL Last Edit by SHILPI Cummings on 02/04/24 14:42 UA Specific [place] 1.010 Last Edit by SHILPI Cummings on 02/04/24 14:42 UA Ketone Negative Last Edit by SHILPI Cummings on 02/04/24 14:42 UA Bilirubin 0 mg/dL Last Edit by SHILPI Cummings on 02/04/24 14:42 UA Glucose 0 mg/dL Last Edit by SHILPI Cummings on 02/04/24 14:42 Results Reviewed Results Reviewed: Laboratory Last Values Urine pH (Auto) 6.0 02/04/24 14:41 Specific [place] (Auto) 1.010 02/04/24 14:41 Urine Protein (Auto) 0 mg/dL 02/04/24 14:41 Glucose (UA)(Auto) 0 mg/dL 02/04/24 14:41 Urine Ketones (Auto) Negative 02/04/24 14:41 Urine Blood (Auto) 0 Moe/uL 02/04/24 14:41 Urine Nitrite (Auto) Negative 02/04/24 14:41 Urine Bilirubin (Auto) 0 mg/dL 02/04/24 14:41 Urine Urobilinogen (Auto) 0.2 mg/dL 02/04/24 14:41 Leukocyte Esterase (Auto) 0 David/uL 02/04/24 14:41 Surgical Pathology Status: [facility] Collected: 01/12/24 Location: [facility] Received: 01/12/24 Diagnosis Bladder, right wall, biopsy: Chronic cystitis. Clinical History Hematuria Microscopic Description Microscopic sections reviewed. Material Received Erythematous lesion right bladder wall Gross Description Received in formalin labeled ?erythematous lesion right lateral bladder? is a 0.25 cm congested and hemorrhagic red-maroon rubbery irregular tissue fragment, submitted in toto in a cassette labeled A. Date of Service: 06/08/23 EXAMINATION: CT ABDOMEN AND PELVIS WITHOUT AND WITH CONTRAST FINDINGS: LUNG BASES: No pleural or pericardial effusion. Small hiatal hernia. LIVER, GALLBLADDER, AND BILIARY TREE: The liver is decreased in attenuation. No suspicious hepatic lesion or biliary ductal dilatation is present. The gallbladder is unremarkable with no evidence of radiopaque gallstones, gallbladder wall thickening, or obvious pericholecystic inflammatory changes. PANCREAS: No ductal dilatation. SPLEEN: Not enlarged. ADRENAL GLANDS: No adrenal mass. KIDNEYS AND URETERS: The kidneys are symmetric in size and enhancement. Delayed images demonstrate intact renal function. 1.1 cm left renal cyst for which no further imaging follow-up is needed. No renal or ureteral calculus. No perinephric stranding. Bilateral collecting systems and opacified portions of the ureters are nondilated and without obvious filling defects. BLADDER: Partially fills with excreted contrast. No focal or diffuse bladder wall thickening. No bladder calculus. GASTROINTESTINAL TRACT: No small bowel obstruction. There is hypertrophic change of the sigmoid colon with fibrotic scarring in the pelvis likely related to prior diverticulitis. ABDOMINAL WALL: No significant hernia is appreciated. LYMPH NODES: No bulky lymphadenopathy. VASCULAR: Normal caliber abdominal aorta. PELVIC VISCERA: Unremarkable. OSSEUS STRUCTURES: No destructive bone lesions. IMPRESSION: No nephrolithiasis or hydronephrosis. Hepatic steatosis. Assessment & Plan Assessment & Plan (1) Gross hematuria: Code(s): R31.0 - Gross hematuria Category: Medical (2) Renal cyst: Code(s): N28.1 - Cyst of kidney, acquired Category: Medical Plan I reviewed bladder biopsies pathology results negative for malignant cells. The patient states she has not had any further bleeding since she has been off Coumadin. She is scheduled for a Watchman procedure for her heart condition. Urinalysis today is negative. Follow-up p.r.n. Orders: Orders AMB Urinalysis Automated Today Z13.9 - Encounter for screening, unspecified Patient Instructions: The patient had an opportunity to ask questions regarding treatment plan. The patient expressed understanding and agreement with the above treatment plan. The patient is aware they should contact our office by phone for worsening of their current condition or the appearance of new symptoms. Compliance is encouraged with any medications and followup testing that is ordered. It is a privilege to be allowed the opportunity to participate in the urologic care of your patient. If you have any questions or concerns regarding treatment for the above conditions please do not hesitate to contact me. The office telephone contact is [phone]. This note is constructed in part using voice recognition software. While every effort has been made to ensure accuracy paper sheeter errors may have been included. Yours sincerely, Edward Stephenson MD Coding Level of Care Code Est Pt Level 3 (41840) Diagnoses Gross hematuria R31.0 Renal cyst N28.1
== END 2024-02-04 15:26 | disposition home or self-care (01) ==
LOC: HO.HUSH 13:48
PROVIDERS: PCP Internal Medicine; Visit Provider Urology
DX: R31.0 Gross hematuria (principal); N28.1 Cyst of kidney, acquired; Z13.9 Encounter for screening, unspecified
CPT/HCPCS: 99213

== ENCOUNTER → 2024-02-04 13:48 | Outpatient (BNVA) | payer MEDICARE, SELFPAY | PROVIDERS: PCP Internal Medicine; Visit Provider Urology | DX: R31.0 Gross hematuria (principal); N28.1 Cyst of kidney, acquired | CPT/HCPCS: 81003; 99212 ==

== ENCOUNTER 2024-03-18 12:54 | Outpatient (REF) | payer MEDICARE, SELFPAY ==
[2024-03-18 13:02] LABS: MANUAL DIFF FLAG NO
[2024-03-18 13:14] LABS: Basophils Absolute Auto 0.1 X10*3/uL (0.0-0.2); Basophils Percent Auto 1.4 % (0-2); Eosinophils Absolute Auto 0.4 X10*3/uL (0.0-0.4); Eosinophils Percent Auto 8.4 % (0-4); Hematocrit 39.3 % (37.0-47.0); Hemoglobin 12.2 g/dl (12.0-16.0); Imm Gran Abs Auto 0.01 X10*3/uL (0.00-0.03); Imm Gran Pct Auto 0.2 % (0.0-0.4); Lymphocytes Absolute Auto 1.2 X10*3/uL (1.2-4.9); Lymphocytes Percent Auto 27.9 % (20-40); Mean Corpuscular Hemoglobin 30.2 pg (27.0-33.0); Mean Corpuscular Volume 97.3 fL (80.0-98.0); Mean Platelet Volume 9.2 fL (9.4-12.3); Monocytes Absolute Auto 0.5 X10*3/uL (0.1-1.2); Neutrophils Absolute Auto 2.2 x10*3/uL (2.0-8.3); Neutrophils Percent Auto 51.1 % (45-73); Platelet Count 248 X10*3/uL (160-400); Red Blood Count 4.04 X10*6/uL (4.20-5.50); Red Cell Distribution Width 18.6 % (11.0-16.0); White Blood Count 4.4 X10*3/uL (4.8-10.8)
[2024-03-18 13:28] LABS: Appearance Urine Clear; Color Urine Yellow; Glucose Urine UA Negative (Negative); Leukocyte Esterase Urine Negative (Negative); Nitrite Urine Negative (Negative); PH 5.5 (5.0-9.0); Urine Blood Negative (Negative); Urine Ketones Negative (Negative); Urine Protein Negative (Neg-Trace)
[2024-03-18 13:35] LABS: Alanine Aminotransferase 17 U/L (0-31); Alkaline Phosphatase 90 U/L (39-117); Anion Gap 13 (12-20); Aspartate Amino Transferase 21 U/L (5-31); Bilirubin Total 0.3 mg/dL (0.0-1.0); Blood Urea Nitrogen 18 mg/dL (9-16); Calcium 9.3 mg/dL (8.4-10.2); Carbon Dioxide 26 mmol/L (22-29); Chloride 107 mmol/L (96-108); Cholesterol 186 mg/dL (<200); Estimated Glomerular Filt Rate 58; Glucose Fasting 88 mg/dL (60-99); HDL Cholesterol 62 mg/dL (>40); LDL Cholesterol Calculated 108 mg/dL (<100); Potassium 4.8 mmol/L (3.3-5.1); Sodium 141 mmol/L (135-145); Total Protein 7.4 g/dL (6.5-8.0); Triglycerides 84 mg/dL (<150)
[2024-03-18 13:36] LABS: Bacteria Urine None Seen (None Seen); Hyaline Casts Urine 0-2 /LPF (0-2); RBC Urine 0-2 /HPF (0-2); Squamous Epithelial Cell Urine 0-2 /HPF (0-2); WBC Urine 0-5 /HPF (0-5)
[2024-03-18 13:39] LABS: Estimated Average Glucose 108 mg/dL; Hemoglobin A1C 110.9447 umol/L; Hemoglobin A1c % 5.4 % (<6.0); Total Hemoglobin (HGBA1C) 3160.4261 umol/L
[2024-03-18 13:51] LABS: Creatinine Urine 115.46 mg/dL; Microalbum/Creatinine Ratio Ur 18.1 ug/mg cr (<30)
== END 2024-03-18 12:55 | disposition home or self-care (01) ==
LOC: HO.LNP 12:54
PROVIDERS: Visit Provider Internal Medicine
DX: Z00.00 Encounter for general adult medical examination without abnormal findings (principal); R73.09 Other abnormal glucose; E78.00 Pure hypercholesterolemia, unspecified; I10 Essential (primary) hypertension; D70.9 Neutropenia, unspecified
CPT/HCPCS: 80053; 80061; 81001; 82043; 82570; 83036; 85025

== ENCOUNTER 2024-03-21 10:57 | Outpatient (AMB) | payer MEDICARE, SELFPAY ==
[2024-03-21 11:01] VITALS: BP 144/58; PULSE 75; BMI 30.3
--- NOTE | 2024-03-21 11:01 | MHC.OFFVIS ---
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 Accompanied by: Self / Same As Patient Allergies amoxicillin [From AUGMENTIN] Allergy (Intermediate, Verified 02/04/24 14:28) Rash clavulanic acid [From AUGMENTIN] Allergy (Intermediate, Verified 02/04/24 14:28) Rash Medication List - Last Reconciled 03/21/24 by Lion Dahl MD albuterol sulfate 90 mcg/actuation 2 puffs inhalation Q6H PRN apixaban (Eliquis) 5 mg PO BID aspirin (Adult Low Dose Aspirin) 81 mg PO DAILY cholecalciferol (vitamin D3) 50 mcg PO BEDTIME diltiazem HCl CD 120 mg PO BEDTIME flecainide 50 mg PO BID [Golo Release Supplement 1 cap PO BID PRN] lisinopril 20 mg PO BEDTIME HPI Comments Details: Carla returns for follow up regarding atrial flutter. In the past, routine EKG at PCP's office had revealed atrial flutter. Subsequently she underwent cardioversion. Initially she was on Xarelto, but due to cost, this was switched to Coumadin. She was doing okay but had severe anemia from hematuria and hemoglobin was as low as 5.8. Then she was seen by EP and underwent Watchman device. She seems to be on Eliquis which might be a short term anticoagulant. Also on aspirin. Overall, she states she feels okay. No specific cardiac concerns. 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 Mother No problems noted. Social History Household Members: Spouse and Family Housing: House Are you a primary healthcare administrator to a significant other at home: No Do you presently have visiting nurse or other home services: No Alcohol intake: current Alcohol intake frequency: a few times a week Comment: patient refuses bed alarm Patient Tobacco Use Status: Former Tobacco user Tobacco use type: Cigarette Years Smoked: 25 e-Cigarette/Vaping Use: Never Used Second Hand Smoke Exposure: Yes service: No Current occupational status: retired Review of Systems Const Denies chills, Denies fatigue, Denies fever(s), Denies weight gain and Denies weight loss ENT Denies dizziness Card Denies chest pain, Denies leg edema, Denies lightheadedness, Denies palpitations, Denies dyspnea on exertion, Denies orthopnea and Denies other Resp Denies cough and Denies dyspnea on exertion GI Denies hematochezia and Denies change in stool character Musc Denies abnormal gait, Denies muscle weakness, Denies numbness, Denies radiating pain into limb and Denies tingling Neuro Denies abnormal gait, Denies dizziness, Denies numbness and Denies tingling Endo Denies fatigue and Denies palpitations Physical Exam Vital Signs: Last Vital Signs Pulse 75 03/21/24 11:01 BP 144/58 H 03/21/24 11:01 BMI result Body Mass Index 30.3 Const General: comfortable and no acute distress Orientation/consciousness: patient oriented x3 HEENT Other: Unremarkable Head: Yes normal to inspection Neck Neck: Yes normal visual inspection Chest Chest palpation & inspection: normal inspection of the chest Resp Auscultation: clear to auscultation bilaterally Cardio Palpation: normal PMI Heart sounds: S1 normal heart sound present, S2 normal heart sound present, no gallops, no murmurs and no rubs GI Palpation (GI): Soft to palpation Back/Spine/Pelvis Other: unremarkable Skin General skin exam: no rashes or lesions noted Neuro General: patient oriented x3 Extrem General: Yes normal to inspection Psych Mental Status: mental status grossly normal Office Procedures EKG Details: EKG with sinus rhythm at 75/Min; WA prolongation to 236ms; no significant ST-T [place]; [place]. [id number], Complete Assessment & Plan Assessment & Plan (1) Paroxysmal atrial flutter: Code(s): I48.92 - Unspecified atrial flutter Category: Medical (2) AV block, 1st degree: Code(s): I44.0 - Atrioventricular block, first degree Category: Medical (3) Encounter for monitoring anti-arrhythmic therapy: Code(s): Z51.81 - Encounter for therapeutic drug level monitoring; Z79.899 - Other exterminator termite (current) drug therapy Category: Medical (4) Hematuria: Code(s): R31.9 - Hematuria, unspecified Category: Medical Qualifiers: Hematuria type: gross Qualified Code(s): R31.0 - Gross hematuria (5) Anemia: Code(s): D64.9 - Anemia, unspecified Category: Medical (6) Essential hypertension: Code(s): I10 - Essential (primary) hypertension Category: Medical (7) Presence of Watchman left atrial appendage closure device: Code(s): Z95.818 - Presence of other cardiac implants and grafts Category: Medical Plan She is stable on diltiazem/flecainide and we can continue this. Due to severe anemia/hematuria, she is now status post Watchman device. With regard to aspirin/Eliquis, advised to contact EP service at [facility] regarding the actual regimen to be used. She states she has a follow-up coming up. With regard to hypertension, on lisinopril. Blood pressure is less than ideal. She is not doing home blood pressures and hence advised her to do the same and contact us in a few weeks' time. Blood pressure is still in this range, can go up on lisinopril dosing or try a different agent. Her potassium is at the upper end of normal at 4.8. Hence may not be able to use high dose lisinopril and may have to add another agent like amlodipine. Echocardiogram 2021-LVEF 65-70%. Mild diastolic dysfunction but otherwise unremarkable. Normal atrial size. Atrial septal aneurysm. Myocardial perfusion imaging [id number] perfusion. Coding Level of Care Code Est Pt Level 4 (07334) Diagnoses Paroxysmal atrial flutter I48.92 AV block, 1st degree I44.0 Encounter for monitoring anti-arrhythmic therapy Z51.81; Z79.899 Hematuria R31.0 Hematuria type: gross Anemia D64.9 Essential hypertension I10 Presence of Watchman left atrial appendage closure device Z95.818 CPT Codes EKG - CPT: 85749-[id number], Complete ([id number])
--- OUTSIDE RECORDS SUMMARY | 2024-03-21 11:01 | XMS_ITS ---
Author Organization Darren Pavon MD Address [address] [place], [place] [id number] Care Team Providers Care Laser Print Operator Name Role Phone Darren Pavon Primary Care Provider [phone] RESULTS Component Value Reference Range Notes Complete Blood Count Auto Di ff Reviewed date:03/18/2024 04:32:48 PM Interpretation: Performing Lab:[facility], [address] [place] [phone] Notes/Report: White Blood Count 4.4 4.8-10.8 X10*3/uL Red Blood Count 4.04 4.20-5.50 X10*6/uL Hemoglobin 12.2 12.0-16.0 g/dl Hematocrit 39.3 37.0-47.0 % Mean Corpuscular Volume 97.3 80.0-98.0 fL Mean Corpuscular Hemoglobin 30.2 27.0-33.0 pg Mean Corpuscular HGB Conc 31.0 31.0-35.0 g/dl Red Cell Distribution Width 18.6 11.0-16.0 % Platelet Count 248 160-400 X10*3/uL Mean Platelet Volume 9.2 9.4-12.3 fL Neutrophils Percent Auto 51.1 45-73 % Imm Gran Pct Auto 0.2 0.0-0.4 % Lymphocytes Percent Auto 27.9 20-40 % Monocytes Percent Auto 11.0 2-11 % Eosinophils Percent Auto 8.4 0-4 % Basophils Percent Auto 1.4 0-2 % NRBC Pct Auto 0.0 0.0-0.2 /100WBC Neutrophils Absolute Auto 2.2 2.0-8.3 x10*3/u L Imm Gran Abs Auto 0.01 0.00-0.03 X10*3/uL Lymphocytes Absolute Auto 1.2 1.2-4.9 X10*3/u L Monocytes Absolute Auto 0.5 0.1-1.2 X10*3/uL Eosinophils Absolute Auto 0.4 0.0-0.4 X10*3/u L Basophils Absolute Auto 0.1 0.0-0.2 X10*3/uL NRBC Abs Auto 0.000 0.0-0.012 X10*3/uL Comprehensive [place]. Panel Fa st Reviewed date:03/18/2024 04:23:31 PM Interpretation: Performing Lab:[facility], [address] [place] [phone] Notes/Report: Sodium 141 135-145 mmol/L Potassium 4.8 3.3-5.1 mmol/L Chloride 107 96-108 mmol/L Carbon Dioxide 26 22-29 mmol/L Anion Gap 13 12-20 Blood Urea Nitrogen 18 9-16 mg/dL Creatinine 0.94 0.5-1.4 mg/dL Estimated Glomerular Filt Rate 58 Chronic Kidney Disease: Estimated GFR < 60 mL/min/1.73m2 Severe Kidney Disease: Estimated GFR < 15 mL/min/1.73m2 Glucose Fasting 88 60-99 mg/dL Calcium 9.3 8.4-10.2 mg/dL Bilirubin Total 0.3 0.0-1.0 mg/dL Aspartate Amino Transferase 21 5-31 U/L Alanine Aminotransferase 17 0-31 U/L Total Protein 7.4 6.5-8.0 g/dL Albumin Level 4.0 3.5-5.0 g/dL Alkaline Phosphatase 90 39-117 U/L Lipid Panel Reviewed date:03/18/2024 04:22:23 PM Interpretation: Performing Lab:[facility], [address] [place] [phone] Notes/Report: Triglycerides 84 <150 mg/dL Desirable Triglyceride: less than 150 mg/dL Borderline High Triglyceride 150-199 mg/dL High Triglyceride: 200-499 mg/dL Very High Triglyceride: greater than or equal to 5OO mg/dL Cholesterol 186 <200 mg/dL Desirable Cholesterol: less than 200 mg/dL Borderline High Cholesterol: 200-239 mg/dL High Cholesterol: greater than 239 mg/dL LDL Cholesterol Calculated 108 <100 mg/dL Desirable LDL: less than 100 mg/dL Near Optimal/Above Optimal LDL: 110-129 mg/dL Borderline High LDL: 130-159 mg/dL High LDL: 160-189 mg/dL Very High LDL: greater than or equal to 190 mg/dL HDL Cholesterol 62 >40 mg/dL Desirable HDL: greater than 40 mg/dL Note: This HDL assay may give artificially low results in patients with liver disease. Microalbumin, Random Reviewed date:03/18/2024 04:22:06 PM Interpretation: Performing Lab:[facility], [address] [place] [phone] Notes/Report: Creatinine Urine 115.46 Microalbumin Urine 21.0 Microalbum/Creatinine Ratio Ur 18.1 <30 ug/mg cr Albumin/Creatinine Ratio Reference Ranges: Normal: < 30 ug/mg creatinine Microalbuminuria: 30 - 300 ug/mg creatinine Clinical Albuminuria: > 300 ug/mg creatinine Hemoglobin A1c Reviewed date:03/18/2024 04:22:13 PM Interpretation: Performing Lab:[facility], [address] [place] [phone] Notes/Report: Hemoglobin A1c % 5.4 <6.0 % Hemoglobin A1C Reference Range Adults: 4.8 - 6.0 % Non diabetic: < 6.0 % Goal: < 7.0 % Additional Action Suggested: > 8.0 % Note: Hemoglobin A1c results are invalid for patients with abnormal amounts of HbF. Blood transfusions may impact the HbA1c concentration in the patient sample. Estimated Average Glucose 108 eAG = Estimated average glucose which is %A1C expressed as average glucose, using the formula of the I5S-Obhjugs Average Glucose study (ADAG), Diabetes Care, Vol.31,#8, 2007 UA ClnCatch+Micro w/rflx Cul t Reviewed date:03/18/2024 04:33:53 PM Interpretation: Performing Lab:[facility], [address] [place] [phone] Notes/Report: Urine, Clean Catch Color Urine Yellow Appearance Urine Clear PH 5.5 5.0-9.0 Glucose Urine UA Negative Negative mg/dL Urine Blood Negative Negative Specific [place] - Urine 1.020 1.005-1.025 Urine Protein Negative Neg-Trace mg/dL Urine Ketones Negative Negative mg/dL Nitrite Urine Negative Negative Leukocyte Esterase Urine Negative Negative RBC Urine 0-2 0-2 /HPF WBC Urine 0-5 0-5 /HPF Squamous Epithelial Cell Urine 0-2 0-2 /HPF Bacteria Urine None Seen None Seen Hyaline Casts Urine 0-2 0-2 /LPF REASON FOR VISIT yearly paper work Encounters Encounter Location Date Provider Diagnosis Darren Pavon MD [address] [place] [address] [place] [phone] 03/18/2024 Darren Pavon Blood tests for rout ine general physical examination Z00.00 ; Prediabetes R73.09 ; Pure hypercholesterolemia E78.00 ; Labile hypertension I10 and Neutropenia, unspecified type D70.9 ASSESSMENTS Encounter Date Diagnosis Assessment Notes Treatment Notes Treatment Clinical Notes 03/18/2024 Blood tests for rout ine general physical examination (ICD-10 - Z00.00) 03/18/2024 Prediabetes (ICD-10 - R73.09) 03/18/2024 Pure hypercholestero lemia (ICD-10 - E78.00) 03/18/2024 Labile hypertension (ICD-10 - I10) 03/18/2024 Neutropenia, unspeci fied type (ICD-10 - D70.9) PLAN OF TREATMENT Next Appt Details Provider Name:Darren hudson, 03/31/2024 11:00:00 AM, [address] [place] [address], [address], [place], [place], [phone],
--- OUTSIDE RECORDS SUMMARY | 2024-03-21 11:01 | XMS_ITS ---
Author Organization Darren Pavon MD Address [address] [place], [place] [id number] Care Team Providers Care Emergency Operator Name Role Phone Darren Pavon Primary Care Provider ALLERGIES Allergen (clinical drug ingredient) Drug/Non Drug Allergy documented on EMR Reaction Allergy Type Onset Date Status amoxicillin / clavulanate augmentin (uncoded) yeast infection Allergy Active REASON FOR VISIT 2 month, went to [facility] 02-13-24 after watchman placement for tongue swelling and face felt numb, awaiting Discharge summary MEDICATIONS Medication SIG (Take, Route, Frequency, Duration) Notes Start Date End Date Status Diclofenac Sodium 75 MG 1 tablet with fo od or milk Orally Twice a day Not-Taki ng Aspirin 325 MG 1 tablet Orally PRN for 30 day(s) Not-Taking Balsalazide Disodium 750 MG 1 capsules Orally three times a day Not-Taking Benzonatate 100 MG 1 capsule as needed Orally Three times a day for 10 days 04/08/2022 Not-Taking Molnupiravir 200 MG 4 capsules Orally ev shan 12 hrs for 5 day(s) 10/16/2023 Not-Taking ProAir HFA 108 (90 Base) MCG/ACT 2 puffs as needed Inhalation every 6 hrs for 30 days 07/03/2017 Active Flecainide Acetate 50 MG Orally twice a day Active Lisinopril 10 MG 1 tablet Orally Once a day Active Vitamin D 25 MCG (1000 UT) 1 tablet Orally Once a day for 30 day(s) Active dilTIAZem HCl ER Coated Beads 120 MG TAKE 1 CAPSULE BY MOUTH EVERY DAY for 30 Active Aspirin 81 81 MG 1 tablet Orally Once a day for 30 day(s) Active Ferrous Sulfate 324 MG 1 tablet Orally T hree times a Week for 30 day(s) Active Eliquis 5 MG as directed Orally twice a day Active VITAL SIGNS BMI 28.08 kg/m2 02/15/2024 Blood pressure systolic 130 mm Hg 02/15/20 24 Blood pressure diastolic 52 mm Hg 024 Height 66 in 02/15/2024 Weight 174 lbs 02/15/2024 weight is down 3 poiunds sin ce 10-- Encounters Encounter Location Date Provider Diagnosis Darren Pavon MD [address] [place] [address] [address] [place], [place] [phone] 02/15/2024 Darren Pavon Facial numbness R20.0 ASSESSMENTS Encounter Date Diagnosis Assessment Notes Treatment Notes Treatment Clinical Notes 02/15/2024 Facial numbness (ICD-10 - R20.0) went away mostly. has a tiny bit of numbness. was discharged yesterday. need results of d/c summary. had ct head AND REPEAT all negative . have reviewed the visit to the hospital. had a ct and ct angio both negative. also a repeat ct suggested by neurology which showed no change. she states that they said even if she had a stroke there was nothing else to do because she was already on blood thinners. i think from the notes it was the aspirin and NOAC precluded the use of a thrombolytic even if there were a stroke and there was not/ she is completely satisfied with her recovery 02/15/2024 Other Total time spen t on the date of the encounter is 35 minutes including both face to face time spent and time spent reviewing documentation, and counseling the patient. PLAN OF TREATMENT Treatment Notes Assessment Notes Facial numbness went away mostly. madera s a tiny bit of numbness. was discharged yesterday. need results of d/c summary. had ct head AND REPEAT all negative . have reviewed the visit to the hospital. had a ct and ct angio both negative. also a repeat ct suggested by neurology which showed no change. she states that they said even if she had a stroke there was nothing else to do because she was already on blood thinners. i think from the notes it was the aspirin and NOAC precluded the use of a thrombolytic even if there were a stroke and there was not/ she is completely satisfied with her recovery Other Total time spent on the date of the encounter is 35 minutes including both face to face time spent and time spent reviewing documentation, and counseling the patient. Next Appt Details Provider Name:Darren hudson, 03/31/2024 11:00:00 AM, [address], [address], [place], [place], [phone], Progress Notes * Examination Category Sub-Category Detail Notes General Examination GENERAL APPEARANCE: well dev eloped, well nourished HEAD: normocephalic face l ooks symmetricaldoesn't have any weakness HEART: regular rate and rhy thm , no murmurs, rubs, gallops LUNGS: clear to auscultatio n bilaterally
--- OUTSIDE RECORDS SUMMARY | 2024-03-21 11:01 | XMS_ITS | Continuity of Care Document ---
Author Organization [facility] Stephon glynn Address [address] [place] [id number] Care Team Providers Care White Sugar Syrup Operator Name Role Phone Savanah ROLNO, Darren Primary Care Physician [phone] Encounter [facility] Date(s): 02/10/24 - 03/11/24 [facility] [address] [place] [address] Drive [address] [place], [place] [address] Encounter Type: Triage Allergies, Adverse Reactions, Alerts Substance Criticality Severity Reaction Reaction Severity Status Augmentin rash/ yeast infection Active Immunizations Given and Recorded Vaccine Date Status Refusal Reason SARS-CoV-2 (COVID-19) mRNA-1273 vaccine 1 08/28/20 Recorded SARS-CoV-2 (COVID-19) mRNA-1273 vaccine 08/01/20 R ecorded 1Result Comment: [facility] Medications Albuterol (Eqv-ProAir HFA) 90 mcg/inh inhalation aerosol 0 Refills, Maintenance, 02/03/24 4:05:00 PM EST, Partial fill upon patient request if the prescription is for a schedule II opioid drug. Start Date: 02/03/24 Status: Ordered Repeat number: 1 alendronate 70 mg oral tablet 1 tablet = 70 mg, By Mouth, Every week, # 12 tablet, 0 Refills, Maintenance, 02/13/24 3:38:00 PM EST, Tablet, Partial fill upon patient request if the prescription is for a schedule II opioid drug. Start Date: 02/13/24 Status: Ordered Quantity: 12.0 Unit: tablet Repeat number: 1 apixaban 5 mg oral tablet = 5 mg, By Mouth, 2 times a day, # 60 tablet, 1 Refills, Maintenance, 02/10/24 12:56:00 PM EST, Tablet, [facility], Partial fill upon patient request if the prescription is for a schedule II opioid drug., 162.56, cm, 02/10/24 9:52:00 EST, Height, 80.1, kg, 02/10/24 9:52:00 EST, Dry Weight Start Date: 02/10/24 Stop Date: 04/10/24 Status: Ordered Quantity: 60.0 Unit: tablet Repeat number: 2 aspirin 81 mg oral capsule 1 capsule = 81 mg, By Mouth, Every 24 hours, 0 Refills, Maintenance, 02/03/24 4:07:00 PM EST, Partial fill upon patient request if the prescription is for a schedule II opioid drug. Start Date: 02/03/24 Status: Ordered Repeat number: 1 Diltiazem = 120 mg, By Mouth, Daily in AM, 0 Refills, Maintenance, 03/03/18 3:17:18 PM EST Start Date: 03/03/18 Status: Ordered Repeat number: 1 ferrous sulfate 324 mg (65 mg elemental iron) oral delayed release tablet 1 tablet = 324 mg, By Mouth, 2 times a day, # 1,000 tablet, 0 Refills, Maintenance, 02/13/24 9:11:00 PM EST, CR Tablet, Partial fill upon patient request if the prescription is for a schedule II opioid drug. Start Date: 02/13/24 Status: Ordered Quantity: 1000.0 Unit: tablet Repeat number: 1 Flecainide = 50 mg, By Mouth, Every 12 hours, 0 Refills, Maintenance, 05/09/20 3:27:00 PM EST, Partial fill upon patient request if the prescription is for a schedule II opioid drug. Start Date: 05/09/20 Status: Ordered Repeat number: 1 lisinopril 10 mg oral tablet 20 mg, By Mouth, Daily at bedtime, Refills 0, Maintenance, 04/12/20 12:59:00 PM EST, Partial fill upon patient request if the prescription is for a schedule II opioid drug. Start Date: 04/12/20 Status: Ordered Repeat number: 1 Misc Rx Refills 0, Maintenance, 02/13/24 9:09:00 PM EST, Supply Start Date: 02/13/24 Status: Ordered Repeat number: 1 Misc Rx Refills 0, Maintenance, 02/13/24 9:10:00 PM EST, Supply Start Date: 02/13/24 Status: Ordered Repeat number: 1 Vitamin D3 1000 intl units oral tablet 1 tablet = 25 mcg, By Mouth, Daily, 0 Refills, Maintenance, 11/26/23 12:10:00 PM EDT, Partial fill upon patient request if the prescription is for a schedule II opioid drug. Start Date: 11/26/23 Status: Ordered Repeat number: 1 Problem List Condition Confirmation Course Effective Dates Status H ealth Status Informant Cervical adenocarcinoma Confirmed Active Afib Confirmed Active On Coumadin for atrial fibrillation Confirmed Active Hypertension Confirmed Active Obese class I Confirmed Active Urinary incontinence Confirmed Active Social History Social History Type Response Smoking Status Former smoker, quit more than 30 days ago entered on: 03/22/20 Sex Sex Representation Female (finding) Patient Care team information Care Team Personnel Name: Darren Pavon MD Position: Reference Physician Member Role: PCP Address: [address] [place] [address] Darren Pavon MD [place], [place] [address] Telecom: [phone] Care Team Related Persons Name: BRODY VARGAS Name: RITCHIE VARGAS Insurance Providers Guarantor name: MISA VARGAS Health Plan Information #: 1 Payer: [facility] [employer] Member Number: NA Policy Number: NA Group Number: NA
--- OUTSIDE RECORDS SUMMARY | 2024-03-21 11:01 | XMS_ITS | Continuity of Care Document ---
Author Organization [facility] Address [address] [place] [id number]- Care Team Providers Care Bond Clerk Name Role Phone Savanah ROLON, Darren Primary Care Physician [phone] Encounter [facility] [place](s): 02/19/24 - 03/20/24 [facility] [address] [place] [id number]- Encounter Type: Triage Allergies, Adverse Reactions, Alerts Substance Criticality Severity Reaction Reaction Severity Status Augmentin rash/ yeast infection Active Immunizations Given and Recorded Vaccine Date Status Refusal Reason SARS-CoV-2 (COVID-19) mRNA-1273 vaccine 1 08/28/20 Recorded SARS-CoV-2 (COVID-19) mRNA-1273 vaccine 08/01/20 R ecorded 1Result Comment: [facility] Medications Albuterol (Eqv-ProAir HFA) 90 mcg/inh inhalation [...] Refills, Maintenance, 02/10/24 12:56:00 PM EST, Tablet, [facility], Partial fill upon patient request [...] Position: Reference Physician Member Role: PCP Address: [address] [place] [address] Darren Pavon MD [place], [place] [address] Telecom: [phone] Care Team Related Persons Name: BRODY VARGAS Name: RITCHIE VARGAS Insurance Providers Guarantor name: MISA VARGAS Health Plan Information #: 1 Payer: [facility] [employer] Member Number: NA Policy Number: NA Group Number: [id number]
--- OUTSIDE RECORDS SUMMARY | 2024-03-21 11:01 | XMS_ITS ---
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 Name Role Phone Darren Pavon Primary Care Provider ALLERGIES Allergen (clinical drug ingredient) Drug/Non Drug Allergy documented on EMR Reaction Allergy Type Onset Date Status amoxicillin / clavulanate augmentin (uncoded) yeast infection Allergy Active REASON FOR VISIT pre-op clearance Haven Crowley bladder bx no labs of EKG just clarance to be off asprin 3 days before procedure MEDICATIONS Medication SIG (Take, Route, Frequency, Duration) Notes Start Date End Date Status Diclofenac Sodium 75 MG 1 tablet with fo od or milk Orally Twice a day Not-Taki ng Aspirin 325 MG 1 tablet Orally PRN for 30 day(s) Not-Taking Molnupiravir 200 MG 4 capsules Orally ev shan 12 hrs for 5 day(s) 10/16/2023 Not-Taking Balsalazide Disodium 750 MG 1 capsules Orally three times a day Not-Taking Benzonatate 100 MG 1 capsule as needed Orally Three times a day for 10 days 04/08/2022 Not-Taking Vitamin D 25 MCG (1000 UT) 1 tablet Orally Once a day for 30 day(s) Active Flecainide Acetate 50 MG Orally twice a day Active Lisinopril 10 MG 1 tablet Orally Once a day Active dilTIAZem HCl ER Coated Beads 120 MG TAKE 1 CAPSULE BY MOUTH EVERY DAY Active ProAir HFA 108 (90 Base) MCG/ACT 2 puffs as needed Inhalation every 6 hrs for 30 days 07/03/2017 Active Aspirin 81 81 MG 1 tablet Orally Once a day for 30 day(s) Active VITAL SIGNS BMI 28.57 kg/m2 01/01/2024 Blood pressure systolic 142 mm Hg 01/01/20 Blood pressure diastolic 50 mm Hg 024 Height 66 in 01/01/2024 Weight 177 lbs 01/01/2024 weight is up 4 pounds since 12-15-23 Encounters Encounter Location Date Provider Diagnosis Darren Pavon MD [address] [place] [address] [place] [phone] 01/01/2024 Darren Pavon Pre-op evaluation Z01.818 and Gross hematuria R31.0 ASSESSMENTS Encounter Date Diagnosis Assessment Notes Treatment Notes Treatment Clinical Notes 01/01/2024 Pre-op evaluation (ICD-10 - Z01.818) patient healthy. no need for any further evaluation prior to the upcoming surgery. cleared for surgery 01/01/2024 Gross hematuria (ICD-10 - R31.0) PLAN OF TREATMENT Treatment Notes Assessment Notes Pre-op evaluation patient healthy. no need for any further evaluation prior to the upcoming surgery. cleared for surgery Next Appt Details Provider Name:Darren hudson, 03/31/2024 11:00:00 AM, [address] [place] [address], [address], [place], [place], [phone], Progress Notes * Examination Category Sub-Category Detail Notes General Examination GENERAL APPEARANCE: alert, w ell hydrated, in no distress , female HEAD: normocephalic EYES: BOTH EYES, normal EARS: BOTH EARS, normal THROAT: no erythema, no exud ate, pharynx normal NECK/THYROID: no cervical lymphade nopathy HEART: regular rate and rhy thm, no murmurs, rubs, gallops LUNGS: no wheezes, rales, r honchi, good air movement, clear to auscultation bilaterally ABDOMEN: soft, nontender, non distended, no rebound tenderness, no organomegaly SKIN: good turgor
--- OUTSIDE RECORDS SUMMARY | 2024-03-21 11:02 | XMS_ITS | Patient Health Record ---
Author Organization Darren Pavon MD Address [address] [place] [phone] Care Team Providers Care Allergy Physician Name Role Phone Darren Pavon Primary Care Provider ALLERGIES Allergen (clinical drug ingredient) Drug/Non Drug Allergy documented on EMR Reaction Allergy Type Onset Date Status amoxicillin / clavulanate augmentin (uncoded) yeast infection Allergy Active RESULTS Component Value Reference Range Notes INR WHOLE BLOOD POC Reviewed date:04/01/2023 04:24:32 PM Interpretation: Performing Lab:[facility], [address] [place] [phone] Notes/Report: PT, INR - Anti Coag Clinic 2.6 0.9-1.1 METER #: [id number] INTERNATIONAL NORMALIZED RATIO (INR) REFERENCE RANGES Reference Range For patients not on anticoagulant therapy: 0.9 - 1.1 INR ranges for oral anticoagulant therapy: For prevention and treatment of venous thrombosis and pulmonary embolism: 2.0 - 3.0 For acute myocardial infarction with aspirin therapy: 2.0 - 3.0 For acute myocardial infarction without aspirin therapy: 3.0 - 4.0 For patients with mechanical prosthetic heart valves: 2.5 - 3.5 Prothrombin Time Whole Bld P OC Reviewed date:04/01/2023 04:29:43 PM Interpretation: Performing Lab:[facility], [address] [place] [phone] Notes/Report: Prothrombin Time Whole Bld POC 30.8 11.1-13.5 sec BONE DENSITY DEXA Reviewed date:04/27/2023 09:26:14 AM Interpretation:Osteopenia Performing Lab: Notes/Report: Osteopenia BONE DENSITY DEXA Reviewed date:04/27/2023 09:26:14 AM Interpretation:Osteopenia Performing Lab: Notes/Report: Osteopenia MAMMOGRAM DIGITAL BILATERAL SCREEN Reviewed date:04/27/2023 09:28:03 AM Interpretation:Negative Performing Lab: Notes/Report: Negative INR WHOLE BLOOD POC Reviewed date:04/29/2023 04:45:18 PM Interpretation: Performing Lab:[facility], [address] [place] [phone] Notes/Report: PT, INR - Anti Coag Clinic 3.1 0.9-1.1 METER #: [id number] INTERNATIONAL NORMALIZED RATIO (INR) REFERENCE RANGES Reference Range For patients not on anticoagulant therapy: 0.9 - 1.1 INR ranges for oral anticoagulant therapy: For prevention and treatment of venous thrombosis and pulmonary embolism: 2.0 - 3.0 For acute myocardial infarction with aspirin therapy: 2.0 - 3.0 For acute myocardial infarction without aspirin therapy: 3.0 - 4.0 For patients with mechanical prosthetic heart valves: 2.5 - 3.5 Prothrombin Time Whole Bld P OC Reviewed date:04/29/2023 04:47:52 PM Interpretation: Performing Lab:[facility], [address] [place] [phone] Notes/Report: Prothrombin Time Whole Bld POC 36.9 11.1-13.5 sec INR WHOLE BLOOD POC Reviewed date:05/14/2023 12:29:49 PM Interpretation: Performing Lab:[facility], [address] [place] [phone] Notes/Report: PT, INR - Anti Coag Clinic 2.2 0.9-1.1 METER #: [id number] INTERNATIONAL NORMALIZED RATIO (INR) REFERENCE RANGES Reference Range For patients not on anticoagulant therapy: 0.9 - 1.1 INR ranges for oral anticoagulant therapy: For prevention and treatment of venous thrombosis and pulmonary embolism: 2.0 - 3.0 For acute myocardial infarction with aspirin therapy: 2.0 - 3.0 For acute myocardial infarction without aspirin therapy: 3.0 - 4.0 For patients with mechanical prosthetic heart valves: 2.5 - 3.5 Prothrombin Time Whole Bld P OC Reviewed date:05/14/2023 12:29:56 PM Interpretation: Performing Lab:[facility], [address] [place] [phone] Notes/Report: Prothrombin Time Whole Bld POC 26.5 11.1-13.5 sec INR WHOLE BLOOD POC Reviewed date:06/04/2023 02:13:46 PM Interpretation: Performing Lab:[facility], [address] [place] [phone] Notes/Report: PT, INR - Anti Coag Clinic 2.0 0.9-1.1 METER #: [id number] INTERNATIONAL NORMALIZED RATIO (INR) REFERENCE RANGES Reference Range For patients not on anticoagulant therapy: 0.9 - 1.1 INR ranges for oral anticoagulant therapy: For prevention and treatment of venous thrombosis and pulmonary embolism: 2.0 - 3.0 For acute myocardial infarction with aspirin therapy: 2.0 - 3.0 For acute myocardial infarction without aspirin therapy: 3.0 - 4.0 For patients with mechanical prosthetic heart valves: 2.5 - 3.5 Prothrombin Time Whole Bld P OC Reviewed date:06/04/2023 11:22:50 AM Interpretation: Performing Lab:[facility], [address] [place] [phone] Notes/Report: Prothrombin Time Whole Bld POC 24.1 11.1-13.5 sec Creatinine GFR POC Reviewed date:06/09/2023 12:09:03 PM Interpretation: Performing Lab:[facility], [address] [place] [phone] Notes/Report: [id number] 0.86 >60 1115 HO.LARG Creatinine POC 0.9 0.5-1.4 mg/dL GFR POC > 60 Chronic Kidney Disease: Estimated GFR < 60 mL/min/1.73m2 Severe Kidney Disease: Estimated GFR < 15 mL/min/1.73m2 CT urogram Reviewed date:06/11/2023 12:04:05 PM Interpretation: Performing Lab: Notes/Report: [address] [address] [address] Scan Report Signed Patient: Carla Bernal MR#: [id number] 4 : 1945 Acct:[id number] Age/Sex: 77 / F ADM Date: 06/08/23 Loc: HO.CT Attending Dr: Niru CONWAY Ordering Physician: Niru Kemp Date of Service: 06/08/23 Procedure(s): CT urogram Accession Number(s): [id number] cc: Darren Pavon MD; Niru Kemp EXAMINATION: CT ABDOMEN AND PELVIS WITHOUT AND WITH CONTRAST CLINICAL INFORMATION: Gross hematuria. COMPARISON: 07/11/2016 TECHNIQUE: Noncontrast CT of the abdomen and pelvis is performed followed by split bolus contrast-enhanced images using 85 mL Omnipaque 350 contrast.? Postcontrast imaging is performed during the combined nephrogram and excretion phase. Sagittal and coronal reformatted images were obtained on the technologist's workstation for both the precontrast and postcontrast phases. This CT examination was performed using dose optimization techniques as appropriate, variously including the following: *Automated exposure control *Adjustment of mA and/or kV according to patient size (this includes techniques or standardized protocols for targeted exams where dose is matched to indication/reason for exam; i.e. extremities or head) *Use of iterative reconstruction technique DLP: 766 mGy-cm FINDINGS: LUNG BASES: No pleural or pericardial effusion. Small hiatal hernia. LIVER, GALLBLADDER, AND BILIARY TREE: The liver is decreased in attenuation. No suspicious hepatic lesion or biliary ductal dilatation is present. The gallbladder is unremarkable with no evidence of radiopaque gallstones, gallbladder wall thickening, or obvious pericholecystic inflammatory changes. PANCREAS: No ductal dilatation. SPLEEN: Not enlarged. ADRENAL GLANDS: No adrenal mass. KIDNEYS AND URETERS: The kidneys are symmetric in size and enhancement. Delayed images demonstrate intact renal function. 1.1 cm left renal cyst for which no further imaging follow-up is needed. No renal or ureteral calculus. No perinephric stranding. Bilateral collecting systems and opacified portions of the ureters are nondilated and without obvious filling defects. BLADDER: Partially fills with excreted contrast. No focal or diffuse bladder wall thickening. No bladder calculus. GASTROINTESTINAL TRACT: No small bowel obstruction. There is hypertrophic change of the sigmoid colon with fibrotic scarring in the pelvis likely related to prior diverticulitis. ABDOMINAL WALL: No significant hernia is appreciated. LYMPH NODES: No bulky lymphadenopathy. VASCULAR: Normal caliber abdominal aorta. PELVIC VISCERA: Unremarkable. OSSEUS STRUCTURES: No destructive bone lesions. CT/CT urogram IMPRESSION: No nephrolithiasis or hydronephrosis. Hepatic steatosis. Dictated By: Nina Talbert MD Signed By: <Electronically signed by Nina Talbert MD in OV> 06/11/23 0917 DD/ 1259 TD/TT: Director Oracle Database: INR WHOLE BLOOD POC Reviewed date:07/02/2023 11:00:24 AM Interpretation: Performing Lab:[facility], [address] [place] [phone] Notes/Report: PT, INR - Anti Coag Clinic 2.1 0.9-1.1 METER #: [id number] INTERNATIONAL NORMALIZED RATIO (INR) REFERENCE RANGES Reference Range For patients not on anticoagulant therapy: 0.9 - 1.1 INR ranges for oral anticoagulant therapy: For prevention and treatment of venous thrombosis and pulmonary embolism: 2.0 - 3.0 For acute myocardial infarction with aspirin therapy: 2.0 - 3.0 For acute myocardial infarction without aspirin therapy: 3.0 - 4.0 For patients with mechanical prosthetic heart valves: 2.5 - 3.5 Prothrombin Time Whole Bld P OC Reviewed date:07/02/2023 11:00:17 AM Interpretation: Performing Lab:[address] [phone] Notes/Report: Prothrombin Time Whole Bld POC 25.2 11.1-13.5 sec INR WHOLE BLOOD POC Reviewed date:08/06/2023 12:39:31 PM Interpretation: Performing Lab:[facility], [address] [place] [phone] Notes/Report: PT, INR - Anti Coag Clinic 2.8 0.9-1.1 METER #: [id number] INTERNATIONAL NORMALIZED RATIO (INR) REFERENCE RANGES Reference Range For patients not on anticoagulant therapy: 0.9 - 1.1 INR ranges for oral anticoagulant therapy: For prevention and treatment of venous thrombosis and pulmonary embolism: 2.0 - 3.0 For acute myocardial infarction with aspirin therapy: 2.0 - 3.0 For acute myocardial infarction without aspirin therapy: 3.0 - 4.0 For patients with mechanical prosthetic heart valves: 2.5 - 3.5 Prothrombin Time Whole Bld P OC Reviewed date:08/06/2023 02:55:10 PM Interpretation: Performing Lab:[facility], [address] [place] [phone] Notes/Report: Prothrombin Time Whole Bld POC 33.5 11.1-13.5 sec INR WHOLE BLOOD POC Reviewed date:09/17/2023 11:58:18 AM Interpretation: Performing Lab:[facility], [address] [place] [phone] Notes/Report: PT, INR - Anti Coag Clinic 1.9 0.9-1.1 METER #: [id number] INTERNATIONAL NORMALIZED RATIO (INR) REFERENCE RANGES Reference Range For patients not on anticoagulant therapy: 0.9 - 1.1 INR ranges for oral anticoagulant therapy: For prevention and treatment of venous thrombosis and pulmonary embolism: 2.0 - 3.0 For acute myocardial infarction with aspirin therapy: 2.0 - 3.0 For acute myocardial infarction without aspirin therapy: 3.0 - 4.0 For patients with mechanical prosthetic heart valves: 2.5 - 3.5 Prothrombin Time Whole Bld P OC Reviewed date:09/17/2023 11:58:26 AM Interpretation: Performing Lab:[facility], [address] [place] [phone] Notes/Report: Prothrombin Time Whole Bld POC 22.7 11.1-13.5 sec Complete Blood Count Auto Di ff Reviewed date:10/26/2023 12:11:56 PM Interpretation: Performing Lab:[facility], [address] [place] [phone] Notes/Report: White Blood Count 4.7 4.8-10.8 X10*3/uL Red Blood Count 3.47 4.20-5.50 X10*6/uL Hemoglobin 11.1 12.0-16.0 g/dl Hematocrit 33.3 37.0-47.0 % Mean Corpuscular Volume 96.0 80.0-98.0 fL Mean Corpuscular Hemoglobin 32.0 27.0-33.0 pg Mean Corpuscular HGB Conc 33.3 31.0-35.0 g/dl Red Cell Distribution Width 12.9 11.0-16.0 % Platelet Count 314 160-400 X10*3/uL Mean Platelet Volume 8.6 9.4-12.3 fL Neutrophils Percent Auto 61.8 45-73 % Imm Gran Pct Auto 0.4 0.0-0.4 % Lymphocytes Percent Auto 23.5 20-40 % Monocytes Percent Auto 9.3 2-11 % Eosinophils Percent Auto 4.4 0-4 % Basophils Percent Auto 0.6 0-2 % NRBC Pct Auto 0.0 0.0-0.2 /100WBC Neutrophils Absolute Auto 2.9 2.0-8.3 x10*3/u L Imm Gran Abs Auto 0.02 0.00-0.03 X10*3/uL Lymphocytes Absolute Auto 1.1 1.2-4.9 X10*3/u L Monocytes Absolute Auto 0.4 0.1-1.2 X10*3/uL Eosinophils Absolute Auto 0.2 0.0-0.4 X10*3/u L Basophils Absolute Auto 0.0 0.0-0.2 X10*3/uL NRBC Abs Auto 0.000 0.0-0.012 X10*3/uL Prothrombin Time INR Reviewed date:10/26/2023 12:11:02 PM Interpretation: Performing Lab:[facility], [address] [place] [phone] Notes/Report: Prothrombin Time 36.9 11.1-13.3 SEC INTERNATIONAL NORM RATIO 3.0 0.9-1.1 INTERNATIONAL NORMALIZED RATIO (INR) REFERENCE RANGES Reference Range For patients not on anticoagulant therapy: 0.9 - 1.1 INR ranges for oral anticoagulant therapy: For prevention and treatment of venous thrombosis and pulmonary embolism: 2.0 - 3.0 For acute myocardial infarction with aspirin therapy: 2.0 - 3.0 For acute myocardial infarction without aspirin therapy: 3.0 - 4.0 For patients with mechanical prosthetic heart valves: 2.5 - 3.5 Partial Thromboplastin Time Reviewed date:10/26/2023 12:10:07 PM Interpretation: Performing Lab:[facility], [address] [place] [phone] Notes/Report: Partial Thromboplastin Time 49.6 26.0-36.8 SEC For information regarding the monitoring of direct thrombin inhibitors, please refer to Pharmacy. Basic Metabolic Panel Reviewed date:10/26/2023 12:11:23 PM Interpretation: Performing Lab:[address] [phone] Notes/Report: Sodium 138 135-145 mmol/L Potassium 4.4 3.3-5.1 mmol/L Chloride 107 96-108 mmol/L Carbon Dioxide 24 22-29 mmol/L Anion Gap 11 12-20 Blood Urea Nitrogen 16 9-16 mg/dL Creatinine 0.88 0.5-1.4 mg/dL Creatinine Clr Calc Pharmacy 53.6 Provided height and weight: 160.02 cm, 80.2 kg. eGFR (calculated from the MDRD study equation) and eCrCl (calculated from the Cockcroft-Gault equation) are based on different parameters and may not yield comparable results. If eCrCl result is absurd, please check patient's height/weight. Estimated Glomerular Filt Rate > 60 NOTE: For -Slovak individuals, multiply the result by 1.210. Chronic Kidney Disease: Estimated GFR < 60 mL/min/1.73m2 Severe Kidney Disease: Estimated GFR < 15 mL/min/1.73m2 Glucose Random 108 60-115 mg/dL Calcium 9.6 8.4-10.2 mg/dL Type and Screen Reviewed date:10/26/2023 12:08:46 PM Interpretation: Performing Lab:[address] [phone] Notes/Report: Blood Type AP Antibody Screen NEGATIVE UA ClnCatch+Micro w/rflx Cul t Reviewed date:10/26/2023 02:48:41 PM Interpretation: Performing Lab:[facility], [address] [place] [phone] Notes/Report: [id number] Urine, Clean Catch Color Urine RED Dipstick performed on centrifuged urine. Results may not correlate with microscopic values. Appearance Urine Cloudy PH 7.0 5.0-9.0 Glucose Urine UA See Note Negative mg/dL Urine pig ment obscured dipstick results. Urine Blood Large (3+) Negative Specific [place] - Urine 1.015 1.005-1.025 Urine Protein See Note Neg-Trace mg/dL Urine pigme nt obscured dipstick results. Urine Ketones See Note Negative mg/dL Urine pigmen t obscured dipstick results. Nitrite Urine See Note Negative Urine pigment obscured dipstick results. Leukocyte Esterase Urine See Note Negative Uri ne pigment obscured dipstick results. RBC Urine >20 0-2 /HPF WBC Urine 0-5 0-5 /HPF Squamous Epithelial Cell Urine 0-2 0-2 /HPF Bacteria Urine None Seen None Seen Hyaline Casts Urine 0-2 0-2 /LPF CT abdomen pelvis wo con Reviewed date:10/26/2023 05:25:08 PM Interpretation: Performing Lab: Notes/Report: [address] [address] [address] Scan Report Signed Patient: Carla Bernal MR#: [id number] 4 : 1945 Acct:[id number] Age/Sex: 77 / F ADM Date: 10/26/23 Loc: .ED Attending Dr: Ordering Physician: Haja Aleman MD Date of Service: 10/26/23 Procedure(s): CT abdomen pelvis wo IV con Accession Number(s): [id number] cc: Darren Pavon MD; Haja Aleman MD EXAMINATION: CT ABDOMEN AND PELVIS WITHOUT CONTRAST CLINICAL INFORMATION: Hematuria. COMPARISON: CT urogram 06/08/2023 TECHNIQUE: Multidetector volumetric imaging was performed from the superior aspect of the liver through the pubic symphysis. Sagittal and coronal reformatted images were obtained on the technologist's workstation. This CT examination was performed using dose optimization techniques as appropriate, variously including the following: *Automated exposure control *Adjustment of mA and/or kV according to patient size (this includes techniques or standardized protocols for targeted exams where dose is matched to indication/reason for exam; i.e. extremities or head) *Use of iterative reconstruction technique DLP: 669 mGy-cm FINDINGS: LUNG BASES: Small hiatal hernia. LIVER, GALLBLADDER, AND BILIARY TREE: The noncontrast liver is normal in size and contour. No biliary ductal dilatation is present. The gallbladder is unremarkable with no evidence of radiopaque gallstones, gallbladder wall thickening, or obvious pericholecystic inflammatory changes. PANCREAS: Unremarkable. SPLEEN: Unremarkable. ADRENAL GLANDS: Unremarkable. KIDNEYS AND URETERS: The kidneys are symmetric in size. 8 mm left renal hypodensity too small to characterize. No hydronephrosis, hydroureter, or calculi seen. No perinephric stranding. BLADDER: Large amorphous hyperdensity within the dependent aspect of the urinary bladder. This obscures evaluation of the urinary bladder lumen. No focal bladder wall thickening. GASTROINTESTINAL TRACT: No small bowel obstruction. Diverticular disease of the sigmoid colon. ABDOMINAL WALL: No significant hernia is appreciated. LYMPH NODES: No bulky lymphadenopathy. VASCULAR: Normal caliber abdominal aorta. PELVIC VISCERA: Possibly atrophic uterus. OSSEOUS STRUCTURES: Rightward curvature of the thoracic spine. CT/CT abdomen pelvis wo IV con IMPRESSION: Large amorphous hyperdensity within the dependent aspect of the urinary bladder most likely representing blood products limiting evaluation of the urinary bladder lumen for underlying pathology. No focal bladder wall thickening. Cystoscopic correlation should be considered. Dictated By: Nina Talbert MD Signed By: <Electronically signed by Nina Talbert MD in OV> 10/26/23 1505 DD/ 1316 TD/TT: Director Oracle Database: Complete Blood Count no Diff Reviewed date:10/28/2023 03:23:52 PM Interpretation: Performing Lab:[facility], [address] [place] [phone] Notes/Report: White Blood Count 13.2 4.8-10.8 X10*3/uL Red Blood Count 2.76 4.20-5.50 X10*6/uL Hemoglobin 8.8 12.0-16.0 g/dl Hematocrit 26.4 37.0-47.0 % Mean Corpuscular Volume 95.7 80.0-98.0 fL Mean Corpuscular Hemoglobin 31.9 27.0-33.0 pg Mean Corpuscular HGB Conc 33.3 31.0-35.0 g/dl Red Cell Distribution Width 13.0 11.0-16.0 % Platelet Count 273 160-400 X10*3/uL Mean Platelet Volume 8.7 9.4-12.3 fL NRBC Pct Auto 0.0 0.0-0.2 /100WBC NRBC Abs Auto 0.000 0.0-0.012 X10*3/uL Complete Blood Count Auto Di ff Reviewed date:10/28/2023 03:23:52 PM Interpretation: Performing Lab:[facility], [address] [place] [phone] Notes/Report: White Blood Count 12.4 4.8-10.8 X10*3/uL Red Blood Count 2.83 4.20-5.50 X10*6/uL Hemoglobin 9.1 12.0-16.0 g/dl Hematocrit 27.1 37.0-47.0 % Mean Corpuscular Volume 95.8 80.0-98.0 fL Mean Corpuscular Hemoglobin 32.2 27.0-33.0 pg Mean Corpuscular HGB Conc 33.6 31.0-35.0 g/dl Red Cell Distribution Width 13.0 11.0-16.0 % Platelet Count 274 160-400 X10*3/uL Mean Platelet Volume 8.3 9.4-12.3 fL Neutrophils Percent Auto 89.8 45-73 % Imm Gran Pct Auto 0.6 0.0-0.4 % Lymphocytes Percent Auto 4.2 20-40 % Monocytes Percent Auto 5.2 2-11 % Eosinophils Percent Auto 0.0 0-4 % Basophils Percent Auto 0.2 0-2 % NRBC Pct Auto 0.0 0.0-0.2 /100WBC Neutrophils Absolute Auto 11.2 2.0-8.3 x10*3/u L Imm Gran Abs Auto 0.07 0.00-0.03 X10*3/uL Lymphocytes Absolute Auto 0.5 1.2-4.9 X10*3/u L Monocytes Absolute Auto 0.7 0.1-1.2 X10*3/uL Eosinophils Absolute Auto 0.0 0.0-0.4 X10*3/u L Basophils Absolute Auto 0.0 0.0-0.2 X10*3/uL NRBC Abs Auto 0.000 0.0-0.012 X10*3/uL Prothrombin Time INR Reviewed date:10/28/2023 03:23:52 PM Interpretation: Performing Lab:[address] [phone] Notes/Report: Prothrombin Time 24.2 11.1-13.3 SEC INTERNATIONAL NORM RATIO 2.0 0.9-1.1 INTERNATIONAL NORMALIZED RATIO (INR) REFERENCE RANGES Reference Range For patients not on anticoagulant therapy: 0.9 - 1.1 INR ranges for oral anticoagulant therapy: For prevention and treatment of venous thrombosis and pulmonary embolism: 2.0 - 3.0 For acute myocardial infarction with aspirin therapy: 2.0 - 3.0 For acute myocardial infarction without aspirin therapy: 3.0 - 4.0 For patients with mechanical prosthetic heart valves: 2.5 - 3.5 Liver Panel Reviewed date:10/28/2023 03:23:52 PM Interpretation: Performing Lab:[facility], [address] [place] [phone] Notes/Report: Bilirubin Total 0.3 0.0-1.0 mg/dL Bilirubin Direct 0.1 0.0-0.5 mg/dL Aspartate Amino Transferase 15 5-31 U/L Alanine Aminotransferase 16 0-31 U/L Total Protein 6.6 6.5-8.0 g/dL Albumin Level 3.6 3.5-5.0 g/dL Alkaline Phosphatase 64 39-117 U/L Basic Metabolic Panel Reviewed date:10/28/2023 03:23:52 PM Interpretation: Performing Lab:[address] [phone] Notes/Report: Sodium 136 135-145 mmol/L Potassium 4.0 3.3-5.1 mmol/L Chloride 107 96-108 mmol/L Carbon Dioxide 20 22-29 mmol/L Anion Gap 13 12-20 Blood Urea Nitrogen 26 9-16 mg/dL Creatinine 1.03 0.5-1.4 mg/dL Creatinine Clr Calc Pharmacy 55.4 Provided height and weight: 167.64 cm, 103 kg. eGFR (calculated from the MDRD study equation) and eCrCl (calculated from the Cockcroft-Gault equation) are based on different parameters and may not yield comparable results. If eCrCl result is absurd, please check patient's height/weight. Estimated Glomerular Filt Rate 52 NOTE: For -Slovak individuals, multiply the result by 1.210. Chronic Kidney Disease: Estimated GFR < 60 mL/min/1.73m2 Severe Kidney Disease: Estimated GFR < 15 mL/min/1.73m2 Glucose Random 149 60-115 mg/dL Calcium 9.3 8.4-10.2 mg/dL Lactic Acid Reviewed date:10/28/2023 03:23:52 PM Interpretation: Performing Lab:[facility], [address] [place] [phone] Notes/Report: Lactic Acid 0.9 0.5-2.0 mmol/L Lipase Reviewed date:10/28/2023 03:23:52 PM Interpretation: Performing Lab:[facility], [address] [place] [phone] Notes/Report: Lipase 14 8-78 U/L Urine Culture Reviewed date:10/29/2023 12:48:12 PM Interpretation: Performing Lab:[facility], [address] [place] [phone] Notes/Report: Urine Culture Report Result Urine Culture > 100,000 cfu/ml Urine Culture Mixed bacterial joseph a characteristic of Urine Culture urogenital contamination. Blood Culture (First) Reviewed date:11/02/2023 02:08:47 PM Interpretation: Performing Lab:[facility], [address] [place] [phone] Notes/Report: Blood Culture (First) No growth after 5 days. Blood Culture (Second) Reviewed date:11/02/2023 02:15:11 PM Interpretation: Performing Lab:[facility], [address] [place] [phone] Notes/Report: Blood Culture (Second) No growth after 5 days. UA ClnCatch+Micro w/rflx Cul t Reviewed date:10/28/2023 03:23:52 PM Interpretation: Performing Lab:[facility], [address] [place] [phone] Notes/Report: [id number] Urine, [place] Color Urine Red Appearance Urine Turbid PH 5.5 5.0-9.0 Glucose Urine UA Negative Negative mg/dL Urine Blood Large (3+) Negative Specific [place] - Urine <= 1.005 1.005-1.025 Urine Protein 100 (2+) Neg-Trace mg/dL Urine Ketones Negative Negative mg/dL Nitrite Urine Positive Negative Leukocyte Esterase Urine Large (3+) Negative RBC Urine >20 0-2 /HPF WBC Urine >50 0-5 /HPF Squamous Epithelial Cell Urine 0-2 0-2 /HPF Bacteria Urine 4+ None Seen Hyaline Casts Urine 0-2 0-2 /LPF Basic Metabolic Panel Reviewed date:10/28/2023 03:23:52 PM Interpretation: Performing Lab:[address] [phone] Notes/Report: Sodium 136 135-145 mmol/L Potassium 3.9 3.3-5.1 mmol/L Chloride 108 96-108 mmol/L Carbon Dioxide 21 22-29 mmol/L Anion Gap 11 12-20 Blood Urea Nitrogen 24 9-16 mg/dL Creatinine 0.92 0.5-1.4 mg/dL Creatinine Clr Calc Pharmacy 62.1 Provided height and weight: 167.64 cm, 103 kg. eGFR (calculated from the MDRD study equation) and eCrCl (calculated from the Cockcroft-Gault equation) are based on different parameters and may not yield comparable results. If eCrCl result is absurd, please check patient's height/weight. Estimated Glomerular Filt Rate 59 NOTE: For -Slovak individuals, multiply the result by 1.210. Chronic Kidney Disease: Estimated GFR < 60 mL/min/1.73m2 Severe Kidney Disease: Estimated GFR < 15 mL/min/1.73m2 Glucose Random 136 60-115 mg/dL Calcium 9.0 8.4-10.2 mg/dL Complete Blood Count no Diff Reviewed date:10/29/2023 03:53:14 PM Interpretation: Performing Lab:[address] [phone] Notes/Report: White Blood Count 8.1 4.8-10.8 X10*3/uL Red Blood Count 1.76 4.20-5.50 X10*6/uL Hemoglobin 5.8 12.0-16.0 g/dl Critical HGB sent by a secure message and confirmed by BENOIT on 10/29/23 at 0721 by CHARI. Hematocrit 17.4 37.0-47.0 % Critical HCT sent by a secure message and confirmed by BENOIT on 10/29/23 at 0721 by CHARI. Mean Corpuscular Volume 98.9 80.0-98.0 fL Mean Corpuscular Hemoglobin 33.0 27.0-33.0 pg Mean Corpuscular HGB Conc 33.3 31.0-35.0 g/dl Red Cell Distribution Width 13.5 11.0-16.0 % Platelet Count 210 160-400 X10*3/uL Mean Platelet Volume 9.2 9.4-12.3 fL NRBC Pct Auto 0.0 0.0-0.2 /100WBC NRBC Abs Auto 0.000 0.0-0.012 X10*3/uL Hemoglobin and Hematocrit Reviewed date:10/30/2023 12:34:25 PM Interpretation: Performing Lab:[facility], [address] [place] [phone] Notes/Report: Hemoglobin 8.6 12.0-16.0 g/dl Hematocrit 25.4 37.0-47.0 % Pathologist Review - CBC Reviewed date:10/29/2023 01:14:28 PM Interpretation: Performing Lab:[facility], [address] [place] [phone] Notes/Report: Pathologist Review - CBC SEE NOTE Normochromic normocytic anemia. - Juan Buckley M.D. Pathology Basic Metabolic Panel Reviewed date:10/29/2023 12:42:12 PM Interpretation: Performing Lab:[facility], [address] [place] [phone] Notes/Report: Sodium 138 135-145 mmol/L Potassium 3.9 3.3-5.1 mmol/L Chloride 111 96-108 mmol/L Carbon Dioxide 24 22-29 mmol/L Anion Gap 7 12-20 Blood Urea Nitrogen 18 9-16 mg/dL Creatinine 0.72 0.5-1.4 mg/dL Creatinine Clr Calc Pharmacy 70.6 Provided height and weight: 167.64 cm, 82 kg. eGFR (calculated from the MDRD study equation) and eCrCl (calculated from the Cockcroft-Gault equation) are based on different parameters and may not yield comparable results. If eCrCl result is absurd, please check patient's height/weight. Estimated Glomerular Filt Rate > 60 NOTE: For -Slovak individuals, multiply the result by 1.210. Chronic Kidney Disease: Estimated GFR < 60 mL/min/1.73m2 Severe Kidney Disease: Estimated GFR < 15 mL/min/1.73m2 Glucose Random 102 60-115 mg/dL Calcium 8.1 8.4-10.2 mg/dL Type and Screen Reviewed date:10/30/2023 12:33:52 PM Interpretation: Performing Lab:[facility], [address] [place] [phone] Notes/Report: Results at Issue Units as of 10/29/23 0927 ... Test View Group: Most Recent HGB HCT Results LABORATORY Date Time Test Result Flag Normal Range 10/29/2321 HGB 5.8 #*L 12.0-16.0 g/dl Critical HGB sent by a secure message and confirmed by BENOIT on 10/29/23 at 0721 by CHARI. 10/29/23 0621 HCT 17.4 #*L 37.0-47.0 % Critical HCT sent by a secure message and confirmed by BENOIT on 10/29/23 at 0721 by CHARI. Results at Issue Units as of 10/29/23 1342 ... Test View Group: Most Recent HGB HCT Results LABORATORY Date Time Test Result Flag Normal Range 10/29/23 1800 HGB PENDING RECEIPT 12.0-16.0 g/dl 10/29/2321 HGB 5.8 #*L 12.0-16.0 g/dl Critical HGB sent by a secure message and confirmed by BENOIT on 10/29/23 at 0721 by CHARI. 10/29/23 1800 HCT PENDING RECEIPT 37.0-47.0 % 10/29/23 0621 HCT 17.4 #*L 37.0-47.0 % Critical HCT sent by a secure message and confirmed by BENOIT on 10/29/23 at 0721 by CHARI. Yes Blood Type AP Antibody Screen NEGATIVE Red Blood Cells Reviewed date:10/30/2023 12:34:01 PM Interpretation: Performing Lab:[facility], [address] [place] [phone] Notes/Report: Red Blood Cells [id number] [facility] Red Blood Cells TRANSFUSED 10/29/23 0926 Red Blood Cells [id number] [facility] Red Blood Cells TRANSFUSED 10/29/23 1341 Complete Blood Count no Diff Reviewed date:10/30/2023 12:35:14 PM Interpretation: Performing Lab:[facility], [address] [place] [phone] Notes/Report: White Blood Count 6.1 4.8-10.8 X10*3/uL Red Blood Count 2.70 4.20-5.50 X10*6/uL Hemoglobin 8.9 12.0-16.0 g/dl Hematocrit 25.5 37.0-47.0 % Mean Corpuscular Volume 94.4 80.0-98.0 fL Mean Corpuscular Hemoglobin 33.0 27.0-33.0 pg Mean Corpuscular HGB Conc 34.9 31.0-35.0 g/dl Red Cell Distribution Width 14.9 11.0-16.0 % Platelet Count 221 160-400 X10*3/uL Mean Platelet Volume 8.9 9.4-12.3 fL NRBC Pct Auto 0.0 0.0-0.2 /100WBC NRBC Abs Auto 0.000 0.0-0.012 X10*3/uL Prothrombin Time INR Reviewed date:10/30/2023 12:34:34 PM Interpretation: Performing Lab:[address] [phone] Notes/Report: Prothrombin Time 13.8 11.1-13.3 SEC INTERNATIONAL NORM RATIO 1.1 0.9-1.1 INTERNATIONAL NORMALIZED RATIO (INR) REFERENCE RANGES Reference Range For patients not on anticoagulant therapy: 0.9 - 1.1 INR ranges for oral anticoagulant therapy: For prevention and treatment of venous thrombosis and pulmonary embolism: 2.0 - 3.0 For acute myocardial infarction with aspirin therapy: 2.0 - 3.0 For acute myocardial infarction without aspirin therapy: 3.0 - 4.0 For patients with mechanical prosthetic heart valves: 2.5 - 3.5 Hold Green Gel Reviewed date:10/30/2023 12:33:26 PM Interpretation: Performing Lab:[address] [phone] Notes/Report: Hold Green Gel See Note Specimen held untested for 24 hours; Call to request Chemistry testing. Prothrombin Time INR Reviewed date:11/01/2023 09:34:19 AM Interpretation: Performing Lab:[facility], [address] [place] [phone] Notes/Report: Prothrombin Time 12.8 11.1-13.3 SEC INTERNATIONAL NORM RATIO 1.1 0.9-1.1 INTERNATIONAL NORMALIZED RATIO (INR) REFERENCE RANGES Reference Range For patients not on anticoagulant therapy: 0.9 - 1.1 INR ranges for oral anticoagulant therapy: For prevention and treatment of venous thrombosis and pulmonary embolism: 2.0 - 3.0 For acute myocardial infarction with aspirin therapy: 2.0 - 3.0 For acute myocardial infarction without aspirin therapy: 3.0 - 4.0 For patients with mechanical prosthetic heart valves: 2.5 - 3.5 Complete Blood Count Auto Di ff Reviewed date:11/12/2023 12:47:48 PM Interpretation: Performing Lab:[address] [phone] Notes/Report: White Blood Count 4.4 4.8-10.8 X10*3/uL Red Blood Count 3.47 4.20-5.50 X10*6/uL Hemoglobin 11.2 12.0-16.0 g/dl Hematocrit 35.0 37.0-47.0 % Mean Corpuscular Volume 100.9 80.0-98.0 fL Mean Corpuscular Hemoglobin 32.3 27.0-33.0 pg Mean Corpuscular HGB Conc 32.0 31.0-35.0 g/dl Red Cell Distribution Width 15.3 11.0-16.0 % Platelet Count 372 160-400 X10*3/uL Mean Platelet Volume 8.8 9.4-12.3 fL Neutrophils Percent Auto 58.7 45-73 % Imm Gran Pct Auto 0.5 0.0-0.4 % Lymphocytes Percent Auto 21.9 20-40 % Monocytes Percent Auto 9.6 2-11 % Eosinophils Percent Auto 8.4 0-4 % Basophils Percent Auto 0.9 0-2 % NRBC Pct Auto 0.0 0.0-0.2 /100WBC Neutrophils Absolute Auto 2.6 2.0-8.3 x10*3/u L Imm Gran Abs Auto 0.02 0.00-0.03 X10*3/uL Lymphocytes Absolute Auto 1.0 1.2-4.9 X10*3/u L Monocytes Absolute Auto 0.4 0.1-1.2 X10*3/uL Eosinophils Absolute Auto 0.4 0.0-0.4 X10*3/u L Basophils Absolute Auto 0.0 0.0-0.2 X10*3/uL NRBC Abs Auto 0.000 0.0-0.012 X10*3/uL CT chest wo con Reviewed date:12/11/2023 09:15:26 AM Interpretation: Performing Lab: Notes/Report: [place] [address] CT Scan Report Signed Patient: Carla Bernal MR#: [id number] 4 : 1945 Acct:[id number] Age/Sex: 78 / F ADM Date: 11/17/23 Loc: HO.CT Attending Dr: Darren Pavon MD Ordering Physician: Darren Pavon MD Date of Service: 11/17/23 Procedure(s): CT chest wo IV con Accession Number(s): [id number] cc: Darren Pavon MD EXAMINATION: CT CHEST WITHOUT CONTRAST CLINICAL INFORMATION: Lung nodule COMPARISON: 11/21/2022, 11/19/2021 TECHNIQUE: Multidetector volumetric CT imaging of the chest was done. Axial MIP volume rendering provided. Sagittal and coronal reformatted images were obtained. This CT examination was performed using dose optimization techniques as appropriate, variously including the following: *Automated exposure control *Adjustment of mA and/or kV according to patient size (this includes techniques or standardized protocols for targeted exams where dose is matched to indication/reason for exam; i.e. extremities or head) *Use of iterative reconstruction technique DLP: 205 mGy-cm FINDINGS: LUNGS: Bilateral pulmonary nodules measuring up to 6 mm are unchanged. Reference right lower lobe 5 mm nodule is unchanged (5:241). Reference right lower lobe subpleural 6 mm nodule is unchanged (5:298). Left lower lobe subpleural 4 mm nodule is unchanged (5:356). Central airways are patent. No new or enlarging pulmonary nodule. PLEURA: No pleural effusion. MEDIASTINUM: No cardiomegaly. Aorta and pulmonary artery are normal in caliber. No mediastinal adenopathy. Lack of IV contrast limits evaluation for hilar adenopathy. CORONARY ARTERY CALCIFICATION: Coronary artery calcification is present. CHEST WALL/AXILLA: No axillary or internal mammary lymphadenopathy. UPPER ABDOMEN: Small hiatal hernia. OSSEOUS STRUCTURES: Degenerative changes of the spine. CT/CT chest wo IV con IMPRESSION: Bilateral pulmonary nodules measuring up to 6 mm are unchanged. No new or enlarging pulmonary nodule. Given stability for 2 years, these are favored to be benign according to Fleischner Society guidelines. Electronically signed by: Milena Ceballos MD 12/10/2023 09:41 PM EDT Dictated By: Milena Ceballos MD Signed By: <Electronically signed by Milena Ceballos MD in OV> 12/10/23 2141 DD/ 1611 TD/TT: 11/17/23 1642 Director Oracle Database: Complete Blood Count Auto Di ff Reviewed date:12/15/2023 01:01:50 PM Interpretation: Performing Lab:[facility], [address] [place] [phone] Notes/Report: White Blood Count 4.3 4.8-10.8 X10*3/uL Red Blood Count 3.06 4.20-5.50 X10*6/uL Hemoglobin 9.6 12.0-16.0 g/dl Hematocrit 30.4 37.0-47.0 % Mean Corpuscular Volume 99.3 80.0-98.0 fL Mean Corpuscular Hemoglobin 31.4 27.0-33.0 pg Mean Corpuscular HGB Conc 31.6 31.0-35.0 g/dl Red Cell Distribution Width 13.9 11.0-16.0 % Platelet Count 394 160-400 X10*3/uL Mean Platelet Volume 8.8 9.4-12.3 fL Neutrophils Percent Auto 60.6 45-73 % Imm Gran Pct Auto 0.2 0.0-0.4 % Lymphocytes Percent Auto 20.1 20-40 % Monocytes Percent Auto 10.0 2-11 % Eosinophils Percent Auto 7.9 0-4 % Basophils Percent Auto 1.2 0-2 % NRBC Pct Auto 0.0 0.0-0.2 /100WBC Neutrophils Absolute Auto 2.6 2.0-8.3 x10*3/u L Imm Gran Abs Auto 0.01 0.00-0.03 X10*3/uL Lymphocytes Absolute Auto 0.9 1.2-4.9 X10*3/u L Monocytes Absolute Auto 0.4 0.1-1.2 X10*3/uL Eosinophils Absolute Auto 0.3 0.0-0.4 X10*3/u L Basophils Absolute Auto 0.1 0.0-0.2 X10*3/uL NRBC Abs Auto 0.000 0.0-0.012 X10*3/uL Prothrombin Time INR Reviewed date:01/13/2024 02:18:02 PM Interpretation: Performing Lab:[facility], [address] [place] [phone] Notes/Report: Prothrombin Time 11.5 10.9-12.4 SEC INTERNATIONAL NORM RATIO 1.0 0.9-1.1 INTERNATIONAL NORMALIZED RATIO (INR) REFERENCE RANGES Reference Range For patients not on anticoagulant therapy: 0.9 - 1.1 INR ranges for oral anticoagulant therapy: For prevention and treatment of venous thrombosis and pulmonary embolism: 2.0 - 3.0 For acute myocardial infarction with aspirin therapy: 2.0 - 3.0 For acute myocardial infarction without aspirin therapy: 3.0 - 4.0 For patients with mechanical prosthetic heart valves: 2.5 - 3.5 Pathology Reviewed date:01/14/2024 09:25:52 PM Interpretation: Performing Lab:[facility], [address] [place] [phone] Notes/Report: Complete Blood Count Auto Di ff Reviewed date:03/18/2024 04:32:48 PM Interpretation: Performing Lab:[facility], [address] [place] [phone] Notes/Report: White Blood Count 4.4 4.8-10.8 X10*3/uL [...] NRBC Abs Auto 0.000 0.0-0.012 X10*3/uL Comprehensive Topmost. Panel Fa st Reviewed date:03/18/2024 04:23:31 PM Interpretation: Performing Lab:[facility], [address] [place] [phone] Notes/Report: Sodium 141 135-145 mmol/L Potassium 4.8 [...] Panel Reviewed date:03/18/2024 04:22:23 PM Interpretation: Performing Lab:[facility], [address] [place] [phone] Notes/Report: Triglycerides 84 <150 mg/dL Desirable Triglyceride: [...] Random Reviewed date:03/18/2024 04:22:06 PM Interpretation: Performing Lab:[facility], [address] [place] [phone] Notes/Report: Creatinine Urine 115.46 Microalbumin Urine 21.0 Microalbum/Creatinine Ratio Ur 18.1 <30 ug/mg cr Albumin/Creatinine Ratio Reference Ranges: Normal: < 30 ug/mg creatinine Microalbuminuria: 30 - 300 ug/mg creatinine Clinical Albuminuria: > 300 ug/mg creatinine Hemoglobin A1c Reviewed date:03/18/2024 04:22:13 PM Interpretation: Performing Lab:[facility], [address] [place] [phone] Notes/Report: Hemoglobin A1c % 5.4 <6.0 % [...] average glucose, using the formula of the R4B-Mlqlrqv Average Glucose study (ADAG), Diabetes Care, Vol.31,#8, Oct. 2007 UA ClnCatch+Micro w/rflx Cul t Reviewed date:03/18/2024 04:33:53 PM Interpretation: Performing Lab:[facility], [address] [place] [phone] Notes/Report: Urine, Clean Catch Color Urine Yellow Appearance Urine Clear PH 5.5 5.0-9.0 Glucose Urine UA Negative Negative mg/dL Urine Blood Negative Negative Specific [place] - Urine 1.020 1.005-1.025 Urine Protein Negative Neg-Trace mg/dL Urine Ketones Negative Negative mg/dL Nitrite Urine Negative Negative Leukocyte Esterase Urine Negative Negative RBC Urine 0-2 0-2 /HPF WBC Urine 0-5 0-5 /HPF Squamous Epithelial Cell Urine 0-2 0-2 /HPF Bacteria Urine None Seen None Seen Hyaline Casts Urine 0-2 0-2 /LPF REASON FOR REFERRAL No Information MEDICATIONS Medication SIG (Take, Route, Frequency, Duration) Notes Start Date End Date Status ProAir HFA 108 (90 Base) MCG/ACT 2 puffs as needed Inhalation every 6 hrs for 30 days 07/03/2017 Active Flecainide Acetate 50 MG Orally twice a day Active dilTIAZem HCl ER Coated Beads 120 MG TAKE 1 CAPSULE BY MOUTH EVERY DAY for 30 Active Lisinopril 10 MG 1 tablet Orally Once a day Active Aspirin 81 81 MG 1 tablet Orally Once a day for 30 day(s) Active Vitamin D 25 MCG (1000 UT) 1 tablet Orally Once a day for 30 day(s) Active Ferrous Sulfate 324 MG 1 tablet Orally T hree times a Week for 30 day(s) Active Diclofenac Sodium 75 MG 1 tablet with fo od or milk Orally Twice a day Not-Taki ng Eliquis 5 MG as directed Orally twice a day Active Aspirin 325 MG 1 tablet Orally PRN for 30 day(s) Not-Taking Balsalazide Disodium 750 MG 1 capsules Orally three times a day Not-Taking Benzonatate 100 MG 1 capsule as needed Orally Three times a day for 10 days 04/08/2022 Not-Taking Molnupiravir 200 MG 4 capsules Orally ev shan 12 hrs for 5 day(s) 10/16/2023 Not-Taking IMMUNIZATIONS Vaccine Route Administration Date Status Comme nts PPSV23 (Pnemovax) IM Intramuscular 06/01/2012 Administered Flu Vaccine IM Intramuscular 06/01/2012 Administered Prevnar 13 IM Intramuscular 06/28/2013 Administered Fluarix Quadrivalent IM Intramuscular 12/17/2015 Administe red Fluarix Quadrivalent IM Intramuscular 12/16/2016 Administe red Fluarix Quadrivalent IM Intramuscular 02/22/2018 Administe red PPSV23 (Pnemovax) IM Intramuscular 04/29/2018 Administered Fluarix Quadrivalent IM Intramuscular 11/30/2018 Administe red Fluarix Quadrivalent IM Intramuscular 12/29/2019 Administe red Covid Vaccine Unknown 08/01/2020 Administered Moderna SARS-COV-2 Moderna Unknown 08/28/2020 Administered Influenza High Dose IM Intramuscular 12/07/2020 Administer ed SARS-COV-2 Moderna Unknown 03/15/2021 Administered Influenza High Dose IM Intramuscular 03/13/2022 Administer ed Influenza High Dose IM Intramuscular 12/08/2022 Administer ed Fluarix Quadrivalent - 150 IM Intramuscular 12/15/2023 Adm inistered TDaP Unknown 03/10/2017 Refused Shingrix Unknown 02/28/2020 Refused TDaP Unknown 02/28/2020 Refused SOCIAL HISTORY Tobacco Use: Social History Observation Description Date Details (start date - stop date) Former Smoker NA - NA Sex Assigned At : Social History Observation Description Sex Assigned At Unknown Tobacco Use/Smoking Question Answer Notes Patient is a former smoker How long has it been since y ou last smoked? > 10 years Additional Findings: Tobacco Non-User Fo rmer smoker, currently using no form of tobacco Alcohol Screen Question Answer Notes Did you have a drink contain ing alcohol in the past year? Yes How often did you have a dri nk containing alcohol in the past year? Monthly or less (1 point) How many drinks did you have on a typical day when you were drinking in the past year? 1 or 2 drinks (0 point) How often did you have 6 or more drinks on one occasion in the past year? 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) Active confirmed 898906557 Problem Typical atrial flutt er (I48.3) Active confirmed 394943085 Problem Acute recurrent maxillary sinusitis (J01.01) Active confirmed 50119040 Problem Other idiopathic scoliosis, 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) Active confirmed 449097410 Problem Urinary tract infection, site not specified (N39.0) Active confirmed 21218237 Problem Lumbar disc disease (M51.9) Active confirmed Disorder of lumbar disc (176746614) Problem Prediabetes (R73.09) Active confirmed 9 265147 Problem Labile hypertension (I10) Active confirmed 857140176 Problem Asthmatic bronchitis , mild intermittent, uncomplicated (J45.20) Active confirmed 580265590 Problem Irregular heart beat (I49.9) Active confirmed 900411581 Problem Chronic a-fib (I48.2) Active confirmed 442401782 Problem Neutropenia, unspecified type (D70.9) Active confirmed 645148000 Problem Pure hypercholesterolemia (E78.00) Active confirmed 787226542 Problem Osteopenia of multip le sites (M85.89) Active confirmed 078006351 Problem Venous stasis dermatitis of both lower extremities (I87.2) Active confirmed 51742107 Problem Labyrinthitis of bot h ears (H83.03) Active confirmed 93721155 Problem Malignant neoplasm o f cervix, unspecified site (C53.9) Active confirmed 280553749 Problem Body mass index (BMI ) of 30.0-30.9 in adult (Z68.30) Active confirmed 631921935 Problem Lung nodule < 6cm on CT (R91.1) Active confirmed 871810614 Problem Osteonecrosis (M87.9) Active confirmed Osteonecrosis (349082498) Problem Nonrheumatic mitral valve regurgitation (I34.0) Active confirmed 768409079 Problem Chronic atrial fibrillation (I48.20) Active confirmed 131324090 Problem 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) Active confirmed 50108219 VITAL SIGNS Blood pressure diastolic 52 mm Hg 02/15/2024 wali ght is down 3 poiunds since 01-01-24 Height 66 in 02/15/2024 weight is down 3 poiunds since 01-01-24 Blood pressure systolic 130 mm Hg 02/15/2024 weig ht is down 3 poiunds since 01-01-24 Weight 174 lbs 02/15/2024 weight is down 3 poiunds since 01-01-24 BMI 28.08 kg/m2 02/15/2024 weight is down 3 poiunds since 01-01-24 Encounters Encounter Location Date Provider Diagnosis Darren Pavon MD [address] [place] [address] Drive [address] [place] [id number] 03/18/2024 Darren Pavon Blood tests for rout ine general physical examination Z00.00 ; Prediabetes R73.09 ; Pure hypercholesterolemia E78.00 ; Labile hypertension I10 and Neutropenia, unspecified type D70.9 Darren Pavon MD [address] [place] [address] Drive [address] [place] [address] [id number] 09/17/2023 Darren Pavon History of recurrent UTIs Z87.440 ; Urinary tract infection, site not specified N39.0 and Labile hypertension I10 Darren Pavon MD [address] [place] [address] Drive [address] [place] [id number] 12/15/2023 Darren Pavon Gross hematuria R31. 0 ; Chronic atrial fibrillation I48.20 and Encounter for immunization Z23 Darren Pavon MD [address] [place] [address] Drive [address] [place] [id number] 02/15/2024 Darren Pavon Facial numbness R20. 0 Darren Pavon MD [address] [place] [id number] 11/12/2023 Darren Pavon Gross hematuria R31. 0 and Acute anemia D64.9 Darren Pavon MD [address] [place] [address] [id number] 01/01/2024 Darren Pavon Pre-op evaluation Z0 1.818 and Gross hematuria R31.0 Darren Pavon MD [address] [place] [address] [id number] 09/25/2023 Darren Pavon Infection of toe L08 .9 and Muscle strain T14.8XXA Darren Pavon MD [address] [place] [address] [id number] 10/15/2023 Darren Pavon MD [address] [place] [address] [id number] 10/27/2023 Darren Pavon MD [address] [place] [address] [id number] 10/27/2023 Darren Pavon MD [address] [place] [address] [id number] 11/03/2023 Darren Pavon MD [address] [place] [address] [id number] 11/23/2023 Darren Pavon Asthmatic bronchitis , mild intermittent, uncomplicated J45.20 Darren Pavon MD [address] [place] [address] [id number] 12/11/2023 Darren Pavon Lung nodule < 6cm on CT R91.1 Darren Pavon MD [address] [place] [address] [id number] 10/16/2023 Darren Pavon COVID-19 U07.1 ASSESSMENTS Encounter Date Diagnosis Assessment Notes Treatment Notes Treatment Clinical Notes 03/18/2024 Prediabetes (ICD-10 - R73.09) 03/18/2024 Blood tests for rout ine general physical examination (ICD-10 - Z00.00) 09/17/2023 Urinary tract infect ion, site not specified (ICD-10 - N39.0) 09/17/2023 History of recurrent UTIs (ICD-10 - Z87.440) patient verbalized understanding of medication and directions for use 12/15/2023 Gross hematuria (ICD -10 - R31.0) pending labs 12/15/2023 Chronic atrial fibrillation (ICD-10 - I48.20) 02/15/2024 Facial numbness (ICD -10 - R20.0) went away mostly. has a [...] she is completely satisfied with her recovery 11/12/2023 Gross hematuria (ICD -10 - R31.0) i have explained that she needs to get cysto as sometimes anticoagulants just cause a tumor to bleed enough that it ws obvious. i suspect it is from the radiation but necessary to see. she wonders why she could not have had a hysterectomy and no radiation and i have reviewed the records and it appears that she needed pelvic radiation from the type of cancer that she had and that a hysterectomy would not have been curative, Total time spent on the date of the encounter is 35 minutes including both face to face time spent and time spent reviewing documentation, pertinent lab data, studies and counseling the patient. 11/12/2023 Acute anemia (ICD-10 - D64.9) will repeat cbc as she had been bleeding severely 01/01/2024 Pre-op evaluation (I CD-10 - Z01.818) patient healthy. no need for any further evaluation prior to the upcoming surgery. cleared for surgery 01/01/2024 Gross hematuria (ICD -10 - R31.0) 09/25/2023 Muscle strain (ICD-1 0 - T14.8XXA) will just observe 09/25/2023 Infection of toe (IC D-10 - L08.9) if it doesn't get better over the weekend to call me next week. 11/23/2023 Asthmatic bronchitis , mild intermittent, uncomplicated (ICD-10 - J45.20) 12/11/2023 Lung nodule < 6cm on CT (ICD-10 - R91.1) order made printed and put into the future order folder for 10/16/2023 COVID-19 (ICD-10 - U07.1) [facility] is out of stock do not know when it will be available and it would cost $400. Patient notified and declined. 03/18/2024 Pure hypercholestero lemia (ICD-10 - E78.00) 09/17/2023 Labile hypertension (ICD-10 - I10) stable, will continue current regiment 12/15/2023 Encounter for immunization (ICD-10 - Z23) flu vaccine adminsitered 03/18/2024 Labile hypertension (ICD-10 - I10) 03/18/2024 Neutropenia, unspeci fied type (ICD-10 - D70.9) 12/15/2023 Other unable to take coumadin due to extreme bleeding. goikng to get a watchman 02/15/2024 Other Total time spen t on the date of the encounter is 35 minutes including both face to face time spent and time spent reviewing documentation, and counseling the patient. PLAN OF TREATMENT Pending Test Test Name Order Date Electrocardiogram (EKG) 09/12/2016 Electrocardiogram (EKG) 08/14/2015 MRI HIP RT NO CONTRAST 06/24/2021 MRI HIP RT W&WO CONTRAST 06/20/2021 XR CHEST 2 VIEW PA & LAT 01/21/2022 XR CHEST 2 VIEW PA & LAT 11/13/2011 XR CHEST 2 VIEW PA & LAT 11/14/2011 XR CHEST 2 VIEW PA & LAT 08/20/2021 XR CHEST 2 VIEW PA & LAT 11/21/2011 XR CHEST 2 VIEW PA & LAT 04/01/2012 BONE DENSITY DEXA 10/22/2018 BONE DENSITY DEXA 10/28/2019 ECHO 01/31/2022 CT chest wo con 11/24/2022 CT chest wo con 12/11/2023 CT chest wo con 11/21/2021 CT chest wo con 11/16/2020 Future Test Test Name Order Date CT CHEST NO CONTRAST 11/05/2020 MRI HIP RT W&WO CONTRAST 09/10/2021 Next Appt Details Provider Name:Darren hudson, 03/31/2024 11:00:00 AM, [address], [address], [place], [place], [id number], Insurance Providers Payer Name Payer Address Payer Phone Subscriber Number Group Number Insured Name Patient Relationship to Insured Coverage Start Date Coverage End Date [employer] [address] [place] [phone] [id number] Carla Bernal Self - patient is the insured MEDIC[employer] [address] [place] [address] [id number] Carla Bernal Self - patient is the insured MEDICAL (GENERAL) HISTORY Medical History History ICD Code 3 mm lung nodule. low risk. no further w /u indicated. 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 Box - negative/no further testing needed. Colonoscopy done 08/13/2105/13, D&C by Dr. JOHNSON, [facility] Dysfunction of right rotator cuff Cervical cancer Stage1-2 2020 Surgical History Surgery Date(Month/Year) DC Cardioversion by Dr. Pérez 09/28 018
--- OUTSIDE RECORDS SUMMARY | 2024-03-21 11:02 | XMS_ITS | Patient Health Record ---
Author Organization [facility] Address [address] [place] [address] Care Team Providers Care Greens Tier Name Role Phone Darren Pavon MD Primary Care Provider Juliocesar Corona [phone] ALLERGIES Allergen (clinical drug ingredient) Drug/Non Drug Allergy documented on EMR Reaction Allergy Type Onset Date Status amoxicillin / clavulanate Augmentin Unknown Drug Allergy Active REASON FOR REFERRAL No Information MEDICATIONS Medication SIG (Take, Route, Frequency, Duration) Notes Start Date End Date Status Flecainide Acetate 50 MG as directed Orally Active Lisinopril 10 MG 1 tablet Orally Once a day for 30 day(s) Active Warfarin Sodium 5 MG 1 tablet Orally Onc e a day for 30 day(s) Active Balsalazide Disodium 750 MG [address] ee times a day for 30 day(s) 12/19/2021 Active dilTIAZem HCl 120 MG as directed Orally Active IMMUNIZATIONS Vaccine Route Administration Date Status Comme nts Influenza Unknown 02/13/2021 Administered SOCIAL HISTORY Sex Assigned At : Social History Observation Description Sex Assigned At Unknown PROBLEMS Problem Type ICD Code Onset Dates Problem Status W/U Status Risk SNOMED Code Notes Problem Encounter for screening for malignant neoplasm of colon (Z12.11) Active confirmed 584082189 Problem Encounter for screening for malignant neoplasm of rectum (Z12.12) Active confirmed Screening for malignant neoplasm of rectum (803808820) Problem Preprocedural examination (Z01.818) Active confirmed 11451710 Problem Rectal bleeding (K62.5) Active confirmed 87410529 Problem Diverticulosis of colon (K57.30) Active confirmed Diverticulosi s of colon (848246880) Problem 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 U/S of abdomen and UGI in 2009 Atrial fibrillation-Dr. 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 She was started on oral mesalamine in 11/2021 to see if that would give her relief. Surgical History Surgery Date(Month/Year) D&C [facility]
== END 2024-03-21 11:35 | disposition home or self-care (01) ==
PROVIDERS: PCP Internal Medicine; Visit Provider Internal Medicine
DX: I48.92 Unspecified atrial flutter (principal); I44.0 Atrioventricular block, first degree; Z51.81 Encounter for therapeutic drug level monitoring; Z79.899 Other long term (current) drug therapy; R31.0 Gross hematuria; D64.9 Anemia, unspecified; I10 Essential (primary) hypertension; Z95.818 Presence of other cardiac implants and grafts
CPT/HCPCS: 93010; 99214

== ENCOUNTER → 2024-03-21 10:57 | Outpatient (BNVA) | payer MEDICARE, SELFPAY | PROVIDERS: PCP Internal Medicine; Visit Provider Internal Medicine | DX: I48.92 Unspecified atrial flutter (principal); I44.0 Atrioventricular block, first degree; I10 Essential (primary) hypertension; R31.0 Gross hematuria; D64.9 Anemia, unspecified; Z95.818 Presence of other cardiac implants and grafts; Z51.81 Encounter for therapeutic drug level monitoring; Z79.899 Other long term (current) drug therapy; Z79.01 Long term (current) use of anticoagulants; Z79.82 Long term (current) use of aspirin | CPT/HCPCS: 93005; 99212 ==

== ENCOUNTER 2024-07-01 12:29 | Outpatient (REF) | payer MEDICARE, SELFPAY ==
--- NOTE | ~2024-07-01 | XR_ITS ---
EXAMINATION: XR CHEST CLINICAL INFORMATION: SOB COMPARISON: February 10, 2022. TECHNIQUE: 2 views of the chest were obtained. FINDINGS: Dextroconvex curvature of the lower thoracic spine deformity in the buttocks. No consolidation, pleural effusion or pneumothorax. Cardiomediastinal silhouette size is normal. There is a stent or calcifications at the ascending thoracic aorta/aortic valve region. Calcified plaques in the thoracic aortic arch. XR/XR chest 2V IMPRESSION: No acute airspace disease. Electronically signed by: Jayson Najera MD 07/01/2024 02:07 PM EDT
--- OUTSIDE RECORDS SUMMARY | 2024-07-01 14:23 | XMS_ITS ---
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 Generated for Hunteri mey/Prateek/eTransmitting on:?07/01/2024 10:42 AM EDT
--- OUTSIDE RECORDS SUMMARY | 2024-07-01 14:23 | XMS_ITS ---
Author Organization Darren Pavon MD Address [address] [place], [place] [phone] Care Team Providers Care Drawing In Machine Tender Helper Name Role Phone Darren Pavon Primary Care Provider Allergies Allergen (clinical drug ingredient) Drug/Non Drug Allergy documented on EMR Reaction Allergy Type Onset Date Status amoxicillin / clavulanate augmentin (uncoded) yeast infection Allergy Active REASON FOR VISIT cough x 3 weeks chest congestion, Video [phone] Medications Medication SIG (Take, Route, Frequency, Duration) [...] W/U Status Risk Notes Problem Asthmatic bronchitis (424725535) Asthmatic bronchitis (J45.909) Active confirmed Vital Signs Height 66 in 06/06/2024 Weight 177 lbs 06/06/2024 BMI 28.57 kg/m2 06/06/2024 weight at home is 177 BP not taken at home Encounters Encounter Location Date Provider Diagnosis Darren Pavon MD [address] [facility] [address] [facility] [address] [place] [id number] 06/06/2024 Darren Pavon Asthmatic bronchitis J45.909 Assessments [...] for use Next Appt Details Provider Name:Darren hudson, 03/28/2025 07:15:00 AM, [address] [place] [address], Suite [facility], [place], [place], [id number], Provider Name:Darren hudson, 04/06/2025 11:00:00 AM, [address] [place] [address], [address], [place], [place], [id number], Progress Notes * Liang BERNALeDOB:1945 ( 78 yo F)Acc No.[id number]:06/06/2024 Patient:?Carla BERNAL Provider:?Darren Pavon MD :1945???Age:78 Y???Sex:Female D ate:06/06/2024 Address:[address] [place] [address] Subjective: * Chief Complaints: * ???Cough x 3 weeks chest con gestionVideo [phone] * HPI: ???Symptom(s):?Telehealth?Location of provider rendering services:?[address] [place] [address], Suite [facility],?Location of patient:?at address listed in demographics for today's visit,?Patient identification confirmed using:?Name, ,?Telehealth method:?Telephone only. Patient not visible to care provider.,?Consent:?Patient verbally consented to treatment, Patient verbally consented to billing insurance company, Patient informed of any privacy concerns related to method of visit,?Total time spend talking with patient (minutes)?18.?patient is a 78 yo female video telehealth visit? here as emergency. coughing for 3 weeks and wheezing somewhat. using inhaler. * ROS:?General/Constitutional:?Denies?Chills.?Denies?Fatigue.?Denies?Fever.?ENT:?Patient denies?decreased sense of smell, any loss of taste, sore throat.?Denies?Sore throat.?Respiratory:?Admits?Cough.?Denies?Shortness of breath at rest.?Denies?Shortness of breath with exertion.?Denies?Sputum production.?Admits?Wheezing.?Gastrointestinal:?Denies?Diarrhea.?Denies?Nausea.?Musculoskeletal:?Patient denies?muscle aches.?Peripheral Vascular:?Patient denies?red and blue toes.? * Medical History:? * Surgical History:? * Hospitalization/Major Diagno stic Procedure:? * Medications:?TakingPlavix 75 MG Tablet 1 tablet Orally Once [...] reviewed and reconciled with the patient * Allergies:?augmentin: yeast infectionyes[Allergies Verified] Objective: * Vitals:?Ht: 66, Wt: 177, BMI :28.57, Wt-k.29. weight at home is 177? ?BP? not taken at home. Assessment: * Assessment: 1.?Asthmatic bronchitis - J4 5.909 (Primary)??? Plan: * Treatment: * Procedure Codes:? * * Sign off status: Completed true * Provider:?Darren Pavon MD Date:?0 06/06/2024 Generated for Maritza mathias/Prateek/eTfrannie on:?07/01/2024 02:22 PM EDT History and Physical Notes * HPI (History of Present Illness) Category Sub-Category Detail Notes Category Not es Symptom(s) Telehealth Location of [facility] rendering services:: [address], [address] patient is a 78 [...]
--- OUTSIDE RECORDS SUMMARY | 2024-07-01 14:23 | XMS_ITS ---
Author Organization Darren Pavon MD Address [address] [place], [place] [phone] Care Team Providers Care Engineering Coordinator Name Role Phone Darren Pavon Primary Care Provider Allergies Allergen (clinical drug ingredient) Drug/Non Drug Allergy documented on EMR Reaction Allergy Type Onset Date Status amoxicillin / clavulanate augmentin (uncoded) yeast infection Allergy Active REASON FOR VISIT had the watchman put in. Has a cold.Has questions about medications, Video [phone] c/o nonproductive cough, had muscle pain all [...] Location Date Provider Diagnosis Darren Pavon MD [address] [place] [address] Drive [address] [place], [place] [phone] 05/17/2024 Darren Pavon Influenza A J10.1 and [...] to observe Next Appt Details Provider Name:Darren hudson, 03/28/2025 07:15:00 AM, [address] [place] [address], [address], [place], [place], [phone], Provider Name:Darren hudson, 04/06/2025 11:00:00 AM, [address] [place] [address], [address], [place], [place], [phone], Progress Notes * Linda BERNALOB:1945 ( 78 yo F)Acc No.[id number]:05/17/2024 Patient:?Carla BERNAL Provider:?Darren Pavon MD :1945???Age:78 Y???Sex:Female D ate:05/17/2024 Address:[address] [place] [address] Subjective: * Chief Complaints: * ???had the watchman put in. Has a cold.Has questions about medicationsVideo [phone] c/o nonproductive cough, had muscle pain all week, runny nose congestion x 1 week negative for Covid 6 days ago * HPI: ???Symptom(s):?Telehealth?Location of provider rendering services:?[address], [address],?Location of patient:?at address listed in demographics for today's visit,?Patient identification confirmed using:?Name, ,?Telehealth method:?Video conference where patient is visible to the provider of care,?Consent:?Patient verbally consented to treatment, Patient verbally consented to billing insurance company, Patient informed of any privacy concerns related to method of visit,?Total time spend talking with patient (minutes)?16.?patient is a 78 yo female video telehealth visit, had urinary bleeding again. tested negative for covid.? feels like she has the flu. dry cough, everything was hurting for a few.? doesn't want to go get tested. * ROS:?General/Constitutional:?Denies?Chills.?Denies?Fatigue.?Denies?Fever.?Denies?Headache.?ENT:?Patient denies?decreased sense of smell, any loss of taste, sore throat.?Denies?Sore throat.?Respiratory:?Admits?Cough.?Denies?Shortness of breath at rest.?Denies?Shortness of breath with exertion.?Denies?Sputum production.?Denies?Wheezing.?Gastrointestinal:?Denies?Diarrhea.?Denies?Nausea.?Musculoskeletal:?Patient denies?muscle aches.?Peripheral Vascular:?Patient denies?red and blue toes.? [...] infectionyes[Allergies Verified] Objective: * Vitals:?Ht: 66, Wt: 175, BMI :28.24, Wt-k.38. weight? 175? BP? not taken today no temp. * Examination: ???General Examination: ?GENERAL APPEARANCE:?alert, well hydrated, in no distress.? Assessment: * Assessment: 1.?Influenza A - J10.1 (Prim heather)???2.?Gross hematuria - R31.0??? Plan: * Treatment: 2.?Gross hematuria? Notes: is related to plavix and asa, will continue to observe?? * Procedure Codes:? * * Sign off status: Completed true * Provider:?Darren Pavon MD Date:?0 05/17/2024 Generated for Maritza mathias/Prateek/Yanelyitting on:?07/01/2024 02:23 PM EDT History and Physical Notes * HPI (History of Present Illness) Category Sub-Category Detail Notes Category Not es Symptom(s) Telehealth Location of [facility] rendering services:: [address] [place] [address] Drive, [address] patient is a 78 [...]
--- OUTSIDE RECORDS SUMMARY | 2024-07-01 14:23 | XMS_ITS | Patient Health Record ---
Author Organization [facility] Address [address] [place] [phone] Care Team Providers Care Elevators Inspector Name Role Phone Darren Pavon MD Primary Care Provider Juliocesar Corona [phone] Allergies Allergen (clinical drug ingredient) Drug/Non Drug Allergy documented on EMR Reaction Allergy Type Onset Date Status amoxicillin / clavulanate Augmentin Unknown Drug Allergy Active Reason For Referral No Information Medications Medication SIG (Take, Route, Frequency, Duration) [...] HCl 120 MG as directed Orally Active Immunizations Vaccine Route Administration Date Status Comme nts Influenza Unknown 02/13/2021 Administered Problems Problem Type SNOMED Code ICD Code Onset Dates Problem Status W/U Status Risk Notes Problem 09370438 Rectal bleeding (K62.5) Active confirmed Problem 322993946 Encounter for screening for malignant neoplasm of colon (Z12.11) Active confirmed Problem 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 Problem Screening for malignant neoplasm of rectum (370564540) Encounter for screening for malignant neoplasm of rectum (Z12.12) Active confirmed Problem 32624912 Preprocedural examination (Z01.818) Active confirmed Problem Diverticulosis of colon (155044498) Diverticulosis of colon (K57.30) Active confirmed Plan Of Treatment Pending Test Test Name Order Date CBC w DIFF 12/19/2021 Future Test Test Name Order Date COLONOSCOPY 04/03/2015 COLONOSCOPY 07/26/2021 Insurance Providers Payer Name Payer Address Payer Phone Subscriber Number Group Number Insured Name Patient Relationship to Insured Coverage Start Date Coverage End Date [facility] [address] [place] [phone] [id number] MISA BERNAL Self - patient is the insured Medical (General) History Medical History History ICD Code Denies AR,DM,CVA,Lung disease,renal dise ase HTN Neg. U/S of abdomen and UGI in 2009 Atrial fibrillation-Dr. 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 She was started on oral mesalamine in 11/2021 to see if that would give her relief. Surgical History Surgery Date(Month/Year) [facility]
--- OUTSIDE RECORDS SUMMARY | 2024-07-01 14:23 | XMS_ITS | Clinical Summary ---
Author Organization [facility] Address [address] [place] [id number] Phone Care Team Providers Care Manager Interventional Name Role Phone Anton Pavon MD Primary Care Provider [phone] Encounters Date Type Department Care Team Description 04/26/2024 1:28 PM EST - 04/26/2024 11:59 PM EST Hospital [facility] [address] [address] Encounter for screening mammogram for breast cancer Discharge Disposition: Home or Self Care from Last 3 Months Surgical History Surgery Date Site/Laterality Comments STEREOTACTIC CORE BIOPSY Left Social History Tobacco Use Types Packs/Day Years Used Date Smoking Tobacco: Never Assessed Comments No Sex and Gender Information Value Date Recorded Sex Assigned at Female 04/20/2024 9:44 AM EST Legal Sex Female 8:24 PM EST Gender Identity Female 04/20/2024 9:44 AM EST Sexual Orientation Straight 04/20/2024 9: 44 AM EST Obstetrics History Para Term AB IAB SAB Ectopic Multiple Livin g Live Births 3 Last Filed Vital Signs Vital Sign Reading Time Taken Comments Blood Pressure - - Pulse - - Temperature - - Respiratory Rate - - Oxygen Saturation - - Inhaled Oxygen Concentration - - Weight 79.4 kg (175 lb) 04/26/2024 1:37 PM EST Height 165.1 cm (5' 5 ) 04/26/2024 1:37 PM EST Body Mass Index 29.12 04/26/2024 1:37 PM EST Plan of Treatment Health Maintenance Due Date Last Done Comments DTaP,Tdap,and Td Vaccines (1 - Tdap) 1964 Zoster Vaccines (1 of 2) 1964 Pneumococcal Vaccine: 50+ Years (2 of 2 - PCV) 04/29/2019 04/29/2018 RSV Immunization Adult Patients (1 - 1-dose 75+ series) 2020 Cholesterol Screening (Lipid Panel) 03/01/2022 Depression Screening 03/01/2022 Falls Risk Assessment 03/01/2022 Hepatitis C Screening 03/01/2022 Medicare Annual Wellness Visit 03/01/2022 Social Influencers of Health Screening 03/01/2022 COVID-19 Vaccine ( season) 2023 02/18/2022, 11/21/2021, 03/15/2021, Additional history exists Hypertension/CHF/CAD Annual BMP Blood Test 04/26/2024 Osteoporosis Screening (Bone Density Screening) 04/21/2033 04/21/2023 Influenza Vaccine Completed 12/15/2023, , 03/13/2022, Additional history exists HIB Vaccines Aged Out No longer eligi ble based on patient's age to complete this topic HPV Vaccines Aged Out No longer eligi ble based on patient's age to complete this topic Hepatitis A Vaccines Aged Out No long er eligible based on patient's age to complete this topic Hepatitis B Vaccines Aged Out No long er eligible based on patient's age to complete this topic IPV Vaccines Aged Out No longer eligi ble based on patient's age to complete this topic MMR Vaccines Aged Out No longer eligi ble based on patient's age to complete this topic Meningococcal ACWY Vaccine Aged Out N o longer eligible based on patient's age to complete this topic Meningococcal B Vacine Aged Out No lo nger eligible based on patient's age to complete this topic RSV Immunization Patients Under 20 months Aged Out No longer eligible based on patient's age to complete this topic Varicella Vaccines Aged Out No longer eligible based on patient's age to complete this topic Procedures Procedure Name Priority Date/Time Associated Diagnosis Comments MG MAMMO DIGITAL SCREENING W BRONSON BILAT Routine 04/26/2024 2:03 PM EST Encounter for screening mammogram for breast cancer JESSICA DEXA AXIAL SKELETON Routine 04/21/2023 11:55 AM EST Encounter for screening for osteoporosis from Last 3 Months or Most Recently Relevant to Health Maintenance Results * MG Mammo Digital Screening w Bronson bilat (04/26/2024 2:03 PM EST) Anatomical Region Laterality Modality Breast Bilateral Mammography 04/26/2024 3:17 PM EST Impressions 04/26/2024 3:39 PM EST No mammographic evidence of malignancy. ?? No suspicious interval change. A negative mammogram in the presence of a clinically suspicious palpable abnormality does not preclude the possibility of malignancy or alter the indications for biopsy. ASSESSMENT: ?? BI-RADS 1: NEGATIVE RECOMMENDATION(S): 1: Routine screening mammogram BILATERAL in 1 year. -------- FINAL REPORT -------- Dictated By: Thaddeus Elam Dictated Date: 04/26/2024 15:17 ET Assigned Physician: Thaddeus Elam Reviewed and Electronically Signed By: Thaddeus Elam Signed Date: 04/26/2024 15:39 ET Workstation ID: [id number] Transcribed By: Self Edit Transcribed Date: 04/26/2024 15:17 ET Narrative 04/26/2024 3:39 PM EST EXAM: ??SCREENING MAMMOGRAPHY, BILATERAL HISTORY: ??SCREENING. ??No additional history. COMPARISON: ??04/21/2023, 04/18/2022, 04/04/2021, 01/24/2020 TECHNIQUE: Synthesized CC and MLO projections of each breast. ??Tomosynthesis of each breast in the CC and MLO projections. ADDITIONAL IMAGING: None Computer-aided detection was employed with the iCAD ??profound AI 3-D. TISSUE DENSITY: There are scattered areas of fibroglandular density. (BI-RADS category B) FINDINGS: RIGHT BREAST: No suspicious mass. No suspicious calcification. No distortion. ?? No additional suspicious right breast findings LEFT BREAST: No suspicious mass. No suspicious calcification. No distortion. ?? No additional suspicious left breast findings Procedure Note Thaddeus Elam MD - 04/26/2024 EXAM: SCREENING MAMMOGRAPHY, BILATERAL HISTORY: SCREENING. No additional history. COMPARISON: 04/21/2023, 04/18/2022, 04/04/2021, 01/24/2020 TECHNIQUE: Synthesized CC and MLO projections of each breast.Tomosynthesis of each breast in the CC and MLO projections. ADDITIONAL IMAGING: None Computer-aided detection was employed with the iCAD profound AI 3-D. TISSUE DENSITY: There are scattered areas of fibroglandular density.(BI-RADS category B) FINDINGS: RIGHT BREAST: No suspicious mass. No suspicious calcification. No distortion. Noadditional suspicious right breast findings LEFT BREAST: No suspicious mass. No suspicious calcification. No distortion. Noadditional suspicious left breast findings IMPRESSION: No mammographic evidence of malignancy. No suspicious interval change. A negative mammogram in the presence of a clinically suspicious palpableabnormality does not preclude the possibility of malignancy or alter theindications for biopsy. ASSESSMENT: BI-RADS 1: NEGATIVE RECOMMENDATION(S): 1: Routine screening mammogram BILATERAL in 1 year. -------- FINAL REPORT -------- Dictated By: Thaddeus Elam Dictated Date: 04/26/2024 15:17 ET Assigned Physician: Thaddeus Elam Reviewed and Electronically Signed By: Thaddeus Elam Signed Date: 04/26/2024 15:39 ET Workstation ID: [id number] Transcribed By: Self Edit Transcribed Date: 04/26/2024 15:17 ET us Self Referral Sppl IMG BI PROCEDURES Final Resul t * JESSICA DEXA AXIAL SKELETON (04/21/2023 11:55 AM EST) Anatomical Region Laterality Modality Mammography 04/21/2023 9:59 AM EST Narrative 04/21/2023 11:55 AM EST [facility] Diagnostic Imaging Department [address] [place] [id number] Patient: ??MISA BERNAL ?/Age/Sex: 1945 - - Unit#: ??[id number] ? Location/Status: ??SPDIMAM/REG CLI ? Mnemonic/Ordering Site: ??MAMDEXAAX/SPMAM Ordering Physician: ??DELFIN JOHNSON MD [facility] Dexa Axial Skeleton - 04/21/23 - 1048 Report Status:Signed HISTORY: ??The patient is a 77-year-old postmenopausal female with clinical concern for metabolic bone disease. FINDINGS: ??Dual energy x-ray absorptiometry of the lumbar spine and femurs is performed. The mean bone mineral density at L1-3 is 1.037 gm/cm2 which is 89% of that of young normals and 101% of that of age matched controls. This yields a T- score of -1.1 and a Z-score of 0.1 which is diagnostic of osteopenia. The mean bone mineral density of the femurs bilaterally is 0.885 gm/cm2 which is 88% of that of young normals and 107% of that of age matched controls. ??This yields a T-score of -1.0 and a Z-score of 0.4 and there is therefore no evidence of osteoporosis or osteopenia here. ??However, the T-score of the right femoral neck is -1.8 and that of the left femoral neck is -1.1 which is diagnostic of osteopenia. IMPRESSION: 1. Osteopenia. ??There has been a decrease of 4.0% in bone mineral density in the lumbar spine since the prior examination of 09/04/2016. ??There has been a decrease of 9.4% in bone mineral density in the right femur and a decrease of 8.9% in bone mineral density in the left femur. 2. FRAX analysis yields a 10-year probability of major osteoporotic fracture of 32.2% and a 10-year probability of hip fracture of 18.1%. Code 45370 Dictating Physician: ??SYMONE DO MD Electronically Signed by: ??SYMONE DO MD Dic Date/Time: ??04/21/23 1154 Sign date/Time: ??04/21/23 1155 Procedure Note Symone Do MD - 11/16/2023 [facility] Diagnostic Imaging Department [address] [place] [address] Patient: MISA BERNAL Kartik PosadasB./Age/Sex: 1945 - 77 - F Unit#: [id number] Location/Status: SPDIMAM/REG CLI [facility] Ordering Physician: DELFIN JOHNSON MD Jessica Dexa Axial Skeleton - 04/21/23 - 1048 Report Status:Signed HISTORY: The patient is a 77-year-old postmenopausal female withclinical concern for metabolic bone disease. FINDINGS: Dual energy x-ray absorptiometry of the lumbar spine and femursis performed. The mean bone mineral density at L1-3 is 1.037 gm/cm2 which is89% of that of young normals and 101% of that of age matched controls. Thisyields a T- score of -1.1 and a Z-score of 0.1 which is diagnostic of osteopenia. The mean bone mineral density of the femurs bilaterally is 0.885 gm/em5sbsom is 88% of that of young normals and 107% of that of age matched controls.This yields a T-score of -1.0 and a Z-score of 0.4 and there is therefore noevidence of osteoporosis or osteopenia here. However, the T-score of the rightfemoral neck is -1.8 and that of the left femoral neck is -1.1 which is diagnosticof osteopenia. IMPRESSION: 1. Osteopenia. There has been a decrease of 4.0% in bone mineral densityin the lumbar spine since the prior examination of 09/04/2016. There has dno decrease of 9.4% in bone mineral density in the right femur and a decreaseof 8.9% in bone mineral density in the left femur. 2. FRAX analysis yields a 10-year probability of major osteoporoticfracture of 32.2% and a 10-year probability of hip fracture of 18.1%. Code 30310 Dictating Physician: SYMONE DO MD Electronically Signed by: SYMONE DO MD Dic Date/Time: 04/21/23 1154 Sign date/Time: 04/21/23 1155 Delfin Johnson MD IMG BI PROCEDURES Final Result from Last 3 Months or Most Recently Relevant to Health Maintenance Insurance [employer] Care Teams Manager Interventional Relationship Specialty Start Date End Date Anton Pavon MD [address] PCP - General Internal Medicine 04/20/24
--- OUTSIDE RECORDS SUMMARY | 2024-07-01 14:23 | XMS_ITS | Clinical Summary ---
Author Organization [facility], Address [address] [place] [address] Phone Care Team Providers Care Leather Worker Name Role Phone Darren Pavon MD Primary Care Provider Allergies Active Allergy Reactions Criticality Noted Date Comments Amoxicillin-Pot Clavulanate High 04/25/19 21 RASH/YEAST INFECTION Medications flecainide (TAMBOCOR) 50 MG tablet Take 50 mg by mouth 2 (two) times a day Active lisinopril (PRINIVIL,ZESTR IL) 10 MG tablet TK 1 T PO QD 02/20/2020 Active dilTIAZem CD (CARDIZEM CD) 120 MG 24 hr capsule Take by mouth 1 (one) time each day 08/20/2020 Active warfarin (COUMADIN) 5 MG tablet Take 5 mg by mouth 5 mg Thu-, Thursday and Thursday 2.5- on Thursday08/28/2020 Active Active Problems Problem Noted Date Diagnosed Date Gout 04/30/2020 Pneumonia 04/30/2020 Back pain 04/30/2020 Cervical cancer 04/25/2020 Atrial fibrillation 04/25/2020 Hypertension 04/25/2020 Social History Tobacco Use Types Packs/Day Years Used Date Smoking Tobacco: Former Cigarettes Q uit: 1993 Comments:quit 1993 Alcohol Use Standard Drinks/Week Comments Yes 0 (1 standard drink = 0.6 oz pur e alcohol) pt reports she drinks daily Comments Unknown Sex and Gender Information Value Date Recorded Sex Assigned at Not on file Legal Sex Female 1:58 PM EST Gender Identity Not on file Sexual Orientation Not on file Last Filed Vital Signs Vital Sign Reading Time Taken Comments Blood Pressure 145/71 10/15/2020 8:53 AM EDT Pulse 76 10/15/2020 8:53 AM EDT Temperature 36.3 ??C (97.4 ??F) 10/15/2020 8:53 AM ED T Respiratory Rate 13 10/15/2020 8:53 AM EDT Oxygen Saturation 98% 10/15/2020 8:53 AM EDT Inhaled Oxygen Concentration - - Weight 78 kg (172 lb) 10/15/2020 8:53 AM EDT Height 162.6 cm (5' 4 ) 10/15/2020 8:53 AM EDT Body Mass Index 29.52 10/15/2020 8:53 AM EDT Plan of Treatment Health Maintenance Due Date Last Done Comments Pneumococcal Vaccine: 65+ Ye ars (1 of 2 - PCV) 11/09/1951 Influenza Vaccine (#1) 2023 Hepatitis B Vaccine Aged Out No longe r eligible based on patient's age to complete this topic Insurance Care Teams Leather Worker Relationship Specialty Start Date End Date Darren Pavon MD [address] [place] [address] [address] [place], [place] PCP - General Internal Medicine 04/25/20
--- OUTSIDE RECORDS SUMMARY | 2024-07-01 14:23 | XMS_ITS | Patient Health Record ---
Author Organization [facility] Address [address] [place] [address] Care Team Providers Care Plumber Pipe Fitting Name Role Phone Darren Pavon MD Primary Care Provider Danny Flores [phone] Reason For Referral No Information Encounters Encounter Location Date Provider Diagnosis [facility] [address] [place] [address] 06/02/2024 Danny Ly Plan Of Treatment Next Appt Details Provider Name:Danny Ly , 08/31/2024 01:00:00 PM, [address] [facility], [facility] [address], [place], [address], Insurance Providers Payer Name Payer Address Payer Phone Subscriber Number Group Number Insured Name Patient Relationship to Insured Coverage Start Date Coverage End Date Medicare National Govt [facility] [address] [place] [address] [id number] Carla Bernal Self - patient is the insured [facility] [address] [place] [address] [phone] [id number] Carla Bernal Self - patient is the insured
--- OUTSIDE RECORDS SUMMARY | 2024-07-01 14:23 | XMS_ITS ---
Author Organization Darren Pavon MD Address [address] [place], [place] [id number] Care Team Providers Care Nurse Anesthesia Program Director Name Role Phone Darren Pavon Primary Care Provider Allergies Allergen (clinical drug ingredient) Drug/Non Drug Allergy documented on EMR Reaction Allergy Type Onset Date Status amoxicillin / clavulanate augmentin (uncoded) yeast infection Allergy Active REASON FOR VISIT COUGH , CHEST CONGESTION, SWOLLEN GLANDS sore throat, SOB, x 2 days, USE CELL PHONE [phone] Medications Medication SIG (Take, Route, Frequency, Duration) [...] Location Date Provider Diagnosis Darren Pavon MD [address] [place] [address] Drive [address] [place], [place] [id number] 07/01/2024 Darren Pavon Short of breath on exertion R06.02 and Bronchitis J40 Assessments Encounter Date Diagnosis (ICD Code) Assessment Notes Treatment Notes Treatment Clinical Notes Section Notes 07/01/2024 Short of breath on exertion (ICD-10 - R06.02) pending diagnostic testing/THE ORDER HAS BEEN FA[place]ED [place] [facility] [place]IENT REG MISA IS AWARE 07/01/2024 Bronchitis [...] nostic testing/THE ORDER HAS BEEN FAXED TO [facility] [place] REG MISA IS AWARE Bronchitis patient verbalized u nderstanding of medication and directions for use Pending Test Test Name Order Date XR CHEST 2 VIEW PA & LAT 07/01/2024 Next Appt Details Provider Name:Darren Bose ier, 03/28/2025 07:15:00 AM, [address] [facility], [address], [place], [place], [id number], Provider Name:Darren Bose ier, 04/06/2025 11:00:00 AM, [address] [facility], [address], [place], [place], [id number], Progress Notes * Liang BERNALCaroOB:1945 ( 78 yo F)Acc No.[id number]:07/01/2024 Patient:?Misa BERNAL Provider:?Darren Pavon MD :1945???Age:78 Y???Sex:Female D ate:07/01/2024 Address:[address] [place] [address] Subjective: * Chief Complaints: * ???1. COUGH , CHEST CONGESTI ON, SWOLLEN GLANDS sore throat, SOB, x 2 days. 2. USE CELL PHONE [phone]. * HPI: ???Symptom(s):?Telehealth?Location of provider rendering services:?[address], [address],?Location of patient:?at address listed in demographics for today's visit,?Patient identification confirmed using:?Name, ,?Telehealth method:?Telephone only. Patient not visible to care provider.,?Consent:?Patient verbally consented to treatment, Patient verbally consented to billing insurance company, Patient informed of any privacy concerns related to method of visit,?Total time spend talking with patient (minutes)?0.?patient is a 78 yo female having sore throat and today with difficulty breathing. 2 weeks ago had zpak. * ROS:?General/Constitutional:?Denies?Chills.?Denies?Fatigue.?Denies?Fever.?Denies?Headache.?ENT:?Denies?Sore throat.?Respiratory:?Admits?Cough.?Denies?Shortness of breath at rest.?Admits?Shortness of breath with exertion.?Denies?Sputum production.?Denies?Wheezing.?Gastrointestinal:?Denies?Diarrhea.?Denies?Nausea.? * Medical History:?3 mm lung n odule. low risk. no further w/u indicated., Sees percussion instrument tuner yearly, still refusing colonoscopy 2012,2013; Colonoscopy done 06/11/15 w/Dr. Box - negative/no further testing needed. Colonoscopy done 08/13/21, 05/13, D&C by Dr. JOHNSON, [facility], Dysfunction of right rotator cuff, Cervical cancer Stage1-2 2020, [facility] IN [facility] 2023. * Medications:?Taking Plavix 7 5 MG Tablet 1 tablet Orally Once a day , Taking Atorvastatin Calcium 20 MG Tablet 1 tablet Orally Once a day , Taking Aspirin 81 81 MG Tablet Delayed Release 1 tablet Orally Once a day , Taking Flecainide Acetate 50 MG Tablet Orally twice a day , Taking ProAir HFA 108 (90 Base) MCG/ACT Aerosol Solution 2 puffs as needed Inhalation every 6 hrs , Taking Lisinopril 10 MG Tablet 1 tablet Orally Once a day , Taking dilTIAZem HCl ER Coated Beads 120 MG Capsule Extended Release 24 Hour TAKE 1 CAPSULE BY MOUTH EVERY DAY , Not-Taking/PRN Ferrous Sulfate 324 MG Tablet Delayed Release 1 tablet Orally Three times a Week , Not-Taking/PRN Vitamin D 25 MCG (1000 UT) Tablet 1 tablet Orally Once a day , Not-Taking/PRN Molnupiravir 200 MG Capsule 4 capsules Orally every 12 hrs , Not-Taking/PRN Balsalazide Disodium 750 MG Capsule 1 capsules Orally three times a day , Not-Taking/PRN Benzonatate 100 MG Capsule 1 capsule as needed Orally Three times a day , Not-Taking/PRN Diclofenac Sodium 75 MG Tablet Delayed Release 1 tablet with food or milk Orally Twice a day , Not-Taking/PRN Aspirin 325 MG Tablet 1 tablet Orally PRN , Medication List reviewed and reconciled with the patient * Allergies:?Augmentin: Yeast Infection. Objective: * Vitals:?Ht: 66, Wt: 179, BMI :28.89, Wt-k.19. weight at home is 179? ?BP? not taken at home? no temp. Assessment: * Assessment: 1.?Short of breath on exerti on - R06.02 (Primary)???2.?Bronchitis - J40??? Plan: * Treatment: 2.?Bronchitis? Start Zithromax Z-Ok Tablet, 250 MG, 2 tablet on the first day, then 1 tablet daily for 4 days, Orally, Once a day, 5 day(s), 6, Refills 0.?? Notes: patient verbalized understanding of medication and directions for use?? * * The named appointment provid er may or may not be the originator of this progress note, and it is not deemed complete until electronically signed by the appointment provider. Sign off status: Pending * Provider:?Darren Pavon MD Date:?0 07/01/2024 Generated for Maritza mathias/Prateek/eTransmitting on:?07/01/2024 02:23 PM EDT History and Physical Notes * HPI (History of Present Illness) Category Sub-Category Detail Notes Category Not es Symptom(s) Telehealth Location of [facility] rendering services:: [address], [...] time spend talking with patient (m inutes): 0
== END 2024-07-01 12:30 | disposition home or self-care (01) ==
LOC: HO.XRAY 12:29
PROVIDERS: PCP Internal Medicine; Visit Provider Internal Medicine
DX: R06.02 Shortness of breath (principal)
CPT/HCPCS: 71046

== ENCOUNTER → 2024-07-01 13:33 | Outpatient (BNV) | payer MEDICARE, SELFPAY | PROVIDERS: PCP Internal Medicine; Visit Provider Radiology Diagnostic Radiology | DX: R06.02 Shortness of breath (principal) | CPT/HCPCS: 71046 ==

== ENCOUNTER 2024-09-26 10:00 | Outpatient (AMB) | payer MEDICARE, SELFPAY ==
--- OUTSIDE RECORDS SUMMARY | 2024-06-06 07:45 | XMS_ITS ---
Author Organization Darren Pavon MD Address [address] [place], [place] [phone] Care Team Providers Care Grounds Maintenance Worker Name Role Phone Darren Pavon Primary Care Provider Allergies Allergen (clinical drug ingredient) Drug/Non Drug Allergy documented on EMR Reaction Allergy Type Onset Date Status amoxicillin / clavulanate augmentin (uncoded) yeast infection Allergy Active REASON FOR VISIT cough x 3 weeks chest congestion, Video [phone] Medications Medication SIG (Take, Route, Frequency, Duration) [...] W/U Status Risk Notes Problem Asthmatic bronchitis ([id number]) Asthmatic bronchitis (J45.909) Active confirmed Vital Signs Height 66 in 06/06/2024 Weight 177 lbs 06/06/2024 BMI 28.57 kg/m2 06/06/2024 weight at home is 177 BP not taken at home Encounters Encounter Location Date Provider Diagnosis Darren Pavon MD [address] [place] [phone] 06/06/2024 Darren Pavon Asthmatic bronchitis J45.909 Assessments [...] Next Appt Details Provider Name:Darren Bose ier, 03/28/2025 07:15:00 AM, [address] [facility], [address], [place], [place], [phone], Provider Name:Darren Bose ier, 04/06/2025 11:00:00 AM, [address] [facility], [address], [place], [place], [phone], Progress Notes * Liang BERNALeDOB:1945 ( 78 yo F)Acc No.[id number]:06/06/2024 Patient: Carla HERNANDEZ Provider: Geogria Pavon MD :1945 A ge:78 Y S ex:Female Date:06/06/2024 Address:[address] [place], [place] [phone] Subjective: * Chief Complaints: * C ough x 3 weeks chest congestionVideo [phone] * HPI: S ymptom(s): Telehealth L ocation of provider rendering services: [address] [facility], [address], ocation of patient: a t [...] S hortness of breath with exertion. D ennitza S putum production. A shahrzad W jaret. G astrointestinal: Denies Wilfredo iarrhea. Wilfredo wood N ausea. M usculoskeletal: Patient denies m [...] MD Date: 0 06/06/2024 Generated for Maritza mathias/Prateek/Libansmitting on: 0 09/26/2024 10:38 AM EDT History and Physical Notes * HPI (History of Present Illness) Category Sub-Category Detail Notes Category Not es Symptom(s) Telehealth Location of [facility] rendering services:: [address], [address] patient is a [...]
[2024-09-26 10:20] VITALS: BP 128/68; PULSE 66; BMI 29.9
--- NOTE | 2024-09-26 10:20 | A.OFFVIS_ITS ---
Vital Signs 09/26/24 10:20 Height 5 ft 4 in Weight 174 lb 2.643 oz BMI 29.9 BP 128/68 Blood Pressure Location Lt brachial Position Sitting Pulse 66 Pulse Source Monitor Intake Visit Reasons: 6 mth f/up Allergies amoxicillin (From AUGMENTIN) Allergy (Intermediate, Verified 02/04/24 14:28) Rash clavulanic acid (From AUGMENTIN) Allergy (Intermediate, Verified 02/04/24 14:28) Rash Medication List - Last Reconciled 09/26/24 by Lion Dahl MD albuterol sulfate 90 mcg/actuation 2 puffs inhalation Q6H PRN aspirin (Adult Low Dose Aspirin) 81 mg PO DAILY cholecalciferol (vitamin D3) 50 mcg PO BEDTIME diltiazem HCl CD 120 mg PO BEDTIME flecainide 50 mg PO Q12H [Golo Release Supplement 1 cap PO BID PRN] lisinopril 20 mg PO DAILY HPI Comments Details: Carla returns for follow up regarding atrial flutter. In the past, routine EKG at PCP's office had revealed atrial flutter. Subsequently she underwent cardioversion. Initially she was on Xarelto, but due to cost, this was switched to Coumadin. She was doing okay but had severe anemia from hematuria and hemoglobin was as low as 5.8. Then she was seen by EP and underwent Watchman device. She seems doing fine. No clear-cut cardiac symptoms like angina or shortness of breath or anything concerning. She has noticed some leg swelling at times which could be from venous insufficiency but do not see anything obvious today. 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 Mother No problems noted. Social History (Reviewed 03/21/24 @ 11:06 by FEROZ Celestin Household Members: Spouse and Family Housing: House Are you a primary behavioral health care coordinator to a significant other at home: No Do you presently have visiting nurse or other home services: No Alcohol intake: current Alcohol intake frequency: a few times a week Comment: patient refuses bed alarm Patient Tobacco Use Status: Former Tobacco user Tobacco use type: Cigarette Years Smoked: 25 e-Cigarette/Vaping Use: Never Used Second Hand Smoke Exposure: Yes service: No Current occupational status: retired Review of Systems Const Denies weakness ENT Denies dizziness Card Denies chest pain, Denies chest pain with activity, Denies syncope, Denies rapid heart rate, Denies pedal edema, Denies edema, Denies leg edema, Denies lightheadedness, Denies palpitations, Denies dyspnea, Denies dyspnea on exertion and Denies orthopnea Resp Denies cough, Denies dyspnea and Denies dyspnea on exertion GI Denies hematochezia and Denies change in stool character Musc Denies abnormal gait, Denies muscle cramps, Denies muscle weakness, Denies numbness, Denies radiating pain into limb and Denies tingling Neuro Denies abnormal gait, Denies dizziness, Denies syncope, Denies numbness, Denies tingling and Denies weakness Endo Denies palpitations Physical Exam Vital Signs: Last Vital Signs Pulse 66 09/26/24 10:20 BP 128/68 09/26/24 10:20 BMI result Body Mass Index 29.9 Const General: comfortable and no acute distress Orientation/consciousness: patient oriented x3 HEENT Other: Unremarkable Head: Yes normal to inspection Neck Neck: Yes normal visual inspection Chest Chest palpation & inspection: normal inspection of the chest Resp Auscultation: clear to auscultation bilaterally Cardio Palpation: normal PMI Heart sounds: S1 normal heart sound present, S2 normal heart sound present, no gallops, no murmurs and no rubs GI Palpation (GI): Soft to palpation Back/Spine/Pelvis Other: unremarkable Skin General skin exam: no rashes or lesions noted Neuro General: patient oriented x3 Extrem General: Yes normal to inspection Psych Mental Status: mental status grossly normal Office Procedures EKG Details: EKG with underlying sinus rhythm at 66/Min; low-voltage QRS complexes; no ischemic changes; slightly prolonged TN at 250 milliseconds; [place]. [address]-Zlwdigmegulxvefup, Complete Assessment & Plan Assessment & Plan (1) Paroxysmal atrial flutter: Code(s): I48.92 - Unspecified atrial flutter Category: Medical (2) AV block, 1st degree: Code(s): I44.0 - Atrioventricular block, first degree Category: Medical (3) Encounter for monitoring anti-arrhythmic therapy: Code(s): Z51.81 - Encounter for therapeutic drug level monitoring; Z79.899 - Other senior living (current) drug therapy Category: Medical (4) Anemia: Code(s): D64.9 - Anemia, unspecified Category: Medical (5) Essential hypertension: Code(s): I10 - Essential (primary) hypertension Category: Medical (6) Presence of Watchman left atrial appendage closure device: Code(s): Z95.818 - Presence of other cardiac implants and grafts Category: Medical Plan She is stable on diltiazem/flecainide and we can continue this. Mild TN prolongation on the EKG which can be followed periodically. Due to severe anemia/hematuria, she is now status post Watchman device. She remains on aspirin. Of Eliquis. Blood pressure is stable on lisinopril. Last potassium 4.8 and creatinine is 0.94. With regard to the leg swelling, do not see anything obvious today. Could be venous insufficiency. Consider compression stockings. Echocardiogram 2021-LVEF 65-70%. Mild diastolic dysfunction but otherwise unre markable. Normal atrial size. Atrial septal aneurysm. Myocardial perfusion imaging [id number] perfusion. Follow up in 6 months time. Coding Level of Care Code Est Pt Level 4 (78538) Complex EM visit Add On G2211 Diagnoses Paroxysmal atrial flutter I48.92 AV block, 1st degree I44.0 Encounter for monitoring anti-arrhythmic therapy Z51.81; Z79.899 Anemia D64.9 Essential hypertension I10 Presence of Watchman left atrial appendage closure device Z95.818 CPT Codes EKG - CPT: 25071-Vbtgcazwadsyexlib, Complete ([id number])
== END 2024-09-26 10:39 | disposition home or self-care (01) ==
LOC: HO.HCS 10:01
PROVIDERS: PCP Internal Medicine; Visit Provider Internal Medicine
DX: I48.92 Unspecified atrial flutter (principal); I44.0 Atrioventricular block, first degree; Z51.81 Encounter for therapeutic drug level monitoring; Z79.899 Other long term (current) drug therapy; D64.9 Anemia, unspecified; I10 Essential (primary) hypertension; Z95.818 Presence of other cardiac implants and grafts
CPT/HCPCS: 93010; 99214; G2211

== ENCOUNTER → 2024-09-26 10:00 | Outpatient (BNVA) | payer MEDICARE, SELFPAY | PROVIDERS: PCP Internal Medicine; Visit Provider Internal Medicine | DX: I10 Essential (primary) hypertension (principal); I48.92 Unspecified atrial flutter; I44.0 Atrioventricular block, first degree; Z51.81 Encounter for therapeutic drug level monitoring; Z79.899 Other long term (current) drug therapy; D64.9 Anemia, unspecified; Z95.818 Presence of other cardiac implants and grafts | CPT/HCPCS: 93005; 99212 ==

== ENCOUNTER 2024-10-05 10:36 | Outpatient (REF) | payer MEDICARE, SELFPAY ==
--- OUTSIDE RECORDS SUMMARY | 2024-06-06 07:45 | XMS_ITS ---
Author Organization Darren Pavon MD Address [address] [place], [place] [phone] Care Team Providers Care Meat Seafood Associate Name Role Phone Darren Pavon Primary Care Provider [phone] Allergies Allergen (clinical drug ingredient) Drug/Non Drug Allergy documented on EMR Reaction Allergy Type Onset Date Status amoxicillin / clavulanate augmentin (uncoded) yeast infection Allergy Active REASON FOR VISIT cough x 3 weeks chest congestion, Video [phone] Medications Medication SIG (Take, Route, Frequency, Duration) [...] W/U Status Risk Notes Problem Asthmatic bronchitis ([id number]) Asthmatic bronchitis (J45.909) Active confirmed Vital Signs Height 66 in 06/06/2024 Weight 177 lbs 06/06/2024 BMI 28.57 kg/m2 06/06/2024 weight at home is 177 BP not taken at home Encounters Encounter Location Date Provider Diagnosis Darren Pavon MD [address] [facility] [address] [place] [phone] 06/06/2024 Darren Pavon Asthmatic bronchitis J45.909 Assessments [...] Name:Darren Bose ier, 03/28/2025 07:15:00 AM, [address] [facility], [address], [place], [place], [phone], Provider Name:Darren Bose ier, 04/06/2025 11:00:00 AM, [address] [facility], [address], [place], [place], [phone], Progress Notes * Liang BERNALeDOB:1945 ( 78 yo F)Acc No.[id number]:06/06/2024 Patient: Carla HERNANDEZ Provider: Georgia Pavon MD :1945 A ge:78 Y S ex:Female Date:06/06/2024 Address:[address] [place], [place] [phone] Subjective: * Chief Complaints: * C ough x 3 weeks chest congestionVideo [phone] * HPI: S ymptom(s): Telehealth L ocation of provider rendering services: 1 0 [facility], [address], ocation of patient: a [...] A shahrzad W jaret. G astrointestinal: Denies Rony iarrhea. Rony wood N ausea. M usculoskeletal: Patient denies [...] 06/06/2024 Generated for Maritza mathias/Prateek/Libansmitting on: 0 10/05/2024 11:39 AM EDT History and Physical Notes * HPI (History of Present Illness) Category Sub-Category Detail Notes Category Not es Symptom(s) Telehealth Location of [facility] rendering services:: [address] [facility] [address], [address] patient is [...]
--- OUTSIDE RECORDS SUMMARY | 2024-08-31 09:00 | XMS_ITS ---
Author Organization [facility] Address [address] [place] [address] Care Team Providers Care Team Leader Surgery Name Role Phone Darren Pavon MD Primary Care Provider Danny Flores Unavailable [phone] Medications Medication SIG (Take, Route, Frequency, Duration) [...] Unknown Encounters Encounter Location Date [facility] [address] [address] 08/31/2024 Danny Ly Plan Of Treatment No Information Progress Notes * Liang BERNALeDOB:1945 ( 78 yo F)Acc No.[id number]:08/31/2024 Progress Notes Patient: Obi DAKOTAHCarla Provider: Kartik Ly DPM :1945 A ge:78 Y S ex:Female Date:08/31/2024 Address:[address] [place], [place] [address] Pcp:Darren Pavon MD Subjective: * Chief Complaints: [...] 0 08/31/2024 Generated for Maritza mathias/Prateek/Kenton on: 10/05/2024 11:40 AM EDT
--- OUTSIDE RECORDS SUMMARY | 2024-10-05 11:40 | XMS_ITS | Patient Health Record ---
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 Problem Screening for malignant neoplasm of rectum (178875036) Encounter for screening for malignant neoplasm of rectum (Z12.12) Active confirmed Problem 86424603 Preprocedural examination (Z01.818) Active confirmed Problem Diverticulosis of colon (481128893) Diverticulosis of colon (K57.30) Active confirmed Plan Of Treatment Pending Test Test Name Order Date CBC w DIFF 12/19/2021 Future Test Test Name Order Date COLONOSCOPY 04/03/2015 COLONOSCOPY 07/26/2021 Insurance Providers Payer Name Payer Address Payer Phone Subscriber Number Group Number Insured Name Patient Relationship to Insured Coverage Start Date Coverage End Date [facility] [address] [place] [phone] [id number] MISA BERNAL Self - patient is the insured Medical (General) History Medical History History ICD Code Denies ME,DM,CVA,Lung disease,renal dise ase HTN Neg. U/S of abdomen and UGI in 2009 Atrial fibrillation-Dr. 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 She was started on oral mesalamine in 11/2021 to see if that would give her relief. Surgical History Surgery Date(Month/Year) [facility]
--- OUTSIDE RECORDS SUMMARY | 2024-10-05 11:40 | XMS_ITS | Clinical Summary ---
Author Organization [facility], Address [address] [place] [address] Phone Care Team Providers Care Advertising Sales Consultant Name Role Phone Darren Pavon MD Primary [...] 76 10/15/2020 8:53 AM EDT Temperature 36.3 C (97.4 F) 10/15/2020 8:53 AM EDT Respiratory Rate 13 10/15/2020 8:53 AM EDT Oxygen Saturation 98% 10/15/2020 8:53 AM EDT Inhaled Oxygen Concentration - - Weight 78 kg (172 lb) 10/15/2020 8:53 AM EDT Height 162.6 cm (5' 4 ) 10/15/2020 8:53 AM EDT Body Mass Index 29.52 10/15/2020 8:53 AM EDT Plan of Treatment Health Maintenance Due Date Last Done Comments Pneumococcal Vaccine: 50+ Ye ars (1 of 2 - PCV) 1964 Influenza Vaccine (#1) 2024 Hepatitis B Vaccine Aged Out No longe r eligible based on patient's age to complete this topic Insurance Care Teams Advertising Sales Consultant Relationship Specialty Start Date End Date Darren Pavon MD [id number] [place], [place] PCP - General Internal Medicine 04/25/20
--- OUTSIDE RECORDS SUMMARY | 2024-10-05 11:40 | XMS_ITS | Clinical Summary ---
Author Organization [facility] Address [address] [place] [address] Phone Care Team Providers Care Manager Strategic Name Role Phone Anton Pavon MD Primary Care Provider [phone] Surgical History Surgery Date Site/Laterality Comments STEREOTACTIC [...] exists Hypertension/CHF/CAD Annual BMP Blood Test 04/26/2024 Influenza Vaccine (#1) 2024 , 12/08/2022, 03/13/2022, Additional history exists Osteoporosis Screening (Bone Density Screening) 04/21/2033 04/21/2023 HIB Vaccines Aged Out No longer eligi [...] age to complete this topic Meningococcal B Vaccine Aged Out No l onger eligible based on patient's age to complete this topic RSV Immunization Patients Under 20 months Aged Out No longer eligible based on patient's age to complete this topic Varicella Vaccines Aged Out No longer eligible based on patient's age to complete this topic Procedures Procedure Name Priority Date/Time Associated Diagnosis Comments [facility] DEXA AXIAL SKELETON Routine 04/21/2023 11:55 AM EST Encounter for screening for osteoporosis from Last 3 Months or Most Recently Relevant to Health Maintenance Results * [facility] DEXA AXIAL SKELETON (04/21/2023 11:55 AM EST) Anatomical Region Laterality Modality Mammography 04/21/2023 9:59 AM EST Narrative 04/21/2023 11:55 AM EST [facility] Diagnostic Imaging Department [address] [place] [address] [phone] Patient: MISA BERNAL /Age/Sex: 1945 - 77 - F Unit#: [id number] Location/Status: SPDIMAM/REG CLI Mnemonic[facility] Ordering Physician: DELFIN JOHNSON MD Jessica Dexa Axial Skeleton - 04/21/23 - [id number] Report Status:Signed HISTORY: The patient is a 77-year-old postmenopausal female with clinical concern for metabolic bone disease. FINDINGS: Dual [...] 107% of that of age matched controls. This yields a T-score of -1.0 and a Z-score of 0.4 and there is therefore no evidence of osteoporosis or osteopenia here. However, the T-score of the right femoral neck is -1.8 and that of the left femoral neck is -1.1 which is diagnostic of osteopenia. IMPRESSION: 1. Osteopenia. There has been a decrease of 4.0% in bone mineral density in the lumbar spine since the prior examination of 09/04/2016. There has been a decrease of 9.4% in bone mineral density in the right femur and a decrease of 8.9% in bone mineral density in the left femur. 2. FRAX analysis yields a 10-year probability of major osteoporotic fracture of 32.2% and a 10-year probability of hip fracture of 18.1%. Code 46772 Dictating Physician: SYMONE DO MD Electronically Signed by: SYMONE DO MD Dic Date/Time: 04/21/23 1154 Sign date/Time: 04/21/23 1155 Procedure Note Symone Do MD - 11/16/2023 [facility] Diagnostic Imaging Department [address] [place] [address] Patient: MISA BERNAL Kartik Machado./Age/Sex: 1945 - 77 - F Unit#: [id number] Location/Status: [facility] Mnemonic[facility] Ordering Physician: DELFIN JOHNSON MD Jessica Dexa Axial Skeleton - 04/21/23 - [id number] Report Status:Signed HISTORY: The patient is a [...] density of the femurs bilaterally is 0.885 gm/[id number] is 88% of that of young normals [...] the prior examination of 09/04/2016. There has don decrease of 9.4% in bone mineral density in the right femur and a decreaseof 8.9% in bone mineral density in the left femur. 2. FRAX analysis yields a 10-year probability of major osteoporoticfracture of 32.2% and a 10-year probability of hip fracture of 18.1%. Code 89463 Dictating Physician: SYMONE DO MD Electronically Signed by: SYMONE DO MD Dic Date/Time: 04/21/23 1154 Sign date/Time: 04/21/23 1155 Delfin Johnson MD IMG BI PROCEDURES Final Result from Last 3 Months or Most Recently Relevant to Health Maintenance Insurance [employer] Care Teams Manager Strategic Relationship Specialty Start Date End Date Anton Pavon MD [address] PCP - General Internal Medicine 04/20/24
[2024-10-05 12:10] LABS: Anion Gap 11 (12-20); Blood Urea Nitrogen 21 mg/dL (9-16); Calcium 9.4 mg/dL (8.4-10.2); Carbon Dioxide 27 mmol/L (22-29); Chloride 107 mmol/L (96-108); Estimated Glomerular Filt Rate > 60; Potassium 3.8 mmol/L (3.3-5.1); Sodium 141 mmol/L (135-145)
== END 2024-10-05 10:37 | disposition home or self-care (01) ==
LOC: HO.LAB 10:36
PROVIDERS: PCP Internal Medicine; Visit Provider Internal Medicine
DX: I48.92 Unspecified atrial flutter (principal)
CPT/HCPCS: 36415; 80048

== ENCOUNTER 2024-11-03 09:58 | Outpatient (REF) | payer MEDICARE, SELFPAY ==
--- OUTSIDE RECORDS SUMMARY | 2024-08-31 09:00 | XMS_ITS ---
Author Organization [facility] Address [address] [place] [address] Care Team Providers Care Lithograph Operator Name Role Phone Darren Pavon MD Primary Care Provider Danny Flores Unavailable [phone] Medications Medication SIG (Take, Route, Frequency, Duration) [...] Unknown Encounters Encounter Location Date [facility] [address] [address] 08/31/2024 Danny Ly Plan Of Treatment No Information Progress Notes * Liang BERNALeDOB:1945 ( 78 yo F)Acc No.[id number]:08/31/2024 Progress Notes Patient: Obi DAKOTAHCarla Provider: Kartik Ly DPM :1945 A ge:78 Y S ex:Female Date:08/31/2024 Address:[address] [place], [place] [address] Pcp:Darren Pavon MD Subjective: * Chief Complaints: [...] 0 08/31/2024 Generated for Maritza mathias/Prateek/Kenton on: 0 11/03/2024 10:25 AM EDT
--- NOTE | ~2024-11-03 | CT_ITS ---
EXAMINATION: CT CHEST WITHOUT CONTRAST CLINICAL INFORMATION: Pulmonary nodules. Follow-up. COMPARISON: November 17, 2023. TECHNIQUE: Multidetector volumetric CT imaging of the chest was done. Axial MIP volume rendering provided. Sagittal and coronal reformatted images were obtained. This CT examination was performed using dose optimization techniques as appropriate, variously including the following: *Automated exposure control *Adjustment of mA and/or kV according to patient size (this includes techniques or standardized protocols for targeted exams where dose is matched to indication/reason for exam; i.e. extremities or head) *Use of iterative reconstruction technique DLP: 183 mGy centimeter. 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 Patient's large body habitus/obesity. Normal-sized cardiomediastinal silhouette. LUNGS: Multiple, randomly distributed, less than 5 mm, noncalcified pulmonary nodules mostly in the periphery of both lungs, the most conspicuous involving the right lung. Bilateral apical lung scarring. Centrilobular emphysematous changes involving mostly the upper lobes. Patchy groundglass in the lung bases. No gross bronchiectasis or honeycombing. Respiratory airways patent. MEDIASTINUM: Subcentimeter nonspecific lymph nodes. Calcified plaques throughout the thoracic aorta wall extending branches and the coronary arteries. Metallic valve at the left atrium appendage. No aneurysm, thoracic aorta. Trace volume pericardial effusion. The heart is not enlarged. No hemopericardium. No pneumomediastinum. The thyroid gland is not enlarged. Small hiatal hernia. CORONARY ARTERY CALCIFICATION: Calcified plaques. PLEURA: No pleural effusion. No pneumothorax. No calcified pleural plaques. Apical lung scarring, bilaterally. AXILLA: No lymphadenopathy. UPPER ABDOMEN: Small hiatal hernia. Subtle nodular surface of the liver. Calcified plaques in the abdominal aorta wall and splenic artery. OSSEOUS STRUCTURES: A S-shaped curvature of the thoracolumbar spine with a dextroconvex curvature apex at T9 vertebra. Trabeculated lytic lesion at T2 possibly intraosseous hemangioma. Multilevel spondylosis. No gross acute fracture or listhesis. CT/CT chest wo IV con IMPRESSION: Stable less than 5 mm noncalcified pulmonary nodules. No lymphadenopathy. Coronary artery disease and atherosclerosis disease. Scoliosis, thoracolumbar spine. Fleischner guidelines were followed. Electronically signed by: Jayson Najera MD 11/03/2024 11:07 AM EDT
--- OUTSIDE RECORDS SUMMARY | 2024-11-03 10:26 | XMS_ITS | Clinical Summary ---
Author Organization [facility], Address [address] [place] [address] Phone Care Team Providers Care Truck Jumper Name Role Phone Darren Pavon MD Primary [...] to complete this topic Insurance Care Teams Truck Jumper Relationship Specialty Start Date End Date Darren Pavon MD [id number] [place], [place] PCP - General Internal Medicine 04/25/20
--- OUTSIDE RECORDS SUMMARY | 2024-11-03 10:26 | XMS_ITS | Clinical Summary ---
Author Organization [facility] Address [address] [place] [address] Phone Care Team Providers Care Technical Marketing Engineer Name Role Phone Anton Pavon MD Primary Care Provider [phone] Surgical History Surgery Date Site/Laterality Comments STEREOTACTIC [...] Tdap) 1964 Zoster Vaccines (1 of 2) 11/09/1995 Pneumococcal Vaccine: 50+ Years (2 of 2 - PCV) 04/29/2019 04/29/2018 RSV Immunization Adult Patients (1 - 1-dose 75+ series) 2020 Cholesterol Screening (Lipid Panel) 03/01/2022 Falls Risk Assessment 03/01/2022 Hepatitis C Screening 03/01/2022 Medicare Annual Wellness Visit 03/01/2022 Social Influencers of Health Screening 03/01/2022 COVID-19 Vaccine ( season) 2023 02/18/2022, 11/21/2021, 03/15/2021, Additional history exists Depression Screening 03/30/2024 Hypertension/CHF/CAD Annual BMP Blood Test 04/26/2024 Influenza [...] Procedure Name Priority Date/Time Associated Diagnosis Comments [facility] DEXA AXIAL SKELETON Routine 04/21/2023 11:55 AM EST Encounter for screening for osteoporosis from Last 3 Months or Most Recently Relevant to Health Maintenance Results * [facility] DEXA AXIAL SKELETON (04/21/2023 11:55 AM EST) Anatomical Region Laterality Modality Mammography 04/21/2023 9:59 AM EST Narrative 04/21/2023 11:55 AM EST [facility] Diagnostic Imaging Department [address] [place] [address] [phone] Patient: MISA BERNAL /Age/Sex: 1945 - 77 - F Unit#: [id number] Location/Status: SPDIMAM/REG CLI Mnemonic/Ordering [facility] Ordering Physician: DELFIN JOHNSON MD Jessica Dexa [...] probability of hip fracture of 18.1%. Code 92631 Dictating Physician: SYMONE DO MD Electronically Signed by: SYMONE DO MD Dic Date/Time: 04/21/23 1154 Sign date/Time: 04/21/23 1155 Procedure Note Symone Do MD - 11/16/2023 [facility] Diagnostic Imaging Department [address] [place] [address] Patient: MISA BERNAL Kartik Machado./Age/Sex: 1945 - 77 - F Unit#: [id number] [facility] Ordering Physician: DELFIN JOHNSON MD Jessica Dexa Axial Skeleton - 04/21/23 - [id number] Report Status:Signed HISTORY: The patient is a [...] density of the femurs bilaterally is 0.885 gm/[id number] is 88% of that of young normals [...] probability of hip fracture of 18.1%. Code 67402 Dictating Physician: SYMONE DO MD Electronically Signed by: SYMONE DO MD Dic Date/Time: 04/21/23 1154 Sign date/Time: 04/21/23 1155 Delfin Johnson MD IMG BI PROCEDURES Final Result from Last 3 Months or Most Recently Relevant to Health Maintenance Insurance [employer] Care Teams Technical Marketing Engineer Relationship Specialty Start Date End Date Anton Pavon MD [address] PCP - General Internal Medicine 04/20/24
--- OUTSIDE RECORDS SUMMARY | 2024-11-03 10:26 | XMS_ITS | Patient Health Record ---
Author Organization Darren Pavon MD Address [address] [place] [phone] Care Team Providers Care Manager Intelligence Name Role Phone Darren Pavon Primary Care Provider Allergies Allergen (clinical drug ingredient) Drug/Non Drug Allergy documented on EMR Reaction Allergy Type Onset Date Status amoxicillin / clavulanate augmentin (uncoded) yeast infection Allergy Active Results Component Value Reference Range Notes Complete Blood Count Auto Di ff Reviewed date:03/18/2024 04:32:48 PM Interpretation: Performing Lab:[facility], [address] [place] [phone] Notes/Report: White Blood Count 4.4 4.8-10.8 X10*3/uL [...] 0.0-0.2 /100WBC Neutrophils Absolute Auto 2.2 2.0-8.3 x10*3/uL Imm Gran Abs Auto 0.01 0.00-0.03 X10*3/uL Lymphocytes Absolute Auto 1.2 1.2-4.9 X10*3/uL Monocytes Absolute Auto 0.5 0.1-1.2 X10*3/uL Eosinophils Absolute Auto 0.4 0.0-0.4 X10*3/uL Basophils Absolute Auto 0.1 0.0-0.2 X10*3/uL NRBC Abs Auto 0.000 0.0-0.012 X10*3/uL Comprehensive Sylvia. Panel Fa st Reviewed date:03/18/2024 04:23:31 PM Interpretation: Performing Lab:[facility], [address] [place] [phone] Notes/Report: Sodium 141 135-145 mmol/L Potassium 4.8 [...] Panel Reviewed date:03/18/2024 04:22:23 PM Interpretation: Performing Lab:[facility], [address] [place] [phone] Notes/Report: Triglycerides 84 <150 mg/dL Desirable Triglyceride: [...] Random Reviewed date:03/18/2024 04:22:06 PM Interpretation: Performing Lab:[facility], [address] [place] [phone] Notes/Report: Creatinine Urine 115.46 Microalbumin Urine 21.0 Microalbum/Creatinine Ratio Ur 18.1 <30 ug/mg cr Albumin/Creatinine Ratio Reference Ranges: Normal: < 30 ug/mg creatinine Microalbuminuria: 30 - 300 ug/mg creatinine Clinical Albuminuria: > 300 ug/mg creatinine Hemoglobin A1c Reviewed date:03/18/2024 04:22:13 PM Interpretation: Performing Lab:[address] [phone] Notes/Report: Hemoglobin A1c % 5.4 <6.0 % [...] average glucose, using the formula of the M8M-Iaehged Average Glucose study (ADAG), Diabetes Care, Vol.31,#8, Oct. 2007 UA ClnCatch+Micro w/rflx Cul t Reviewed date:03/18/2024 04:33:53 PM Interpretation: Performing Lab:[facility], [address] [place] [phone] Notes/Report: Urine, Clean Catch Color Urine Yellow Appearance Urine Clear PH 5.5 5.0-9.0 Glucose Urine UA Negative Negative mg/dL Urine Blood Negative Negative Specific [place] - Urine 1.020 1.005-1.025 Urine Protein Negative Neg-Trace mg/dL Urine Ketones Negative Negative mg/dL Nitrite Urine Negative Negative Leukocyte Esterase Urine Negative Negative RBC Urine 0-2 0-2 /HPF WBC Urine 0-5 0-5 /HPF Squamous Epithelial Cell Urine 0-2 0-2 /HPF Bacteria Urine None Seen None Seen Hyaline Casts Urine 0-2 0-2 /LPF Complete Blood Count Auto Di ff Reviewed date:11/12/2023 12:47:48 PM Interpretation: Performing Lab:[facility], [address] [place] [phone] Notes/Report: White Blood Count 4.4 4.8-10.8 X10*3/uL [...] 0.0-0.2 /100WBC Neutrophils Absolute Auto 2.6 2.0-8.3 x10*3/uL Imm Gran Abs Auto 0.02 0.00-0.03 X10*3/uL Lymphocytes Absolute Auto 1.0 1.2-4.9 X10*3/uL Monocytes Absolute Auto 0.4 0.1-1.2 X10*3/uL Eosinophils Absolute Auto 0.4 0.0-0.4 X10*3/uL Basophils Absolute Auto 0.0 0.0-0.2 X10*3/uL NRBC Abs Auto 0.000 0.0-0.012 X10*3/uL Complete Blood Count Auto Di ff Reviewed date:12/15/2023 01:01:50 PM Interpretation: Performing Lab:[facility], [address] [place] [phone] Notes/Report: White Blood Count 4.3 4.8-10.8 X10*3/uL [...] 0.0-0.2 /100WBC Neutrophils Absolute Auto 2.6 2.0-8.3 x10*3/uL Imm Gran Abs Auto 0.01 0.00-0.03 X10*3/uL Lymphocytes Absolute Auto 0.9 1.2-4.9 X10*3/uL Monocytes Absolute Auto 0.4 0.1-1.2 X10*3/uL Eosinophils Absolute Auto 0.3 0.0-0.4 X10*3/uL Basophils Absolute Auto 0.1 0.0-0.2 X10*3/uL NRBC Abs Auto 0.000 0.0-0.012 X10*3/uL CT chest wo con Reviewed date:12/11/2023 09:15:26 AM Interpretation: Performing Lab: Notes/Report: [address] [address] [address] Scan Report Signed Patient: Misa Bernal MR#: [id number] 4 : 1945 Acct:[id number] Age/Sex: 78 / F ADM Date: 11/17/23 Loc: HO.CT Attending Dr: Darren Pavon MD Ordering Physician: Darren Pavon MD Date of Service: 11/17/23 Procedure(s): CT chest wo IV con Accession Number(s): [id number] cc: Darren Pavon MD EXAMINATION: CT CHEST [...] Milena Ceballos MD 12/10/2023 09:41 PM EDT RP Dictated By: Milena Ceballos MD Signed By: <Electronically signed by Milena Ceballos MD in OV> 12/10/232140 DD/ 1611 TD/TT: 11/17/23 164[address] [employer] Operator: [place] [address] CT Scan Report Signed Patient: Misa Bernal MR#: [id number] 4 : 1945 Acct:[id number] Age/Sex: 78 / F ADM Date: 11/17/23 Loc: HO.CT Attending Dr: Darren Pavon MD Ordering Physician: Darren Pavon MD Date of Service: 11/17/23 Procedure(s): CT cholo st wo IV con Accession Number(s): [id number] cc: Darren Pavon MD EXAMINATION: CT CHEST WITHOUT CONTRAST CLINICAL INFORMATION: Lung nodule COMPARISON: 11/21/2022, 11/19/2021 TECHNIQUE: Multidetector volume tric CT imaging of the chest was done. Axial MIP volume rendering provided. Sagittal and coronal reformatted images were obtained. This CT examination was performed using dose optimization techniques as appropriate, various ly including the following: *Automated exposure control *Adjustment of mA an d/or kV according to patient size (this includes techniques or standardized protocols for targeted exams where dose is matched to indication/reason for exam; i.e. extremities or head) *Use of iterative reconstruction technique DLP: 205 mGy-cm FINDINGS: LUNGS: Bilateral pulmonary nodules measuring up to 6 mm are unchanged. Reference right lowe r lobe 5 mm nodule is unchanged (5:241). Reference right lower lobe subpleural 6 mm nodule is unchanged (5:298). Left lower lobe subpleura l 4 mm nodule is unchanged (5:356). Central airways are patent. No new o r enlarging pulmonary nodule. PLEURA: No pleural effusion. MEDIASTINUM: No cardiomegaly. Aorta and pulmonary artery are normal in caliber. No mediasti nal adenopathy. Lack of IV contrast limits evaluation for hilar adenopathy. CORONARY ARTERY CALCIFICATION: Coronary artery calcification is present. CHEST WALL/AXILLA: N o axillary or internal mammary lymphadenopathy. UPPER ABDOMEN: Small hiatal hernia. OSSEOUS STRUCTURES: Degenerative changes of the spine. C T/CT chest wo IV con IMPRESSION: Bilateral pulmonary nodules measuring up to 6 mm are unchanged. No new or enlarging pulmona ry nodule. Given stability for 2 years, these are favored to be benign according to [employer] guidelines. Electronically keisha d by: Milena Ceballos MD 12/10/2023 09:41 PM EDT Dictated By: Milena Ceballos MD Signed By: <Electronically signed by Milena Ceballos MD in OV> 12/10/23 2141 DD/ 1611 TD/TT: 11/17/23 164[address] [employer] Operator: Prothrombin Time INR Reviewed date:01/13/2024 02:18:02 PM Interpretation: Performing Lab:[address] [phone] Notes/Report: Prothrombin Time 11.5 10.9-12.4 [employer] [...] Pathology Reviewed date:01/14/2024 09:25:52 PM Interpretation: Performing Lab:[address] [place] [address] Notes/Report: ----- Name: Misa Bernal Age/Sex: 78/F : 1945 Unit#: [id number] Attend Dr: Edward Stephenson MD Re01/12/24 Status : [facility] Location: [facility] Disch: ----- SPEC : [id number] RECD : 01/12/24 STATUS: CHRISVanesa JESSICA NUM: [id number] JEMIMA: 01/12/[address] [facility] [address]: Edward Stephenson MD ENTERED: 01/12/24-11 12 SP TYPE: Surgical OTHR DR: Darren Pavon MD ORDERED: HE Stain/2, Gross Micro L4 Diagnosis Bladder, right wall, biopsy: Chronic cystitis. Clinical History Hematuria Microscopic Description Microscopic sections reviewed. Material Received Erythematous lesion right bladder wall Gross Description Received in formalin labeled ?erythematous lesion right lateral bladder? is a 0.25 cm congested and hemorr hagic red-maroon rubbery irregular tissue fragment, submitted in toto in a cassette labeled A . CEDS This case was review ed intradepartmentally. Copies To: Edward Stephenson MD [facility] [address] [place] [address] [address] [place] [address] [email or web address] Darren Pavon MD [facility] [address] [facility] [address] [place] [address] ----- Signed (signature on file) Juan Buckley MD 01/14/24 1013 ----- END OF REPORT XR chest 2V Reviewed date:07/01/2024 02:36:38 PM Interpretation: Performing Lab: Notes/Report: [address] [address] XRay Report Signed Patient: Misa Bernal MR#: [id number] 4 : 1945 Acct:[id number] Age/Sex: 78 / F ADM Date: 07/01/24 Loc: LENNIE Attending Dr: Darren Pavon MD Ordering Physician: Darren Pavon MD Date of Service: 07/01/24 Procedure(s): XR chest 2V Accession Number(s): [id number] cc: Darren Pavon MD EXAMINATION: XR CHEST CLINICAL INFORMATION: SOB COMPARISON: February 10, 2022. TECHNIQUE: 2 views of the chest were obtained. FINDINGS: Dextroconvex curvature of the lower thoracic spine deformity in the buttocks. No consolidation, pleural effusion or pneumothorax. Cardiomediastinal silhouette size is normal. There is a stent or calcifications at the ascending thoracic aorta/aortic valve region. Calcified plaques in the thoracic aortic arch. XR/XR chest 2V IMPRESSION: No acute airspace disease. Electronically signed by: Jayson Najera MD 07/01/2024 02:07 PM EDT RP Dictated By: Jayson Curry MD Signed By: <Electronically signed by Jayson Lam MD in OV> 07/01/24 1407 DD/ 1333 TD/TT: 07/01/24 [address] [employer] [employer] Operator: [place] [address] XRay Report Signed Patient: Misa Bernal MR#: [id number] 4 : 1945 Acct:[id number] Age/Sex: 78 / F ADM Date: 07/01/24 Loc: HO.XRAY Attending Dr: Darren Pavon MD Ordering Physician: Darren Pavon MD Date of Service: 07/01/24 Procedure(s): XR chest 2V Accession Number(s): [id number] cc: Darren Pavon MD EXAMINATION: XR CHEST CLINICAL INFORMATION: SOB COMPARISON: February 10, 2022. TECHNIQUE: 2 views of the chest were obtained. FINDINGS: Dextroconvex curvatu re of the lower thoracic spine deformity in the buttocks. No consolidation, pl eural effusion or pneumothorax. Cardiomediastinal silhouette size is normal. There is a stent or calcifications at th e ascending thoracic aorta/aortic valve region. Calcified plaques in the thoracic aortic arch. X R/XR chest 2V IMPRESSION: No acute airspace disease. Electronically keisha d by: Jayson Najera MD 07/01/2024 02:07 PM EDT RP Dictated By: Jayson Flores MD Signed By: <Electronically signed by Jayson Lam MD in OV> 07/01/24 1407 DD/ 1333 TD/TT: 07/01/241335 [employer] Operator: Basic Metabolic Panel Reviewed date:10/06/2024 05:09:19 PM Interpretation: Performing Lab:[facility], [address] [place] [address] Notes/Report: Sodium 141 135-145 mmol/L Potassium 3.8 3.3-5.1 mmol/L Chloride 107 96-108 mmol/L Carbon Dioxide 27 22-29 mmol/L Anion Gap 11 12-20 Blood Urea Nitrogen 21 9-16 mg/dL Creatinine 0.85 0.5-1.4 mg/dL Estimated Glomerular Filt Rate > 60 Chronic Kidney Disease: Estimated GFR < 60 mL/min/1.73m2 Severe Kidney Disease: Estimated GFR < 15 mL/min/1.73m2 Glucose Random 85 60-115 mg/dL Calcium 9.4 8.4-10.2 mg/dL Reason For Referral Reason Stenosis of both [...] 03/31/2024 12:51:29 PM >referral request faxed to [facility] with noteЮлия Annette 04/07/2024 02:07:38 PM EST > patent is aware of appt Referral Priority Routine Referral Appointment Date 04/11/2024 Medications Medication SIG (Take, Route, Frequency, Duration) Notes Start Date End Date Status Vitamin D 25 MCG (1000 UT) 1 tablet Orally Once a day for 30 day(s) Not-Taking Plavix 75 MG 1 tablet Orally Once a day Active Balsalazide Disodium 750 MG 1 capsules Orally three times a day Not-Taking Molnupiravir 200 MG 4 capsules Orally ev shan 12 hrs for 5 day(s) 10/16/2023 Not-Taking Aspirin 81 81 MG 1 tablet Orally Once a day for 30 day(s) Active Diclofenac Sodium 75 MG 1 tablet with fo od or milk Orally Twice a day Not-Taki ng Atorvastatin Calcium 20 MG 1 tablet Orally Once a day Active Benzonatate 100 MG 1 capsule as needed Orally Three times a day for 10 days 04/08/2022 Not-Taking ProAir HFA 108 (90 Base) MCG/ACT 2 puffs as needed Inhalation every 6 hrs for 30 days 07/03/2017 Active Flecainide Acetate 50 MG Orally twice a day Active Aspirin 325 MG 1 tablet Orally PRN for 30 day(s) Not-Taking Cephalexin 500 MG 1 capsule Orally 3 times a day for 10 days 07/28/2024 Active dilTIAZem HCl ER Coated Beads 120 MG TAKE 1 CAPSULE BY MOUTH EVERY DAY Active Triamcinolone Acetonide 0.5 % 1 application Externally Twice a day for 10 days 07/28/2024 Active Lisinopril 10 MG 1 tablet Orally Once a day Active Ferrous Sulfate 324 MG 1 tablet Orally T hree times a Week for 30 day(s) Not-Taking Immunizations Vaccine Route Administration Date Status Comme [...] Unknown 02/28/2020 Refused TDaP Unknown 02/28/2020 Refused Social History Tobacco Use: Social History Observation [...] Never (0 point) Points 1 Interpretation Negative Problems Problem Type SNOMED Code ICD Code Onset Dates Problem Status W/U Status Risk Notes Problem 10968405 PVC (premature ventricular contraction) (I49.3) Active confirmed Problem Asthmatic bronchitis (883650986) Asthmatic bronchitis (J45.909) Active confirmed Problem 328408901 Malignant neopla sm of exocervix (C53.1) Active confirmed Problem 668484399 Typical atrial f lutter (I48.3) Active confirmed Problem 20546031 Acute recurrent maxillary sinusitis (J01.01) Active confirmed Problem 017355312 Other idiopathic scoliosis, 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) Active confirmed Problem 98870109 Urinary tract infection, site not specified (N39.0) Active confirmed Problem Disorder of lumbar disc (882180463) Lumbar disc disease (M51.9) Active confirmed Problem 2833078 Prediabetes (R73.09) Active confirmed Problem 436446569 Labile hypertens ion (I10) Active confirmed Problem 946867228 Asthmatic bronch itis, mild intermittent, uncomplicated (J45.20) Active confirmed Problem 785213468 Irregular heart beat (I49.9) Active confirmed Problem 383439922 Chronic a-fib (I48.2) Active confirme d Problem 430828324 Neutropenia, unspecified type (D70.9) Active confirmed Problem 310057517 Pure hypercholesterolemia (E78.00) Active confirmed Problem 452573201 Osteopenia of mu ltiple sites (M85.89) Active confirmed Problem 85667402 Venous stasis dermatitis of both lower extremities (I87.2) Active confirmed Problem 03249888 Labyrinthitis of both ears (H83.03) Active confirmed Problem 157817612 Malignant neopla sm of cervix, unspecified site (C53.9) Active confirmed Problem 088663095 Body mass index (BMI) of 30.0-30.9 in adult (Z68.30) Active confirmed Problem 872064423 Lung nodule < 6c m on CT (R91.1) Active confirmed Problem Osteonecrosis (704870462) Osteonecrosis (M87.9) Active confirmed Problem 828526015 Nonrheumatic amanuel ral valve regurgitation (I34.0) Active confirmed Problem 950553150 Chronic atrial fibrillation (I48.20) Active confirmed Problem 85527556 Radiation coliti s (K52.0) Active confirmed Vital Signs Blood pressure diastolic 60 mm Hg 07/28/2024 Height 66 in 07/28/2024 Blood pressure systolic 142 mm Hg 07/28/2024 Weight 180 lbs 07/28/2024 BMI 29.05 kg/m2 07/28/2024 Encounters Encounter Location Date Provider Diagnosis Darren Pavon MD [address] [place] [id number] 03/18/2024 Darren Pavon Blood tests for rout ine general physical examination Z00.00 ; Prediabetes R73.09 ; Pure hypercholesterolemia E78.00 ; Labile hypertension I10 and Neutropenia, unspecified type D70.9 Darren Pavon MD [address] [id number] 11/12/2023 Darren Pavon Gross hematuria R31. 0 and Acute anemia D64.9 Darren Pavon MD [address] [place] [address] [address] [id number] 12/15/2023 Darren Pavon Gross hematuria R31. 0 ; Chronic atrial fibrillation I48.20 and Encounter for immunization Z23 Darren Pavon MD [address] [place] [address] [id number] 01/01/2024 Darren Pavon Pre-op evaluation Z0 1.818 and Gross hematuria R31.0 Darren Pavon MD [address] [place] [address] [address] [place] [id number] 02/15/2024 Darren Pavon Facial numbness R20. 0 Darren Pavon MD [address] [place] [address] [id number] 03/31/2024 Darren Pavon Presence of Watchman left atrial appendage closure device Z95.818 ; Annual physical exam Z00.00 ; Stenosis of both internal carotid arteries I65.23 ; Chronic atrial fibrillation I48.20 ; Pure hypercholesterolemia E78.00 ; Labile hypertension I10 ; Prediabetes R73.09 and Depression screening Z13.31 Darren Pavon MD [address] [place] [id number] 05/17/2024 Darren Pavon Influenza A J10.1 an d Gross hematuria R31.0 Darren Pavon MD [address] [place] [id number] 06/06/2024 Darren Pavon Asthmatic bronchitis J45.909 Darren Pavon MD [address] [place] [id number] 07/01/2024 Darren Pavon Short of breath on exertion R06.02 and Bronchitis J40 Darren Pavon MD [address] [place] [id number] 07/28/2024 Darren Pavon Insect bite (nonveno mous) of left elbow, initial encounter S50.362A and Cellulitis L03.90 Darren Pavon MD [address] [place] [id number] 10/18/2024 Darren Pavon MD [address] [place] [id number] 11/23/2023 Darren Pavon Asthmatic bronchitis , mild intermittent, uncomplicated J45.20 Darren Pavon MD [address] [place] [id number] 12/11/2023 Darren Pavon Lung nodule < 6cm on CT R91.1 Darren Pavon MD [address] [place] [id number] 04/01/2024 Darren Pavon Assessments Encounter Date Diagnosis (ICD Code) Assessment Notes Treatment Notes Treatment Clinical Notes Section Notes 03/18/2024 [address] tests for rout ine general physical examination (ICD-10 - Z00.00) 03/18/2024 Prediabetes (ICD-10 - R73.09) 11/12/2023 Gross hematuria (ICD -10 - R31.0) [...] cbc as she had been bleeding severely 12/15/2023 Gross hematuria (ICD -10 - R31.0) pending labs 12/15/2023 Chronic atrial fibrillation (ICD-10 - I48.20) 01/01/2024 Pre-op evaluation (ICD-10 - Z01.818) patient healthy. no need for any further evaluation prior to the upcoming surgery. cleared for surgery 01/01/2024 Gross hematuria (ICD -10 - R31.0) 02/15/2024 Facial numbness (ICD -10 - R20.0) [...] she is completely satisfied with her recovery 03/31/2024 Presence of Watchman left atrial appendage closure device (ICD-10 - Z95.818) doing well 03/31/2024 Annual physical exam (ICD-10 - Z00.00) labs reviewed and discused with patient 05/17/2024 Influenza A (ICD-10 - J10.1) too late to get treated for flu 05/17/2024 Gross hematuria (ICD -10 - R31.0) is related to plavix and asa, will continue to observe 06/06/2024 Asthmatic bronchitis (ICD-10 - J45.909) patient verbalized understanding of medication and directions for use 07/01/2024 Short of breath on exertion (ICD-10 - R06.02) pending diagnostic testing/THE ORDER HAS BEEN FAXED TO [facility] MISA IS AWARE 07/01/2024 Bronchitis (ICD-10 - J40) patient verbalized understanding of medication and directions for use 07/28/2024 Insect bite (nonvenomous) of left elbow, initial encounter (ICD-10 - S50.362A) patient verbalized understanding of medication and directions for use 07/28/2024 Cellulitis (ICD-10 - L03.90) patient verbaized understanding of medication and directions for use 11/23/2023 Asthmatic bronchitis , mild intermittent, uncomplicated (ICD-10 - J45.20) 12/11/2023 Lung nodule < 6cm on CT (ICD-10 - R91.1) order made printed and put into the future order folder for 03/18/2024 Pure hypercholesterolemia (ICD-10 - E78.00) 12/15/2023 Encounter for immunization (ICD-10 - Z23) flu vaccine adminsitered 03/31/2024 Stenosis of both internal carotid arteries (ICD-10 - I65.23) referral to [facility] vascular surgery 03/18/2024 Labile hypertension (ICD-10 - I10) 03/31/2024 Chronic atrial fibrillation (ICD-10 - I48.20) no longer on blood thinners due to watchman 03/18/2024 Neutropenia, unspecified type (ICD-10 - D70.9) 03/31/2024 Pure hypercholesterolemia (ICD-10 - E78.00) stable, will continue current regiment 03/31/2024 Labile hypertension (ICD-10 - I10) stable, will continue current regiment 03/31/2024 Prediabetes (ICD-10 - R73.09) stable, no need for medication at this time 03/31/2024 Depression screening (ICD-10 - Z13.31) negative screen 12/15/2023 Other unable to take coumadin due to extreme bleeding. goikng to get a watchman 02/15/2024 Other Total time spen t on the date of the encounter is 35 minutes including both face to face time spent and time spent reviewing documentation, and counseling the patient. Plan Of Treatment Pending Test Test Name Order Date Electrocardiogram (EKG) 09/12/2016 Electrocardiogram (EKG) 08/14/2015 MRI HIP RT NO CONTRAST 06/24/2021 MRI HIP RT W&WO CONTRAST 06/20/2021 XR CHEST 2 VIEW PA & LAT 01/21/2022 XR CHEST 2 VIEW PA & LAT 11/13/2011 XR CHEST 2 VIEW PA & LAT 07/01/2024 XR CHEST 2 VIEW PA & LAT 11/14/2011 XR CHEST 2 VIEW PA & LAT 04/01/2012 XR CHEST 2 VIEW PA & LAT 08/20/2021 XR CHEST 2 VIEW PA & LAT 11/21/2011 BONE DENSITY DEXA 10/22/2018 ECHO 01/31/2022 CT chest wo con 11/16/2020 CT chest wo con 11/21/2021 CT chest wo con 11/24/2022 CT chest wo con 12/11/2023 Future Test Test Name Order Date CT CHEST NO CONTRAST 11/05/2020 MRI HIP RT W&WO CONTRAST 09/10/2021 Next Appt Details Provider Name:Darren Bose ier, 03/28/2025 07:15:00 AM, [address] [facility], [address], [place], [phone], Provider Name:Darren Bose ier, 04/06/2025 11:00:00 AM, [address] [facility], [address], [place], [place], [phone], Insurance Providers Payer Name Payer Address Payer Phone Subscriber Number Group Number Insured Name Patient Relationship to Insured Coverage Start Date Coverage End Date [employer] PLAN [address] [place] [phone] [id number] Misa Bernal Self - patient is the insured [employer] [address] [place] [address] [id number] Misa Bernal Self - patient is the insured Medical (General) History Medical History History ICD Code 3 mm lung nodule. low risk. no further w /u indicated. sees biological sciences professor yearly still refusing colonoscopy ; Colonoscopy done 06/11/15 w/Dr. Box - negative/no further testing needed. Colonoscopy done 08/13/2105/13, D&C by Dr. 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 Pérez 09/28 018
--- OUTSIDE RECORDS SUMMARY | 2024-11-03 10:26 | XMS_ITS | Patient Health Record ---
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 Problem Screening for malignant neoplasm of rectum (573469406) Encounter for screening for malignant neoplasm of rectum (Z12.12) Active confirmed Problem 34001389 Preprocedural examination (Z01.818) Active confirmed Problem Diverticulosis of colon (909363474) Diverticulosis of colon (K57.30) Active confirmed Plan Of Treatment Pending Test Test Name Order Date CBC w DIFF 12/19/2021 Future Test Test Name Order Date COLONOSCOPY 04/03/2015 COLONOSCOPY 07/26/2021 Insurance Providers Payer Name Payer Address Payer Phone Subscriber Number Group Number Insured Name Patient Relationship to Insured Coverage Start Date Coverage End Date [facility] [address] [place] [phone] [id number] MISA BERNAL Self - patient is the insured Medical (General) History Medical History History ICD Code Denies PA,DM,CVA,Lung disease,renal dise ase HTN Neg. U/S of abdomen and UGI in 2009 Atrial fibrillation-Dr. 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 She was started on oral mesalamine in 11/2021 to see if that would give her relief. Surgical History Surgery Date(Month/Year) [facility]
== END 2024-11-03 09:59 | disposition home or self-care (01) ==
LOC: HO.CT 09:58
PROVIDERS: PCP Internal Medicine; Visit Provider Internal Medicine
DX: R91.8 Other nonspecific abnormal finding of lung field (principal)
CPT/HCPCS: 71250

== ENCOUNTER → 2024-11-03 10:17 | Outpatient (BNV) | payer MEDICARE, SELFPAY | PROVIDERS: PCP Internal Medicine; Visit Provider Radiology Diagnostic Radiology | DX: R91.1 Solitary pulmonary nodule (principal) | CPT/HCPCS: 71250 ==

== ENCOUNTER 2025-03-28 07:15 | Outpatient (REF) | payer MEDICARE, SELFPAY ==
--- OUTSIDE RECORDS SUMMARY | 2024-03-31 06:00 | XMS_ITS ---
Author Organization Darren Pavon MD Address [address] [place], [place] [phone] Care Team Providers Care Senior Director Of [employer] Name Role Phone Darren Pavon Primary Care Provider [phone] Allergies Allergen (clinical drug ingredient) Drug/Non Drug [...] 03/31/2024 12:51:29 PM >referral request faxed to [facility] with note, Radha Redman 04/07/2024 02:07:38 PM [...] Date Provider Diagnosis Darren Pavon MD [address] [place], [place] [phone] 03/31/2024 Darren Pavon Presence of Watchman left [...] carotid arteries (ICD-10 - I65.23) referral to [facility] vascular surgery 03/31/2024 Chronic atrial fibrillation (ICD-10 [...] both internal carotid arteri es referral to [facility] vascular surgery Chronic atrial fibrillation no longer [...] Name:Darren Bose ier, 04/06/2025 11:00:00 AM, [address], [address], [place], [place], [phone], Progress Notes * Liang BERNALeDOB:1945 ( 78 yo F)Acc No.[id number]:03/31/2024 Progress Notes Patient: Carla Rooney Provider: Georgia Pavon MD :1945 A ge:78 Y S ex:Female Date:03/31/2024 Address:[address] [place] [address] Subjective: * Chief Complaints: * A nnual [...] 2 dogs. no Travel outside of the [place]. * Medications: T akingFerrous Sulfate 324 [...] mg/dL Urine Blood Negative Negative - Specific [place] - Urine 1.020 1.005-1.025 - Urine Protein [...] Auto 0.000 0.0-0.012 - X10*3/uL L ab:Comprehensive [place]. Panel Fast (Order Date - 03/18/2024) (Collection [...] to auscultation bilaterally. BREASTS: d one by track template maker. ABDOMEN: s oft, nontender, nondistended, bowel sounds present, normal, no organomegaly , no masses palpable. RECTAL EXAM: d one by track template maker. FEMALE GENITOURINARY: d one by track template maker. EXTREMITIES: n o clubbing, cyanosis, or edema. [...] both internal carotid arteries Notes: referral to [facility] vascular surgery Referral To:[facility] [...] 0 03/31/2024 Generated for Maritza mathias/Prateek/Yanelyitting on: 1 03:10 PM EST History and Physical Notes * [...] cyanosi s, or edema BREASTS: done by track template maker RECTAL EXAM: done by track template maker FEMALE GENITOURINARY: done by track template maker ORAL CAVITY: mucosa moist Consultation Request Notes Referral Date Referring Provider Referred Provider Not es 03/31/2024 Darren Pavon Neal Stenosis of both internal carotid arteries
--- OUTSIDE RECORDS SUMMARY | 2024-04-01 08:32 | XMS_ITS ---
Author Organization Darren Pavon MD Address [address] [place] [phone] Care Team Providers Care Area Attendant Name Role Phone Arsenioadwoa Darren Primary Care Provider REASON FOR VISIT Tingling numbness on scalp to left side to behind her ear Encounters Encounter Location Date Provider Diagnosis Darren Pavon MD [address] [place] [phone] 04/01/2024 Darren Pavon Plan Of Treatment Next Appt Details Provider Name:Darren Bose ier, 04/06/2025 11:00:00 AM, [address], Suite [facility], [place], [place], [phone], Progress Notes * Liang BERNALeDOB:1945 ( 78 yo F)Acc No.[id number]:04/01/2024 Patient: Obi adelineCarla :1945 A ge:78 Y S ex:Female Address:[address] [place] [address] * true * Date: Generated for Maritza mathias/Prateek/Kenton on: 03:10 PM EST
--- OUTSIDE RECORDS SUMMARY | 2024-05-17 08:30 | XMS_ITS ---
Author Organization Darren Pavon MD Address [address] [place], [place] [phone] Care Team Providers Care Mortarman Name Role Phone Darren Pavon Primary Care Provider Allergies Allergen (clinical drug ingredient) Drug/Non Drug Allergy documented on EMR Reaction Allergy Type Onset Date Status amoxicillin / clavulanate augmentin (uncoded) yeast infection Allergy Active REASON FOR VISIT had the watchman put in. Has a cold.Has questions about medications, Video [phone] c/o nonproductive cough, had muscle pain all [...] Location Date Provider Diagnosis Darren Pavon MD [address] [place] [address] [place] [phone] 05/17/2024 Darren Pavon Influenza A J10.1 and [...] Provider Name:Darren Bose ier, 04/06/2025 11:00:00 AM, [address] [place] [address] Drive, [address], [place], [place], [phone], Progress Notes * Linda BERNALOB:1945 ( 78 yo F)Acc No.[id number]:05/17/2024 Patient: Obi DAKOTAHCarla Provider: Georgia Pavon MD :1945 A ge:78 Y S ex:Female Date:05/17/2024 Address:[address] [place], [place] [phone] Subjective: * Chief Complaints: * h ad the watchman put in. Has a cold.Has questions about medicationsVideo [phone] c/o nonproductive cough, had muscle pain all [...] 05/17/2024 Generated for Maritza mathias/Prateek/Kenton on: 1 03:11 PM EST History and Physical Notes * HPI (History of Present Illness) Category Sub-Category Detail Notes Category Not es Symptom(s) Telehealth Location of [facility] rendering services:: [address], [address] [...]
--- OUTSIDE RECORDS SUMMARY | 2024-06-06 06:45 | XMS_ITS ---
Author Organization Darren Pavon MD Address [address] [place], [place] [phone] Care Team Providers Care Spa Host Name Role Phone Darren Pavon Primary Care Provider Allergies Allergen (clinical drug ingredient) Drug/Non Drug Allergy documented on EMR Reaction Allergy Type Onset Date Status amoxicillin / clavulanate augmentin (uncoded) yeast infection Allergy Active REASON FOR VISIT cough x 3 weeks chest congestion, Video [phone] Medications Medication SIG (Take, Route, Frequency, Duration) Notes Start Date End Date Status Balsalazide Disodium 750 MG 1 capsules Orally three times a day Not-Taking Aspirin 325 MG 1 tablet Orally PRN for 30 day(s) Not-Taking Benzonatate 100 MG 1 capsule as needed Orally Three times a day for 10 days 04/08/2022 Not-Taking Diclofenac Sodium 75 MG 1 tablet with fo od or milk Orally Twice a day Not-Taki ng Zithromax Z-Ok 250 MG 2 tablet on the irst day, then 1 tablet daily for 4 days Orally Once a day for 5 day(s) 06/06/2024 Active Molnupiravir 200 MG 4 capsules Orally ev shan 12 hrs for 5 day(s) 10/16/2023 Not-Taking Ferrous Sulfate 324 MG 1 tablet Orally T hree times a Week for 30 day(s) Not-Taking Vitamin D 25 MCG (1000 UT) 1 tablet Orally Once a day for 30 day(s) Not-Taking Lisinopril 10 MG 1 tablet Orally Once a day Active dilTIAZem HCl ER Coated Beads 120 MG TAKE 1 CAPSULE BY MOUTH EVERY DAY Active Aspirin 81 81 MG 1 tablet Orally Once a day for 30 day(s) Active Flecainide Acetate 50 MG Orally twice a day Active Plavix 75 MG 1 tablet Orally Once a day Active Atorvastatin Calcium 20 MG 1 tablet Orally Once a day Active ProAir HFA 108 (90 Base) MCG/ACT 2 puffs as needed Inhalation every 6 hrs for 30 days 07/03/2017 Active predniSONE 10 MG 1 tablet with food o r milk Orally 4 tabs for 3 days,3tabs for 3 days, 2 tabs for 3 days, and 1 tab for 3 days for 14 days 06/06/2024 Active Problems Problem Type SNOMED Code ICD Code Onset Dates Problem Status W/U Status Risk Notes Problem Asthmatic bronchitis (984859620) Asthmatic bronchitis (J45.909) Active confirmed Vital Signs Height 66 in 06/06/2024 Weight 177 lbs 06/06/2024 BMI 28.57 kg/m2 06/06/2024 weight at home is 177 BP not taken at home Encounters Encounter Location Date Provider Diagnosis Darren Pavon MD [address] [facility] [address] [place] [phone] 06/06/2024 Darren Pavon Asthmatic bronchitis J45.909 Assessments Encounter Date Diagnosis (ICD Code) Assessment Notes Treatment Notes Treatment Clinical Notes Section Notes 06/06/2024 Asthmatic bronchitis (ICD-10 - J45.909) patient verbalized understanding of medication and directions for use Plan Of Treatment Medication Medication Name Sig Start Date Stop Date Notes Zithromax Z-Ok 250 MG 2 tablet on the irst day, then 1 tablet daily for 4 days Orally Once a day for 5 day(s) 06/06/2024 predniSONE 10 MG 1 tablet with food o r milk Orally 4 tabs for 3 days,3tabs for 3 days, 2 tabs for 3 days, and 1 tab for 3 days for 14 days 06/06/2024 Treatment Notes Assessment Notes Asthmatic bronchitis patient verbalized understanding of medication and directions for use Next Appt Details Provider Name:Darren Bose ier, 04/06/2025 11:00:00 AM, [address] [facility], [address], [place], [place], [phone], Progress Notes * Liang BERNALeDOB:1945 ( 78 yo F)Acc No.[id number]:06/06/2024 Patient: Carla HERNANDEZ Provider: Georgia Pavon MD :1945 A ge:78 Y S ex:Female Date:06/06/2024 Address:[address] [place], [place] [phone] Subjective: * Chief Complaints: * C ough x 3 weeks chest congestionVideo [phone] * HPI: S ymptom(s): Telehealth L ocation of provider rendering services: [address] [facility], [address], ocation of patient: a t address listed in demographics for today's visit, P atient identification confirmed using: SHAYLA Reyes ame, T elehealth method: T elephone only. Patient not visible to care provider., C onsent: P atient verbally consented to treatment, Patient verbally consented to billing insurance company, Patient informed of any privacy concerns related to method of visit, T otal time spend talking with patient (minutes) 1 8. patient is a 78 yo female video telehealth visit here as emergency. coughing for 3 weeks and wheezing somewhat. using inhaler. * ROS: G eneral/Constitutional: Denies C hills. D enies F atigue. D enies F ever. E NT: Patient denies d ecreased sense of smell, any loss of taste, sore throat. D enies S ore throat. R espiratory: Admits C ough. D enies S hortness of breath at rest. D enies S hortness of breath with exertion. D enies S putum production. A dmits W heezing. G astrointestinal: Denies D iarrhea. [...] Objective: * Vitals: H t: 66, Wt: 177, BMI:28.57, Wt-k.29. weight at home is 177 B P not taken at home. Assessment: * Assessment: 1. A sthmatic bronchitis - J45.909 (Primary) Plan: * Treatment: * Procedure Codes: * * Sign off status: Completed true * Provider: Georgia Pavon MD Date: 0 06/06/2024 Generated for Maritza mathias/Prateek/Kenton on: 1 03:09 PM EST History and Physical Notes * HPI (History of Present Illness) Category Sub-Category Detail Notes Category Not es Symptom(s) Telehealth Location of [facility] rendering services:: [address] [facility] [address], [address] patient is a 78 yo female video telehealth visit here as emergency. coughing for 3 weeks and wheezing somewhat. using inhaler. Location of patient:: at address listed in demographics for today's visit Patient identification confirmed using:: Name, Telehealth method:: Telephone only. Lindy ent not visible to care provider. Consent:: Patient verbally c onsented to treatment, Patient verbally consented to billing insurance company, Patient informed of any privacy concerns related to method of visit Total time spend talking with patient (m inutes): 18
--- OUTSIDE RECORDS SUMMARY | 2024-07-01 06:00 | XMS_ITS ---
Author Organization Darren Pavon MD Address [address] [place], [place] [phone] Care Team Providers Care Cold Roll Packer Sheet Iron Name Role Phone Darren Pavon Primary Care Provider [phone] Allergies Allergen (clinical drug ingredient) Drug/Non Drug Allergy documented on EMR Reaction Allergy Type Onset Date Status amoxicillin / clavulanate augmentin (uncoded) yeast infection Allergy Active REASON FOR VISIT COUGH , CHEST CONGESTION, SWOLLEN GLANDS sore throat, SOB, x 2 days, USE CELL PHONE [phone] Medications Medication SIG (Take, Route, Frequency, Duration) [...] Date Provider Diagnosis Darren Pavon MD [address] [place] [address] Drive [address] [place], [place] [phone] 07/01/2024 Darren Pavon Short of breath on exertion R06.02 and Bronchitis J40 Assessments Encounter Date Diagnosis (ICD Code) Assessment Notes Treatment Notes Treatment Clinical Notes Section Notes 07/01/2024 Short of breath on exertion (ICD-10 - R06.02) pending diagnostic testing/THE ORDER [place] BEEN [place] [facility] [place] MISA [place] A[place] 07/01/2024 Bronchitis [...] nostic testing/THE ORDER HAS BEEN FAXED [place] [facility] [place] MISA IS AWARE Bronchitis patient verbalized u nderstanding of medication and directions for use Pending Test Test Name Order Date XR CHEST 2 VIEW PA & LAT 07/01/2024 Next Appt Details Provider Name:Darren Bose ier, 04/06/2025 11:00:00 AM, [address] [facility], [address], [place], [place], [phone], Progress Notes * Liang BERNALeDOB:1945 ( 78 yo F)Acc No.[id number]:07/01/2024 Patient: Misa HERNANDEZ Provider: eGorgia Pavon MD :1945 A ge:78 Y S ex:Female Date:07/01/2024 Address:[address] [place], [place] [phone] Subjective: * Chief Complaints: * C OUGH , CHEST CONGESTION, SWOLLEN GLANDS sore throat, SOB, x 2 daysUSE CELL PHONE [phone] * HPI: S ymptom(s): Telehealth L ocation [...] 07/01/2024 Generated for Maritza mathias/Prateek/Yanelyitting on: 1 03:10 PM EST History and Physical Notes * HPI (History of Present Illness) Category Sub-Category Detail Notes Category Not es Symptom(s) Telehealth Location of [facility] rendering services:: [address], [address] patient is [...]
--- OUTSIDE RECORDS SUMMARY | 2024-07-28 07:45 | XMS_ITS ---
Author Organization Darren Pavon MD Address [address] [place], [place] [id number] Care Team Providers Care Resistor Testing Machine Operator Name Role Phone Darren Pavon Primary Care Provider Allergies Allergen (clinical drug ingredient) Drug/Non Drug Allergy documented on EMR Reaction Allergy Type Onset Date Status amoxicillin / clavulanate augmentin (uncoded) yeast infection Allergy Active REASON FOR VISIT left great toe ? infection Medications Medication SIG (Take, Route, Frequency, Duration) Notes Start Date End Date Status Cephalexin 500 MG 1 capsule Orally 3 times a day for 10 days 07/28/2024 Active Triamcinolone Acetonide 0.5 % 1 application Externally Twice a day for 10 days 07/28/2024 Active Lisinopril 10 MG 1 tablet Orally Once a day Active ProAir HFA 108 (90 Base) MCG/ACT 2 puffs as needed Inhalation every 6 hrs for 30 days 07/03/2017 Active Flecainide Acetate 50 MG Orally twice a day Active Plavix 75 MG 1 tablet Orally Once a day Active Aspirin 81 81 MG 1 tablet Orally Once a day for 30 day(s) Active Diclofenac Sodium 75 MG 1 tablet with fo od or milk Orally Twice a day Not-Taki ng Atorvastatin Calcium 20 MG 1 tablet Orally Once a day Active Aspirin 325 MG 1 tablet Orally PRN for 30 day(s) Not-Taking Ferrous Sulfate 324 MG 1 tablet Orally T hree times a Week for 30 day(s) Not-Taking Vitamin D 25 MCG (1000 UT) 1 tablet Orally Once a day for 30 day(s) Not-Taking Balsalazide Disodium 750 MG 1 capsules Orally three times a day Not-Taking Molnupiravir 200 MG 4 capsules Orally ev shan 12 hrs for 5 day(s) 10/16/2023 Not-Taking Benzonatate 100 MG 1 capsule as needed Orally Three times a day for 10 days 04/08/2022 Not-Taking dilTIAZem HCl ER Coated Beads 120 MG TAKE 1 CAPSULE BY MOUTH EVERY DAY Active Vital Signs Blood pressure systolic 142 mm Hg 07/29/19 25 Blood pressure diastolic 60 mm Hg 025 Height 66 in 07/28/2024 Weight 180 lbs 07/28/2024 BMI 29.05 kg/m2 07/28/2024 Encounters Encounter Location Date Provider Diagnosis Darren Pavon MD [address] [facility] [address] [place], [place] [id number] 07/28/2024 Darren Pavon Insect bite (nonvenomous) of left elbow, initial encounter S50.362A and Cellulitis L03.90 Assessments Encounter Date Diagnosis (ICD Code) Assessment Notes Treatment Notes Treatment Clinical Notes Section Notes 07/28/2024 Insect bite (nonvenomous) of left elbow, initial encounter (ICD-10 - S50.362A) patient verbalized understanding of medication and directions for use 07/28/2024 Cellulitis (ICD-10 - L03.90) patient verbaized understanding of medication and directions for use Plan Of Treatment Medication Medication Name Sig Start Date Stop Date Notes Cephalexin 500 MG 1 capsule Orally 3 t imes a day for 10 days 07/28/2024 Triamcinolone Acetonide 0.5 % 1 applicat ion Externally Twice a day for 10 days 07/28/2024 Treatment Notes Assessment Notes Insect bite (nonvenomous) of left elbow, initial encounter patient verbalized understanding of medication and directions for use Cellulitis patient verbaized un derstanding of medication and directions for use Next Appt Details Provider Name:Darren Bose ier, 04/06/2025 11:00:00 AM, [address], [address], [place], [place], [id number], Progress Notes * Liang BERNALeDOB:1945 ( 78 yo F)Acc No.[id number]:07/28/2024 Progress Notes Patient: Carla HERNANDEZ Provider: Georgia Pavon MD :1945 A ge:78 Y S ex:Female Date:07/28/2024 Address:[address] [place], [place] [phone] Subjective: * Chief Complaints: * L eft great toe ? infection * HPI: S ymptom(s): patient is a 78 yo female here with complaint of left great toe/ with multiple excoriated lesion on left arm. * ROS: G eneral/Constitutional: Denies C hills. D enies F atigue. D enies F ever. D enies H eadache. E NT: Denies S ore throat. R espiratory: Denies C ough. D enies S hortness of breath at rest. D enies S hortness of breath with exertion. G astrointestinal: Denies D iarrhea. D enies N ausea. M usculoskeletal: Patient complaining of i tdhing on left arm. ? * Medical History: * Surgical History: * [...] 325 MG Tablet 1 tablet Orally PRN Not-Taking/PRN Ferrous Sulfate 324 MG Tablet Delayed [...] 325 MG Tablet 1 tablet Orally PRN DiscontinuedZithromax Z-Ok 250 MG Tablet 2 tablet on the first day, then 1 tablet daily for 4 days Orally Once a day Medication List reviewed and reconciled with the patientDiscontinued Zithromax Z-Ok 250 MG Tablet 2 tablet on the first day, then 1 tablet daily for 4 days Orally Once a day Medication List reviewed and reconciled with the patient * Allergies: a ugmentin: yeast infectionyes[Allergies Verified] Objective: * Vitals: H t: 66, Wt: 180, BMI:29.05, BP:142/60, Wt-k.65. * Examination: G eneral Examination: GENERAL APPEARANCE: a lert, well hydrated, in no distress.? SKIN: l eft forearm with multple insect bites and some bruises from scratching. EXTREMITIES: a bnormal left great toe with a fungal toenail and some bleeding around it. has swelling and redness of the foot. Assessment: * Assessment: 1. Cari gore - L03.90 (Primary) 2 . I nsect bite (nonvenomous) of left elbow, initial encounter - S50.362A Plan: * Treatment: 2. I nsect bite (nonvenomous) of left elbow, initial encounter Start Triamcinolone Acetonide Cream, 0.5 %, 1 application, Externally, Twice a day, 10 days, 60.? Notes: patient verbalized understanding of medication and directions for use * Procedure Codes: * * Sign off status: Completed true * Provider: Georgia Pavon MD Date: 0 07/28/2024 Generated for Maritza mathias/Prateek/Kenton on: 1 03:09 PM EST History and Physical Notes * HPI (History of Present Illness) Category Sub-Category Detail Notes Category Not es Symptom(s) patient is a 78 yo female here with complaint of left great toe/ with multiple excoriated lesion on left arm Examination Category Sub-Category Detail Notes Category Not es General Examination GENERAL APPEARANCE: alert, w ell hydrated, in no distress SKIN: left forearm with mu ltple insect bites and some bruises from scratching EXTREMITIES: abnormal left great toe with a fungal toenail and some bleeding around it. has swelling and redness of the foot
--- OUTSIDE RECORDS SUMMARY | 2024-08-31 08:00 | XMS_ITS ---
Author Organization [facility] Address [address] [place] [address] Care Team Providers Care Job Compositor Name Role Phone Darren Pavon MD Primary Care Provider Danny Flores Unavailable [phone] Medications Medication SIG (Take, Route, Frequency, Duration) [...] Unknown Encounters Encounter [facility] Date [facility] [address] [address] 08/31/2024 Danny Ly Plan Of Treatment No Information Progress Notes * Liang BERNALeDOB:1945 ( 79 yo F)Acc No.[id number]:08/31/2024 Progress Notes Patient: Obi DAKOTAHCarla Provider: Kartik Ly DPM :1945 A ge:78 Y S ex:Female Date:08/31/2024 Address:[address] [place], [place] [phone] Pcp:Darren Pavon MD Subjective: * Chief Complaints: [...] 0 08/31/2024 Generated for Maritza mathias/Prateek/Kenton on: 03:10 PM EST
--- OUTSIDE RECORDS SUMMARY | 2024-10-18 10:00 | XMS_ITS ---
Author Organization Darren Pavon MD Address [address] [place] [phone] Care Team Providers Care Bobbin Collector Name Role Phone Savanah Darren Primary Care Provider [phone] REASON FOR VISIT Chest CT Scan due . Encounters Encounter Location Date Provider Diagnosis Darren Pavon MD [address] [place] [phone] 10/18/2024 Darren Pavon Plan Of Treatment Next Appt Details Provider Name:Darren Bose ier, 04/06/2025 11:00:00 AM, [address] [facility], Suite [facility], [place], [place], [phone], Progress Notes * Liang BERNALeDOB:1945 ( 78 yo F)Acc No.[id number]:10/18/2024 Patient: Carla HERNANDEZ :1945 A ge:78 Y S ex:Female Address:[address] [place] [phone] * true * Date: Generated for Maritza mathias/Prateek/Kenton on: 03:11 PM EST
--- OUTSIDE RECORDS SUMMARY | 2024-12-05 06:00 | XMS_ITS ---
Author Organization Darren Pavon MD Address [address] [place] [phone] Care Team Providers Care Metal Trim Erector Name Role Phone Savanah Darren Primary Care Provider [phone] REASON FOR VISIT HDF Immunizations Vaccine Route Administration Date Status Comme nts Influenza High Dose IM Intramuscular 12/05/2024 Administer ed Encounters Encounter Location Date Provider Diagnosis Darren Pavon MD [address] [facility] [address] [place] [phone] 12/05/2024 Darren Pavon Encounter for administration of vaccine Z23 Assessments Encounter Date Diagnosis (ICD Code) Assessment Notes Treatment Notes Treatment Clinical Notes Section Notes 12/05/2024 Encounter for administration of vaccine (ICD-10 - Z23) Plan Of Treatment Next Appt Details Provider Name:Darren hudson, 04/06/2025 11:00:00 AM, [address], Suite [facility], [place], [place], [phone], Progress Notes * Linda BERNALOB:1945 ( 79 yo F)Acc No.[id number]:12/05/2024 Progress Note Patient: Carla HERNANDEZ Provider: Georgia Pavon MD :1945 A ge:79 Y S ex:Female Date:12/05/2024 Address:[address] [place] [address] Subjective: * Chief Complaints: * 1 . [...] 0 12/05/2024 Generated for Maritza mathias/Prateek/Yanelyitting on: 03:11 PM EST
--- OUTSIDE RECORDS SUMMARY | 2025-01-16 08:45 | XMS_ITS ---
Author Organization Darren Pavon MD Address [address] [place], [place] [phone] Care Team Providers Care Horologist Apprentice Name Role Phone Darren Pavon Primary Care [...] Status W/U Status Risk Notes Problem Dysthymia (55832283) Dysthymia (F34.1) Active confirmed Problem 88729884 Age-related cataract of both eyes, unspecified age-related cataract type (H25.9) Active confirmed Problem Contracture of palmar fascia (992083832) Dupuytren contracture (M72.0) Active confirmed Vital Signs Blood pressure systolic 124 mm Hg 01/17/20 25 Blood pressure diastolic 50 mm Hg 025 Height 66 in 01/16/2025 Weight 180 lbs 01/16/2025 BMI 29.05 kg/m2 01/16/2025 Encounters Encounter Location Date Provider Diagnosis Darren Pavon MD [address] [facility] [address] [place], [place] [phone] 01/16/2025 Darren Pavon Preop examination Z01.818 ; [...] Provider Name:Darren Bose ier, 04/06/2025 11:00:00 AM, [address] [place] [address], [address], [place], [place], [phone], Progress Notes * Liang BERNALeDOB:1945 ( 79 yo F)Acc No.[id number]:01/16/2025 Patient: Carla HERNANDEZ Provider: Georgia Pavon MD :1945 A ge:79 Y S ex:Female Date:01/16/2025 Address:[address] [place] [address] Subjective: * Chief Complaints: * C ataract [...] MD Date: Generated for Maritza mathias/Prateek/Yanelyitting on: 03:11 PM EST History and Physical Notes [...]
--- OUTSIDE RECORDS SUMMARY | 2025-03-28 02:15 | XMS_ITS ---
Author Organization Darren Pavon MD Address [address] [place], [place] [id number] Care Team Providers Care Fermenter Name Role Phone Darren Pavon Primary Care Provider [phone] Results Component Value Reference Range Notes Complete Blood Count Auto Di ff (Not yet reviewed by provider) Interpretation: Performing Lab:[facility], [address] [place] [phone] Notes/Report: White Blood Count 3.7 4.8-10.8 X10*3/uL Red Blood Count 3.99 4.20-5.50 X10*6/uL Hemoglobin 13.1 12.0-16.0 g/dl Hematocrit 40.9 37.0-47.0 % Mean Corpuscular Volume 102.5 80.0-98.0 fL Mean Corpuscular Hemoglobin 32.8 27.0-33.0 pg Mean Corpuscular HGB Conc 32.0 31.0-35.0 g/dl Red Cell Distribution Width 12.4 11.0-16.0 % Platelet Count 253 160-400 X10*3/uL Mean Platelet Volume 8.9 9.4-12.3 fL Neutrophils Percent Auto 45.3 45-73 % Imm Gran Pct Auto 0.3 0.0-0.4 % Lymphocytes Percent Auto 31.0 20-40 % Monocytes Percent Auto 10.6 2-11 % Eosinophils Percent Auto 11.4 0-4 % Basophils Percent Auto 1.4 0-2 % NRBC Pct Auto 0.0 0.0-0.2 /100WBC Neutrophils Absolute Auto 1.7 2.0-8.3 x10*3/u L Imm Gran Abs Auto 0.01 0.00-0.03 X10*3/uL Lymphocytes Absolute Auto 1.1 1.2-4.9 X10*3/u L Monocytes Absolute Auto 0.4 0.1-1.2 X10*3/uL Eosinophils Absolute Auto 0.4 0.0-0.4 X10*3/u L Basophils Absolute Auto 0.1 0.0-0.2 X10*3/uL NRBC Abs Auto 0.000 0.0-0.012 X10*3/uL Comprehensive [place]. Panel Fa st (Not yet reviewed by provider) Interpretation: Performing Lab:[facility], [address] [place] [phone] Notes/Report: Sodium 141 135-145 mmol/L Potassium 5.0 3.3-5.1 mmol/L Chloride 107 96-108 mmol/L Carbon Dioxide 27 22-29 mmol/L Anion Gap 12 12-20 Blood Urea Nitrogen 17 9-16 mg/dL Creatinine 0.92 0.5-1.4 mg/dL Estimated Glomerular Filt Rate 59 Chronic Kidney Disease: Estimated GFR < 60 mL/min/1.73m2 Severe Kidney Disease: Estimated GFR < 15 mL/min/1.73m2 Glucose Fasting 92 60-99 mg/dL Calcium 9.4 8.4-10.2 mg/dL Bilirubin Total 0.5 0.0-1.0 mg/dL Aspartate Amino Transferase 27 5-31 U/L Alanine Aminotransferase 18 0-31 U/L Total Protein 7.5 6.5-8.0 g/dL Albumin Level 4.2 3.5-5.0 g/dL Alkaline Phosphatase 86 39-117 U/L Microalbumin, Random (Not ye t reviewed by provider) Interpretation: Performing Lab:[facility], [address] [place] [phone] Notes/Report: Creatinine Urine 103.50 Microalbumin Urine 16.0 Microalbum/Creatinine Ratio Ur 15.4 <30 ug/mg cr Albumin/Creatinine Ratio Reference Ranges: Normal: < 30 ug/mg creatinine Microalbuminuria: 30 - 300 ug/mg creatinine Clinical Albuminuria: > 300 ug/mg creatinine UA ClnCatch+Micro w/rflx Cul t (Not yet reviewed by provider) Interpretation: Performing Lab:[facility], [address] [place] [phone] Notes/Report: Urine, Clean Catch Color Urine Yellow Appearance Urine Clear PH 5.5 5.0-9.0 Glucose Urine UA Negative Negative mg/dL Urine Blood Negative Negative Specific [place] - Urine 1.015 1.005-1.025 Urine Protein Negative Neg-Trace mg/dL Urine Ketones Negative Negative mg/dL Nitrite Urine Negative Negative Leukocyte Esterase Urine Negative Negative RBC Urine 0-2 0-2 /HPF WBC Urine 0-5 0-5 /HPF Squamous Epithelial Cell Urine 0-2 0-2 /HPF Bacteria Urine None Seen None Seen Hyaline Casts Urine 0-2 0-2 /LPF Lipid Panel Reviewed date:03/28/2025 12:53:43 PM Interpretation: Performing Lab:[facility], [address] [place] [phone] Notes/Report: Triglycerides 123 <150 mg/dL Desirable Triglyceride: less than 150 mg/dL Borderline High Triglyceride 150-199 mg/dL High Triglyceride: 200-499 mg/dL Very High Triglyceride: greater than or equal to 5OO mg/dL Cholesterol 204 <200 mg/dL Desirable Cholesterol: less than 200 mg/dL Borderline High Cholesterol: 200-239 mg/dL High Cholesterol: greater than 239 mg/dL LDL Cholesterol Calculated 126 <100 mg/dL Desirable LDL: less than 100 mg/dL Near Optimal/Above Optimal LDL: 110-129 mg/dL Borderline High LDL: 130-159 mg/dL High LDL: 160-189 mg/dL Very High LDL: greater than or equal to 190 mg/dL HDL Cholesterol 54 >40 mg/dL Desirable HDL: greater than 40 mg/dL Note: This HDL assay may give artificially low results in patients with liver disease. Hemoglobin A1c Reviewed date:03/28/2025 12:53:00 PM Interpretation: Performing Lab:[facility], [address] [facility], [place] [phone] Notes/Report: Hemoglobin A1c % 5.5 <6.0 % Hemoglobin A1C Reference Range Adults: 4.8 - 6.0 % Non diabetic: < 6.0 % Goal: < 7.0 % Additional Action Suggested: > 8.0 % Note: Hemoglobin A1c results are invalid for patients with abnormal amounts of HbF. Blood transfusions may impact the HbA1c concentration in the patient sample. Estimated Average Glucose 111 eAG = Estimated average glucose which is %A1C expressed as average glucose, using the formula of the K1U-Gthxtgw Average Glucose study (ADAG), Diabetes Care, Vol.31,#8, Oct. 2007 REASON FOR VISIT yearly fasting labs Encounters Encounter Location Date Provider Diagnosis Darren Pavon MD [address] [place] [address] [place] [phone] 03/28/2025 Darrne Pavon Blood tests for rout ine general physical examination Z00.00 ; Prediabetes R73.09 ; Pure hypercholesterolemia E78.00 ; Labile hypertension I10 and Neutropenia, unspecified type D70.9 Assessments Encounter Date Diagnosis (ICD Code) Assessment Notes Treatment Notes Treatment Clinical Notes Section Notes 03/28/2025 Blood tests for rout ine general physical examination (ICD-10 - Z00.00) 03/28/2025 Prediabetes (ICD-10 - R73.09) 03/28/2025 Pure hypercholesterolemia (ICD-10 - E78.00) 03/28/2025 Labile hypertension (ICD-10 - I10) 03/28/2025 Neutropenia, unspeci fied type (ICD-10 - D70.9) Plan Of Treatment Pending Test Test Name Order Date Complete Blood Count Auto Diff 5 Comprehensive [place]. Panel Fast 5 Microalbumin, Random 03/28/2025 UA ClnCatch+Micro w/rflx Cult 03/28/2025 Next Appt Details Provider Name:Darren hudson, 04/06/2025 11:00:00 AM, [address] [facility], [address], [place], [place], [phone], Progress Notes * Rafal BERNAL:1945 ( 79 yo F)Acc No.[id number]:03/28/2025 Progress Note Patient: Carla HERNANDEZ Provider: Georgia Pavon MD :1945 A ge:79 Y S ex:Female Date:03/28/2025 Address:[address] [place] [address] Subjective: * Chief Complaints: * 1 . Yearly fasting labs. * Medical History: Objective: * Vitals: Assessment: * Assessment: 1. B lood tests for routine general physical examination - Z00.00 (Primary) 2 .?Prediabetes - R73.09 3 . P ure hypercholesterolemia - E78.00 ?4. L abile hypertension - I10 5 . N eutropenia, unspecified type - D70.9? Plan: * Treatment: 2. P rediabetes L AB: Complete Blood Count Auto Diff (Collection Date & Time - 03/28/2025 07:15 AM) L AB: Comprehensive [place]. Panel Fast (Collection Date & Time - 03/28/2025 07:15 AM) L AB: Microalbumin, Random (Collection Date & Time - 03/28/2025 07:15 AM) L AB: UA ClnCatch+Micro w/rflx Cult (Collection Date & Time - 03/28/2025 07:15 AM) L AB: Lipid Panel (Collection Date & Time - 03/28/2025 07:15 AM) L AB: Hemoglobin A1c (Collection Date & Time - 03/28/2025 07:15 AM) 3. P ure hypercholesterolemia L AB: Complete Blood Count Auto Diff (Collection Date & Time - 03/28/2025 07:15 AM) L AB: Comprehensive [place]. Panel Fast (Collection Date & Time - 03/28/2025 07:15 AM) L AB: Microalbumin, Random (Collection Date & Time - 03/28/2025 07:15 AM) L AB: UA ClnCatch+Micro w/rflx Cult (Collection Date & Time - 03/28/2025 07:15 AM) L AB: Lipid Panel (Collection Date & Time - 03/28/2025 07:15 AM) L AB: Hemoglobin A1c (Collection Date & Time - 03/28/2025 07:15 AM) 4. L abile hypertension L AB: Complete Blood Count Auto Diff (Collection Date & Time - 03/28/2025 07:15 AM) L AB: Comprehensive [place]. Panel Fast (Collection Date & Time - 03/28/2025 07:15 AM) L AB: Microalbumin, Random (Collection Date & Time - 03/28/2025 07:15 AM) L AB: UA ClnCatch+Micro w/rflx Cult (Collection Date & Time - 03/28/2025 07:15 AM) L AB: Lipid Panel (Collection Date & Time - 03/28/2025 07:15 AM) L AB: Hemoglobin A1c (Collection Date & Time - 03/28/2025 07:15 AM) 5. N eutropenia, unspecified type L AB: Complete Blood Count Auto Diff (Collection Date & Time - 03/28/2025 07:15 AM) L AB: Comprehensive [place]. Panel Fast (Collection Date & Time - 03/28/2025 07:15 AM) L AB: Microalbumin, Random (Collection Date & Time - 03/28/2025 07:15 AM) L AB: UA ClnCatch+Micro w/rflx Cult (Collection Date & Time - 03/28/2025 07:15 AM) L AB: Lipid Panel (Collection Date & Time - 03/28/2025 07:15 AM) L AB: Hemoglobin A1c (Collection Date & Time - 03/28/2025 07:15 AM) * Procedure Codes: 3 6415 VENIPUNCT, ROUTINE* * * The named appointment provid er may or may not be the originator of this progress note, and it is not deemed complete until electronically signed by the appointment provider. Sign off status: Pending * Provider: Georgia Pavon MD Date: Generated for Maritza mathias/Prateek/Yanelyitting on: 03:11 PM EST
[2025-03-28 11:13] LABS: MANUAL DIFF FLAG NO
[2025-03-28 11:29] LABS: Hematocrit 40.9 % (37.0-47.0); Hemoglobin 13.1 g/dl (12.0-16.0); Imm Gran Abs Auto 0.01 X10*3/uL (0.00-0.03); Imm Gran Pct Auto 0.3 % (0.0-0.4); Lymphocytes Absolute Auto 1.1 X10*3/uL (1.2-4.9); Mean Corpuscular HGB Conc 32.0 g/dl (31.0-35.0); Mean Corpuscular Hemoglobin 32.8 pg (27.0-33.0); Mean Corpuscular Volume 102.5 fL (80.0-98.0); NRBC Abs Auto 0.000 X10*3/uL (0.0-0.012); NRBC Pct Auto 0.0 /100WBC (0.0-0.2); Platelet Count 253 X10*3/uL (160-400); Red Blood Count 3.99 X10*6/uL (4.20-5.50); White Blood Count 3.7 X10*3/uL (4.8-10.8)
[2025-03-28 11:34] LABS: Appearance Urine Clear; Glucose Urine UA Negative (Negative); PH 5.5 (5.0-9.0); Specific Gravity - Urine 1.015 (1.005-1.025)
[2025-03-28 12:29] LABS: Alanine Aminotransferase 18 U/L (0-31); Albumin Level 4.2 g/dL (3.5-5.0); Alkaline Phosphatase 86 U/L (39-117); Anion Gap 12 (12-20); Aspartate Amino Transferase 27 U/L (5-31); Blood Urea Nitrogen 17 mg/dL (9-16); Calcium 9.4 mg/dL (8.4-10.2); Carbon Dioxide 27 mmol/L (22-29); Chloride 107 mmol/L (96-108); Cholesterol 204 mg/dL (<200); Estimated Glomerular Filt Rate 59; HDL Cholesterol 54 mg/dL (>40); Potassium 5.0 mmol/L (3.3-5.1); Sodium 141 mmol/L (135-145); Total Protein 7.5 g/dL (6.5-8.0); Triglycerides 123 mg/dL (<150)
[2025-03-28 13:01] LABS: Microalbum/Creatinine Ratio Ur 15.4 ug/mg cr (<30)
--- OUTSIDE RECORDS SUMMARY | 2025-03-28 15:10 | XMS_ITS | Patient Health Record ---
Author Organization [facility] Address [address] [place] [phone] Care Team Providers Care Administrative Asst Name Role Phone Darren Pavon MD Primary Care Provider Juliocesar Corona [phone] Allergies Allergen (clinical drug ingredient) Drug/Non Drug Allergy documented on EMR Reaction Allergy Type Onset Date Status amoxicillin / clavulanate Augmentin Unknown Drug Allergy Active Reason For Referral No Information Medications Medication SIG (Take, Route, Frequency, Duration) Notes Start Date End Date Status Flecainide Acetate 50 MG Tablet as directed Orally Active Lisinopril 10 MG Tablet 1 tablet Orally Once a day; Duration: 30 day(s) Active Warfarin Sodium 5 MG Tablet 1 tablet Ora lly Once a day; Duration: 30 day(s) Active Balsalazide Disodium 750 MG Capsule 3 Orally Three times a day; Duration: 30 day(s) 12/19/2021 Active dilTIAZem HCl 120 MG Tablet as directed Orally Active Immunizations Vaccine Route Administration Date Status Comme nts Influenza Unknown 02/13/2021 Administered Social History Social History Additional Details Category Social Info Options Details Miscellaneous: Marital status: 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 alcohol; used to smoke over 3 packs a day--in 1992 went to hypnosis and she is now a former smoker 1-2 drinks QD; used to smoke over 3 packs a day--in 1992 went to hypnosis and she is now a former smoker 1-2 drinks QD; used to smoke over 3 packs a day--in 1992 went to hypnosis and she is now a former smoker Problems Problem Type SNOMED Code ICD Code Onset Dates Problem Status W/U Status Risk Notes Problem Rectal bleeding (73019830) Rectal bleeding (K62.5) Active confirmed Problem Screening for malignant neoplasm of colon (466648801) Encounter for screening for malignant neoplasm of colon (Z12.11) Active confirmed Problem 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 Problem Screening for malignant neoplasm of rectum (769190158) Encounter for screening for malignant neoplasm of rectum (Z12.12) Active confirmed Problem Preprocedural examination (007378781568608) Preprocedural examination (Z01.818) Active confirmed Problem Diverticulosis of colon (815388463) Diverticulosis of colon (K57.30) Active confirmed Plan Of Treatment Pending Test Test Name Order Date CBC w DIFF 12/19/2021 Future Test Test Name Order Date COLONOSCOPY 04/03/2015 COLONOSCOPY 07/26/2021 Insurance Providers Payer Name Payer Address Payer Phone Subscriber Number Group Number Insured Name Patient Relationship to Insured Coverage Start Date Coverage End Date [facility] [address] [place] [phone] [id number] MISA VARGAS Self - patient is the insured Medical (General) History Medical History History ICD Code Denies NH,DM,CVA,Lung disease,renal dise ase HTN Neg. U/S of abdomen and UGI in 2009 Atrial fibrillation-Dr. 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 She was started on oral mesalamine in 11/2021 to see if that would give her relief. Surgical History Surgery Date(Month/Year) [facility]
--- OUTSIDE RECORDS SUMMARY | 2025-03-28 15:11 | XMS_ITS | Patient Health Record ---
Author Organization Darren Pavon MD Address [address] [place] [id number] Care Team Providers Care Shop And Alteration Tailor Name Role Phone Darren Pavon Primary Care Provider Allergies Allergen (clinical drug ingredient) Drug/Non Drug Allergy documented on EMR Reaction Allergy Type Onset Date Status amoxicillin / clavulanate augmentin (uncoded) yeast infection Allergy Active Results Component Value Reference Range Notes Complete Blood Count Auto Di ff (Not yet reviewed by provider) Interpretation: Performing Lab:[facility], [address] [place] [phone] Notes/Report: White Blood Count 3.7 4.8-10.8 X10*3/uL [...] NRBC Abs Auto 0.000 0.0-0.012 X10*3/uL Comprehensive Homeland. Panel Fa st (Not yet reviewed by provider) Interpretation: Performing Lab:[facility], [address] [place] [phone] Notes/Report: Sodium 141 135-145 mmol/L Potassium 5.0 [...] ye t reviewed by provider) Interpretation: Performing Lab:[facility], [address] [place] [phone] Notes/Report: Creatinine Urine 103.50 Microalbumin Urine 16.0 Microalbum/Creatinine Ratio Ur 15.4 <30 ug/mg cr Albumin/Creatinine Ratio Reference Ranges: Normal: < 30 ug/mg creatinine Microalbuminuria: 30 - 300 ug/mg creatinine Clinical Albuminuria: > 300 ug/mg creatinine UA ClnCatch+Micro w/rflx Cul t (Not yet reviewed by provider) Interpretation: Performing Lab:[facility], [address] [place] [phone] Notes/Report: Urine, Clean Catch Color Urine Yellow Appearance Urine Clear PH 5.5 5.0-9.0 Glucose Urine UA Negative Negative mg/dL Urine Blood Negative Negative Specific [place] - Urine 1.015 1.005-1.025 Urine Protein Negative Neg-Trace mg/dL Urine Ketones Negative Negative mg/dL Nitrite Urine Negative Negative Leukocyte Esterase Urine Negative Negative RBC Urine 0-2 0-2 /HPF WBC Urine 0-5 0-5 /HPF Squamous Epithelial Cell Urine 0-2 0-2 /HPF Bacteria Urine None Seen None Seen Hyaline Casts Urine 0-2 0-2 /LPF Lipid Panel Reviewed date:03/28/2025 12:53:43 PM Interpretation: Performing Lab:[address] [phone] Notes/Report: Triglycerides 123 <150 mg/dL Desirable Triglyceride: [...] A1c Reviewed date:03/28/2025 12:53:00 PM Interpretation: Performing Lab:[facility], [address] [place] [phone] Notes/Report: Hemoglobin A1c % 5.5 <6.0 % [...] average glucose, using the formula of the C7I-Moiguwn Average Glucose study (ADAG), Diabetes Care, Vol.31,#8, Oct. 2007 XR chest 2V Reviewed date:07/01/2024 02:36:38 PM Interpretation: Performing Lab: Notes/Report: [address] [address] XRay Report Signed Patient: Misa Bernal MR#: [id number] 4 : 1945 Acct:[id number] Age/Sex: 78 / F ADM Date: 07/01/24 Loc: HOJANNET Attending Dr: Darren Pavon MD Ordering Physician: Darren Pavon MD Date of Service: 07/01/24 Procedure(s): XR chest 2V Accession Number(s): [id number] cc: Darren Pavon MD EXAMINATION: XR CHEST [...] by Jayson Lam MD in OV> 07/01/24 140 DD/ 32 TD/TT: 07/01/241335 Bindery Worker: [address] [address] XRay Report Signed Patient: Misa Bernal MR#: [id number] 4 : 1945 Acct:[id number] Age/Sex: 78 / F ADM Date: 07/01/24 Loc: HO.XRAY Attending Dr: Darren Pavon MD Ordering Physician: Darren Pavon MD Date of Service: 07/01/24 Procedure(s): XR cholo st 2V Accession Number(s): [id number] cc: Darren Pavon MD EXAMINATION: XR CHEST [...] by Jayson Lam MD in OV> 07/01/24 140 DD/ 133 TD/TT: 07/01/241335 Bindery Worker: Basic Metabolic Panel Reviewed date:10/06/2024 05:09:19 PM Interpretation: Performing Lab:[facility], [address] [place] [phone] Notes/Report: Sodium 141 135-145 mmol/L Potassium 3.8 3.3-5.1 mmol/L Chloride 107 96-108 mmol/L Carbon Dioxide 27 22-29 mmol/L Anion Gap 11 12-20 Blood Urea Nitrogen 21 9-16 mg/dL Creatinine 0.85 0.5-1.4 mg/dL Estimated Glomerular Filt Rate > 60 Chronic Kidney Disease: Estimated GFR < 60 mL/min/1.73m2 Severe Kidney Disease: Estimated GFR < 15 mL/min/1.73m2 Glucose Random 85 60-115 mg/dL Calcium 9.4 8.4-10.2 mg/dL CT chest wo con Reviewed date:11/03/2024 03:07:37 PM Interpretation: Performing Lab: Notes/Report: [address] [address] [address] Scan Report Signed Patient: Misa Bernal MR#: [id number] 4 : 1945 Acct:[id number] Age/Sex: 78 / F ADM Date: 11/03/24 Loc: HO.CT Attending Dr: Darren Pavon MD Ordering Physician: Darren Pavon MD Date of Service: 11/03/24 Procedure(s): CT chest wo IV con Accession Number(s): [id number] cc: Darren Pavon MD Report Number: [id number]: Total DLP = 183.00 mGy-cm EXAMINATION: CT CHEST WITHOUT CONTRAST CLINICAL INFORMATION: Pulmonary nodules. Follow-up. COMPARISON: November 17, 2023. TECHNIQUE: Multidetector volumetric CT imaging of the [...] head) *Use of iterative reconstruction technique DLP: 183 mGy centimeter. FINDINGS: FURNACE CHECKER: S-shaped curvature, thoracolumbar spine. Patient's large body habitus/obesity. Normal-sized cardiomediastinal silhouette. LUNGS: Multiple, randomly distributed, less than 5 mm, noncalcified pulmonary nodules mostly in the periphery of both lungs, the most conspicuous involving the right lung. Bilateral apical lung scarring. Centrilobular emphysematous changes involving mostly the upper lobes. Patchy groundglass in the lung bases. No gross bronchiectasis or honeycombing. Respiratory airways patent. MEDIASTINUM: Subcentimeter nonspecific lymph nodes. Calcified plaques throughout the thoracic aorta wall extending branches and the coronary arteries. Metallic valve at the left atrium appendage. No aneurysm, thoracic aorta. Trace volume pericardial effusion. The heart is not enlarged. No hemopericardium. No pneumomediastinum. The thyroid gland is not enlarged. Small hiatal hernia. CORONARY ARTERY CALCIFICATION: Calcified plaques. PLEURA: No pleural effusion. No pneumothorax. No calcified pleural plaques. Apical lung scarring, bilaterally. AXILLA: No lymphadenopathy. UPPER ABDOMEN: Small hiatal hernia. Subtle nodular surface of the liver. Calcified plaques in the abdominal aorta wall and splenic artery. OSSEOUS STRUCTURES: A S-shaped curvature of the thoracolumbar spine with a dextroconvex curvature apex at T9 vertebra. Trabeculated lytic lesion at T2 possibly intraosseous hemangioma. Multilevel spondylosis. No gross acute fracture or listhesis. CT/CT chest wo IV con IMPRESSION: Stable less than 5 mm noncalcified pulmonary nodules. No lymphadenopathy. Coronary artery disease and atherosclerosis disease. Scoliosis, thoracolumbar spine. Fleischner guidelines were followed. Electronically signed by: Jayson Najera MD 11/03/2024 11:07 AM EDT Dictated By: Jayson Curry MD Signed By: <Electronically signed by Jayson Lam MD in OV> 11/03/24 1107 DD/ 1017 TD/TT: 11/03/24 1050 Bindery Worker: [address] [address] [address] Scan Report Signed Patient: Misa Bernal MR#: [id number] 4 : 1945 Acct:[id number] Age/Sex: 78 / F ADM Date: 11/03/24 Loc: HO.CT Attending Dr: Darren Pavon MD Ordering Physician: Darren Pavon MD Date of Service: 11/03/24 Procedure(s): CT cholo st wo IV con Accession Number(s): [id number] cc: Darren Pavon MD Report Number: [id number]: Total DLP = 183.00 mGy-cm EXAMINATION: CT CHEST WITHOUT CONTRAST CLINICAL INFORMATION: Pulmonary nodules. Follow-up. COMPARISON: November 17, 2023. TECHNIQUE: Multidetector volume tric CT imaging of [...] head) *Use of iterative reconstruction technique DLP: 183 mGy centimeter. FINDINGS: FURNACE CHECKER: S-shaped curvature, thoracolumbar spine. Patient's large body habitus/obesity. Normal-sized cardiomediastinal silhouette. LUNGS: Multiple, randomly distributed, less than 5 mm, noncalcified pulmonary nodules mo stly in the periphery of both lungs, the most conspicuous involvin g the right lung. Bilateral apical ruddy g scarring. Centrilobular emphysematous changes involving mostly the upper lobes. Patchy groundglass i n the lung bases. No gross bronchiecta sis or honeycombing. Respiratory airways patent. MEDIASTINUM: Subcentimeter nonspecific lymph nodes. Calcified plaques throughout the thoracic aorta wall extending branches and the coronary arteries. Metallic valve at th e left atrium appendage. No aneurysm, thoraci c aorta. Trace volume pericar dial effusion. The heart is not enlarged. No hemopericardium. No pneumomediastinum. The thyroid gland is not enlarged. Small hiatal hernia. CORONARY ARTERY CALCIFICATION: Calcified plaques. PLEURA: No pleural effusion. No pneumothorax. No calcified pleural plaques. Apical lung scarring, bilaterally. AXILLA: No lymphadenopathy. UPPER ABDOMEN: Small hiatal hernia. Subtle nodular surface of the liver. Calcified cristobal ques in the abdominal aorta wall and splenic artery. OSSEOUS STRUCTURES: A S-shaped curvature of the thoracolumbar spine with a dextroconvex curvature apex at T9 vertebra. Trabeculated lytic lesion at T2 possibly intraosseous hemangioma. Multilevel spondylosis. No gross acute fract ure or listhesis. C T/CT chest wo IV con IMPRESSION: Stable less than 5 m m noncalcified pulmonary nodules. No lymphadenopathy. Coronary artery dise ase and atherosclerosis disease. Scoliosis, thoracolu mbar spine. Fleischner guideline s were followed. Electronically keisha d by: Jayson Najera MD 11/03/2024 11:07 AM EDT RP Dictated By: Jayson Flores MD Signed By: <Electronically signed by Jayson Lam MD in OV> 11/03/24 1107 DD/ 1017 TD/TT: 11/03/24 1050 Bindery Worker: Zoë Branham Reviewed date:03/28/2025 12:45:32 PM Interpretation: Performing Lab:[facility], [address] [place] [phone] Notes/Report: Zoë Branham See Note Specimen held untested for 24 hours; Call to request Chemistry testing. Reason For Referral Reason Stenosis of both int ernal carotid arteries Diagnosis 1 Stenosis of both int ernal carotid arteries (I65.23) Referral Organization Darren Pavon MD Referring Provider First Name Darren Referring Provider Last Name Svaanah Referring Provider Speciality Internal M edicine Referred Provider Itz Scott Referred Provider Specialty Vascular Stephon glynn General Notes Radha Redman 0 03/31/2024 12:51:29 PM >referral request faxed to [facility] with note, Radha Redman 04/07/2024 02:07:38 PM EST > patent is aware of appt Referral Priority Routine Referral Appointment Date 04/11/2024 Medications Medication SIG (Take, Route, Frequency, Duration) Notes Start Date End Date Status Escitalopram Oxalate 5 MG 1 tablet Orall y Once a day for 30 days 01/16/2025 Active Ferrous Sulfate 324 MG 1 tablet Orally T hree times a Week for 30 day(s) Not-Taking Plavix 75 MG 1 tablet Orally Once a day Not-Taking Vitamin D3 25 MCG (1000 UT) 1 [...] capsules Orally three times a day Not-Taking ProAir HFA 108 (90 Base) MCG/ACT 2 puffs as needed Inhalation every 6 hrs for 30 days 07/03/2017 Active Flecainide Acetate 50 MG Orally twice a day Active Immunizations Vaccine Route Administration Date Status [...] - 150 IM Intramuscular 12/15/2023 Adm inistered Influenza High Dose IM Intramuscular 12/05/2024 Administer ed TDaP Unknown 03/10/2017 Refused Shingrix Unknown 02/28/2020 [...] smoker, currently using no form of tobacco Problems Problem Type SNOMED Code ICD Code Onset Dates Problem Status W/U Status Risk Notes Problem 87948606 PVC (premature ventricular contraction) (I49.3) Active confirmed Problem Asthmatic bronchitis (352193075) Asthmatic bronchitis (J45.909) Active confirmed Problem Contracture of palmar fascia (506763252) Dupuytren contracture (M72.0) Active confirmed Problem 598371354 Malignant neopla sm of exocervix (C53.1) Active confirmed Problem 391580756 Typical atrial f lutter (I48.3) Active confirmed Problem 74085780 Acute recurrent maxillary sinusitis (J01.01) Active confirmed Problem 248168552 Other idiopathic scoliosis, 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) Active confirmed Problem 76141610 Urinary tract infection, site not specified (N39.0) Active confirmed Problem Disorder of lumbar disc (977009098) Lumbar disc disease (M51.9) Active confirmed Problem 3987254 Prediabetes (R73.09) Active confirmed Problem 823421064 Labile hypertens ion (I10) Active confirmed Problem 278392192 Asthmatic bronch itis, mild intermittent, uncomplicated (J45.20) Active confirmed Problem 336638731 Irregular heart beat (I49.9) Active confirmed Problem 165987048 Chronic a-fib (I48.2) Active confirme d Problem Dysthymia (84689890) Dysthymia (F34.1) Active confirmed Problem 712708834 Neutropenia, unspecified type (D70.9) Active confirmed Problem 021137852 Pure hypercholesterolemia (E78.00) Active confirmed Problem 712937303 Osteopenia of mu ltiple sites (M85.89) Active confirmed Problem 26643077 Venous stasis dermatitis of both lower extremities (I87.2) Active confirmed Problem 11613902 Labyrinthitis of both ears (H83.03) Active confirmed Problem 830420071 Malignant neopla sm of cervix, unspecified site (C53.9) Active confirmed Problem 557992965 Body mass index (BMI) of 30.0-30.9 in adult (Z68.30) Active confirmed Problem 450115635 Lung nodule < 6c m on CT (R91.1) Active confirmed Problem Osteonecrosis (367171237) Osteonecrosis (M87.9) Active confirmed Problem 519830291 Nonrheumatic amanuel ral valve regurgitation (I34.0) Active confirmed Problem 424629791 Chronic atrial fibrillation (I48.20) Active confirmed Problem 26390269 Radiation coliti s (K52.0) Active confirmed Problem 81644309 Age-related cliff ract of both eyes, unspecified age-related cataract type (H25.9) Active confirmed Vital Signs Blood pressure diastolic 50 mm Hg 01/16/2025 Height 66 in 01/16/2025 Blood pressure systolic 124 mm Hg 01/16/2025 Weight 180 lbs 01/16/2025 BMI 29.05 kg/m2 01/16/2025 Encounters Encounter Location Date Provider Diagnosis Darren Pavon MD [address] [place] [id number] 12/05/2024 Darren Pavon Encounter for administration of vaccine Z23 Darren Pavon MD [address] [place] [address] [id number] 03/28/2025 Darren Pavon Blood tests for rout ine general physical examination Z00.00 ; Prediabetes R73.09 ; Pure hypercholesterolemia E78.00 ; Labile hypertension I10 and Neutropenia, unspecified type D70.9 Darren Pavon MD [address] [place] [address] [id number] 03/31/2024 Darren Pavon Presence of Watchman left atrial appendage closure device Z95.818 ; Annual physical exam Z00.00 ; Stenosis of both internal carotid arteries I65.23 ; Chronic atrial fibrillation I48.20 ; Pure hypercholesterolemia E78.00 ; Labile hypertension I10 ; Prediabetes R73.09 and Depression screening Z13.31 Darren Pavon MD [address] [place] [id number] 05/17/2024 Darren Pavon Influenza A J10.1 an d Gross hematuria R31.0 Darren Pavon MD [address] [id number] 06/06/2024 Darren Pavon Asthmatic bronchitis J45.909 Darren Pavon MD [address] [place] [address] [address] [place] [id number] 07/01/2024 Darren Pavon Short of breath on exertion R06.02 and Bronchitis J40 Darren Pavon MD [address] [place] [id number] 07/28/2024 Darren Pavon Insect bite (nonveno mous) of left elbow, initial encounter S50.362A and Cellulitis L03.90 Darren Pavon MD [address] [place] [address] Drive [address] [place] [id number] 01/16/2025 Darren Pavon Preop examination Z0 1.818 ; Dysthymia F34.1 ; Age-related cataract of both eyes, unspecified age-related cataract type H25.9 and Dupuytren contracture M72.0 Darren Pavon MD [address] [place] [id number] 04/01/2024 Darren Pavon MD [address] [place] [address] [address] [place] [id number] 10/18/2024 Darren Pavon Assessments Encounter Date Diagnosis (ICD Code) Assessment Notes Treatment Notes Treatment Clinical Notes Section Notes 12/05/2024 Encounter for administration of vaccine (ICD-10 - Z23) 03/28/20[address] tests [address] ine general physical examination (ICD-10 - Z00.00) 03/31/2024 Presence of Watchman left atrial appendage [...] diagnostic testing/THE ORDER HAS BEEN FAXED TO [facility] PATIENT MISA TRIVEDI IS AWARE 07/01/2024 Bronchitis (ICD-10 - J40) patient verbalized understanding of medication and directions for use 07/28/2024 Insect bite (nonvenomous) of left elbow, initial encounter (ICD-10 - S50.362A) patient verbalized understanding of medication and directions for use 07/28/2024 Cellulitis (ICD-10 - L03.90) patient verbaized understanding of medication and directions for use 01/16/2025 Preop examination (ICD-10 - Z01.818) patient healthy cleared for cataract surgery 01/16/2025 Dysthymia (ICD-10 - F34.1) patient verbalized understanding of medication and directions for use 03/28/2025 Prediabetes (ICD-10 - R73.09) 03/31/2024 Stenosis of both internal carotid arteries (ICD-10 - I65.23) referral to [facility] 01/16/2025 Age-related cataract of both eyes, unspecified age-related cataract type (ICD-10 - H25.9) scheduled for cataract surgery 03/28/2025 Pure hypercholesterolemia (ICD-10 - E78.00) 03/31/2024 Chronic atrial fibrillation (ICD-10 - I48.20) no longer on blood thinners due to watchman 01/16/2025 Dupuytren contractur e (ICD-10 - M72.0) will send to hand surgeon when ready 03/28/2025 Labile hypertension (ICD-10 - I10) 03/31/2024 Pure hypercholesterolemia (ICD-10 - E78.00) stable, will continue current regiment 03/28/2025 Neutropenia, unspecified type (ICD-10 - D70.9) 03/31/2024 Labile hypertension (ICD-10 - I10) stable, will continue current regiment 03/31/2024 Prediabetes (ICD-10 - R73.09) stable, no need for medication at this time 03/31/2024 Depression screening (ICD-10 - Z13.31) negative screen Plan Of Treatment Pending Test Test Name Order Date Electrocardiogram (EKG) 09/12/2016 Electrocardiogram (EKG) 01/16/2025 Electrocardiogram (EKG) 08/14/2015 MRI HIP RT NO [...] 11/21/2011 BONE DENSITY DEXA 10/22/2018 ECHO 01/31/2022 Complete Blood Count Auto Diff 5 Comprehensive Homeland. Panel Fast 5 Microalbumin, Random 03/28/2025 CT chest wo con 12/11/2023 CT chest wo con 11/16/2020 CT chest wo con 11/21/2021 CT chest wo con 11/24/2022 UA ClnCatch+Micro w/rflx Cult 03/28/2025 Future Test Test Name Order Date CT CHEST NO CONTRAST 11/05/2020 MRI HIP RT W&WO CONTRAST 09/10/2021 Next Appt Details Provider Name:Darren Bose ier, 04/06/2025 11:00:00 AM, [address] [facility], [address], [place], [place], [id number], Insurance Providers Payer Name Payer Address Payer Phone Subscriber Number Group Number Insured Name Patient Relationship to Insured Coverage Start Date Coverage End Date [employer] PLAN [address] [place] [phone] [id number] Misa Bernal Self - patient is the insured MEDIC[employer] [address] [place] [address] [id number] Misa Bernal Self - patient is the insured Medical (General) History Medical History History ICD Code 3 mm lung nodule. low risk. no further w /u indicated. sees permaculture contractor yearly still refusing colonoscopy ; Colonoscopy done 06/11/15 w/Dr. Box - negative/no further testing needed. Colonoscopy done 08/13/2105/13, D&C by Dr. 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 Pérez 09/28 018
--- OUTSIDE RECORDS SUMMARY | 2025-03-28 15:11 | XMS_ITS | Clinical Summary ---
Author Organization [facility] Address [address] [place] [address] Phone Care Team Providers Care Content Architect Name Role Phone Anton Pavon MD Primary Care Provider [phone] Surgical History Surgery Date Site/Laterality Comments STEREOTACTIC [...] 03/01/2022 Social Influencers of Health Screening 03/01/2022 Depression Screening 03/30/2024 Hypertension/CHF/CAD Annual BMP Blood Test 04/26/2024 COVID-19 Vaccine ( season) 2024 02/18/2022, 11/21/2021, 03/15/2021, Additional history exists Influenza Vaccine (#1) 2024 , 12/08/2022, 03/13/2022, [...] Procedure Name Priority Date/Time Associated Diagnosis Comments [facility] DEXA AXIAL SKELETON Routine 04/21/2023 11:55 AM EST Encounter for screening for osteoporosis from Last 3 Months or Most Recently Relevant to Health Maintenance Results * [facility] DEXA AXIAL SKELETON (04/21/2023 11:55 AM EST) Anatomical Region Laterality Modality Mammography 04/21/2023 9:59 AM EST Narrative 04/21/2023 11:55 AM EST [facility] Diagnostic Imaging Department [address] [place] [address] [id number] Patient: MISA BERNAL /Age/Sex: 1945 - 77 - F Unit#: [id number] Location/Status: SPDIMAM/REG CLI Mnemonic[facility]ing [facility] Ordering Physician: DELFIN JOHNSON MD Jessica [...] probability of hip fracture of 18.1%. Code 64799 Dictating Physician: SYMONE DO MD Electronically Signed by: SYMONE DO MD Dic Date/Time: 04/21/23 1154 Sign date/Time: 04/21/23 1155 Procedure Note Symone Do MD - 11/16/2023 [facility] Diagnostic Imaging Department [address] [place] [address] Patient: MISA BERNAL Kartik Machado./Age/Sex: 1945 - 77 - F Unit#: [id number] Location/Status: [facility] Mnemonic/Ordering [facility] Ordering Physician: DELFIN JOHNSON MD Jessica Dexa Axial Skeleton - 04/21/23 - [id number] Report Status:Signed HISTORY: The patient is a [...] density of the femurs bilaterally is 0.885 gm/va0llcuf is 88% of that of young normals [...] probability of hip fracture of 18.1%. Code 63140 Dictating Physician: SYMONE DO MD Electronically Signed by: SYMONE DO MD Dic Date/Time: 04/21/23 1154 Sign date/Time: 04/21/23 1155 Delfin Johnson MD IMG BI PROCEDURES Final Result from Last 3 Months or Most Recently Relevant to Health Maintenance Insurance [employer]AGE Care Teams Content Architect Relationship Specialty Start Date End Date Anton Pavon MD [address] PCP - General Internal Medicine 04/20/24
--- OUTSIDE RECORDS SUMMARY | 2025-03-28 15:11 | XMS_ITS | Clinical Summary ---
Author Organization [facility], Address [address] [place] [address] Phone Care Team Providers Care [employer] Department Head Name Role Phone Darren Pavon MD Primary [...] Years Used Date Smoking Tobacco: Former Cigarettes 0 Q uit: 1993 Comments:quit 1993 Alcohol Use [...] to complete this topic Insurance Care Teams [employer] Department Head Relationship Specialty Start Date End Date Darren Pavon MD [address] [place] [address] [id number] [place], [place] PCP - General Internal Medicine 04/25/20
--- OUTSIDE RECORDS SUMMARY | 2025-03-28 15:12 | XMS_ITS | Patient Health Record ---
Author Organization [facility] Address [address] [place] [address] Care Team Providers Care Belt Worker Name Role Phone Darren Pavon MD Primary Care Provider Danny Flores Unavailable [phone] Reason For Referral No Information Medications Medication SIG (Take, Route, Frequency, Duration) Notes Start Date End Date Status Atorvastatin Calcium 20 MG Oral; Duration: 90 Days Unknown Flecainide Acetate 50 MG Oral; Duration: 90 Days Unknown Lisinopril 20 MG Oral; Duration: 90 Days Unknown Albuterol Sulfate HFA 108 (90 Base) MCG/ACT Inhalation; Duration: 25 Days Unknown oxyBUTYnin Chloride 5 MG TAKE 1 TABLET B Y MOUTH EVERY 8 HOURS NEEDED FOR BLADDER DISCOMFORT Oral; Duration: 5 Days Unknown Eliquis 5 MG Oral; Duration: 30 Days Unknown Warfarin Sodium 5 MG Oral; Duration: 90 Days Unknown dilTIAZem HCl ER Coated Beads 120 MG Oral; Duration: 90 Days Unkn own Clopidogrel Bisulfate 75 MG Oral; Duration: 90 Days Unknown Alendronate Sodium 70 MG Oral; Duration: 84 Days Unknown Encounters Encounter Location Date Provider Diagnosis [facility] [address] [place] [address] [facility]02[facility] [address] [address] 07/11/[facility]24 Danny Ly Plan Of Treatment No Information Insurance Providers Payer Name Payer Address Payer Phone Subscriber Number Group Number Insured Name Patient Relationship to Insured Coverage Start Date Coverage End Date Medicare National Govt Svcs Inc [address] [place] [address] [id number] Carla Bernal Self - patient is the insured [facility] [address] [place] [address] [id number] Carla Bernal Self - patient is the insured
== END 2025-03-28 07:16 ==
LOC: HO.LNP 07:15
PROVIDERS: Visit Provider Internal Medicine
DX: Z00.00 Encounter for general adult medical examination without abnormal findings (principal); R73.09 Other abnormal glucose; E78.00 Pure hypercholesterolemia, unspecified; I10 Essential (primary) hypertension; D70.9 Neutropenia, unspecified
CPT/HCPCS: 80053; 80061; 81001; 82043; 82570; 83036; 85025

== ENCOUNTER 2025-03-29 12:13 | Outpatient (AMB) | payer MEDICARE, SELFPAY ==
--- OUTSIDE RECORDS SUMMARY | 2024-03-31 06:00 | XMS_ITS ---
Author Organization Darren Pavon MD Address [address] [place], [place] [id number] Care Team Providers Care Automated Weaver Name Role Phone Darren Pavon Primary Care Provider [phone] Allergies Allergen (clinical drug ingredient) Drug/Non Drug Allergy documented on EMR Reaction Allergy Type Onset Date Status amoxicillin / clavulanate augmentin (uncoded) yeast infection Allergy Active Reason For Referral Reason Stenosis of both int ernal carotid arteries Diagnosis 1 Stenosis of both int ernal carotid arteries (I65.23) Referral Organization Darren Pavon MD Referring Provider First Name Darren Referring Provider Last Name Savanah Referring Provider Speciality Internal M edicine Referred Provider Itz Scott Referred Provider Specialty Vascular Stephon glynn General Notes Radha Redman 0 03/31/2024 12:51:29 PM >referral request faxed to [facility] with note, Radha Redman 04/07/2024 02:07:38 PM EST > patent is aware of appt Referral Priority Routine Referral Appointment Date 04/11/2024 REASON FOR VISIT annual visit Medications Medication SIG (Take, Route, Frequency, Duration) Notes Start Date End Date Status dilTIAZem HCl ER Coated Beads 120 MG TAKE 1 CAPSULE BY MOUTH EVERY DAY Active Lisinopril 10 MG 1 tablet Orally Once a day Active Aspirin 325 MG 1 tablet Orally PRN for 30 day(s) Not-Taking Diclofenac Sodium 75 MG 1 tablet with fo od or milk Orally Twice a day Not-Taki ng Benzonatate 100 MG 1 capsule as needed Orally Three times a day for 10 days 04/08/2022 Not-Taking Flecainide Acetate 50 MG Orally twice a day Active Vitamin D 25 MCG (1000 UT) 1 tablet Orally Once a day for 30 day(s) Active Balsalazide Disodium 750 MG 1 capsules Orally three times a day Not-Taking Molnupiravir 200 MG 4 capsules Orally ev shan 12 hrs for 5 day(s) 10/16/2023 Not-Taking ProAir HFA 108 (90 Base) MCG/ACT 2 puffs as needed Inhalation every 6 hrs for 30 days 07/03/2017 Active Eliquis 5 MG as directed Orally twice a day Active Ferrous Sulfate 324 MG 1 tablet Orally T hree times a Week for 30 day(s) Active Aspirin 81 81 MG 1 tablet Orally Once a day for 30 day(s) Active Social History Tobacco Use: Social History Observation Description Date Details (start date - stop date) Former Smoker NA - NA Tobacco Use/Smoking Question Answer Notes Patient is [...] Never (0 point) Points 1 Interpretation Negative Vital Signs Blood pressure systolic 138 mm Hg 03/31/19 25 Blood pressure diastolic 54 mm Hg 025 Height 66 in 03/31/2024 Weight 179 lbs 03/31/2024 BMI 28.89 kg/m2 03/31/2024 weight is up 5 pounds since 02-15-24 Encounters Encounter Location Date Provider Diagnosis Darren Pavon MD [address] [place], [place] [phone] 03/31/2024 Darren Pavon Presence of Watchman left atrial appendage closure device Z95.818 ; Annual physical exam Z00.00 ; Stenosis of both internal carotid arteries I65.23 ; Chronic atrial fibrillation I48.20 ; Pure hypercholesterolemia E78.00 ; Labile hypertension I10 ; Prediabetes R73.09 and Depression screening Z13.31 Assessments Encounter Date Diagnosis (ICD Code) Assessment Notes Treatment Notes Treatment Clinical Notes Section Notes 03/31/2024 Presence of Watchman left atrial appendage closure device (ICD-10 - Z95.818) doing well 03/31/2024 Annual physical exam (ICD-10 - Z00.00) labs reviewed and discused with patient 03/31/2024 Stenosis of both internal carotid arteries (ICD-10 - I65.23) referral to [facility] vascular surgery 03/31/2024 Chronic atrial fibrillation (ICD-10 - I48.20) no longer on blood thinners due to watchman 03/31/2024 Pure hypercholesterolemia (ICD-10 - E78.00) stable, will continue current regiment 03/31/2024 Labile hypertension (ICD-10 - I10) stable, will continue current regiment 03/31/2024 Prediabetes (ICD-10 - R73.09) stable, no need for medication at this time 03/31/2024 Depression screening (ICD-10 - Z13.31) negative screen Plan Of Treatment Medication Medication Name Sig Start Date Stop Date Notes dilTIAZem HCl ER Coated Bead s 120 MG TAKE 1 CAPSULE BY MOUTH EVERY DAY Lisinopril 10 MG 1 tablet Orally Once a day Treatment Notes Assessment Notes Presence of Watchman left at rial appendage closure device doing well Annual physical exam labs reviewed and d iscused with patient Stenosis of both internal carotid arteri es referral to [facility] vascular surgery Chronic atrial fibrillation no longer on blood thinners due to watchman Pure hypercholesterolemia stable, will c ontinue current regiment Labile hypertension stable, will continu e current regiment Prediabetes stable, no need for medication at this time Depression screening negative screen Referrals Referral Date Details 03/31/2024 03/31/2024, Stenosis of both internal carotid arteries , Itz Hadro Next Appt Details Provider Name:Darren Bose ier, 04/06/2025 11:00:00 AM, [address], [address], [place], [place], [phone], Progress Notes * Liang BERNALeDOB:1945 ( 78 yo F)Acc No.[id number]:03/31/2024 Progress Notes Patient: Carla Rooney Provider: Georgia Pavon MD :1945 A ge:78 Y S ex:Female Date:03/31/2024 Address:[address] [place] [address] Subjective: * Chief Complaints: * A nnual visit * HPI: D epression Screening: PHQ-9 L ittle interest or pleasure in doing things N ot at all, F eeling down, depressed, or hopeless N ot at all, T rouble falling or staying asleep, or sleeping too much N ot at all, F eeling tired or having little energy N ot at all, P oor appetite or overeating N ot at all, F eeling bad about yourself or that you are a failure, or have let yourself or your family down N ot at all, T rouble concentrating on things, such as reading the newspaper or watching television N ot at all, M oving or speaking so slowly that other people could have noticed; or the opposite, being so fidgety or restless that you have been moving around a lot more than usual N ot at all, T houghts that you would be better off or of hurting yourself in some way N ot at all, T otal Score 0 . patient is a 78 yo female here for annual visit with review of recent labs and follow up of chronic issues, doing very well. C ommunication Needs: Communication Needs D oes the patient have a hearing impairment N o, D oes the patient have a vision impairment? Y es, I f yes, what is the vision impairment? G lasses, D oes the patient have a cognition impairment? N o. F all Risk: History H ave you had any falls with injury in the past year? N o, H ave you had two or more falls in the past year? N o. S GAYATHRI Questions: SDOH Questions I n the past year have you been worried about losing housing? N o, I n the past year have you or any family members you live with been unable to get any of the following when it was really needed? Check all that apply: N one. * ROS: G eneral/Constitutional: Change in appetite d enies. C hills d enies. F ever d enies. O phthalmologic: Blurred vision d enies. D ischarge d enies. P ain d enies. E NT: Decreased hearing d enies. S ore throat d enies.?Swollen glands d enies. E ndocrine: Cold intolerance d enies. E xcessive thirst d enies. H eat intolerance d enies. W eight loss d enies. R espiratory: Cough d enies. S hortness of breath at rest d enies. S hortness of breath with exertion d enies. W heezing d enies. C ardiovascular: Chest pain at rest d enies. C hest pain with exertion?denies. I rregular heartbeat d enies. S hortness of breath d enies. ? G astrointestinal: Abdominal pain d enies. C hange in bowel habits d enies. D iarrhea d enies. N ausea d enies. R ectal bleeding d enies. V omiting d enies . G enitourinary: Blood in urine d enies. D ifficulty urinating d enies. F requent urination d enies. U rinary incontinence D enies. M usculoskeletal: Painful joints d enies. W eakness d enies. ? S kin: Dry skin d enies. I tching d enies. D enies?Mole(s), changes in moles, new moles or any lesions of concern. D enies P hotosensitivity. R melanie d enies. N eurologic: Dizziness d enies. F ainting d enies. H eadache?denies. * Medical History: * Surgical History: * Hospitalization/Major Diagno stic Procedure: * Family History: F ather: 45 yrs. M other: 80 yrs, family history unknown . 1 sister(s) . . 1 sister , lung CA father, heart attack 1 sister, Denies mental health/substance abuse family history, Denies mental health/substance abuse family history, Denies mental health/substance abuse family history, Denies mental health/substance abuse family history. * Social History: T obacco Use: T obacco Use/Smoking P atient is a f ormer smoker, H ow long has it been since you last smoked? > 10 years, A dditional Findings: Tobacco Non-User F ormer smoker, currently using no form of tobacco. D rugs/Alcohol: A lcohol Screen D id you have a drink containing alcohol in the past year? Y es, H ow often did you have a drink containing alcohol in the past year? M onthly or less (1 point), H ow many drinks did you have on a typical day when you were drinking in the past year? 1 or 2 drinks (0 point), H ow often did you have 6 or more drinks on one occasion in the past year? N ever (0 point), P oints 1 , I nterpretation N egative. M iscellaneous: C affeine: yes, frequency:, 1-2 cups per day. Children: yes. Community involvements: yes. Exercise: yes, stretching. Home smoke detector use: yes. Housing: owning. Living with: spouse. Marital status: . Occupation: weeks/months/years, works part-time. Pets: 2 dogs. no Travel outside of the [place]. * Medications: T akingFerrous Sulfate 324 MG Tablet Delayed Release 1 tablet Orally Three times a WeekEliquis 5 MG Tablet as directed Orally twice a dayAspirin 81 81 MG Tablet Delayed Release 1 tablet Orally Once a dayVitamin D 25 MCG (1000 UT) Tablet 1 tablet Orally Once a dayFlecainide Acetate 50 MG Tablet Orally twice a dayLisinopril 10 MG Tablet 1 tablet Orally Once a dayProAir HFA 108 (90 Base) MCG/ACT Aerosol Solution 2 puffs as needed Inhalation every 6 hrsdilTIAZem HCl ER Coated Beads 120 MG Capsule Extended Release 24 Hour TAKE 1 CAPSULE BY MOUTH EVERY DAY Taking Ferrous Sulfate 324 MG Tablet Delayed Release 1 tablet Orally Three times a WeekTaking Eliquis 5 MG Tablet as directed Orally twice a dayTaking Aspirin 81 81 MG Tablet Delayed Release 1 tablet Orally Once a dayTaking Vitamin D 25 MCG (1000 UT) Tablet 1 tablet Orally Once a dayTaking Flecainide Acetate 50 MG Tablet Orally twice a dayTaking Lisinopril 10 MG Tablet 1 tablet Orally Once a dayTaking ProAir HFA 108 (90 Base) MCG/ACT Aerosol Solution 2 puffs as needed Inhalation every 6 hrsTaking dilTIAZem HCl ER Coated Beads 120 MG Capsule Extended Release 24 Hour TAKE 1 CAPSULE BY MOUTH EVERY DAY Not-Taking/PRNMolnupiravir 200 MG Capsule 4 capsules Orally every 12 hrsBalsalazide Disodium 750 MG Capsule 1 capsules Orally three times a dayBenzonatate 100 MG Capsule 1 capsule as needed Orally Three times a dayDiclofenac Sodium 75 MG Tablet Delayed Release 1 tablet with food or milk Orally Twice a dayAspirin 325 MG Tablet 1 tablet Orally PRNMedication List reviewed and reconciled with the patientNot-Taking/PRN Molnupiravir 200 MG Capsule 4 capsules Orally every 12 hrsNot-Taking/PRN Balsalazide Disodium 750 MG Capsule 1 capsules Orally three times a dayNot-Taking/PRN Benzonatate 100 MG Capsule 1 capsule as needed Orally Three times a dayNot-Taking/PRN Diclofenac Sodium 75 MG Tablet Delayed Release 1 tablet with food or milk Orally Twice a dayNot-Taking/PRN Aspirin 325 MG Tablet 1 tablet Orally PRNMedication List reviewed and reconciled with the patient * Allergies: a ugmentin: yeast infectionyes[Allergies Verified] Objective: * Vitals: H t: 66, Wt:179, BMI:28.89, BP:138/54 weight is up 5 pounds since 02-15-24. * P ast Orders: L ab:UA ClnCatch+Micro w/rflx Cult (Order Date - 03/18/2024) (Collection Date - 03/18/2024) Value Reference Range Color Urine Yellow - Appearance Urine Clear - PH 5.5 5.0-9.0 - Glucose Urine UA Negative Negative - mg/dL Urine Blood Negative Negative - Specific [place] - Urine 1.020 1.005-1.025 - Urine Protein Negative Neg-Trace - mg/dL Urine Ketones Negative Negative - mg/dL Nitrite Urine Negative Negative - Leukocyte Esterase Urine Negative Negative - RBC Urine 0-2 0-2 - /HPF WBC Urine 0-5 0-5 - /HPF Squamous Epithelial Cell Urine 0-2 0-2 - /HP F Bacteria Urine None Seen None Seen - Hyaline Casts Urine 0-2 0-2 - /LPF L ab:Complete Blood Count Auto Diff (Order Date - 03/18/2024) (Collection Date - 03/18/2024) Value Reference Range White Blood Count 4.4 L 4.8-10.8 - X10*3/uL Red Blood Count 4.04 L 4.20-5.50 - X10*6/uL Hemoglobin 12.2 12.0-16.0 - g/dl Hematocrit 39.3 37.0-47.0 - % Mean Corpuscular Volume 97.3 80.0-98.0 - fL Mean Corpuscular Hemoglobin 30.2 27.0-33.0 - pg Mean Corpuscular HGB Conc 31.0 31.0-35.0 - g/ dl Red Cell Distribution Width 18.6 H 11.0-16.0 - % Platelet Count 248 160-400 - X10*3/uL Mean Platelet Volume 9.2 L 9.4-12.3 - fL Neutrophils Percent Auto 51.1 45-73 - % Imm Gran Pct Auto 0.2 0.0-0.4 - % Lymphocytes Percent Auto 27.9 20-40 - % Monocytes Percent Auto 11.0 2-11 - % Eosinophils Percent Auto 8.4 H 0-4 - % Basophils Percent Auto 1.4 0-2 - % NRBC Pct Auto 0.0 0.0-0.2 - /100WBC Neutrophils Absolute Auto 2.2 2.0-8.3 - x10* 3/uL Imm Gran Abs Auto 0.01 0.00-0.03 - X10*3/uL Lymphocytes Absolute Auto 1.2 1.2-4.9 - X10* 3/uL Monocytes Absolute Auto 0.5 0.1-1.2 - X10*3/ uL Eosinophils Absolute Auto 0.4 0.0-0.4 - X10* 3/uL Basophils Absolute Auto 0.1 0.0-0.2 - X10*3/ uL NRBC Abs Auto 0.000 0.0-0.012 - X10*3/uL L ab:Comprehensive [place]. Panel Fast (Order Date - 03/18/2024) (Collection Date - 03/18/2024) Value Reference Range Sodium 141 135-145 - mmol/L Bilirubin Total 0.3 0.0-1.0 - mg/dL Aspartate Amino Transferase 21 5-31 - U/L Alanine Aminotransferase 17 0-31 - U/L Total Protein 7.4 6.5-8.0 - g/dL Albumin Level 4.0 3.5-5.0 - g/dL Alkaline Phosphatase 90 39-117 - U/L Potassium 4.8 3.3-5.1 - mmol/L Chloride 107 96-108 - mmol/L Carbon Dioxide 26 22-29 - mmol/L Anion Gap 13 12-20 - Blood Urea Nitrogen 18 H 9-16 - mg/dL Creatinine 0.94 0.5-1.4 - mg/dL Estimated Glomerular Filt Rate 58 - Glucose Fasting 88 60-99 - mg/dL Calcium 9.3 8.4-10.2 - mg/dL L ab:Lipid Panel (Order Date - 03/18/2024) (Collection Date - 03/18/2024) Value Reference Range Triglycerides 84 <150 - mg/dL Cholesterol 186 <200 - mg/dL LDL Cholesterol Calculated 108 H <100 - mg/dL HDL Cholesterol 62 >40 - mg/dL L ab:Prothrombin Time INR (Order Date - 01/12/2024) (Collection Date - 01/12/2024) Value Reference Range Prothrombin Time 11.5 10.9-12.4 - SEC INTERNATIONAL NORM RATIO 1.0 0.9-1.1 - L ab:Microalbumin, Random (Order Date - 03/18/2024) (Collection Date - 03/18/2024) Value Reference Range Creatinine Urine 115.46 - mg/dL Microalbumin Urine 21.0 - mg/L Microalbum Creatinine Ratio Ur 18.1 <30 - ug/ mg cr L ab:Hemoglobin A1c (Order Date - 03/18/2024) (Collection Date - 03/18/2024) Value Reference Range Hemoglobin A1c % 5.4 <6.0 - % Estimated Average Glucose 108 - mg/dL * Examination: G eneral Examination: GENERAL APPEARANCE: w ell developed, well nourished, in no acute distress. HEAD: n ormocephalic, atraumatic. EYES: p upils equal, round, reactive to light and accommodation, sclera non-icteric. EARS: n ormal. ORAL CAVITY: m ucosa moist. THROAT: c lear. NECK/THYROID: n sarita supple, full range of motion, no cervical lymphadenopathy, no bruits. SKIN: w arm and dry, no suspicious lesions. HEART: r egular rate and rhythm, S1, S2 normal, no murmurs.? LUNGS: c lear to auscultation bilaterally. BREASTS: d one by ob gyn. ABDOMEN: s oft, nontender, nondistended, bowel sounds present, normal, no organomegaly , no masses palpable. RECTAL EXAM: d one by ob gyn. FEMALE GENITOURINARY: d one by ob gyn. EXTREMITIES: n o clubbing, cyanosis, or edema. NEUROLOGIC: n onfocal, motor strength normal upper and lower extremities, sensory exam intact. Assessment: * Assessment: 1. A nnual physical exam - Z00.00 (Primary) 2 . P resence of Watchman left atrial appendage closure device - Z95.818 3 . S tenosis of both internal carotid arteries - I65.23 4 . C hronic atrial fibrillation - I48.20 5 . P ure hypercholesterolemia - E78.00 6 . Labile hypertension - I10 7 . P rediabetes - R73.09 8 . D epression screening - Z13.31 Plan: * Treatment: 2. P resence of Watchman left atrial appendage closure device Notes: doing well 3. S tenosis of both internal carotid arteries Notes: referral to [facility] vascular surgery Referral To:[facility] Reason:Stenosis of both internal carotid arteries 4. C hronic atrial fibrillation Notes: no longer on blood thinners due to watchman 5. P ure hypercholesterolemia Notes: stable, will continue current regiment 6. L abile hypertension Continue Lisinopril Tablet, 10 MG, 1 tablet, Orally, Once a day; C ontinue dilTIAZem HCl ER Coated Beads Capsule Extended Release 24 Hour, 120 MG, TAKE 1 CAPSULE BY MOUTH EVERY DAY. Notes: stable, will continue current regiment 7. P rediabetes Notes: stable, no need for medication at this time 8. D epression screening Notes: negative screen * Procedure Codes: * * Sign off status: Completed true * Provider: Georgia Pavon MD Date: 0 03/31/2024 Generated for Maritza mathias/Prateek/Yanelyitting on: 02:02 PM EST History and Physical Notes * HPI (History of Present Illness) Category Sub-Category Detail Notes Category Not es Depression Screening PHQ-9 Little inte rest or pleasure in doing things: Not at all patient is a 78 yo female here for annual visit with review of recent labs and follow up of chronic issues, doing very well Feeling down, depressed, or hopeless: No t at all Trouble falling or staying asleep, or sl eeping too much: Not at all Feeling tired or having little energy: N ot at all Poor appetite or overeating: Not at all Feeling bad about yourself o r that you are a failure, or have let yourself or your family down: Not at all Trouble concentrating on thi ngs, such as reading the newspaper or watching television: Not at all Moving or speaking so slowly that other people could have noticed; or the opposite, being so fidgety or restless that you have been moving around a lot more than usual: Not at all Thoughts that you would be b contreras off or of hurting yourself in some way: Not at all Total Score: 0 SDOH Questions SDOH Questions In the past year have you been worried about losing housing?: No In the past year have you or any family members you live with been unable to get any of the following when it was really needed? Check all that apply:: None Fall Risk History Have you had any falls with injury i n the past year?: No Have you had two or more falls in the st year?: No Communication Needs Communication Needs Does the patient have a hearing impairment: No Does the patient have a vision impairmen t?: Yes If yes, what is the vision impairment?: Glasses Does the patient have a cognition impair ment?: No Examination Category Sub-Category Detail Notes Category Not es General Examination GENERAL APPEARANCE: well dev eloped, well nourished, in no acute distress HEAD: normocephalic, atrau matic EYES: pupils equal, round, reactive to light and accommodation, sclera non-icteric EARS: normal THROAT: clear NECK/THYROID: neck supple, full ra nge of motion, no cervical lymphadenopathy, no bruits HEART: regular rate and rhy thm, S1, S2 normal, no murmurs LUNGS: clear to auscultatio n bilaterally ABDOMEN: soft, nontender, non distended, bowel sounds present, normal, no organomegaly , no masses palpable NEUROLOGIC: nonfocal, motor stre ngth normal upper and lower extremities, sensory exam intact SKIN: warm and dry, no jerrod picious lesions EXTREMITIES: no clubbing, cyanosi s, or edema BREASTS: done by ob gyn RECTAL EXAM: done by ob gyn FEMALE GENITOURINARY: done by ob gyn ORAL CAVITY: mucosa moist Consultation Request Notes Referral Date Referring Provider Referred Provider Not es 03/31/2024 Darren Pavon Neal Stenosis of both internal carotid arteries
--- OUTSIDE RECORDS SUMMARY | 2024-04-01 08:32 | XMS_ITS ---
Author Organization Darren Pavon MD Address [address] [place] [phone] Care Team Providers Care Patch Press Operator Name Role Phone Arsenioadwoa Darren Primary Care Provider REASON FOR VISIT Tingling numbness on scalp to left side to behind her ear Encounters Encounter Location Date Provider Diagnosis Darren Pavon MD [address] [place] [phone] 04/01/2024 Darren Pavon Plan Of Treatment Next Appt Details Provider Name:Darren Bose ier, 04/06/2025 11:00:00 AM, [address], [address] [facility], [place], [place], [phone], Progress Notes * Liang BERNALeDOB:1945 ( 78 yo F)Acc No.[id number]:04/01/2024 Patient: Obi adelineCarla :1945 A ge:78 Y S ex:Female Address:[address] [place] [id number] * true * Date: Generated for Maritza mathias/Prateek/[place] on: 02:01 PM EST
--- OUTSIDE RECORDS SUMMARY | 2024-05-17 08:30 | XMS_ITS ---
Author Organization Darren Pavon MD Address [address] [place], [place] [phone] Care Team Providers Care Slag Mixer Name Role Phone Darren Pavon Primary Care Provider [phone] Allergies Allergen (clinical drug ingredient) Drug/Non Drug Allergy documented on EMR Reaction Allergy Type Onset Date Status amoxicillin / clavulanate augmentin (uncoded) yeast infection Allergy Active REASON FOR VISIT had the watchman put in. Has a cold.Has questions about medications, Video [phone] c/o nonproductive cough, had muscle pain all week, runny nose congestion x 1 week negative for Covid 6 days ago Medications Medication SIG (Take, Route, Frequency, Duration) Notes Start Date End Date Status Molnupiravir 200 MG 4 capsules Orally ev shan 12 hrs for 5 day(s) 10/16/2023 Not-Taking Vitamin D 25 MCG (1000 UT) 1 tablet Orally Once a day for 30 day(s) Not-Taking Benzonatate 100 MG 1 capsule as needed Orally Three times a day for 10 days 04/08/2022 Not-Taking Balsalazide Disodium 750 MG 1 capsules Orally three times a day Not-Taking Diclofenac Sodium 75 MG 1 tablet with fo od or milk Orally Twice a day Not-Taki ng Ferrous Sulfate 324 MG 1 tablet Orally T hree times a Week for 30 day(s) Not-Taking dilTIAZem HCl ER Coated Beads 120 MG TAKE 1 CAPSULE BY MOUTH EVERY DAY Active ProAir HFA 108 (90 Base) MCG/ACT 2 puffs as needed Inhalation every 6 hrs for 30 days 07/03/2017 Active Flecainide Acetate 50 MG Orally twice a day Active Lisinopril 10 MG 1 tablet Orally Once a day Active Plavix 75 MG 1 tablet Orally Once a day Active Aspirin 81 81 MG 1 tablet Orally Once a day for 30 day(s) Active Aspirin 325 MG 1 tablet Orally PRN for 30 day(s) Not-Taking Atorvastatin Calcium 20 MG 1 tablet Orally Once a day Active Vital Signs Height 66 in 05/17/2024 Weight 175 lbs 05/17/2024 BMI 28.24 kg/m2 05/17/2024 weight 175 BP not taken toda y no temp Encounters Encounter Location Date Provider Diagnosis Darren Pavon MD [address] [place] [address] [place] [phone] 05/17/2024 Darren Pavon Influenza A J10.1 and Gross hematuria R31.0 Assessments Encounter Date Diagnosis (ICD Code) Assessment Notes Treatment Notes Treatment Clinical Notes Section Notes 05/17/2024 Influenza A (ICD-10 - J10.1) too late to get treated for flu 05/17/2024 Gross hematuria (ICD-10 - R31.0) is related to plavix and asa, will continue to observe Plan Of Treatment Treatment Notes Assessment Notes Influenza A too late to get lidia munira for flu Gross hematuria is related to plavix and asa, will continue to observe Next Appt Details Provider Name:Darren Bose ier, 04/06/2025 11:00:00 AM, [address] [place] [address] Drive, [address], [place], [place], [phone], Progress Notes * Linda BERNALOB:1945 ( 78 yo F)Acc No.[id number]:05/17/2024 Patient: Obi DAKOTAHCarla Provider: Georgia Pavon MD :1945 A ge:78 Y S ex:Female Date:05/17/2024 Address:[address] [place], [place] [address] Subjective: * Chief Complaints: * h ad the watchman put in. Has a cold.Has questions about medicationsVideo [phone] c/o nonproductive cough, had muscle pain all week, runny nose congestion x 1 week negative for Covid 6 days ago * HPI: S ymptom(s): Telehealth L ocation of provider rendering services: [address], [address], L ocation of patient: a t address listed in demographics for today's visit, P atient identification confirmed using: SHAYLA Reyes ame, T elehealth method: V ideo conference where patient is visible to the provider of care, C onsent: P atient verbally consented to treatment, Patient verbally consented to billing insurance company, Patient informed of any privacy concerns related to method of visit, T otal time spend talking with patient (minutes) 1 6. patient is a 78 yo female video telehealth visit, had urinary bleeding again. tested negative for covid. feels like she has the flu. dry cough, everything was hurting for a few. doesn't want to go get tested. * ROS: G eneral/Constitutional: Denies C hills. D enies F atigue. D enies F ever. D enies H eadache. E NT: Patient denies d ecreased sense of smell, any loss of taste, sore throat. D enies S ore throat. R espiratory: Admits C ough. D enies S hortness of breath at rest. D enies S hortness of breath with exertion. D enies S putum production. D enies W heezing. G astrointestinal: Denies D iarrhea. D enies N ausea. M usculoskeletal: Patient denies m uscle aches. P eripheral Vascular: Patient denies r ed and blue toes. * Medical History: * Surgical History: * Hospitalization/Major Diagno stic Procedure: * Medications: T akingPlavix 75 MG Tablet 1 tablet Orally Once a day Atorvastatin Calcium 20 MG Tablet 1 tablet Orally Once a day Aspirin 81 81 MG Tablet Delayed Release 1 tablet Orally Once a day Flecainide Acetate 50 MG Tablet Orally twice a day ProAir HFA 108 (90 Base) MCG/ACT Aerosol Solution 2 puffs as needed Inhalation every 6 hrs Lisinopril 10 MG Tablet 1 tablet Orally Once a day dilTIAZem HCl ER Coated Beads 120 MG Capsule Extended Release 24 Hour TAKE 1 CAPSULE BY MOUTH EVERY DAY Taking Plavix 75 MG Tablet 1 tablet Orally Once a day Taking Atorvastatin Calcium 20 MG Tablet 1 tablet Orally Once a day Taking Aspirin 81 81 MG Tablet Delayed Release 1 tablet Orally Once a day Taking Flecainide Acetate 50 MG Tablet Orally twice a day Taking ProAir HFA 108 (90 Base) MCG/ACT Aerosol Solution 2 puffs as needed Inhalation every 6 hrs Taking Lisinopril 10 MG Tablet 1 tablet Orally Once a day Taking dilTIAZem HCl ER Coated Beads 120 MG Capsule Extended Release 24 Hour TAKE 1 CAPSULE BY MOUTH EVERY DAY Not-Taking/PRNFerrous Sulfate 324 MG Tablet Delayed Release 1 tablet Orally Three times a Week Vitamin D 25 MCG (1000 UT) Tablet 1 tablet Orally Once a day Molnupiravir 200 MG Capsule 4 capsules Orally every 12 hrs Balsalazide Disodium 750 MG Capsule 1 capsules Orally three times a day Benzonatate 100 MG Capsule 1 capsule as needed Orally Three times a day Diclofenac Sodium 75 MG Tablet Delayed Release 1 tablet with food or milk Orally Twice a day Aspirin 325 MG Tablet 1 tablet Orally PRN Medication List reviewed and reconciled with the patientNot-Taking/PRN Ferrous Sulfate 324 MG Tablet Delayed Release 1 tablet Orally Three times a Week Not-Taking/PRN Vitamin D 25 MCG (1000 UT) Tablet 1 tablet Orally Once a day Not-Taking/PRN Molnupiravir 200 MG Capsule 4 capsules Orally every 12 hrs Not-Taking/PRN Balsalazide Disodium 750 MG Capsule 1 capsules Orally three times a day Not-Taking/PRN Benzonatate 100 MG Capsule 1 capsule as needed Orally Three times a day Not-Taking/PRN Diclofenac Sodium 75 MG Tablet Delayed Release 1 tablet with food or milk Orally Twice a day Not-Taking/PRN Aspirin 325 MG Tablet 1 tablet Orally PRN Medication List reviewed and reconciled with the patient * Allergies: a ugmentin: yeast infectionyes[Allergies Verified] Objective: * Vitals: H t: 66, Wt: 175, BMI:28.24, Wt-k.38. weight 175 BP not taken today no temp. * Examination: G eneral Examination: GENERAL APPEARANCE: a lert, well hydrated, in no distress.? Assessment: * Assessment: 1. I nfluenza A - J10.1 (Primary) 2 . Georgia mcfadden hematuria - R31.0 ? Plan: * Treatment: 2. Georgia mcfadden hematuria Notes: is related to plavix and asa, will continue to observe * Procedure Codes: * * Sign off status: Completed true * Provider: Georgia Pavon MD Date: 0 05/17/2024 Generated for Maritza mathias/Prateek/Kenton on: 1 02:01 PM EST History and Physical Notes * HPI (History of Present Illness) Category Sub-Category Detail Notes Category Not es Symptom(s) Telehealth Location of [facility] rendering services:: [address], [address] patient is a 78 yo female video telehealth visit, had urinary bleeding again. tested negative for covid. feels like she has the flu. dry cough, everything was hurting for a few. doesn't want to go get tested. Location of patient:: at address listed in demographics for today's visit Patient identification confirmed using:: Name, Telehealth method:: Video co nference where patient is visible to the provider of care Consent:: Patient verbally c onsented to treatment, Patient verbally consented to billing insurance company, Patient informed of any privacy concerns related to method of visit Total time spend talking with patient (m inutes): 16 Examination Category Sub-Category Detail Notes Category Not es General Examination GENERAL APPEARANCE: alert, w ell hydrated, in no distress
--- OUTSIDE RECORDS SUMMARY | 2024-06-06 06:45 | XMS_ITS ---
Author Organization Darren Pavon MD Address [address] [place], [place] [phone] Care Team Providers Care Mutuel Machine Operator Name Role Phone Darren Pavon Primary Care Provider [phone] Allergies Allergen (clinical drug ingredient) Drug/Non Drug Allergy documented on EMR Reaction Allergy Type Onset Date Status amoxicillin / clavulanate augmentin (uncoded) yeast infection Allergy Active REASON FOR VISIT cough x 3 weeks chest congestion, Video [phone] Medications Medication SIG (Take, Route, Frequency, Duration) [...] W/U Status Risk Notes Problem Asthmatic bronchitis ([id number]) Asthmatic bronchitis (J45.909) Active confirmed Vital Signs Height 66 in 06/06/2024 Weight 177 lbs 06/06/2024 BMI 28.57 kg/m2 06/06/2024 weight at home is 177 BP not taken at home Encounters Encounter Location Date Provider Diagnosis Darren Pavon MD [address] [place] [phone] 06/06/2024 Darren Pavon Asthmatic bronchitis J45.909 Assessments [...] Name:Darren Bose ier, 04/06/2025 11:00:00 AM, [address] [facility], [address], [place], [place], [phone], Progress Notes * Liang BERNALeDOB:1945 ( 78 yo F)Acc No.[id number]:06/06/2024 Patient: Carla HERNNADEZ Provider: Georgia Pavon MD :1945 A ge:78 Y S ex:Female Date:06/06/2024 Address:[address] [place], [place] [phone] Subjective: * Chief Complaints: * C ough x 3 weeks chest congestionVideo [phone] * HPI: S ymptom(s): Telehealth L ocation of provider rendering services: [address] [facility], [address], ocation of patient: a [...] 06/06/2024 Generated for Maritza mathias/Prateek/Kenton on: 1 02:00 PM EST History and Physical Notes * HPI (History of Present Illness) Category Sub-Category Detail Notes Category Not es Symptom(s) Telehealth Location of [facility] rendering services:: [address], [address] patient is a [...]
--- OUTSIDE RECORDS SUMMARY | 2024-07-01 06:00 | XMS_ITS ---
Author Organization Darren Pavon MD Address [address] [place], [place] [phone] Care Team Providers Care Cigar Binder Name Role Phone Darren Pavon Primary Care Provider [phone] Allergies Allergen (clinical drug ingredient) Drug/Non Drug Allergy documented on EMR Reaction Allergy Type Onset Date Status amoxicillin / clavulanate augmentin (uncoded) yeast infection Allergy Active REASON FOR VISIT COUGH , CHEST CONGESTION, SWOLLEN GLANDS sore throat, SOB, x 2 days, USE CELL PHONE [phone] Medications Medication SIG (Take, Route, Frequency, Duration) Notes Start Date End Date Status Aspirin 325 MG 1 tablet Orally PRN [...] Once a day for 30 day(s) Not-Taking Ferrous Sulfate 324 MG 1 tablet [...] Once a day for 30 day(s) Active Atorvastatin Calcium 20 MG 1 tablet Orally Once a day Active Plavix 75 MG 1 tablet Orally Once a day Active Zithromax Z-Ok 250 MG 2 tablet on the f irst day, then 1 tablet daily for 4 days Orally Once a day for 5 day(s) 07/01/2024 Active Flecainide Acetate 50 MG Orally twice a day Active Vital Signs Height 66 in 07/01/2024 Weight 179 lbs 07/01/2024 BMI 28.89 kg/m2 07/01/2024 weight at home is 179 BP not taken at home no temp Encounters Encounter Location Date Provider Diagnosis Darren Pavon MD [address] [place] [address] Drive [address] [place], [place] [phone] 07/01/2024 Darren Pavon Short of breath on exertion R06.02 and Bronchitis J40 Assessments Encounter Date Diagnosis (ICD Code) Assessment Notes Treatment Notes Treatment Clinical Notes Section Notes 07/01/2024 Short of breath on exertion (ICD-10 - R06.02) pending diagnostic testing/THE ORDER HAS BEEN [place] [facility] [place] REG MISA IS AWARE 07/01/2024 Bronchitis (ICD-10 - J40) patient verbalized understanding of medication and directions for use Plan Of Treatment Medication Medication Name Sig Start Date Stop Date Notes Zithromax Z-Ok 250 MG 2 tablet on the irst day, then 1 tablet daily for 4 days Orally Once a day for 5 day(s) 07/01/2024 Treatment Notes Assessment Notes Short of breath on exertion pending diag nostic testing/THE ORDER HAS BEEN FAXED TO [facility] [place] PATIENT REG MISA IS AWARE Bronchitis patient verbalized u nderstanding of medication and directions for use Pending Test Test Name Order Date XR CHEST 2 VIEW PA & LAT 07/01/2024 Next Appt Details Provider Name:Darren Bose ier, 04/06/2025 11:00:00 AM, [address] [facility], [address], [place], [place], [id number], Progress Notes * Liang BERNALeDOB:1945 ( 78 yo F)Acc No.[id number]:07/01/2024 Patient: Misa HERNANDEZ Provider: Georgia Pavon MD :1945 A ge:78 Y S ex:Female Date:07/01/2024 Address:[address] [place], [place] [id number] Subjective: * Chief Complaints: * C OUGH , CHEST CONGESTION, SWOLLEN GLANDS sore throat, SOB, x 2 daysUSE CELL PHONE [phone] * HPI: S ymptom(s): Telehealth L ocation [...] time spend talking with patient (minutes) 1 7. patient is a 78 yo female having sore throat and today with difficulty breathing. 2 weeks ago had zpak. * ROS: G eneral/Constitutional: Denies C hills. D enies F atigue. D enies F ever. D enies H eadache. E NT: Denies S ore throat. R espiratory: Admits C ough. D enies S hortness of breath at rest. A dmits S hortness of breath with exertion. D enies S putum production. D enies W heezing. G astrointestinal: Denies D iarrhea. D enies N ausea. * Medical History: * Surgical History: * [...] Objective: * Vitals: H t: 66, Wt: 179, BMI:28.89, Wt-k.19. weight at home is 179 B P not taken at home no temp. Assessment: * Assessment: 1. S hort of breath on exertion - R06.02 (Primary) 2 . B richatis - J40? Plan: * Treatment: 2. B ronchitis Start Zithromax Z-Ok Tablet, 250 MG, 2 tablet on the first day, then 1 tablet daily for 4 days, Orally, Once a day, 5 day(s), 6, Refills 0. Notes: patient verbalized understanding of medication and directions for use * Procedure Codes: * * Sign off status: Completed true * Provider: Georgia Pavon MD Date: 0 07/01/2024 Generated for Maritza mathias/Prateek/Yanelyitting on: 1 02:01 PM EST History and Physical Notes * HPI (History of Present Illness) Category Sub-Category Detail Notes Category Not es Symptom(s) Telehealth Location of [facility] rendering services:: [address], [address] patient is a 78 yo female having sore throat and today with difficulty breathing. 2 weeks ago had zpak Location of patient:: at address listed in demographics for today's visit Patient identification confirmed using:: Name, Telehealth method:: Telephone only. Lindy ent not visible to care provider. Consent:: Patient verbally c onsented to treatment, Patient verbally consented to billing insurance company, Patient informed of any privacy concerns related to method of visit Total time spend talking with patient (m inutes): 17
--- OUTSIDE RECORDS SUMMARY | 2024-07-28 07:45 | XMS_ITS ---
Author Organization Darren Pavon MD Address [address] [place], [place] [id number] Care Team Providers Care Fourchette Sewer Name Role Phone Darren Pavon Primary Care [...] Date Provider Diagnosis Darren Pavon MD [address] [facility] [address] [place], [place] [id number] 07/28/2024 Darren Pavon Insect bite (nonvenomous) of [...] Name:Darren Bose ier, 04/06/2025 11:00:00 AM, [address], [address], [place], [place], [id number], Progress Notes * Liang BERNALeDOB:1945 ( 78 yo F)Acc No.[id number]:07/28/2024 Progress Notes Patient: Carla HERNANDEZ Provider: Georgia Pavon MD :1945 A ge:78 Y S ex:Female Date:07/28/2024 Address:[address] [place], [place] [phone] Subjective: * Chief Complaints: * L eft [...] 07/28/2024 Generated for Maritza mathias/Prateek/Kenton on: 1 02:01 [...]
--- OUTSIDE RECORDS SUMMARY | 2024-08-31 08:00 | XMS_ITS ---
Author Organization [facility] Address [address] [place] [address] Care Team Providers Care Electronic Video Games Servicer Name Role Phone Darren Pavon MD Primary Care Provider Danny Flores Unavailable [phone] Medications Medication SIG (Take, Route, Frequency, Duration) Notes Start Date End Date Status Albuterol Sulfate HFA 108 (90 Base) MCG/ACT Inhalation; Duration: 25 Days Unknown oxyBUTYnin Chloride 5 MG TAKE 1 TABLET B Y MOUTH EVERY 8 HOURS NEEDED FOR BLADDER DISCOMFORT Oral; Duration: 5 Days Unknown Eliquis 5 MG Oral; Duration: 30 Days Unknown Warfarin Sodium 5 MG Oral; Duration: 90 Days Unknown Alendronate Sodium 70 MG Oral; Duration: 84 Days Unknown Atorvastatin Calcium 20 MG Oral; Duration: 90 Days Unknown Flecainide Acetate 50 MG Oral; Duration: 90 Days Unknown Lisinopril 20 MG Oral; Duration: 90 Days Unknown dilTIAZem HCl ER Coated Beads 120 MG Oral; Duration: 90 Days Unkn own Clopidogrel Bisulfate 75 MG Oral; Duration: 90 Days Unknown Encounters Encounter Location Date Provider [facility] [address] [address] 08/31/2024 Danny Ly Plan Of Treatment No Information Progress Notes * Linda BERNALOB:1945 ( 79 yo F)Acc No.[id number]:08/31/2024 Progress Notes Patient: Obi DAKOTAHCarla Provider: Kartik Ly DPM :1945 A ge:78 Y S ex:Female Date:08/31/2024 Address:[address] [place], [place] [address] Pcp:Darren Pavon MD Subjective: * Chief Complaints: * * Medical History: * Medications: U nknown dilTIAZem HCl ER Coated Beads 120 MG Capsule Extended Release 24 Hour Oral , Unknown Clopidogrel Bisulfate 75 MG Tablet Oral , Unknown Lisinopril 20 MG Tablet Oral , Unknown Atorvastatin Calcium 20 MG Tablet Oral , Unknown Flecainide Acetate 50 MG Tablet Oral , Unknown Eliquis 5 MG Tablet Oral , Unknown Warfarin Sodium 5 MG Tablet Oral , Unknown Albuterol Sulfate HFA 108 (90 Base) MCG/ACT Aerosol Solution Inhalation , Unknown oxyBUTYnin Chloride 5 MG Tablet TAKE 1 TABLET BY MOUTH EVERY 8 HOURS NEEDED FOR BLADDER DISCOMFORT Oral , Unknown Alendronate Sodium 70 MG Tablet Oral Objective: * Vitals: Assessment: Plan: * Treatment: * Images: * The named appointment provid er may or may not be the originator of this progress note, and it is not deemed complete until electronically signed by the appointment provider. Sign off status: Pending * Provider: Kartik Ly DPM Date: 0 08/31/2024 Generated for Maritza mathias/Prateek/Kenton on: 02:00 PM EST
--- OUTSIDE RECORDS SUMMARY | 2024-10-18 10:00 | XMS_ITS ---
Author Organization Darren Pavon MD Address [address] [place] [phone] Care Team Providers Care Physiotherapy Practice Manager Name Role Phone Savanah Darren Primary Care Provider [phone] REASON FOR VISIT Chest CT Scan due . Encounters Encounter Location Date Provider Diagnosis Darren Pavon MD [address] [place] [address] [phone] 10/18/2024 Darren Pavon Plan Of Treatment Next Appt Details Provider Name:Darren Bose ier, 04/06/2025 11:00:00 AM, [address], Suite [facility], [place], [place], [phone], Progress Notes * Liang BERNALeDOB:1945 ( 78 yo F)Acc No.[id number]:10/18/2024 Patient: Carla HERNANDEZ :1945 A ge:78 Y S ex:Female Address:[address] [place] [phone] * true * Date: Generated for Maritza mathias/Prateek/Kenton on: 02:01 PM EST
--- OUTSIDE RECORDS SUMMARY | 2024-12-05 06:00 | XMS_ITS ---
Author Organization Darren Pavon MD Address [address] [place] [phone] Care Team Providers Care Public Address System Mechanic Name Role Phone Savanah Darren Primary Care Provider [phone] REASON FOR VISIT HDF Immunizations Vaccine Route Administration Date Status Comme nts Influenza High Dose IM Intramuscular 12/05/2024 Administer ed Encounters Encounter Location Date Provider Diagnosis Darren Pavon MD [address] [place] [phone] 12/05/2024 Darren Pavon Encounter for administration of vaccine Z23 Assessments Encounter Date Diagnosis (ICD Code) Assessment Notes Treatment Notes Treatment Clinical Notes Section Notes 12/05/2024 Encounter for administration of vaccine (ICD-10 - Z23) Plan Of Treatment Next Appt Details Provider Name:Darren hudson, 04/06/2025 11:00:00 AM, [address], Suite [facility], [place], [place], [phone], Progress Notes * Linda BERNALOB:1945 ( 79 yo F)Acc No.[id number]:12/05/2024 Progress Note Patient: Carla HERNANDEZ Provider: Georgia Pavon MD :1945 A ge:79 Y S ex:Female Date:12/05/2024 Address:[address] [place] [address] Subjective: * Chief Complaints: * 1 . HDF. * Medical History: Objective: * Vitals: Assessment: * Assessment: 1. E ncounter for administration of vaccine - Z23 (Primary) Plan: * Treatment: * Immunizations: Influenza High Dose : 0.5 mL (Dose No:1) (Route: Intramuscular) given by Kimberly Gregory , Office Staff on Left Deltoid * Procedure Codes: 9 0662 FLU VACC PRSV FREE INC ANTIG, G0008 ADMN FLU VAC NO FEE SCHED SAME DAY * * The named appointment provid er may or may not be the originator of this progress note, and it is not deemed complete until electronically signed by the appointment provider. Sign off status: Pending * Provider: Georgia Pavon MD Date: 0 12/05/2024 Generated for Maritza mathias/Prateek/Yanelyitting on: 02:01 PM EST
--- OUTSIDE RECORDS SUMMARY | 2025-01-16 08:45 | XMS_ITS ---
Author Organization Darren Pavon MD Address [address] [place], [place] [phone] Care Team Providers Care Power Machine Operator Name Role Phone Darren Pavon Primary Care Provider Allergies Allergen (clinical drug ingredient) Drug/Non Drug Allergy documented on EMR Reaction Allergy Type Onset Date Status amoxicillin / clavulanate augmentin (uncoded) yeast infection Allergy Active REASON FOR VISIT cataract Medications Medication SIG (Take, Route, Frequency, Duration) Notes Start Date End Date Status Escitalopram Oxalate 5 MG 1 tablet Orall y Once a day for 30 days 01/16/2025 Active Vitamin D3 25 MCG (1000 UT) 1 capsule Orally Once a day Active Molnupiravir 200 MG 4 capsules Orally ev shan 12 hrs for 5 day(s) 10/16/2023 Not-Taking Atorvastatin Calcium 20 MG 1 tablet Orally Once a day Active Balsalazide Disodium 750 MG 1 capsules Orally three times a day Not-Taking Ferrous Sulfate 324 MG 1 tablet Orally T hree times a Week for 30 day(s) Not-Taking Plavix 75 MG 1 tablet Orally Once a day Not-Taking Vitamin D 25 MCG (1000 UT) 1 tablet Orally Once a day for 30 day(s) Not-Taking Triamcinolone Acetonide 0.5 % 1 application Externally Twice a day for 10 days 07/28/2024 Active dilTIAZem HCl ER Coated Beads 120 MG TAKE 1 CAPSULE BY MOUTH EVERY DAY Active Lisinopril 10 MG 1 tablet Orally Once a day Active Aspirin 81 81 MG 1 tablet Orally Once a day for 30 day(s) Active ProAir HFA 108 (90 Base) MCG/ACT 2 puffs as needed Inhalation every 6 hrs for 30 days 07/03/2017 Active Flecainide Acetate 50 MG Orally twice a day Active Problems Problem Type SNOMED Code ICD Code Onset Dates Problem Status W/U Status Risk Notes Problem Dysthymia (91611205) Dysthymia (F34.1) Active confirmed Problem 13852436 Age-related cataract of both eyes, unspecified age-related cataract type (H25.9) Active confirmed Problem Contracture of palmar fascia (343613604) Dupuytren contracture (M72.0) Active confirmed Vital Signs Blood pressure systolic 124 mm Hg 01/17/20 25 Blood pressure diastolic 50 mm Hg 025 Height 66 in 01/16/2025 Weight 180 lbs 01/16/2025 BMI 29.05 kg/m2 01/16/2025 Encounters Encounter Location Date Provider Diagnosis Darren Pavon MD [address] [facility] [address] [place], [place] [phone] 01/16/2025 Darren Pavon Preop examination Z01.818 ; Dysthymia F34.1 ; Age-related cataract of both eyes, unspecified age-related cataract type H25.9 and Dupuytren contracture M72.0 Assessments Encounter Date Diagnosis (ICD Code) Assessment Notes Treatment Notes Treatment Clinical Notes Section Notes 01/16/2025 Preop examination (ICD-10 - Z01.818) patient healthy cleared for cataract surgery 01/16/2025 Dysthymia (ICD-10 - F34.1) patient verbalized understanding of medication and directions for use 01/16/2025 Age-related cataract of both eyes, unspecified age-related cataract type (ICD-10 - H25.9) scheduled for cataract surgery 01/16/2025 Dupuytren contracture (ICD-10 - M72.0) will send to hand surgeon when ready Plan Of Treatment Medication Medication Name Sig Start Date Stop Date Notes Escitalopram Oxalate 5 MG 1 tablet Orall y Once a day for 30 days 01/16/2025 Treatment Notes Assessment Notes Preop examination patient healthy lorie red for cataract surgery Dysthymia patient verbalized u nderstanding of medication and directions for use Age-related cataract of both eyes, unspecified age-related cataract type scheduled for cataract surgery Dupuytren contracture will send to hand surgeon when ready Pending Test Test Name Order Date Electrocardiogram (EKG) 01/16/2025 Next Appt Details Provider Name:Darren Bose ier, 04/06/2025 11:00:00 AM, [address] [place] [address], [address], [place], [place], [phone], Progress Notes * Liang BERNALeDOB:1945 ( 79 yo F)Acc No.[id number]:01/16/2025 Patient: Carla HERNANDEZ Provider: Georgia Pavon MD :1945 A ge:79 Y S ex:Female Date:01/16/2025 Address:[address] [place] [address] Subjective: * Chief Complaints: * C ataract * HPI: S ymptom(s): patient is a 79 yo female here for pre op clearance for upcoming cataract surgery. * ROS: G eneral/Constitutional: Denies C hills. D enies F atigue. D enies F ever. D enies H eadache. E NT: Denies S ore throat. R espiratory: Denies C ough. D enies S hortness of breath at rest. D enies S hortness of breath with exertion. C ardiovascular: Patient denies c hest pain with exertion, chest pain at rest. G astrointestinal: Patient denies a bdominal pain. D enies D iarrhea.?Denies N ausea. * Medical History: * Surgical History: * Hospitalization/Major Diagno stic Procedure: * Medications: T akingVitamin D3 25 MCG (1000 UT) Capsule 1 capsule Orally Once a day Atorvastatin Calcium 20 [...] TAKE 1 CAPSULE BY MOUTH EVERY DAY Triamcinolone Acetonide 0.5 % Cream 1 application Externally Twice a day Taking Vitamin D3 25 MCG (1000 UT) Capsule 1 capsule Orally Once a day Taking Atorvastatin Calcium [...] 1 CAPSULE BY MOUTH EVERY DAY Taking Triamcinolone Acetonide 0.5 % Cream 1 application Externally Twice a day Not-Taking/PRNPlavix 75 MG Tablet 1 tablet Orally Once a day Ferrous Sulfate 324 MG Tablet Delayed Release 1 tablet Orally Three times a Week Vitamin D 25 MCG (1000 UT) Tablet 1 tablet Orally Once a day Molnupiravir 200 MG Capsule 4 capsules Orally every 12 hrs Balsalazide Disodium 750 MG Capsule 1 capsules Orally three times a day Medication List reviewed and reconciled with the patientNot-Taking/PRN Plavix 75 MG Tablet 1 tablet Orally Once a day Not- Taking/PRN Ferrous Sulfate 324 MG Tablet Delayed Release 1 tablet Orally Three times a Week Not-Taking/PRN Vitamin D 25 MCG (1000 UT) Tablet 1 tablet Orally Once a day Not-Taking/PRN Molnupiravir 200 MG Capsule 4 capsules Orally every 12 hrs Not-Taking/PRN Balsalazide Disodium 750 MG Capsule 1 capsules Orally three times a day Medication List reviewed and reconciled with the patient * Allergies: a ugmentin: yeast infectionyes[Allergies Verified] Objective: * Vitals: H t: 66, Wt: 180, BMI:29.05, BP:124/50, Wt-k.65. * Examination: G eneral Examination: GENERAL APPEARANCE: a lert, well hydrated, in no distress.? HEAD: n ormocephalic. SKIN: g ood turgor. HEART: n o murmurs, rubs, gallops, regular rate and rhythm.? LUNGS: n o wheezes, rales, rhonchi, good air movement, clear to auscultation bilaterally. ABDOMEN: s oft, nontender, nondistended, no rebound tenderness, no organomegaly. EXTREMITIES: w ith dupytren on left hand. ? Assessment: * Assessment: 1. D ysthymia - F34.1 (Primary) 2 . P reop examination - Z01.818 3 . A ge-related cataract of both eyes, unspecified age-related cataract type - H25.9 4 . D upuytren contracture - M72.0 Plan: * Treatment: 2. P reop examination I maging: Electrocardiogram (EKG) Notes: patient healthy cleared for cataract surgery??3.?Age-related cataract of both eyes, unspecified age-related cataract type? Notes: scheduled for cataract surgery ??4.?Dupuytren contracture? Notes: will send to hand surgeon when ready?? * Procedure Codes: 9 3000 -ELECTROCARDIOGRAM, COMPLETE * * Sign off status: Completed true * Provider: Georgia Pavon MD Date: Generated for Maritza mathias/Prateek/Yanelyitting on: 02:01 PM EST History and Physical Notes * HPI (History of Present Illness) Category Sub-Category Detail Notes Category Not es Symptom(s) patient is a 79 yo female here for pre op clearance for upcoming cataract surgery Examination Category Sub-Category Detail Notes Category Not es General Examination GENERAL APPEARANCE: alert, w ell hydrated, in no distress HEAD: normocephalic HEART: no murmurs, rubs, ga llops, regular rate and rhythm LUNGS: no wheezes, rales, r honchi, good air movement, clear to auscultation bilaterally ABDOMEN: soft, nontender, non distended, no rebound tenderness, no organomegaly SKIN: good turgor EXTREMITIES: with dupytren on lef t hand
--- OUTSIDE RECORDS SUMMARY | 2025-03-28 02:15 | XMS_ITS ---
Author Organization Darren Pavon MD Address [address] [place], [place] [id number] Care Team Providers Care Tire Recapper Name Role Phone Darren Pavon Primary Care Provider [phone] Results Component Value Reference Range Notes Complete Blood Count Auto Di ff Reviewed date:03/28/2025 05:31:35 PM Interpretation: Performing Lab:[facility], [address] [place] [phone] Notes/Report: White Blood Count 3.7 4.8-10.8 X10*3/uL [...] NRBC Abs Auto 0.000 0.0-0.012 X10*3/uL Comprehensive [place]. Panel Fa st Reviewed date:03/28/2025 05:29:45 PM Interpretation: Performing Lab:[facility], [address] [place] [phone] Notes/Report: Sodium 141 135-145 mmol/L Potassium 5.0 [...] 3.5-5.0 g/dL Alkaline Phosphatase 86 39-117 U/L Lipid Panel Reviewed date:03/28/2025 12:53:43 PM Interpretation: Performing Lab:[address] [phone] Notes/Report: Triglycerides 123 <150 mg/dL Desirable Triglyceride: [...] patients with liver disease. Microalbumin, Random Reviewed date:03/28/2025 05:20:32 PM Interpretation: Performing Lab:[facility], [address] [place] [phone] Notes/Report: Creatinine Urine 103.50 Microalbumin Urine 16.0 Microalbum/Creatinine Ratio Ur 15.4 <30 ug/mg cr Albumin/Creatinine Ratio Reference Ranges: Normal: < 30 ug/mg creatinine Microalbuminuria: 30 - 300 ug/mg creatinine Clinical Albuminuria: > 300 ug/mg creatinine Hemoglobin A1c Reviewed date:03/28/2025 12:53:00 PM Interpretation: Performing Lab:[facility], [address] [place] [phone] Notes/Report: Hemoglobin A1c % 5.5 <6.0 % [...] average glucose, using the formula of the H9O-Sbhnbll Average Glucose study (ADAG), Diabetes Care, Vol.31,#8, 2007 UA ClnCatch+Micro w/rflx Cul t Reviewed date:03/28/2025 05:18:52 PM Interpretation: Performing Lab:[facility], [address] [place] [phone] Notes/Report: Urine, Clean Catch Color Urine Yellow Appearance Urine Clear PH 5.5 5.0-9.0 Glucose Urine UA Negative Negative mg/dL Urine Blood Negative Negative Specific [place] - Urine 1.015 1.005-1.025 Urine Protein Negative Neg-Trace mg/dL Urine Ketones Negative Negative mg/dL Nitrite Urine Negative Negative Leukocyte Esterase Urine Negative Negative RBC Urine 0-2 0-2 /HPF WBC Urine 0-5 0-5 /HPF Squamous Epithelial Cell Urine 0-2 0-2 /HPF Bacteria Urine None Seen None Seen Hyaline Casts Urine 0-2 0-2 /LPF REASON FOR VISIT yearly fasting labs Encounters Encounter Location Date Provider Diagnosis Darren Pavon MD [address] [place] [address] [place] [phone] 03/28/2025 Darren Pavon Blood tests for rout ine [...] type (ICD-10 - D70.9) Plan Of Treatment Next Appt Details Provider Name:Darren hudson, 04/06/2025 11:00:00 AM, [address] [place] [address], Suite [facility], [place], [place], [phone], Progress Notes * Linda BERNALOB:1945 ( 79 yo F)Acc No.[id number]:03/28/2025 Progress Note Patient: Carla HERNANDEZ Provider: Georgia Pavon MD :1945 A ge:79 Y S ex:Female Date:03/28/2025 Address:[address] [place], [place] [phone] Subjective: * Chief Complaints: * 1 . [...] - 03/28/2025 07:15 AM) L AB: Comprehensive [place]. Panel Fast (Collection Date & Time - [...] - 03/28/2025 07:15 AM) L AB: Comprehensive [place]. Panel Fast (Collection Date & Time - [...] - 03/28/2025 07:15 AM) L AB: Comprehensive [place]. Panel Fast (Collection Date & Time - [...] - 03/28/2025 07:15 AM) L AB: Comprehensive [place]. Panel Fast (Collection Date & Time - [...] Georgia Pavon MD Date: Generated for Maritza mathias/Prateek/[place] on: 02:02 PM EST
[2025-03-29 12:31] VITALS: BP 130/68; PULSE 75; BMI 30.3
--- NOTE | 2025-03-29 12:31 | MHC.OFFVIS ---
Vital Signs 03/29/25 12:31 Height 5 ft 4 in Weight 176 lb 5.917 oz BMI 30.3 BP 130/68 Blood Pressure Location Lt brachial Position Sitting Pulse 75 Pulse Source Monitor Intake Visit Reasons: 6 mth f/up Allergies amoxicillin (From AUGMENTIN) Allergy (Intermediate, Verified 02/04/24 14:28) Rash clavulanic acid (From AUGMENTIN) Allergy (Intermediate, Verified 02/04/24 14:28) Rash Medication List - Last Reconciled 03/29/25 by Lion Dahl MD albuterol sulfate 90 mcg/actuation 2 puffs inhalation Q6H PRN aspirin (Adult Low Dose Aspirin) 81 mg PO DAILY atorvastatin (Lipitor) 20 mg PO QPM diltiazem HCl CD 120 mg PO BEDTIME flecainide 50 mg PO Q12H [Golo Release Supplement 1 cap PO BID PRN] lisinopril 20 mg PO DAILY HPI Comments Details: Carla returns for follow up regarding atrial flutter. In the past, routine EKG at PCP's office had revealed atrial flutter. Subsequently she underwent cardioversion. Initially she was on Xarelto, but due to cost, this was switched to Coumadin. She was doing okay but had severe anemia from hematuria and hemoglobin was as low as 5.8. Then she was seen by EP and underwent Watchman device. Overall, she is doing quite good. No new concerns. Denies any cardiac symptoms. 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 Mother No problems noted. Social History Household Members: Spouse and Family Housing: House Are you a primary career based intervention coordinator to a significant other at home: No Do you presently have visiting nurse or other home services: No Alcohol intake: current Alcohol intake frequency: a few times a week Comment: patient refuses bed alarm Patient Tobacco Use Status: Former Tobacco user Tobacco use type: Cigarette Years Smoked: 25 e-Cigarette/Vaping Use: Never Used Second Hand Smoke Exposure: Yes service: No Current occupational status: retired Review of Systems Const Denies weakness ENT Denies dizziness Card Denies chest pain, Denies chest pain with activity, Denies syncope, Denies rapid heart rate, Denies pedal edema, Denies edema, Denies leg edema, Denies lightheadedness, Denies palpitations, Denies dyspnea, Denies dyspnea on exertion and Denies orthopnea Resp Denies cough, Denies dyspnea and Denies dyspnea on exertion GI Denies hematochezia and Denies change in stool character Musc Denies abnormal gait, Denies muscle cramps, Denies muscle weakness, Denies numbness, Denies radiating pain into limb and Denies tingling Neuro Denies abnormal gait, Denies dizziness, Denies syncope, Denies numbness, Denies tingling and Denies weakness Endo Denies palpitations Physical Exam Vital Signs: Last Vital Signs Pulse 75 03/29/25 12:31 BP 130/68 03/29/25 12:31 BMI result Body Mass Index 30.3 Const General: comfortable and no acute distress Orientation/consciousness: patient oriented x3 HEENT Other: Unremarkable Head: Yes normal to inspection Neck Neck: Yes normal visual inspection Chest Chest palpation & inspection: normal inspection of the chest Resp Auscultation: clear to auscultation bilaterally Cardio Palpation: normal PMI Heart sounds: S1 normal heart sound present, S2 normal heart sound present, no gallops, no murmurs and no rubs GI Palpation (GI): Soft to palpation Back/Spine/Pelvis Other: unremarkable Skin General skin exam: no rashes or lesions noted Neuro General: patient oriented x3 Extrem General: Yes normal to inspection Psych Mental Status: mental status grossly normal Office Procedures EKG Details: EKG with underlying sinus rhythm at 75/Min; prolonged NC interval to 254 milliseconds; no ischemic changes; [place]. [address]-Ojjzoypryukubtgcm, Complete Assessment & Plan Assessment & Plan (1) Paroxysmal atrial flutter: Code(s): I48.92 - Unspecified atrial flutter Category: Medical (2) AV block, 1st degree: Code(s): I44.0 - Atrioventricular block, first degree Category: Medical (3) Encounter for monitoring anti-arrhythmic therapy: Code(s): Z51.81 - Encounter for therapeutic drug level monitoring; Z79.899 - Other longterm (current) drug therapy Category: Medical (4) Essential hypertension: Code(s): I10 - Essential (primary) hypertension Category: Medical (5) Presence of Watchman left atrial appendage closure device: Code(s): Z95.818 - Presence of other cardiac implants and grafts Category: Medical Plan She is stable on diltiazem/flecainide and we can continue this. Mild NC prolongation on the EKG which can be followed periodically. Status post Watchman device and she continue aspirin for that. Off Eliquis. Due to severe anemia/hematuria, she is now status post Watchman device. She remains on aspirin. Of Eliquis. Blood pressure is stable on lisinopril. Borderline high potassium at 5. Creatinine 0.92. She is requesting refills for statins and we will address that. Last LDL 126 mg/dL. Echocardiogram 2021-LVEF 65-70%. Mild diastolic dysfunction but otherwise unremarkable. Normal atrial size. Atrial septal aneurysm. Myocardial perfusion imaging [id number] perfusion. Follow up in 6 months time. Discussion Notes: I reviewed the patient's status, confirming she is doing well from a cardiac standpoint since her Watchman procedure over a year ago. We discussed her cholesterol medication, and I noted she had been unable to get her prescription refilled since December. I informed her that a refill for her statin would be sent to the pharmacy. A follow-up visit was recommended for the summer. Patient was informed and verbally consented to the use of an ambient scribe for clinic note documentation during this visit. Coding Level of Care Code Est Pt Level 4 (91487) Add On Problem Visit Only Diagnoses Paroxysmal atrial flutter I48.92 AV block, 1st degree I44.0 Encounter for monitoring anti-arrhythmic therapy Z51.81; Z79.899 Essential hypertension I10 Presence of Watchman left atrial appendage closure device Z95.818 CPT Codes EKG - CPT: 49640-Pbvqsrnvmbbyyjgki, Complete ([id number])
--- OUTSIDE RECORDS SUMMARY | 2025-03-29 14:01 | XMS_ITS | Patient Health Record ---
Author Organization Darren Pavon MD Address [address] [place] [phone] Care Team Providers Care Cork Mixer Name Role Phone Darren Pavon Primary Care Provider [phone] Allergies Allergen (clinical drug ingredient) Drug/Non Drug Allergy documented on EMR Reaction Allergy Type Onset Date Status amoxicillin / clavulanate augmentin (uncoded) yeast infection Allergy Active Results Component Value Reference Range Notes Complete Blood Count Auto Di ff Reviewed date:03/28/2025 05:31:35 PM Interpretation: Performing Lab:[facility], [address] [place] [phone] Notes/Report: White Blood Count 3.7 4.8-10.8 X10*3/uL [...] NRBC Abs Auto 0.000 0.0-0.012 X10*3/uL Comprehensive [place]. Panel Fa st Reviewed date:03/28/2025 05:29:45 PM Interpretation: Performing Lab:[facility], [address] [place] [phone] Notes/Report: Sodium 141 135-145 mmol/L Potassium 5.0 [...] Panel Reviewed date:03/28/2025 12:53:43 PM Interpretation: Performing Lab:[facility], [address] [place] [phone] Notes/Report: Triglycerides 123 <150 mg/dL Desirable Triglyceride: [...] Random Reviewed date:03/28/2025 05:20:32 PM Interpretation: Performing Lab:[facility], [address] [place] [phone] Notes/Report: Creatinine Urine 103.50 Microalbumin Urine 16.0 Microalbum/Creatinine Ratio Ur 15.4 <30 ug/mg cr Albumin/Creatinine Ratio Reference Ranges: Normal: < 30 ug/mg creatinine Microalbuminuria: 30 - 300 ug/mg creatinine Clinical Albuminuria: > 300 ug/mg creatinine Hemoglobin A1c Reviewed date:03/28/2025 12:53:00 PM Interpretation: Performing Lab:[address] [address] Notes/Report: Hemoglobin A1c % 5.5 <6.0 % [...] average glucose, using the formula of the N7K-Vozsufh Average Glucose study (ADAG), Diabetes Care, Vol.31,#8, Oct. 2007 UA ClnCatch+Micro w/rflx Cul t Reviewed date:03/28/2025 05:18:52 PM Interpretation: Performing Lab:[facility], [address] [place] [phone] Notes/Report: Urine, Clean Catch Color Urine Yellow Appearance Urine Clear PH 5.5 5.0-9.0 Glucose Urine UA Negative Negative mg/dL Urine Blood Negative Negative Specific [place] - Urine 1.015 1.005-1.025 Urine Protein Negative Neg-Trace mg/dL Urine Ketones Negative Negative mg/dL Nitrite Urine Negative Negative Leukocyte Esterase Urine Negative Negative RBC Urine 0-2 0-2 /HPF WBC Urine 0-5 0-5 /HPF Squamous Epithelial Cell Urine 0-2 0-2 /HPF Bacteria Urine None Seen None Seen Hyaline Casts Urine 0-2 0-2 /LPF XR chest 2V Reviewed date:07/01/2024 02:36:38 PM Interpretation: Performing Lab: Notes/Report: [address] [address] XRay Report Signed Patient: Misa Bernal MR#: [id number] 4 : 1945 Acct:[id number] Age/Sex: 78 / F ADM Date: 07/01/24 Loc: HOJANNET Attending Dr: Darren Pavon MD Ordering Physician: Darren Pavon MD Date of Service: 07/01/24 Procedure(s): XR chest 2V Accession Number(s): [id number] cc: Darren Pavon MD EXAMINATION: XR CHEST [...] OV> 07/01/24 1407 DD/ 1333 TD/TT: 07/01/241335 Lock Assembler: [address] [address] XRay Report Signed Patient: Misa Bernal MR#: [id number] [birth year] : 1945 Acct:[id number] Age/Sex: 78 / F ADM Date: 07/01/24 Loc: HO.XRAY Attending Dr: Darren Pavon MD Ordering Physician: Darren Pavon MD Date of Service: 07/01/24 Procedure(s): XR cholo st 2V Accession Number(s): [id number] cc: Darren Pavon MD EXAMINATION: XR CHEST [...] OV> 07/01/24 140 DD/ 133 TD/TT: 07/01/241335 Lock Assembler: Basic Metabolic Panel Reviewed date:10/06/2024 05:09:19 PM Interpretation: Performing Lab:[facility], [address] [place] [phone] Notes/Report: Sodium 141 135-145 mmol/L Potassium 3.8 [...] date:11/03/2024 03:07:37 PM Interpretation: Performing Lab: Notes/Report: [address] [address] [address] Scan Report Signed Patient: Misa Bernal MR#: [id number] 4 : 1945 Acct:[id number] Age/Sex: 78 / F ADM Date: 11/03/24 Loc: HO.CT Attending Dr: Darren Pavon MD Ordering Physician: Darren Pavon MD Date of Service: 11/03/24 Procedure(s): CT chest wo IV con Accession Number(s): [id number] cc: Darren Pavon MD Report Number: [id number]: Total DLP = 183.00 mGy-cm EXAMINATION: CT [...] reconstruction technique DLP: 183 mGy centimeter. FINDINGS: PARTS COUNTER ASSOCIATE: S-shaped curvature, thoracolumbar spine. Patient's large body [...] 11/03/24 1107 DD/ 1017 TD/TT: 11/03/24 1050 Lock Assembler: [address] [address] [address] Scan Report Signed Patient: Misa Bernal MR#: [id number] 4 : 1945 Acct:[id number] Age/Sex: 78 / F ADM Date: 11/03/24 Loc: HO.CT Attending Dr: Darren Pavon MD Ordering Physician: Darren Pavon MD Date of Service: 11/03/24 Procedure(s): CT cholo st wo IV con Accession Number(s): [id number] cc: Darren Pavon MD Report Number: [id number]: Total DLP = 183.00 mGy-cm EXAMINATION: CT [...] reconstruction technique DLP: 183 mGy centimeter. FINDINGS: PARTS COUNTER ASSOCIATE: S-shaped curvature, thoracolumbar spine. Patient's large body [...] 11/03/24 1107 DD/ 1017 TD/TT: 11/03/24 1050 Lock Assembler: Zoë Branham Reviewed date:03/28/2025 12:45:32 PM Interpretation: Performing Lab:[facility], [address] [place] [phone] Notes/Report: Zoë Branham See Note Specimen held [...] request faxed to [facility] with note, Radha Redman 04/07/2024 02:07:38 [...] Problem Status W/U Status Risk Notes Problem 96279684 PVC (premature ventricular contraction) (I49.3) Active confirmed Problem Asthmatic bronchitis (328150227) Asthmatic bronchitis (J45.909) Active confirmed Problem Contracture of palmar fascia (614937157) Dupuytren contracture (M72.0) Active confirmed Problem 318049934 Malignant neopla sm of exocervix (C53.1) Active confirmed Problem 436309746 Typical atrial f lutter (I48.3) Active confirmed Problem 36768518 Acute recurrent maxillary sinusitis (J01.01) Active confirmed Problem 503247816 Other idiopathic scoliosis, 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) Active confirmed Problem 24945006 Urinary tract infection, site not specified (N39.0) Active confirmed Problem Disorder of lumbar disc (388381698) Lumbar disc disease (M51.9) Active confirmed Problem 0744842 Prediabetes (R73.09) Active confirmed Problem 849379917 Labile hypertens ion (I10) Active confirmed Problem 363575545 Asthmatic bronch itis, mild intermittent, uncomplicated (J45.20) Active confirmed Problem 524891016 Irregular heart beat (I49.9) Active confirmed Problem 318864669 Chronic a-fib (I48.2) Active confirme d Problem Dysthymia (17879174) Dysthymia (F34.1) Active confirmed Problem 391813591 Neutropenia, unspecified type (D70.9) Active confirmed Problem 981582215 Pure hypercholesterolemia (E78.00) Active confirmed Problem 293481382 Osteopenia of mu ltiple sites (M85.89) Active confirmed Problem 55344162 Venous stasis dermatitis of both lower extremities (I87.2) Active confirmed Problem 33134413 Labyrinthitis of both ears (H83.03) Active confirmed Problem 657049856 Malignant neopla sm of cervix, unspecified site (C53.9) Active confirmed Problem 298361604 Body mass index (BMI) of 30.0-30.9 in adult (Z68.30) Active confirmed Problem 333313167 Lung nodule < 6c m on CT (R91.1) Active confirmed Problem Osteonecrosis (466424796) Osteonecrosis (M87.9) Active confirmed Problem 340346261 Nonrheumatic amanuel ral valve regurgitation (I34.0) Active confirmed Problem 654430995 Chronic atrial fibrillation (I48.20) Active confirmed Problem 02797813 Radiation coliti s (K52.0) Active confirmed Problem 58088062 Age-related cliff ract of both eyes, unspecified age-related cataract type (H25.9) Active confirmed Vital Signs Blood pressure diastolic 50 mm Hg 01/16/2025 Height 66 in 01/16/2025 Blood pressure systolic 124 mm Hg 01/16/2025 Weight 180 lbs 01/16/2025 BMI 29.05 kg/m2 01/16/2025 Encounters Encounter Location Date Provider Diagnosis Darren Pavon MD [address] [place] [address] [address] [place] [id number] 12/05/2024 Darren Pavon Encounter for administration of vaccine Z23 Darren Pavon MD [address] [place] [address] [address] [id number] 03/28/2025 Darren Pavon Blood tests for rout ine general physical examination Z00.00 ; Prediabetes R73.09 ; Pure hypercholesterolemia E78.00 ; Labile hypertension I10 and Neutropenia, unspecified type D70.9 Darren Pavon MD [address] [place] [address] [address] [id number] 03/31/2024 Darren Pavon Presence of Watchman left atrial appendage closure device Z95.818 ; Annual physical exam Z00.00 ; Stenosis of both internal carotid arteries I65.23 ; Chronic atrial fibrillation I48.20 ; Pure hypercholesterolemia E78.00 ; Labile hypertension I10 ; Prediabetes R73.09 and Depression screening Z13.31 Darren Pavon MD [address] [place] [address] [address] [place] [id number] 05/17/2024 Darren Pavon Influenza A J10.1 an d Gross hematuria R31.0 Darren Pavon MD [address] [place] [address] [address] [place] [id number] 06/06/2024 Darren Pavon Asthmatic bronchitis J45.909 Darren Pavon MD [address] [place] [address] [address] [place] [id number] 07/01/2024 Darren Pavon Short of breath on exertion R06.02 and Bronchitis J40 Darren Pavon MD [address] [place] [id number] 07/28/2024 Darren Pavon Insect bite (nonveno mous) of left elbow, initial encounter S50.362A and Cellulitis L03.90 Darren Pavon MD [address] [place] [id number] 01/16/2025 Darren Pavon Preop examination Z0 1.818 ; Dysthymia F34.1 ; Age-related cataract of both eyes, unspecified age-related cataract type H25.9 and Dupuytren contracture M72.0 Darren Pavon MD [address] [place] [id number] 04/01/2024 Darren Pavon MD [address] [place] [id number] 10/18/2024 Darren Pavon Assessments Encounter Date Diagnosis [...] diagnostic testing/THE ORDER HAS BEEN FAXED TO [facility] PATIENT MISA TRIVEDI IS AWARE 07/01/2024 Bronchitis [...] carotid arteries (ICD-10 - I65.23) referral to [facility] vascular surgery 01/16/2025 Age-related cataract of both [...] CHEST 2 VIEW PA & LAT 11/14/2011 BONE DENSITY DEXA 10/22/2018 ECHO 01/31/2022 CT chest wo con 12/11/2023 CT chest wo con 11/16/2020 CT chest wo con 11/21/2021 CT chest wo con 11/24/2022 Future Test Test Name Order Date CT CHEST NO CONTRAST 11/05/2020 MRI HIP RT W&WO CONTRAST 09/10/2021 Next Appt Details Provider Name:Darren Bose ier, 04/06/2025 11:00:00 AM, [address], [address], [place], [place], [id number], Insurance Providers Payer Name Payer Address Payer Phone Subscriber Number Group Number Insured Name Patient Relationship to Insured Coverage Start Date Coverage End Date [employer] [facility] [address] [place] [address] [id number] Misa Bernal Self - patient is the insured MEDICARE [facility] [address] [place] [address] [id number] Misa Bernal Self - patient is the insured Medical (General) History Medical History History ICD Code 3 mm lung nodule. low risk. no further w /u indicated. sees cake froster yearly still refusing colonoscopy ; Colonoscopy done 06/11/15 w/Dr. Box - negative/no further testing needed. Colonoscopy done 08/13/2105/13, D&C by Dr. 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 Pérez 09/28 018
--- OUTSIDE RECORDS SUMMARY | 2025-03-29 14:02 | XMS_ITS | Clinical Summary ---
Author Organization [facility], Address [address] [place] [address] Phone Care Team Providers Care Property Disposal Manager Name Role Phone Darren Pavon MD Primary Care Provider [phone] Allergies Active Allergy Reactions Criticality Noted Date [...] to complete this topic Insurance Care Teams Property Disposal Manager Relationship Specialty Start Date End Date Darren Pavon MD [address] [place] [address] [address] [place], [place] PCP - General Internal Medicine 04/25/20
--- OUTSIDE RECORDS SUMMARY | 2025-03-29 14:02 | XMS_ITS | Clinical Summary ---
Author Organization [facility] Address [address] [place] [address] Phone Care Team Providers Care Pulp Bleacher Name Role Phone Anton Pavon MD Primary Care Provider [phone] Surgical History Surgery Date Site/Laterality Comments STEREOTACTIC [...] Procedure Name Priority Date/Time Associated Diagnosis Comments [facility] DEXA AXIAL SKELETON Routine 04/21/2023 11:55 AM EST Encounter for screening for osteoporosis from Last 3 Months or Most Recently Relevant to Health Maintenance Results * [facility] DEXA AXIAL SKELETON (04/21/2023 11:55 AM EST) Anatomical Region Laterality Modality Mammography 04/21/2023 9:59 AM EST Narrative 04/21/2023 11:55 AM EST [facility] Diagnostic Imaging Department [address] [place] [address] [phone] Patient: MISA BERNAL /Age/Sex: 1945 - 77 - F Unit#: [id number] Location/Status: SPDIMAM/REG CLI Mnemonic/[facility]ing [facility] Ordering Physician: DELFIN JOHNSON MD Jessica Dexa [...] probability of hip fracture of 18.1%. Code 51276 Dictating Physician: SYMONE DO MD Electronically Signed by: SYMONE DO MD Dic Date/Time: 04/21/23 1154 Sign date/Time: 04/21/23 1155 Procedure Note Symone Do MD - 11/16/2023 [facility] Diagnostic Imaging Department [address] [place] [address] Patient: MISA BERNAL Kartik Machado./Age/Sex: 1945 - 77 - F Unit#: [id number] Location/Status: [facility] Mnemonic/Ordering Site[facility] Ordering Physician: DELFIN JOHNSON MD Jessica Dexa Axial Skeleton - 04/21/23 - 6188 Report Status:Signed HISTORY: The patient is a [...] density of the femurs bilaterally is 0.885 gm/ma6wlblo is 88% of that of young normals [...] probability of hip fracture of 18.1%. Code 03259 Dictating Physician: SYMONE DO MD Electronically Signed by: SYMONE DO MD Dic Date/Time: 04/21/23 1154 Sign date/Time: 04/21/23 1155 Delfin Johnson MD IMG BI PROCEDURES Final Result from Last 3 Months or Most Recently Relevant to Health Maintenance Insurance [employer] Care Teams Pulp Bleacher Relationship Specialty Start Date End Date Anton Pavon MD [address] PCP - General Internal Medicine 04/20/24
--- OUTSIDE RECORDS SUMMARY | 2025-03-29 14:02 | XMS_ITS | Patient Health Record ---
Author Organization [facility] Address [address] [place] [address] Care Team Providers Care Printing Roller Handler Name Role Phone Darren Pavon MD Primary Care Provider Danny Flores Unavailable [phone] Reason For Referral No Information Medications Medication [...] Unknown Encounters Encounter Location Date Provider Diagnosis [facility] [address] [place] [address] [facility] [address] [address] 07/11/2024 Danny Ly Plan Of Treatment No Information Insurance Providers Payer Name Payer Address Payer Phone Subscriber Number Group Number Insured Name Patient Relationship to Insured Coverage Start Date Coverage End Date Medicare National Govt Svcs Inc [address] [place] [address] [id number] Carla Bernal Self - patient is the insured [facility] [address] [place] [address] [phone] [id number] Carla Bernal Self - patient is the insured
--- OUTSIDE RECORDS SUMMARY | 2025-03-29 14:02 | XMS_ITS | Patient Health Record ---
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 Section Notes: [...] W/U Status Risk Notes Problem Rectal bleeding (94959497) Rectal bleeding (K62.5) Active confirmed Problem Screening for malignant neoplasm of colon (061144435) Encounter for screening for malignant neoplasm of colon (Z12.11) Active confirmed Problem 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) Active confirmed Problem Screening for malignant neoplasm of rectum (890948167) Encounter for screening for malignant neoplasm of rectum (Z12.12) Active confirmed Problem Preprocedural examination (249287934859487) Preprocedural examination (Z01.818) Active confirmed Problem Diverticulosis of colon (506550857) Diverticulosis of colon (K57.30) Active confirmed Plan Of Treatment Pending Test Test Name Order Date CBC w DIFF 12/19/2021 Future Test Test Name Order Date COLONOSCOPY 04/03/2015 COLONOSCOPY 07/26/2021 Insurance Providers Payer Name Payer Address Payer Phone Subscriber Number Group Number Insured Name Patient Relationship to Insured Coverage Start Date Coverage End Date [facility] [address] [place] [phone] [id number] MISA VARGAS Self - patient is the insured Medical (General) History Medical History History ICD Code Denies ME,DM,CVA,Lung disease,renal dise ase HTN Neg. U/S of abdomen and UGI in 2009 Atrial fibrillation-Dr. 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 She was started on oral mesalamine in 11/2021 to see if that would give her relief. Surgical History Surgery Date(Month/Year) [facility]
== END 2025-03-29 12:53 | disposition home or self-care (01) ==
LOC: HO.HCS 12:13
PROVIDERS: PCP Internal Medicine; Visit Provider Internal Medicine
DX: I48.92 Unspecified atrial flutter (principal); I44.0 Atrioventricular block, first degree; Z51.81 Encounter for therapeutic drug level monitoring; Z79.899 Other long term (current) drug therapy; I10 Essential (primary) hypertension; Z95.818 Presence of other cardiac implants and grafts
CPT/HCPCS: 93010; 99214; G2211

== ENCOUNTER → 2025-03-29 12:13 | Outpatient (BNVA) | payer MEDICARE, SELFPAY | PROVIDERS: PCP Internal Medicine; Visit Provider Internal Medicine | DX: I48.92 Unspecified atrial flutter (principal); I44.0 Atrioventricular block, first degree; Z51.81 Encounter for therapeutic drug level monitoring; I10 Essential (primary) hypertension; D64.9 Anemia, unspecified; R31.9 Hematuria, unspecified; Z95.818 Presence of other cardiac implants and grafts; Z79.82 Long term (current) use of aspirin; Z79.01 Long term (current) use of anticoagulants; Z79.899 Other long term (current) drug therapy; Z87.891 Personal history of nicotine dependence | CPT/HCPCS: 93005; 99212 ==